=== PATIENT | female | born 1980 | race Caucasian/White ===

== ENCOUNTER 2016-04-27 10:31 | Emergency (ER) | payer OTHER ==
[2016-04-27 11:53] LABS: BASO % 0.4 % (0.0-1.0); EOS # 0.2 K/mm3 (0.0-0.50); EOS % 2.8 % (0.0-3.0); LARGE UNSTAINED CELL # 0.1 K/mm3 (0.0-0.4); LARGE UNSTAINED CELL % 1.5 % (0.0-4.0); LYMPH # 2.2 K/mm3 (1.5-4.5); LYMPH % 35.6 % (24.0-44.0); MEAN CORPUSCULAR HGB CONC 34.3 g/dl (32.0-36.5); MEAN CORPUSCULAR VOLUME 90.5 fl (80.0-96.0); MONO # 0.3 K/mm3 (0.0-0.8); MONO % 5.4 % (0.0-5.0); NEUTROPHILS # 3.3 K/mm3 (1.8-7.7); NEUTROPHILS % 54.3 % (36.0-66.0); PLATELET COUNT, AUTOMATED 258 k/mm3 (150-450); RED CELL DISTRIBUTION WIDTH 12.3 % (11.5-14.5); WHITE BLOOD COUNT 6.2 K/mm3 (4.0-10.0)
[2016-04-27 12:18] LABS: URIC ACID 5.4 MG/DL (2.6-6.0)
[2016-04-27 12:25] LABS: ERYTHROCYTE SEDIMENTATION RATE 17 mm/hr (0-20)
--- NOTE | 2016-04-27 12:26 | REP ---
LEFT WRIST, TWO VIEWS: HISTORY: Pain. There is no acute fracture or dislocation. The joint spaces are normal in appearance. An ossified density is present adjacent to the ulnar styloid process. This may represent an old avulsion fracture fragment or ligamentous or tendon calcification. IMPRESSION: There is no acute fracture or dislocation. Signed by Andrea Pat MD 04/27/2016 12:41 P
--- NOTE | 2016-04-27 13:46 | EDDOCDS ---
Nurse's Notes [facility] Name: Antonette Salcedo Age: 35 yrs Sex: Female : 1980 Arrival Date: 04/27/2016 Time: 10:31 Bed TR8 Private MD: Merrick Driscoll Diagnosis: Pain in left wrist-inflammatory/reactive arthritis Presentation: 04/27 10:38 Presenting complaint: Patient states: left wrist pain today. no injury. Adult Sepsis srm Screening: The patient does not have new or worsening altered mentation. Patient's respiratory rate is less than 22. Systolic blood pressure is greater than 100. Patient has a qSOFA score of 0- Negative Sepsis Screen. Suicide/Homicide risk assessment- the patient denies having any suicidal and/or homicidal ideations and does not present with any other emotional, behavioral or mental health complaints. 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 Transition of care: patient was not received from another setting of care. 10:38 Acuity: HARMONY Level 4 srm 10:38 Method Of Arrival: Walkin/Carried/Asstd srm Triage Assessment: 10:39 General: Appears in no apparent distress, Behavior is appropriate for age, cooperative. srm Pain: Pain currently is 7 out of 10 on a pain scale. HIV screening NA for this visit Offered previously. Musculoskeletal: Circulation, motion, and sensation intact Capillary refill < 3 seconds in left fingers. 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 omeprazole 40 mg oral cpDR 2 times per day 2. Topamax 25 mg Oral cpSP 1 caps 2 times per day 3. MVI 2 tabs daily 4. Calcium Citrate Oral daily 5. Vitamin D 81609 units BID 6. Vitamin D 51889 units weekly - PMHx: Hypercholesterolemia; Hypertension; GERD; headaches; - PSHx: Cholecystectomy; Gastric Bypass(December 17, 2013); - Social history: Smoking status: Patient uses tobacco products, current every day smoker. No barriers to communication noted, The patient speaks fluent Mosotho, Speaks appropriately for age. - : The pt / caregiver states he / she is not on anticoagulants. Home medication list is obtained from the patient. - Exposure Risk Screening:: None identified. Vital Signs: 10:33 BP 165 / 94; Pulse 64; Resp 18; Temp 97.0(O); Pulse Ox 100% on R/A; Weight 113.4 kg ct3 (R); Height 5 ft. 7 in. (170.18 cm) (R); Pain 7/10; 12:35 BP 137 / 95; Pulse 60; Resp 18; Temp 96.9(O); Pulse Ox 97% on R/A; Pain 6/10; jb5 10:33 Body Mass Index 39.16 (113.40 kg, 170.18 cm) ct3 Vitals: 10:33 Log In Time: April 27, 2016 at 10:30. ct3 ED Course: 10:33 Patient visited by Mary Ann Mejia PCA. ct3 10:33 Patient moved to Waiting ct3 10:34 Merrick Driscoll is Private Physician. ct3 10:34 Patient moved to Pre RCE ct3 10:38 Triage Initiated srm 10:43 Patient moved to Triage 1 srm 11:13 Roberto Davies PA-C is PHCP. ar2 11:13 Christen Mejia MD is Attending Physician. ar2 11:13 Patient visited by Roberto Davies PA-C. ar2 11:33 Sed Rate Sent. jf3 11:33 CRP Sent. jf3 11:33 Uric Acid Sent. jf3 11:33 CBC with Diff Sent. jf3 11:34 Patient moved to TR1 jf3 11:38 [facility] Payment Agreement was scanned into [employer] and attached to record. lg 12:31 Patient visited by Nancy Benitez PCA. jb5 12:31 Patient moved to PR1 / 25 jb5 12:35 Patient visited by Nancy Benitez PCA. jb5 12:45 Merrick Driscoll is Referral Physician. ar2 12:57 Patient moved to TR2 jf3 12:58 Wrist (AP\E\Lat) Returned. EDMS 13:07 Patient moved to TR8 jb5 Point of Care Testing: Urine : 11:32 hCG Reading: Negative; Control Reading: Positive; srm Ranges: Order Results: Lab Order: CBC with Diff; SPEC'M 04/27/16 11:33 Test: WHITE BLOOD COUNT; Value: 6.2; Range: 4.0-10.0; Units: K/mm3; Status: F Test: RED BLOOD COUNT; Value: 4.37; Range: 4.00-5.40; Units: M/mm3; Status: F Test: HEMOGLOBIN; Value: 13.5; Range: 12.0-16.0; Units: g/dl; Status: F Test: HEMATOCRIT; Value: 39.5; Range: 36.0-47.0; Units: %; Status: F Test: MEAN CORPUSCULAR VOLUME; Value: 90.5; Range: 80.0-96.0; Units: fl; Status: F Test: MEAN CORPUSCULAR HEMOGLOBIN; Value: 31.0; Range: 27.0-33.0; Units: pg; Status: F Test: MEAN CORPUSCULAR HGB CONC; Value: 34.3; Range: 32.0-36.5; Units: g/dl; Status: F Test: RED CELL DISTRIBUTION WIDTH; Value: 12.3; Range: 11.5-14.5; Units: %; Status: F Test: PLATELET COUNT, AUTOMATED; Value: 258; Range: 150-450; Units: k/mm3; Status: F Test: NEUTROPHILS %; Value: 54.3; Range: 36.0-66.0; Units: %; Status: F Test: LYMPH %; Value: 35.6; Range: 24.0-44.0; Units: %; Status: F Test: MONO %; Value: 5.4; Range: 0.0-5.0; Abnormal: Above high normal; Units: %; Status: F Test: EOS %; Value: 2.8; Range: 0.0-3.0; Units: %; Status: F Test: BASO %; Value: 0.4; Range: 0.0-1.0; Units: %; Status: F Test: LARGE UNSTAINED CELL %; Value: 1.5; Range: 0.0-4.0; Units: %; Status: F Test: NEUTROPHILS #; Value: 3.3; Range: 1.8-7.7; Units: K/mm3; Status: F Test: LYMPH #; Value: 2.2; Range: 1.5-4.5; Units: K/mm3; Status: F Test: MONO #; Value: 0.3; Range: 0.0-0.8; Units: K/mm3; Status: F Test: EOS #; Value: 0.2; Range: 0.0-0.50; Units: K/mm3; Status: F Test: BASO #; Value: 0.0; Range: 0.0-0.2; Units: K/mm3; Status: F Test: LARGE UNSTAINED CELL #; Value: 0.1; Range: 0.0-0.4; Units: K/mm3; Status: F Lab Order: Uric Acid; SPEC'M 04/27/16 11:33 Test: URIC ACID; Value: 5.4; Range: 2.6-6.0; Units: MG/DL; Status: F Lab Order: CRP; SPEC'M 04/27/16 11:33 Test: C REACTIVE PROTEIN QUANTITATIV; Value: < 0.30; Range: 0.00-0.30; Units: MG/DL; Status: F Lab Order: Sed Rate; SPEC'M 04/27/16 11:33 Test: ERYTHROCYTE SEDIMENTATION RATE; Value: 17; Range: 0-20; Units: mm/hr; Status: F Radiology Order: Wrist (AP\E\Lat) Test: Wrist (AP\E\Lat) REASON FOR EXAMINATION: non traumatic pain; LEFT WRIST, TWO VIEWS:; ; HISTORY: Pain.; ; There is no acute fracture or dislocation. The joint spaces are normal in; appearance. An ossified density is present adjacent to the ulnar styloid; process. This may represent an old avulsion fracture fragment or ligamentous or; tendon calcification.; ; IMPRESSION:; ; There is no acute fracture or dislocation.; ; ; Signed by; Andrea Pat MD 04/27/2016 12:41 P; Outcome: 12:46 Discharge ordered by Provider. ar2 13:45 Patient left the ED. dy Signatures: Dispatcher MedHost EDMS Jodi Mcintyre, RN RN Jada Blankenship, Juliano Sahu lg, RN RN dy Baker, Janet, MOTION PICTURE EQUIPMENT SUPERVISOR MOTION PICTURE EQUIPMENT SUPERVISOR jb5 Roberto Davies PA-C PA-C ar2 Mary Ann Mejia, MOTION PICTURE EQUIPMENT SUPERVISOR MOTION PICTURE EQUIPMENT SUPERVISOR ct3 Eron Moise,ASHU [place] jf3 MTDD
--- NOTE | 2016-04-27 13:46 | EDDOCDS ---
Physician Documentation Name: Antonette Salcedo Age: 35 yrs Sex: Female : 1980 Arrival Date: 04/27/2016 Time: 10:31 Bed TR8 Private MD: Merrick Driscoll Disposition: 04/27/16 12:46 Discharged to Home/Self Care. Impression: Pain in left wrist - inflammatory/reactive arthritis. - Condition is Stable. - Discharge Instructions: Arthralgia, Wrist Pain. - Prescriptions for Prednisone 20 mg Oral Tablet - take 2 tablet by ORAL route once daily for 5 days; 10 tablet. - Medication Reconciliation, Local Pharmacy Hours form. - Follow up: Merrick Driscoll; When: 4 - 5 days; Reason: Recheck today's complaints. - Problem is new. - Symptoms are unchanged. - Notes: apply cold compresses. take steriods as directed. Historical: - Allergies: no known allergies; - Home Meds: 1. omeprazole 40 mg oral cpDR 2 times per day 2. Topamax 25 mg Oral cpSP 1 caps 2 times per day 3. MVI 2 tabs daily 4. Calcium Citrate Oral daily 5. Vitamin D 72610 units BID 6. Vitamin D 47880 units weekly - PMHx: Hypercholesterolemia; Hypertension; GERD; headaches; - PSHx: Cholecystectomy; Gastric Bypass(December 17, 2013); - Social history: Smoking status: Patient uses tobacco products, current every day smoker. No barriers to communication noted, The patient speaks fluent [place], Speaks appropriately for age. - : The pt / caregiver states he / she is not on anticoagulants. Home medication list is obtained from the patient. - Exposure Risk Screening:: None identified. 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 7 in. (170.18 cm) (R); Pain 7/10; 12:35 BP 137 / 95; Pulse 60; Resp 18; Temp 96.9(O); Pulse Ox 97% on R/A; Pain 6/10; jb5 10:33 Body Mass Index 39.16 (113.40 kg, 170.18 cm) ct3 MDM: 11:22 UCG by Nursing ordered. ar2 11:24 Wrist (AP\E\Lat) Ordered. EDMS 11:24 CBC with Diff Ordered. EDMS 11:24 Uric Acid Ordered. EDMS 11:24 CRP Ordered. EDMS 11:24 Sed Rate Ordered. EDMS 11:38 Financial registration complete. lg 11:38 [facility] Payment Agreement was scanned into [employer] and attached to record. lg 12:41 CBC with Diff Reviewed. ar2 12:41 Uric Acid Reviewed. ar2 12:41 CRP Reviewed. ar2 12:41 Sed Rate Reviewed. ar2 Point of Care Testing: Urine : 11:32 hCG Reading: Negative; Control Reading: Positive; srm Ranges: Signatures: Dispatcher [employer] Jodi Holt, RN RN Jada Blankenship, Reg Reg lg Juliano Trujillo RN Roberto Queen, ELIOT PAAlin ar2 The chart was reviewed and I authenticate all verbal orders and agree with the evaluation and treatment provided.Attachments: 11:38 [facility] Payment Agreement lg MTDD
--- NOTE | 2016-04-29 14:46 | EDDOCDS ---
Nurse's Notes [facility] Name: Antonette Salcedo Age: 35 yrs Sex: Female : 1980 Arrival Date: 04/27/2016 Time: 10:31 Bed TR8 Private MD: Merrick Driscoll Diagnosis: Pain in left wrist-inflammatory/reactive arthritis Presentation: 04/27 10:38 Presenting complaint: Patient states: left wrist pain today. no injury. Adult Sepsis srm Screening: The patient does not have new or worsening altered mentation. Patient's respiratory rate is less than 22. Systolic blood pressure is greater than 100. Patient has a qSOFA score of 0- Negative Sepsis Screen. Suicide/Homicide risk assessment- the patient denies having any suicidal and/or homicidal ideations and does not present with any other emotional, behavioral or mental health complaints. 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 Transition of care: patient was not received from another setting of care. 10:38 Acuity: HARMONY Level 4 srm 10:38 Method Of Arrival: Walkin/Carried/Asstd srm Triage Assessment: 10:39 General: Appears in no apparent distress, Behavior is appropriate for age, cooperative. srm Pain: Pain currently is 7 out of 10 on a pain scale. HIV screening NA for this visit Offered previously. Musculoskeletal: Circulation, motion, and sensation intact Capillary refill < 3 seconds in left fingers. 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 omeprazole 40 mg oral cpDR 2 times per day 2. Topamax 25 mg Oral cpSP 1 caps 2 times per day 3. MVI 2 tabs daily 4. Calcium Citrate Oral daily 5. Vitamin D 58327 units BID 6. Vitamin D 24840 units weekly - PMHx: Hypercholesterolemia; Hypertension; GERD; headaches; - PSHx: Cholecystectomy; Gastric Bypass(December 17, 2013); - Social history: Smoking status: Patient uses tobacco products, current every day smoker. No barriers to communication noted, The patient speaks fluent Israeli, Speaks appropriately for age. - : The pt / caregiver states he / she is not on anticoagulants. Home medication list is obtained from the patient. - Exposure Risk Screening:: None identified. Vital Signs: 10:33 BP 165 / 94; Pulse 64; Resp 18; Temp 97.0(O); Pulse Ox 100% on R/A; Weight 113.4 kg ct3 (R); Height 5 ft. 7 in. (170.18 cm) (R); Pain 7/10; 12:35 BP 137 / 95; Pulse 60; Resp 18; Temp 96.9(O); Pulse Ox 97% on R/A; Pain 6/10; jb5 10:33 Body Mass Index 39.16 (113.40 kg, 170.18 cm) ct3 Vitals: 10:33 Log In Time: April 27, 2016 at 10:30. ct3 ED Course: 10:33 Patient visited by Mary Ann Mejia PCA. ct3 10:33 Patient moved to Waiting ct3 10:34 Merrick Driscoll is Private Physician. ct3 10:34 Patient moved to Pre RCE ct3 10:38 Triage Initiated srm 10:43 Patient moved to Triage 1 srm 11:13 Roberto Davies PA-C is PHCP. ar2 11:13 Christen Mejia MD is Attending Physician. ar2 11:13 Patient visited by Roberto Davies PA-C. ar2 11:33 Sed Rate Sent. jf3 11:33 CRP Sent. jf3 11:33 Uric Acid Sent. jf3 11:33 CBC with Diff Sent. jf3 11:34 Patient moved to TR1 jf3 11:38 [facility] Payment Agreement was scanned into [employer] and attached to record. lg 12:31 Patient visited by Nancy Benitez PCA. jb5 12:31 Patient moved to PR1 / 25 jb5 12:35 Patient visited by Nancy Benitez PCA. jb5 12:45 Merrick Driscoll is Referral Physician. ar2 12:57 Patient moved to TR2 jf3 12:58 Wrist (AP\E\Lat) Returned. EDMS 13:07 Patient moved to TR8 jb5 14:17 T-Sheet-- Draft Copy was scanned into [employer] and attached to record. gb 14:17 Radiology Report was scanned into [employer] and attached to record. gb Point of Care Testing: Urine : 11:32 hCG Reading: Negative; Control Reading: Positive; srm Ranges: Order Results: Lab Order: CBC with Diff; SPEC'M 04/27/16 11:33 Test: WHITE BLOOD COUNT; Value: 6.2; Range: 4.0-10.0; Units: K/mm3; Status: F Test: RED BLOOD COUNT; Value: 4.37; Range: 4.00-5.40; Units: M/mm3; Status: F Test: HEMOGLOBIN; Value: 13.5; Range: 12.0-16.0; Units: g/dl; Status: F Test: HEMATOCRIT; Value: 39.5; Range: 36.0-47.0; Units: %; Status: F Test: MEAN CORPUSCULAR VOLUME; Value: 90.5; Range: 80.0-96.0; Units: fl; Status: F Test: MEAN CORPUSCULAR HEMOGLOBIN; Value: 31.0; Range: 27.0-33.0; Units: pg; Status: F Test: MEAN CORPUSCULAR HGB CONC; Value: 34.3; Range: 32.0-36.5; Units: g/dl; Status: F Test: RED CELL DISTRIBUTION WIDTH; Value: 12.3; Range: 11.5-14.5; Units: %; Status: F Test: PLATELET COUNT, AUTOMATED; Value: 258; Range: 150-450; Units: k/mm3; Status: F Test: NEUTROPHILS %; Value: 54.3; Range: 36.0-66.0; Units: %; Status: F Test: LYMPH %; Value: 35.6; Range: 24.0-44.0; Units: %; Status: F Test: MONO %; Value: 5.4; Range: 0.0-5.0; Abnormal: Above high normal; Units: %; Status: F Test: EOS %; Value: 2.8; Range: 0.0-3.0; Units: %; Status: F Test: BASO %; Value: 0.4; Range: 0.0-1.0; Units: %; Status: F Test: LARGE UNSTAINED CELL %; Value: 1.5; Range: 0.0-4.0; Units: %; Status: F Test: NEUTROPHILS #; Value: 3.3; Range: 1.8-7.7; Units: K/mm3; Status: F Test: LYMPH #; Value: 2.2; Range: 1.5-4.5; Units: K/mm3; Status: F Test: MONO #; Value: 0.3; Range: 0.0-0.8; Units: K/mm3; Status: F Test: EOS #; Value: 0.2; Range: 0.0-0.50; Units: K/mm3; Status: F Test: BASO #; Value: 0.0; Range: 0.0-0.2; Units: K/mm3; Status: F Test: LARGE UNSTAINED CELL #; Value: 0.1; Range: 0.0-0.4; Units: K/mm3; Status: F Lab Order: Uric Acid; SPEC'M 04/27/16 11:33 Test: URIC ACID; Value: 5.4; Range: 2.6-6.0; Units: MG/DL; Status: F Lab Order: CRP; SPEC'M 04/27/16 11:33 Test: C REACTIVE PROTEIN QUANTITATIV; Value: < 0.30; Range: 0.00-0.30; Units: MG/DL; Status: F Lab Order: Sed Rate; SPEC'M 04/27/16 11:33 Test: ERYTHROCYTE SEDIMENTATION RATE; Value: 17; Range: 0-20; Units: mm/hr; Status: F Radiology Order: Wrist (AP\E\Lat) Test: Wrist (AP\E\Lat) REASON FOR EXAMINATION: non traumatic pain; LEFT WRIST, TWO VIEWS:; ; HISTORY: Pain.; ; There is no acute fracture or dislocation. The joint spaces are normal in; appearance. An ossified density is present adjacent to the ulnar styloid; process. This may represent an old avulsion fracture fragment or ligamentous or; tendon calcification.; ; IMPRESSION:; ; There is no acute fracture or dislocation.; ; ; Signed by; Andrea Pat MD 04/27/2016 12:41 P; Outcome: 12:46 Discharge ordered by Provider. ar2 13:45 Patient left the ED. dy Signatures: Dispatcher MedHost EDMS Jodi Mcintyre, RN [facility] Tatiana Rosa, Reg Reg gb Jada Reyes, Reg Reg lg Juliano Trujillo RN RN dy Baker, Janet, SHANTI ELECTRONIC SCIENCE TEACHER jb5 Roberto Davies PA-C PA-C ar2 Mary Ann Mejia, ELECTRONIC SCIENCE TEACHER ELECTRONIC SCIENCE TEACHER ct3 Eron Moise,RN RN jf3 Chart Complete MTDD
--- NOTE | 2016-04-29 14:46 | EDDOCDS ---
Physician Documentation [facility] Name: Antonette Salcedo Age: 35 yrs Sex: Female : 1980 Arrival Date: 04/27/2016 Time: 10:31 Bed TR8 Private MD: Merrick Driscoll Disposition: 04/27/16 12:46 Discharged to Home/Self Care. Impression: Pain in left wrist - inflammatory/reactive arthritis. - Condition is Stable. - Discharge Instructions: Arthralgia, Wrist Pain. - Prescriptions for Prednisone 20 mg Oral Tablet - take 2 tablet by ORAL route once daily for 5 days; 10 tablet. - Medication Reconciliation, Local Pharmacy Hours form. - Follow up: Merrick Driscoll; When: 4 - 5 days; Reason: Recheck today's complaints. - Problem is new. - Symptoms are unchanged. - Notes: apply cold compresses. take steriods as directed. Historical: - Allergies: no known allergies; - Home Meds: 1. omeprazole 40 mg oral cpDR 2 times per day 2. Topamax 25 mg Oral cpSP 1 caps 2 times per day 3. MVI 2 tabs daily 4. Calcium Citrate Oral daily 5. Vitamin D 47467 units BID 6. Vitamin D 81442 units weekly - PMHx: Hypercholesterolemia; Hypertension; GERD; headaches; - PSHx: Cholecystectomy; Gastric Bypass(December 17, 2013); - Social history: Smoking status: Patient uses tobacco products, current every day smoker. No barriers to communication noted, The patient speaks fluent French, Speaks appropriately for age. - : The pt / caregiver states he / she is not on anticoagulants. Home medication list is obtained from the patient. - Exposure Risk Screening:: None identified. 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 7 in. (170.18 cm) (R); Pain 7/10; 12:35 BP 137 / 95; Pulse 60; Resp 18; Temp 96.9(O); Pulse Ox 97% on R/A; Pain 6/10; jb5 10:33 Body Mass Index 39.16 (113.40 kg, 170.18 cm) ct3 MDM: 11:22 UCG by Nursing ordered. ar2 11:24 Wrist (AP\E\Lat) Ordered. EDMS 11:24 CBC with Diff Ordered. EDMS 11:24 Uric Acid Ordered. EDMS 11:24 CRP Ordered. EDMS 11:24 Sed Rate Ordered. EDMS 11:38 Financial registration complete. lg 11:38 [facility] Payment Agreement was scanned into [employer] and attached to record. lg 12:41 CBC with Diff Reviewed. ar2 12:41 Uric Acid Reviewed. ar2 12:41 CRP Reviewed. ar2 12:41 Sed Rate Reviewed. ar2 14:17 T-Sheet-- Draft Copy was scanned into [employer] and attached to record. gb 14:17 Radiology Report was scanned into [employer] and attached to record. gb Point of Care Testing: Urine : 11:32 hCG Reading: Negative; Control Reading: Positive; srm Ranges: Signatures: Dispatcher [employer] Jodi Holt RN RN srm Tatiana Rosa, Reg Reg gb Jada Reyes, Reg Reg lg Juliano Trujillo RN RN dy Robertshaw, Aaron, PA-Najma PA-Najma ar2 The chart was reviewed and I authenticate all verbal orders and agree with the evaluation and treatment provided.Attachments: 11:38 [facility] Payment Agreement lg 14:17 T-Sheet-- Draft Copy gb Chart Complete MTDD
--- NOTE | 2016-04-29 14:46 | EDDOCDS ---
Physician Documentation [facility] Name: Antonette Salcedo Age: 35 yrs Sex: Female : 1980 Arrival Date: 04/27/2016 Time: 10:31 Bed TR8 Private MD: Merrick Driscoll Disposition: 04/27/16 12:46 Discharged to Home/Self Care. Impression: Pain in left wrist - inflammatory/reactive arthritis. - Condition is Stable. - Discharge Instructions: Arthralgia, Wrist Pain. - Prescriptions for Prednisone 20 mg Oral Tablet - take 2 tablet by ORAL route once daily for 5 days; 10 tablet. - Medication Reconciliation, Local Pharmacy Hours form. - Follow up: Merrick Driscoll; When: 4 - 5 days; Reason: Recheck today's complaints. - Problem is new. - Symptoms are unchanged. - Notes: apply cold compresses. take steriods as directed. Historical: - Allergies: no known allergies; - Home Meds: 1. omeprazole 40 mg oral cpDR 2 times per day 2. Topamax 25 mg Oral cpSP 1 caps 2 times per day 3. MVI 2 tabs daily 4. Calcium Citrate Oral daily 5. Vitamin D 56621 units BID 6. Vitamin D 92915 units weekly - PMHx: Hypercholesterolemia; Hypertension; GERD; headaches; - PSHx: Cholecystectomy; Gastric Bypass(December 17, 2013); - Social history: Smoking status: Patient uses tobacco products, current every day smoker. No barriers to communication noted, The patient speaks fluent Latvian, Speaks appropriately for age. - : The pt / caregiver states he / she is not on anticoagulants. Home medication list is obtained from the patient. - Exposure Risk Screening:: None identified. 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 7 in. (170.18 cm) (R); Pain 7/10; 12:35 BP 137 / 95; Pulse 60; Resp 18; Temp 96.9(O); Pulse Ox 97% on R/A; Pain 6/10; jb5 10:33 Body Mass Index 39.16 (113.40 kg, 170.18 cm) ct3 MDM: 11:22 UCG by Nursing ordered. ar2 11:24 Wrist (AP\E\Lat) Ordered. EDMS 11:24 CBC with Diff Ordered. EDMS 11:24 Uric Acid Ordered. EDMS 11:24 CRP Ordered. EDMS 11:24 Sed Rate Ordered. EDMS 11:38 Financial registration complete. lg 11:38 [facility] [place] Payment Agreement was scanned into [employer] and attached to record. lg 12:41 CBC with Diff Reviewed. ar2 12:41 Uric Acid Reviewed. ar2 12:41 CRP Reviewed. ar2 12:41 Sed Rate Reviewed. ar2 14:17 T-Sheet-- Draft Copy was scanned into [employer] and attached to record. gb 14:17 Radiology Report was scanned into [employer] and attached to record. gb Point of Care Testing: Urine : 11:32 hCG Reading: Negative; Control Reading: Positive; srm Ranges: Signatures: Dispatcher [employer] Jodi Holt RN RN srm Tatiana Rosa, Reg Reg gb Jada Reyes, Reg Reg lg Juliano Trujillo RN RN dy Robertshaw, Aaron, PA-Najma PA-Najma ar2 The chart was reviewed and I authenticate all verbal orders and agree with the evaluation and treatment provided.Attachments: 11:38 [facility] Payment Agreement lg 14:17 T-Sheet-- Draft Copy gb Chart Complete MTDD
== END 2016-04-27 13:45 | disposition home or self-care (01) ==
LOC: M ED 10:31
DX: M25.532 Pain in left wrist (principal); E78.00 Pure hypercholesterolemia, unspecified; I10 Essential (primary) hypertension; K21.9 Gastro-esophageal reflux disease without esophagitis; R51 Headache; F17.210 Nicotine dependence, cigarettes, uncomplicated; Z79.899 Other long term (current) drug therapy; Z98.84 Bariatric surgery status

== ENCOUNTER → 2016-06-07 | Outpatient (CLI) | payer OTHER ==
--- NOTE | 2016-06-08 08:34 | REP ---
MRI CERVICAL SPINE WITHOUT CONTRAST: HISTORY: Neck and shoulder pain. There is no disc bulge or herniation. The spinal canal and the neural foramina are patent. The spinal cord is normal in signal intensity. There is no intradural extramedullary lesion. Normal signal intensity is present in the cervical vertebral bodies. IMPRESSION: There is no disc bulge or herniation. Signed by Andrea Pat MD 06/08/2016 08:40 [facility]
== END ==
LOC: M RAD 17:42
PROVIDERS: ATTEND Pain Medicine Interventional Pain Medicine
DX: M43.12 Spondylolisthesis, cervical region (principal)

== ENCOUNTER 2016-08-05 09:51 | Inpatient (IN) | payer OTHER ==
[~2016-08-05] VITALS: Ht 170.2 cm; Wt 109.7 kg
[2016-08-05] MEDS ORDERED: OMEP20CA3 PO (10:15)
[2016-08-05 11:52] LABS: MEAN CORPUSCULAR HEMOGLOBIN 32.7 pg (27.0-33.0); MEAN CORPUSCULAR HGB CONC 35.5 g/dl (32.0-36.5); MEAN CORPUSCULAR VOLUME 92.2 fl (80.0-96.0); RED CELL DISTRIBUTION WIDTH 13.1 % (11.5-14.5); WHITE BLOOD COUNT 5.8 K/mm3 (4.0-10.0)
[2016-08-05 12:10] LABS: CONTROL LINE HCG INT CTR LINE PRESENT
[2016-08-05 12:12] LABS: METHADONE URINE NEGATIVE (NEGATIVE)
[2016-08-05 12:22] LABS: ALBUMIN 3.4 GM/DL (3.2-5.2); ALBUMIN/GLOBULIN RATIO 1.13 (1.00-1.93); ALKALINE PHOSPHATASE 67 U/L (45-117); ALT/SGPT 18 U/L (12-78); ANION GAP 7 MEQ/L (8-16); AST/SGOT 9 U/L (15-37); BILIRUBIN,DIRECT 0.1 MG/DL (0.0-0.2); BILIRUBIN,TOTAL 0.5 MG/DL (0.2-1.0); BLOOD UREA NITROGEN 8 MG/DL (7-18); CALCIUM LEVEL 8.5 MG/DL (8.5-10.1); CARBON DIOXIDE LEVEL 25 MEQ/L (21-32); CHLORIDE LEVEL 109 MEQ/L (98-107); CREATININE FOR GFR 0.66 MG/DL (0.55-1.02); GLOMERULAR FILTRATION RATE > 60.0 (>60); GLUCOSE, FASTING 92 MG/DL (70-105); SODIUM LEVEL 141 MEQ/L (136-145); TOTAL PROTEIN 6.4 GM/DL (6.4-8.2)
[2016-08-05] MEDS ORDERED: LORazepam 1 MG TAB PO PRN (15:00)
[2016-08-05] MEDS ORDERED: MAALOX 30 ML SUSP *UDC PO PRN (15:00)
[2016-08-05] MEDS ORDERED: MOM 30ML SUSPENSION UDC PO PRN (15:00)
[2016-08-05] MEDS ORDERED: ACETAMINOPHEN TAB 650MG DOSE (2X325MG) PO PRN (15:00)
[2016-08-05] MEDS ORDERED: VITA-122 PO (15:38)
[2016-08-05] MEDS ORDERED: VITA10002 PO (15:38)
[2016-08-05] MEDS ORDERED: VITMTA PO (15:38)
[2016-08-05] MEDS: OMEPRAZOLE 20 MG CAP PO SCH (20:21)
--- NOTE | 2016-08-05 21:59 | HPE ---
DATE OF ADMISSION: 08/05/2016 Please refer to the psychiatric history and evaluation for further details on this admission. This examination and history is intended for medical issues which may need treatment, followup, or consult on this 35-year-old female. ALLERGIES: No known allergies. PRIMARY CARE PROVIDER: Dr. Driscoll SOCIAL HISTORY: She is single. Ethyl alcohol (EtOH) rarely. Smokes one pack of cigarettes per day. Recreational drug use: None. PAST MEDICAL HISTORY: 1. Gastroesophageal reflux disease (GERD). 2. Migraines. PAST SURGICAL HISTORY: 1. Gastric bypass 2013. 2. Cholecystectomy. HOME MEDICATIONS: - omeprazole 20 mg by mouth daily FAMILY HISTORY: Noncontributory. LABORATORY STUDIES: CBC is normal. Sodium 141, potassium 4.0, chloride 109, CO2 25, BUN 8, creatinine 0.66. Toxicology was negative. REVIEW OF SYSTEMS: Ten systems review was done and was unremarkable. The patient has a history of migraines, none currently. GERD, good control with omeprazole, no breakthrough pain. She had no medical complaints. OBJECTIVE: 35-year-old obese female in no acute distress. Height 67 inches, weight 109.7 kg, body mass index (BMI) 37.9. Blood pressure 137/84, pulse 58, respirations 18, temperature 97.0. Patient is alert and oriented times three. Pupils equal and reactive to light. Extraocular movements are intact. Cornea and sclerae clear. Conjunctivae is normal. No facial asymmetry. Pharynx, tongue, gums pink and moist. Tongue is midline. NECK: Supple without lymphadenopathy. No thyromegaly. No goiter. Carotids 2+ without bruit. CHEST: Clear to auscultation without wheeze or retraction. HEART: Regular. ABDOMEN: Benign. Bowel sounds positive. GENITOURINARY/RECTAL: Not done. EXTREMITIES: Show equal strength. Full range of motion. No cyanosis, clubbing, or edema. Peripheral pulses equal and palpable bilaterally. SKIN: Warm and dry. IMPRESSION/PLAN: 1. Psychiatric plan per psychiatry. 2. History of gastroesophageal reflux disease (GERD), stable. Continue omeprazole 20 mg by mouth daily. 3. History of migraines. Continue Maxalt 10 mg as needed for migraine. No acute medical issues. Continued followup with primary care provider on discharge.
[2016-08-06 06:48] VITALS: BP 146/92
[2016-08-06] MEDS: OMEPRAZOLE 20 MG CAP PO SCH ×2 (08:04→20:39)
--- NOTE | 2016-08-06 13:03 | HPEPDOC ---
[facility] History & Physical History and Physical DATE OF ADMISSION: Aug 05, 2016 at 14:49 CHIEF COMPLAINT: "Overwhelming emotions, financial and relationship issues, and I really needed to talk to someone." HISTORY OF THE PRESENT ILLNESS: Patient is a 35-year-old female, who presented to the emergency room for evaluation due to feeling depressed and "frustrated with everything in my life." Patient denies having intent to harm self but notes she had "thought about several ways," listing overdosing, slitting wrists , driving vehicle off road. Patient states approximately 2 weeks ago she began feeling anxiety and depression, notes symptoms worsened after recently discovering that her boyfriend had been cheating on her, patient also endorses financial strain. Patient adds one other motivating factor for presenting in the emergency room is "I wanted to get in to see an outpatient therapist and I didn't want to wait until next year to get in and I knew if I came inpatient than I would have to be scheduled to see someone within a week of discharge." Patient notes she has struggled with depression "off and on for the past few years, usually the symptoms go away but this time they didn't and they just kept getting worse." Patient reports experiencing the following symptoms in the past 2 weeks: Anxiety, decreased appetite, depressed mood, helplessness and hopelessness, reduced impulse control, relationship tension, reduced sleep, suicidal ideation patient states she attempted to commit suicide times one age 17 by cutting wrists. Patient denies history of other self-injurious behavior and denies history of prior hospitalizations. Patient rates current anxiety level is 1/10, depression 1/10, denies suicidal and homicidal ideation, denies audiovisual hallucinations, and denies urge to engage in self-injurious behavior. Patient endorses history of discomfort in social settings, endorses history of panic attacks noting she last experienced severe anxiety a few months ago, denies impulse control problems or compulsive behavior, denies irritability, agitation, unsanctioned violence, and denies having access to weapons in the home. Patient denies symptoms of reexperiencing, avoidance, and hypervigilance, denies mood lability, hypomania or malinda, indicates appetite has been generally stable. Patient states she sleeps approximately 5-8 hours per night, denies latency or nightmare challenges, notes she wakes up during the night. Patient states she feels comfortable on unit, informs film writer "I think I just needed some time to gather my thoughts and get in to see a therapist." PSYCHIATRIC REVIEW OF SYSTEMS: Affective: Depressed Anxiety: Endorses. Trauma: Denies. Psychosis: Denies. Personally: Engageable, pleasant cooperative. PAST PSYCHIATRIC HISTORY: Prior Psychiatric Disorder: Depression, anxiety Outpatient Treatment: August 1999 12/15/2010 outpatient therapy and medication management. Suicidal/Self injurious: Denies SIB, reports suicide attempt age 17 by cutting wrists Psychotropic Medication History: Lexapro, gabapentin, Geodon, trazodone, Celexa ALLERGIES: Please see below. FAMILY PSYCHIATRIC HISTORY: Patient denies SOCIAL HISTORY: Early Relations/development: Patient states she was born and raised in an intact unit in the [facility] by her parents who are still living and together. Sibling order: Not assessed Paternal relationships: Indicates she feels close to parents Education: High school graduate. 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 Also notes smoked marijuana 2-3 weeks ago, prior to that states she last smoked marijuana 10 years ago. She denies history of all other substance use or abuse. PAST MEDICAL/SURGICAL HISTORY: Labs on admission elevated for chloride, low anion gap and AST. GERD, migraines, gastric bypass 2013, cholecystectomy 2013. Patient denies history of seizure or head injury. Patient has mild bruising to left eyelid, notes was self-inflicted when she put her hands to her head in a gesture frustration while arguing with boyfriend. Patient denies having any concerns for her personal safety in the home. UDS negative HCG negative EKG pending VITAL SIGNS: B/P 146/92, P 71, R 18, T 97.8. Elevated, patient placed on vitals 4 times a day MENTAL STATUS EXAMINATION: General appearance: Patient is a 35-year-old female who is pleasant and cooperative, mildly disheveled, dressed in hospital clothing, makes adequate eye contact, ambulates with steady gait, appears stated age Speech: Of normal rate, rhythm, volume, spontaneous, coherent Thought processes: Linear, logical, goal-directed. Thought content: Rational, logical. Abstract reasoning and computation: Intact. Description of associations: Intact. Description of abnormal or psychotic thoughts: Denies suicidal or homicidal ideation, denies auditory or visual hallucinations, does not appear to be responding to internal stimuli, does not endorse bizarre or paranoid ideation, denies preoccupation with violence or obsessions. Judgment: Poor. Insight: Limited. Orientation: A and O 3. Recent and remote memory: Appear intact. Attention span and concentration: Within normal limits. Fund of knowledge: Adequate. Mood: "Much better since being here and being able to think about things." Patient appears depressed and anxious, no mood lability noted Affect: Blunted DIAGNOSES: Major depressive disorder, recurrent, moderate, rule out adjustment disorder ASSESSMENT: Patient appears to be adjusting to unit, is withdrawn to self but is visible on unit, is observed to be walking the hallways and is attending groups. Patient is currently declining psychotropic medications indicating she feels she does not need medication, has taken in the past with good effect reported, indicates she is not interested in taking any medication which may cause weight gain. Medication options were reviewed and patient agrees to consider. Patient denies suicidal and homicidal ideation and verbalizes awareness of how to access supportive services on the unit if needed. Will monitor patient in the inpatient environment, we'll continue to encourage patient to consider taking psychotropic medications in effort to address symptoms of depression, anxiety, and suicidal ideation, and will evaluate patient safety, resolution of suicidal ideation, and discharge readiness. Patient indicates when she is prepared for discharge she would like to return to her mother's home and participate in outpatient psychotherapy. PROBLEM LIST: Suicidal ideation Anxiety Depression Poor impulse control Limited coping skills Relationship strain Financial stress INITIAL TREATMENT PLAN: 1. Patient was admitted on a 9.39 2. Complete history was obtained. 3. With patients permission, family will be contacted and database will be expanded. 4. Patients medication regimen will be reviewed and changed accordingly. 5. Patient will be provided with protected environment. 6. Patient will be treated with individual, group, and milieu therapies. 7. Patient will receive supportive psych-education. 8. Discharge planning will commence immediately. 9. Outpatient follow-up treatment will be strongly recommended. 10. The initial treatment plan will focus initially on: * Depression. * Risk for suicide. ESTIMATED LENGTH OF STAY: 5-7 DAYS. TIME SPENT COUNSELING AND COORDINATING INITIAL CARE: 50 minutes. Medications Scheduled Omeprazole (Omeprazole) 20 Mg Cap 20 MG PO BID (Reported) Allergies Coded Allergies: No Known Allergies (Unverified , 05/24/09) Yoli Oliva Aug 06, 2016 13:02
[2016-08-06 18:00] VITALS: BP 146/71
[2016-08-06] MEDS: traZODone 50 MG TAB PO PRN (22:30)
[2016-08-07 06:33] VITALS: BP 129/72
[2016-08-07] MEDS: OMEPRAZOLE 20 MG CAP PO SCH ×2 (08:15→20:44)
--- NOTE | 2016-08-07 14:25 | IPNPDOC ---
[facility] Progress Note Progress Note DATE OF SERVICE: 08/07/16 HISTORY OF THE PRESENT ILLNESS: Patient is a 35-year-old female who presented to the emergency room for evaluation due to feeling depressed and "frustrated with everything in my life." Patient denies having intent to harm self but notes she had "thought about several ways," listing overdosing, slitting wrists , driving vehicle off road. Patient reports improvement to symptoms of anxiety and depression, denies suicidal and homicidal ideation, denies audiovisual hallucinations, denies urge to engage in self-injurious behavior. Patient has been attending groups, indicates appetite is stable, denies challenges with sleep and utilize trazodone last night with good effect, denies medication side effects. Patient continues to decline psychotropic medication trial, indicates she is considering but expresses concerns related to potential side effects, also states she does not feel she needs medication at this time, wants to participate in psychotherapy once discharged from inpatient treatment. VITALS: See below NEW TEST RESULTS: No new results PAST MEDICAL/SURGICAL HISTORY: Labs on admission elevated for chloride, low anion gap and AST. GERD, migraines, gastric bypass 2013, cholecystectomy 2013. Patient denies history of seizure or head injury. Patient has mild bruising to left eyelid, notes was self-inflicted when she put her hands to her head in a gesture frustration while arguing with boyfriend. Patient denies having any concerns for her personal safety in the home. UDS negative HCG negative EKG pending CURRENT MEDICATIONS: See below MENTAL STATUS EXAMINATION: General appearance: Patient is a 35-year-old female who is pleasant and cooperative, mildly disheveled, dressed in hospital clothing, makes adequate eye contact, ambulates with steady gait, appears stated age Speech: Of normal rate, rhythm, volume, spontaneous, coherent Thought processes: Linear, logical, goal-directed. Thought content: Rational, logical. Abstract reasoning and computation: Intact. Description of associations: Intact. Description of abnormal or psychotic thoughts: Denies suicidal or homicidal ideation, denies auditory or visual hallucinations, does not appear to be responding to internal stimuli, does not endorse bizarre or paranoid ideation, denies preoccupation with violence or obsessions. Judgment: Limited, some improvement noted Insight: Fair, some improvement noted Orientation: A and O 3. Recent and remote memory: Appear intact. Attention span and concentration: Within normal limits. Fund of knowledge: Adequate. Mood: "Better, and had time to think about things, get a perspective." Reports reduced depression and anxiety, no mood lability noted Affect: Blunted, brightens 2, congruent with affect DIAGNOSES: Major depressive disorder, recurrent, moderate, rule out adjustment disorder ASSESSMENT: Patient continues to adjust to unit, is more visible, is engaging selectively, is observed to be walking the hallways and is attending groups. Patient utilize trazodone for sleep last night with good effect reported, continues to decline standing psychotropic medication indicating she feels she does not need medication, expresses concerns about potential side effects, has taken in the past with good effect reported, reiterates she is not interested in taking any medication which may cause weight gain. Medication options were reviewed and patient agrees to consider. Patient denies suicidal and homicidal ideation and verbalizes awareness of how to access supportive services on the unit if needed. Will monitor patient in the inpatient environment, we'll continue to encourage patient to consider taking psychotropic medications in effort to address symptoms of depression, anxiety, and suicidal ideation, and will evaluate patient safety, resolution of suicidal ideation, and discharge readiness. Patient reiterates when she is prepared for discharge she would like to return to her mother's home and participate in outpatient psychotherapy. MANAGEMENT PLAN: Continue trazodone 50 mg po hs PRN insomnia Continue to encourage patient to consider taking psychotropic medication to address symptoms of depression and anxiety Maintain safety precautions Patient to attend groups and participate in unit programming to develop coping strategies Engage patient in discharge planning process and arrange meeting with support system to ensure safe discharge planning when appropriate Patient to follow up with PCM upon discharge TIME SPENT: 35 minutes Vital Signs Vital Signs Date Time Temp Pulse Resp B/P Pulse Ox O2 Delivery O2 Flow Rate FiO2 08/07/16 06:33 97.6 67 16 129/72 08/06/16 06:48 95 Room Air Current Medications Current Medications Acetaminophen (Tylenol Tab) 650 mg Q6HP PRN PO HEADACHE or DISCOMFORT Last administered on 08/05/16t 20:22; Start 08/05/16 at 15:00; Stop 09/04/16 at 14:59 Al Hydrox/Mg Hydrox/Simethicone (Mylanta) 30 ml Q4HP PRN PO HEARTBURN/ INDIGESTION; Start 08/05/16 at 15:00; Stop 09/04/16 at 14:59 Home Med (Med Rec Complete!) ASDIRECTED XX ; Start 08/05/16 at 15:45; Stop at 15:48; Status DC Lorazepam (Ativan) 1 mg BIDP PRN PO ANXIETY/AGITATION; Start 08/05/16 at 15:00 ; Stop 08/12/16 at 14:59 Magnesium Hydroxide (Milk Of Magnesia) 30 ml DAILYPRN PRN PO CONSTIPATION; Start 08/05/16 at 15:00; Stop 09/04/16 at 14:59 Omeprazole (PriLOSEC) 20 mg BID PO Last administered on 08/07/16 08:15; Start 08/05/16 at 21:00; Stop 09/04/16 at 20:59 Trazodone HCl (Desyrel) 50 mg QHSP PRN PO INSOMNIA Last administered on 22:30; Start 08/05/16 at 15:00; Stop 09/04/16 at 14:59 Allergies Coded Allergies: No Known Allergies (Unverified , 05/24/09) Yoli Oliva Aug 07, 2016 14:25
[2016-08-07 18:00] VITALS: BP 122/71
[2016-08-07] MEDS: traZODone 50 MG TAB PO PRN (21:49)
[2016-08-08 06:36] VITALS: BP 124/78
[2016-08-08] MEDS: OMEPRAZOLE 20 MG CAP PO SCH ×2 (08:08→21:02)
--- NOTE | 2016-08-08 15:11 | IPNPDOC ---
[facility] Progress Note Progress Note DATE OF SERVICE: 08/08/16 HISTORY OF THE PRESENT ILLNESS: Patient is a 35-year-old female who presented to the emergency room for evaluation due to feeling depressed and "frustrated with everything in my life." Patient denies having intent to harm self but notes she had "thought about several ways," listing overdosing, slitting wrists , driving vehicle off road. Patient denies symptoms of depression, reports low- grade anxiety only as related to discharge noting, "I really want to get back to work and get back to my life gets started with outpatient treatment." Patient denies suicidal and homicidal ideation, denies audiovisual hallucinations, denies urge to engage in self-injurious behavior. Patient has been attending groups, indicates appetite is stable, denies challenges with sleep and utilized trazodone last night with good effect, denies medication side effects. Patient continues to decline psychotropic medication trial, indicates she we'll consider in the outpatient environment if needed after she has participated in psychotherapy, sites lack of need for medication at this time. Patient is requesting that family be involved in discharge planning, states she feels comfortable with discharge tomorrow with follow-up outpatient treatment. VITALS: See below NEW TEST RESULTS: No new results PAST MEDICAL/SURGICAL HISTORY: Labs on admission elevated for chloride, low anion gap and AST. GERD, migraines, gastric bypass 2013, cholecystectomy 2013. Patient denies history of seizure or head injury. Patient has mild bruising to left eyelid, notes was self-inflicted when she put her hands to her head in a gesture frustration while arguing with boyfriend. Patient denies having any concerns for her personal safety in the home. UDS negative HCG negative EKG pending CURRENT MEDICATIONS: See below MENTAL STATUS EXAMINATION: General appearance: Patient is a 35-year-old female who is pleasant and cooperative, exhibits good personal hygiene, dressed in hospital clothing, makes good eye contact, ambulates with steady gait, appears stated age Speech: Of normal rate, rhythm, volume, spontaneous, coherent Thought processes: Linear, logical, goal-directed. Thought content: Rational, logical. Abstract reasoning and computation: Intact. Description of associations: Intact. Description of abnormal or psychotic thoughts: Denies suicidal or homicidal ideation, denies auditory or visual hallucinations, does not appear to be responding to internal stimuli, does not endorse bizarre or paranoid ideation, denies preoccupation with violence or obsessions. Judgment: Adequate, has improved during treatment Insight: Adequate, has improved during treatment Orientation: A and O 3. Recent and remote memory: Appear intact. Attention span and concentration: Within normal limits. Fund of knowledge: Adequate. Mood: "I feel good, rested, better perspective, ready to get back to life." Reports denies depression, also denies anxiety except as related to desire to discharge, no mood lability noted Affect: Mild constriction, brightens frequently and appropriately, congruent with mood DIAGNOSES: Major depressive disorder, recurrent, moderate, rule out adjustment disorder ASSESSMENT: Patient has adjusted well to unit, has been visible, engages well with peers and staff, and has been participating well in unit programming. Patient utilize trazodone for sleep last night with good effect reported, continues to decline standing psychotropic medication indicating she feels she does not need medication, states she will pursue an outpatient environment if needed after undergoing psychotherapy, reiterates she is not interested in taking any medication which may cause weight gain. Patient denies suicidal and homicidal ideation and verbalizes awareness of how to access supportive services on the unit if needed. Will into need to monitor patient in the inpatient environment and will begin to prepare patient for discharge tomorrow morning. Patient states she feels prepared for discharge tomorrow, plans to return home with mother, and is requesting follow-up outpatient psychotherapy services. MANAGEMENT PLAN: Continue trazodone 50 mg po hs PRN insomnia Maintain safety precautions Patient to attend groups and participate in unit programming to develop coping strategies Engage patient in discharge planning process and arrange meeting with support system to ensure safe discharge planning when appropriate Patient to follow up with PCM upon discharge TIME SPENT: 25 minutes Vital Signs Vital Signs Date Time Temp Pulse Resp B/P (MAP) Pulse Ox O2 Delivery O2 Flow Rate FiO2 08/08/16 06:36 96.3 55 20 124/78 (93) 08/06/16 06:48 95 Room Air Current Medications Current Medications Acetaminophen (Tylenol Tab) 650 mg Q6HP PRN PO HEADACHE or DISCOMFORT Last administered on 08/05/16t 20:22; Start 08/05/16 at 15:00; Stop 09/04/16 at 14:59 Al Hydrox/Mg Hydrox/Simethicone (Mylanta) 30 ml Q4HP PRN PO HEARTBURN/ INDIGESTION; Start 08/05/16 at 15:00; Stop 09/04/16 at 14:59 Home Med (Med Rec Complete!) ASDIRECTED XX ; Start 08/05/16 at 15:45; Stop at 15:48; Status DC Lorazepam (Ativan) 1 mg BIDP PRN PO ANXIETY/AGITATION; Start 08/05/16 at 15:00 ; Stop 08/12/16 at 14:59 Magnesium Hydroxide (Milk Of Magnesia) 30 ml DAILYPRN PRN PO CONSTIPATION; Start 08/05/16 at 15:00; Stop 09/04/16 at 14:59 Omeprazole (PriLOSEC) 20 mg BID PO Last administered on 08/08/16 08:08; Start 08/05/16 at 21:00; Stop 09/04/16 at 20:59 Trazodone HCl (Desyrel) 50 mg QHSP PRN PO INSOMNIA Last administered on 21:49; Start 08/05/16 at 15:00; Stop 09/04/16 at 14:59 Allergies Coded Allergies: No Known Allergies (Unverified , 05/24/09) Yoli Oliva Aug 08, 2016 15:11
[2016-08-08 18:00] VITALS: BP 136/78
[2016-08-09 06:39] VITALS: BP 140/82
[2016-08-09] MEDS: OMEPRAZOLE 20 MG CAP PO SCH (08:21)
--- NOTE | 2016-08-09 08:44 | DS.PDOC ---
[facility] Discharge Summary Discharge Summary DATE OF ADMISSION: Aug 05, 2016 at 14:49 DATE OF DISCHARGE: Aug 09, 2016 HISTORY: Patient is a 35-year-old female, who presented to the emergency room for evaluation due to feeling depressed and "frustrated with everything in my life." Patient denies having intent to harm self but notes she had "thought about several ways," listing overdosing, slitting wrists, driving vehicle off road. Patient states approximately 2 weeks ago she began feeling anxiety and depression, notes symptoms worsened after recently discovering that her boyfriend had been cheating on her, patient also endorses financial strain. Patient adds one other motivating factor for presenting in the emergency room is "I wanted to get in to see an outpatient therapist and I didn't want to wait until next year to get in and I knew if I came inpatient than I would have to be scheduled to see someone within a week of discharge." Patient notes she has struggled with depression "off and on for the past few years, usually the symptoms go away but this time they didn't and they just kept getting worse." Patient reports experiencing the following symptoms in the past 2 weeks: Anxiety , decreased appetite, depressed mood, helplessness and hopelessness, reduced impulse control, relationship tension, reduced sleep, suicidal ideation patient states she attempted to commit suicide times one age 17 by cutting wrists. Patient denies history of other self-injurious behavior and denies history of prior hospitalizations. Patient rates current anxiety level is 1/10, depression 1/10, denies suicidal and homicidal ideation, denies audiovisual hallucinations , and denies urge to engage in self-injurious behavior. Patient endorses history of discomfort in social settings, endorses history of panic attacks noting she last experienced severe anxiety a few months ago, denies impulse control problems or compulsive behavior, denies irritability, agitation, unsanctioned violence, and denies having access to weapons in the home. Patient denies symptoms of reexperiencing, avoidance, and hypervigilance, denies mood lability, hypomania or malinda, indicates appetite has been generally stable. Patient states she sleeps approximately 5-8 hours per night, denies latency or nightmare challenges, notes she wakes up during the night. Patient states she feels comfortable on unit, informs consumer loan underwriter "I think I just needed some time to gather my thoughts and get in to see a therapist." PAST PSYCHIATRIC HISTORY: Prior Psychiatric Disorder: Depression, anxiety Outpatient Treatment: August 1999 12/15/2010 outpatient therapy and medication management. Suicidal/Self injurious: Denies SIB, reports suicide attempt age 17 by cutting wrists Psychotropic Medication History: Lexapro, gabapentin, Geodon, trazodone, Celexa PAST MEDICAL/SURGICAL HISTORY: Labs on admission elevated for chloride, low anion gap and AST. GERD, migraines, gastric bypass 2013, cholecystectomy 2013. Patient denies history of seizure or head injury. Patient has mild bruising to left eyelid, notes was self-inflicted when she put her hands to her head in a gesture frustration while arguing with boyfriend. Patient denies having any concerns for her personal safety in the home. UDS negative HCG negative FAMILY PSYCHIATRIC HISTORY: Patient denies SOCIAL HISTORY: Early Relations/development: Patient states she was born and raised in an intact unit in the [facility] by her parents who are still living and together. Sibling order: Not assessed Paternal relationships: Indicates she feels close to parents Education: High school graduate. 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 Also notes smoked marijuana 2-3 weeks ago, prior to that states she last smoked marijuana 10 years ago. She denies history of all other substance use or abuse. TREATMENT PROGRESS ON UNIT: Patient has adjusted well to unit, has been visible , engages well with peers and staff, and has been participating well in unit programming. Patient utilized trazodone for sleep 2 during stay and denies need for prescription at time of discharge indicating she does not experience sleep difficulties at home. Patient has consistently declined psychotropic medication indicating she does not feel she needs medication, states she will pursue an outpatient environment if needed after undergoing psychotherapy. Patient denies symptoms of depression, reports low-grade anxiety only as related to discharge noting, "I feel ready to get back to work and to get my life back on track and get started in outpatient therapy." Patient denies audiovisual hallucinations and denies urge to engage in self-injurious behavior. Patient denies suicidal and homicidal ideation and is able to verbalize concrete strategies for mitigating symptoms of anxiety, depression, or suicidal ideation should they reemerge. Patient is future oriented and goal-directed, indicates she is sleeping well and denies challenges with energy level concentration and focus, and appetite. Family meeting has been completed and patient is requesting discharge today with plan to return home with mother with whom she resides and to follow-up with outpatient psychotherapy services through [facility]. Patient verbalizes understanding of and agreement with discharge plan. MENTAL STATUS EXAMINATION ON DISCHARGE: General appearance: Patient is a 35-year-old female who is pleasant and cooperative, exhibits good personal hygiene, dressed in hospital clothing, makes good eye contact, ambulates with steady gait, appears stated age Speech: Of normal rate, rhythm, volume, spontaneous, coherent Thought processes: Linear, logical, goal-directed. Thought content: Rational, logical. Abstract reasoning and computation: Intact. Description of associations: Intact. Description of abnormal or psychotic thoughts: Denies suicidal or homicidal ideation, denies auditory or visual hallucinations, does not appear to be responding to internal stimuli, does not endorse bizarre or paranoid ideation, denies preoccupation with violence or obsessions. Judgment: Adequate, has improved during treatment Insight: Adequate, has improved during treatment Orientation: A and O 3. Recent and remote memory: Appear intact. Attention span and concentration: Within normal limits. Fund of knowledge: Adequate. Mood: "I feel good, rested, better perspective, ready to get back to life." Patient denies depression and anxiety except as related to desire to discharge, no mood lability noted Affect: Full range, brightens frequently and appropriately, congruent with mood CONDITION ON DISCHARGE: Stable, no suicidal or homicidal ideation DIAGNOSES ON DISCHARGE: Major depressive disorder, recurrent, moderate, rule out adjustment disorder MEDICATIONS ON DISCHARGE: See below, patient has declined psychotropic medications FOLLOW UP PLAN: Patient to discharge to home today with mother with whom she resides and follow-up for outpatient psychotherapy services through [facility] Patient to follow up with PCM within 5-7 days of discharge DISCHARGE DIAGNOSES: 1. . 2. . REASON FOR ADMISSION: CONSULTANTS INVOLVED: TREATMENT AND PROGRESS ON THE UNIT : . HOSPITAL COURSE: DISCHARGE ASSESSMENT: MENTAL STATUS EXAMINATION ON DISCHARGE: Patient is a -year old female, who is . Speech is . Language skills are . Thought processes including: . Thought content: . Abstract reasoning, and computation: . Description of associations: . Description of abnormal or psychotic thoughts: . Judgment: . Insight: . Orientation to . Recent and remote memory: . Attention span and concentration: . Language: . Fund of knowledge: . Mood: . Affect: . MEDICATIONS ON DISCHARGE: - for . - for . - for . PLAN/FOLLOWUP ARRANGEMENTS: . The amount of time spent in the coordination of care for this patient was approximately minutes. Vital Signs/I&Os Vital Signs Date Time Temp Pulse Resp B/P (MAP) Pulse Ox O2 Delivery O2 Flow Rate FiO2 08/09/16 06:39 97.1 82 16 140/82 (101) 08/08/16 18:00 Room Air 08/06/16 06:48 95 Medications Scheduled Omeprazole (Omeprazole) 20 Mg Cap, 20 MG PO BID, (Reported) Allergies Coded Allergies: No Known Allergies (Unverified , 05/24/09) Yoli Oliva Aug 09, 2016 08:44
== END 2016-08-09 12:10 | disposition home or self-care (01) | DRG 751 ==
LOC: M ED 11:02 → M ED INP 14:49 → M PSY 16:35
PROVIDERS: ADMIT Psychiatry & Neurology Psychiatry; ATTEND Psychiatry & Neurology Psychiatry
DX: F33.1 Major depressive disorder, recurrent, moderate (principal); E66.9 Obesity, unspecified; F17.210 Nicotine dependence, cigarettes, uncomplicated; K21.9 Gastro-esophageal reflux disease without esophagitis; F43.20 Adjustment disorder, unspecified; Z98.84 Bariatric surgery status; Z63.5 Disruption of family by separation and divorce; Z59.9 Problem related to housing and economic circumstances, unspecified; Z79.899 Other long term (current) drug therapy; Z68.37 Body mass index [BMI] 37.0-37.9, adult; Z91.5 Personal history of self-harm

== ENCOUNTER → 2016-09-26 | Outpatient (REF) | payer OTHER ==
[~2016-09-26] MED LIST: OMEP20CA3 PO; VITA-122 PO; VITA10002 PO; VITMTA PO
== END ==
LOC: M SFHCWAGY 11:18
PROVIDERS: ATTEND Nurse Practitioner Women's Health
DX: Z12.4 Encounter for screening for malignant neoplasm of cervix (principal)

== ENCOUNTER → 2016-10-29 | Outpatient (REF) | payer OTHER | LOC: M SFHCWAGY 14:46 | PROVIDERS: ATTEND Nurse Practitioner Women's Health | DX: A54.9 Gonococcal infection, unspecified (principal); Z11.3 Encounter for screening for infections with a predominantly sexual mode of transmission ==

== ENCOUNTER → 2017-04-10 | Outpatient (REF) | payer OTHER | LOC: M LAB REF 09:22 | DX: N39.0 Urinary tract infection, site not specified (principal) | CPT/HCPCS: 81001 ==

== ENCOUNTER → 2017-08-02 | Outpatient (REF) | payer OTHER ==
[2017-08-02 12:42] LABS: BASO % 0.5 % (0.0-1.0); EOS # 0.3 10^3/uL (0.0-0.50); EOS % 3.3 % (0.0-3.0); HEMATOCRIT 40.9 % (36.0-47.0); HEMOGLOBIN 13.9 g/dl (12.0-15.5); IMMATURE GRANULOCYTE % 0.3 % (0-3.0); LYMPH # 2.7 10^3/uL (1.5-4.5); LYMPH % 35.5 % (24.0-44.0); MEAN CORPUSCULAR HEMOGLOBIN 30.5 pg (27.0-33.0); MEAN CORPUSCULAR VOLUME 89.9 fl (80.0-96.0); MONO # 0.7 10^3/uL (0.0-0.8); MONO % 8.8 % (0.0-5.0); NEUTROPHILS # 3.9 10^3/uL (1.8-7.7); NEUTROPHILS % 51.6 % (36.0-66.0); PLATELET COUNT, AUTOMATED 284 10^3/uL (150-450); RED BLOOD COUNT 4.55 10^6/uL (4.00-5.40); RED CELL DISTRIBUTION WIDTH 13.1 % (11.5-14.5); WHITE BLOOD COUNT 7.5 10^3/uL (4.0-10.0)
[2017-08-02 13:05] LABS: ERYTHROCYTE SEDIMENTATION RATE 16 mm/hr (0-20)
[2017-08-02 13:23] LABS: ALBUMIN 3.4 GM/DL (3.2-5.2); ALKALINE PHOSPHATASE 69 U/L (45-117); ALT/SGPT 19 U/L (12-78); ANION GAP 6 MEQ/L (8-16); AST/SGOT 16 U/L (7-37); BILIRUBIN,TOTAL 0.3 MG/DL (0.2-1.0); BLOOD UREA NITROGEN 11 MG/DL (7-18); CALCIUM LEVEL 8.8 MG/DL (8.5-10.1); CARBON DIOXIDE LEVEL 24 MEQ/L (21-32); CHLORIDE LEVEL 110 MEQ/L (98-107); CREATININE FOR GFR 0.61 MG/DL (0.55-1.30); GLOMERULAR FILTRATION RATE > 60.0 (>60); GLUCOSE, FASTING 84 MG/DL (70-100); POTASSIUM SERUM 4.2 MEQ/L (3.5-5.1); RHEUMATOID FACTOR QUANT < 10.0 IU/ML (<15.0); SODIUM LEVEL 140 MEQ/L (136-145); TOTAL PROTEIN 6.8 GM/DL (6.4-8.2)
[2017-08-02 13:26] LABS: TOTAL 25(OH) VITAMIN D 13.4 NG/ML (30.0-100.0)
[2017-08-03 14:09] LABS: ANTINUCLEAR ANTIBODIES DIRECT Negative (Negative)
== END ==
LOC: M LABNEURO 09:19
DX: R51 Headache (principal)

== ENCOUNTER → 2018-03-14 | Outpatient (REF) | payer OTHER ==
[2018-03-14 15:37] LABS: CHLAMYDIA DNA AMPLIFICATION NEGATIVE (NEGATIVE); GC DNA AMPLIFICATION NEGATIVE (NEGATIVE)
== END ==
LOC: M SFHCWAGY 13:04
DX: Z11.3 Encounter for screening for infections with a predominantly sexual mode of transmission (principal)
CPT/HCPCS: 87591

== ENCOUNTER → 2018-03-25 | Outpatient (CLI) | payer OTHER | LOC: M WHC 09:41 | DX: R92.1 Mammographic calcification found on diagnostic imaging of breast (principal); R10.2 Pelvic and perineal pain | CPT/HCPCS: 76830 ==

== ENCOUNTER → 2018-05-12 | Outpatient (CLI) | payer OTHER ==
--- NOTE | 2018-05-12 11:04 | REP ---
Clinical: Right ovarian cyst. Comparison: 03/25/2018 . Technique: Transabdominal pelvic ultrasound followed by transvaginal examination for better evaluation of the endometrium and adnexa with color Doppler evaluation of the ovaries. Findings: Bladder is unremarkable and measures 7.8 x 5.9 x 8.5 cm . Normal anteverted uterus measures 7.6 x 3.3 x 5.0 cm . The endometrial complex is heterogeneous and measures 9.6 mm thickness. 19 mm hypoechoic area within the endocervical canal is identified which may represent hemorrhagic debris (the patient is actively bleeding) versus polyp. Bilateral ovaries are normal in appearance and vascularity without evidence for torsion. Right ovary measures 4.3 x 3.0 x 3.9 cm with 3.5 x 2.6 x 2.8 cm cyst ; R I = 0.47 . Left ovary measures 3.0 x 1.5 x 2.1 cm with 1.8 cm and 1.6 cm paraovarian cysts; R I = 0.51 . No pelvic free fluid. Impression: 1. The patient is currently menstruating and a 19 mm hypoechoic focus within the endocervical canal likely represents hemorrhagic debris and less likely polyp. 2. Right ovarian cyst and left para ovarian cysts without significant change from prior examination. Electronically Signed by Sathish Quesada MD 05/12/2018 10:55 A
== END ==
LOC: M WHC 09:28
PROVIDERS: ATTEND Nurse Practitioner Family
DX: N83.201 Unspecified ovarian cyst, right side (principal)

== ENCOUNTER 2018-05-17 19:02 | Emergency (ER) | payer OTHER ==
[~2018-05-17] VITALS: Ht 170.2 cm; Wt 122.7 kg
[2018-05-17 19:02] VITALS: BP 155/72
[2018-05-17] MEDS ORDERED: BUPR1TAB53 (19:24)
[2018-05-17] MEDS ORDERED: GABA-1171 (19:24)
[2018-05-17] MEDS ORDERED: ACET500T15 PO (19:24)
[2018-05-17] MEDS ORDERED: PRAM0.5T7 (19:24)
[2018-05-17] MEDS ORDERED: VENL150C43 (19:24)
[2018-05-17] MEDS ORDERED: PRED20TA PO (20:16)
== END 2018-05-17 20:33 | disposition home or self-care (01) ==
LOC: M ED 19:02
DX: M65.88 Other synovitis and tenosynovitis, other site (principal); K21.9 Gastro-esophageal reflux disease without esophagitis; F33.9 Major depressive disorder, recurrent, unspecified; F41.9 Anxiety disorder, unspecified; Z98.84 Bariatric surgery status; Z79.899 Other long term (current) drug therapy; F17.210 Nicotine dependence, cigarettes, uncomplicated

== ENCOUNTER → 2018-05-27 | Outpatient (REF) | payer OTHER ==
[~2018-05-27] MED LIST changes: +ACET500T15 PO; +BUPR1TAB53; +GABA-1171; +PRAM0.5T7; +PRED20TA PO; +VENL150C43
[2018-05-29 18:42] LABS: HPV HYBRID CAPTURE II Positive (Negative)
== END ==
LOC: M SFHCWAGY 11:36
PROVIDERS: ATTEND Nurse Practitioner Family
DX: Z12.4 Encounter for screening for malignant neoplasm of cervix (principal)

== ENCOUNTER → 2018-06-24 | Outpatient (REF) | payer OTHER | LOC: M LAB REF 19:19 | PROVIDERS: ATTEND Obstetrics & Gynecology | DX: N93.9 Abnormal uterine and vaginal bleeding, unspecified (principal); N85.00 Endometrial hyperplasia, unspecified ==

== ENCOUNTER 2019-03-03 18:26 | Emergency (ER) | payer OTHER ==
[~2019-03-03] VITALS: Ht 170.2 cm; Wt 127.3 kg
[~2019-03-03 18:26] MED LIST changes: +CYAN100049 PO; -OMEP20CA3 PO; +OMEP20CA4 PO; -VITA10002 PO
[2019-03-03 21:03] VITALS: BP 149/84
== END 2019-03-03 21:07 | disposition home or self-care (01) ==
LOC: M ED 18:26
DX: M96.89 Other intraoperative and postprocedural complications and disorders of the musculoskeletal system (principal); E78.5 Hyperlipidemia, unspecified; F41.9 Anxiety disorder, unspecified; G43.909 Migraine, unspecified, not intractable, without status migrainosus; K21.9 Gastro-esophageal reflux disease without esophagitis; Z98.84 Bariatric surgery status; Z79.899 Other long term (current) drug therapy; Z88.8 Allergy status to other drugs, medicaments and biological substances

== ENCOUNTER → 2019-03-31 | Outpatient (REF) | payer OTHER ==
[~2019-03-31] MED LIST changes: +OMEP-172 PO; -OMEP20CA4 PO
== END ==
LOC: M SFHCPLAZ 17:56
PROVIDERS: ATTEND Obstetrics & Gynecology
DX: Z01.419 Encounter for gynecological examination (general) (routine) without abnormal findings (principal); N85.02 Endometrial intraepithelial neoplasia [EIN]

== ENCOUNTER → 2019-05-15 | Outpatient (CLI) | payer OTHER ==
[~2019-05-15] MED LIST changes: -OMEP-172 PO; +OMEP1CAP73 PO
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
== END ==
LOC: M PAIN 13:15
PROVIDERS: ATTEND Family Medicine
DX: M50.00 Cervical disc disorder with myelopathy, unspecified cervical region (principal); Z86.59 Personal history of other mental and behavioral disorders; J45.909 Unspecified asthma, uncomplicated; K21.9 Gastro-esophageal reflux disease without esophagitis; Z98.84 Bariatric surgery status; F17.210 Nicotine dependence, cigarettes, uncomplicated; Z91.09 Other allergy status, other than to drugs and biological substances; E66.01 Morbid (severe) obesity due to excess calories; Z68.42 Body mass index [BMI] 45.0-49.9, adult; Z79.899 Other long term (current) drug therapy

== ENCOUNTER 2019-08-08 18:41 | Emergency (ER) | payer OTHER ==
[~2019-08-08] VITALS: Ht 170.2 cm; Wt 132.9 kg
[~2019-08-08 18:41] MED LIST changes: -GABA-1171; +GABA-1171 PO
[2019-08-08 19:00] VITALS: BP 157/89
[2019-08-08] MEDS ORDERED: CYCL-707 PO (19:12)
== END 2019-08-08 19:33 | disposition home or self-care (01) ==
LOC: M ED 18:41
DX: M54.12 Radiculopathy, cervical region (principal); F17.200 Nicotine dependence, unspecified, uncomplicated; Z98.84 Bariatric surgery status; Z88.6 Allergy status to analgesic agent

== ENCOUNTER → 2019-08-21 | Outpatient (CLI) | payer OTHER ==
[~2019-08-21] MED LIST changes: +BACL10TA2 PO; +CVS1CHW8 PO; +CYCL-707 PO; +GABA600T4 PO; +VITA1CAP25 PO
== END ==
LOC: M LABSMTC 10:00
PROVIDERS: ATTEND Anesthesiology
DX: Z01.818 Encounter for other preprocedural examination (principal); Z11.59 Encounter for screening for other viral diseases

== ENCOUNTER 2019-08-24 09:45 | Day surgery (SDC) | payer OTHER ==
[~2019-08-24] VITALS: Ht 170.2 cm; Wt 132.4 kg
[~2019-08-24 09:45] MED LIST changes: +LR 1,000 ML IV ONE
[2019-08-24] MEDS ORDERED: BUPIVACAINE HCL 0.25% 30ML VIAL As Ordered ONE (11:48)
[2019-08-24] MEDS ORDERED: fentaNYL 100 MCG/2 ML INJECTION (J3010) As Ordered ONE (12:56)
[2019-08-24] MEDS ORDERED: dexameTHASONE 4 MG/ML 1ML VIAL (J1100 PER 1MG) As Ordered ONE (12:56)
[2019-08-24] MEDS ORDERED: propofoL 200 MG/20 ML VIAL As Ordered ONE (12:56)
[2019-08-24] MEDS ORDERED: LIDOCAINE 2% 100MG/5ML SDV (FOR ANES.) As Ordered ONE (12:56)
[2019-08-24] MEDS ORDERED: ONDANSETRON 4MG/2ML VIAL As Ordered ONE (12:56)
[2019-08-24] MEDS ORDERED: METOCLOPRAMIDE INJ 10MG/2ML VIAL (J2765 PER 1) As Ordered ONE (12:56)
[2019-08-24] MEDS ORDERED: MIDAZOLAM INJ 2MG/2ML VIAL (J2250 PER 1MG) As Ordered ONE (12:56)
[2019-08-24] MEDS ORDERED: oxyCODONE 5MG TAB As Ordered ONE (13:51)
[2019-08-24] MEDS: oxyCODONE 5MG TAB PO PRN ×2 (13:57→14:27)
[2019-08-24] MEDS ORDERED: ONDANSETRON 4MG/2ML VIAL IV PRN (14:00)
[2019-08-24] MEDS ORDERED: LR 1,000 ML IV SCH (14:00)
[2019-08-24] MEDS ORDERED: fentaNYL 100 MCG/2 ML INJECTION (J3010) IV PRN (14:00)
[2019-08-24] MEDS ORDERED: oxyCODONE 5MG TAB PO PRN (14:00)
--- NOTE | 2019-08-24 14:21 | RO ---
DATE OF PROCEDURE: 08/24/2019 PREOPERATIVE DIAGNOSIS: Right carpal and cubital tunnel syndrome. POSTOPERATIVE DIAGNOSIS: Right carpal and cubital tunnel syndrome. PROCEDURE: Right endoscopic carpal tunnel release and open cubital tunnel release. SURGEON: Dr. Zion Garcia ENTERTAINMENT LAWYER: None. ANESTHESIA: General. INDICATIONS: 38-year-old female who failed nonoperative mode of treatment. We discussed the risks and benefits of surgical release, including infection, damage to surrounding structures, incomplete relief, and patient wishes to proceed. TOURNIQUET TIME: 23 minutes. ESTIMATED BLOOD LOSS: Minimal. COMPLICATIONS: None. PREOPERATIVE ANTIBIOTICS: None. OPERATIVE DESCRIPTION: The patient was brought back to the OR in the supine position. She underwent general anesthesia at which point the right arm was prepped and draped in the usual fashion. We then confirmed site and surgery. Elevated the tourniquet up to 250 mmHg. Gave 30 mL of local 0.25% Marcaine plain overlying the wrist and elbow. We then made a transverse incision overlying the palmaris longus and retracted it radially and encountered the antebrachial fascia. Sharply incised this. Elevated with the two prong skin hook. Then inserted the dilator and the synovial stripper and the camera. Once the median nerve was visualized and out of view we dissected from distal to proximal and adequately released the transverse carpal ligament. We irrigated the wound thoroughly and closed with #3-0 Vicryl, #3-0 Prolene, Mastisol, Steri, gauze and Tegaderm. We then turned our attention to the elbow and made a longitudinal incision between the medial epicondyle and olecranon. Carefully dissected through subcutaneous tissues, careful to monitor for the medial and antebrachial cutaneous nerve. We then identified the ulnar nerve at the proximal extent of the excision anterior to the medial triceps and released it off the intermuscular septum and distally through Hughes ligament. Superficial and deep fascia at flexor carpi ulnaris (FCU). At which point, we did a thorough ulnar neurolysis and transposed the ulnar nerve anteriorly over the medial epicondyle, closed Hughes ligament posteriorly with #3-0 Prolene. Range the elbow to be sure of no subluxation. At which point, we irrigated the wound thoroughly and closed with #3-0 Vicryl, #3-0 Monocryl, Mastisol, Steri, and gauze. Placed a Kerlix and Lewis bandage over top. The tourniquet was let down. The patient was awakened and taken to the post anesthesia care unit (PACU) in stable condition. Postop Plan: The patient will have pain control and range of motion. We will see her in 2 weeks for repeat clinical check at that time.
[2019-08-24 15:35] VITALS: BP 150/90
== END 2019-08-24 16:30 | disposition home or self-care (01) ==
LOC: M SDC 09:45
PROVIDERS: ATTEND Orthopaedic Surgery Hand Surgery
DX: G56.01 Carpal tunnel syndrome, right upper limb (principal); G56.21 Lesion of ulnar nerve, right upper limb; K21.9 Gastro-esophageal reflux disease without esophagitis; G43.909 Migraine, unspecified, not intractable, without status migrainosus; J45.909 Unspecified asthma, uncomplicated; F17.218 Nicotine dependence, cigarettes, with other nicotine-induced disorders; F41.9 Anxiety disorder, unspecified; F32.9 Major depressive disorder, single episode, unspecified; Z79.899 Other long term (current) drug therapy; Z88.8 Allergy status to other drugs, medicaments and biological substances
CPT/HCPCS: 29848; 64718; 81025; J1100; J2250; J2405; J2765; J3010

== ENCOUNTER → 2019-09-11 | Outpatient (CLI) | payer OTHER ==
[~2019-09-11] MED LIST changes: -LR 1,000 ML IV ONE
== END ==
LOC: M LABSMTC 10:22
PROVIDERS: ATTEND Anesthesiology
DX: Z03.818 Encounter for observation for suspected exposure to other biological agents ruled out (principal)
CPT/HCPCS: C9803; U0003

== ENCOUNTER → 2019-10-01 | Outpatient (CLI) | payer OTHER ==
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
== END ==
LOC: M PAIN 10:45
PROVIDERS: ATTEND Family Medicine
DX: M50.00 Cervical disc disorder with myelopathy, unspecified cervical region (principal)

== ENCOUNTER → 2019-10-12 | Outpatient (REF) | payer OTHER | LOC: M SFHCWAGY 17:55 | PROVIDERS: ATTEND Obstetrics & Gynecology | DX: Z12.4 Encounter for screening for malignant neoplasm of cervix (principal); Z01.419 Encounter for gynecological examination (general) (routine) without abnormal findings ==

== ENCOUNTER → 2019-10-22 | Outpatient (CLI) | payer OTHER ==
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
== END ==
LOC: M PAIN 09:15
PROVIDERS: ATTEND Family Medicine
DX: M50.00 Cervical disc disorder with myelopathy, unspecified cervical region (principal)

== ENCOUNTER 2019-12-21 20:11 | Emergency (ER) | payer OTHER ==
[~2019-12-21] VITALS: Ht 170.2 cm; Wt 133.4 kg
[2019-12-21] MEDS ORDERED: SERT-138 (20:23)
[2019-12-21] MEDS ORDERED: NS 1,000 ML IV ONE (21:00)
[2019-12-21 21:24] LABS: BASO % 0.5 % (0.0-1.0); EOS # 0.2 10^3/uL (0.0-0.5); EOS % 2.7 % (0.0-3.0); HEMATOCRIT 37.9 % (36.0-47.0); HEMOGLOBIN 12.6 g/dl (12.0-15.5); LYMPH # 2.8 10^3/uL (1.5-5.0); MEAN CORPUSCULAR HEMOGLOBIN 30.4 pg (27.0-33.0); MEAN CORPUSCULAR HGB CONC 33.2 g/dl (32.0-36.5); MEAN CORPUSCULAR VOLUME 91.3 fl (80.0-96.0); MONO # 0.6 10^3/uL (0.0-0.8); MONO % 8.3 % (0.0-5.0); NEUTROPHILS % 52.2 % (36.0-66.0); PLATELET COUNT, AUTOMATED 351 10^3/uL (150-450); RED BLOOD COUNT 4.15 10^6/uL (4.00-5.40); WHITE BLOOD COUNT 7.7 10^3/uL (4.0-10.0)
[2019-12-21 21:51] LABS: ALBUMIN 3.3 GM/DL (3.2-5.2); ALT/SGPT 21 U/L (12-78); BILIRUBIN,DIRECT < 0.1 MG/DL (0.0-0.2); BILIRUBIN,TOTAL 0.2 MG/DL (0.2-1.0); BLOOD UREA NITROGEN 14 MG/DL (7-18); CALCIUM LEVEL 8.9 MG/DL (8.5-10.1); CARBON DIOXIDE LEVEL 25 MEQ/L (21-32); CHLORIDE LEVEL 109 MEQ/L (98-107); CK-MB VALUE MASS < 1.0 NG/ML (<3.6); CPK CREATINE PHOSPHOKINASE 52 U/L (26-192); GLOMERULAR FILTRATION RATE > 60.0 (>58); GLUCOSE, FASTING 94 MG/DL (70-100); LIPASE 151 U/L (73-393); MB/CK RELATIVE INDEX 1.92 (< OR =4); POTASSIUM SERUM 4.3 MEQ/L (3.5-5.1); SODIUM LEVEL 138 MEQ/L (136-145); TOTAL PROTEIN 6.5 GM/DL (6.4-8.2); TROPONIN I < 0.02 NG/ML (< 0.10)
[2019-12-21 23:49] VITALS: O2SAT 100
[2019-12-22 00:14] VITALS: BP 156/86
== END 2019-12-22 00:18 | disposition home or self-care (01) ==
LOC: M ED 20:11
DX: R53.1 Weakness (principal); F31.9 Bipolar disorder, unspecified; K21.9 Gastro-esophageal reflux disease without esophagitis; Z98.84 Bariatric surgery status; Z79.899 Other long term (current) drug therapy; Z88.8 Allergy status to other drugs, medicaments and biological substances

== ENCOUNTER → 2019-12-29 | Outpatient (CLI) | payer OTHER ==
[~2019-12-29] MED LIST changes: +SERT-138
== END ==
LOC: M PAIN 10:23
PROVIDERS: ATTEND Family Medicine
DX: M47.813 Spondylosis without myelopathy or radiculopathy, cervicothoracic region (principal)

== ENCOUNTER → 2020-01-06 | Outpatient (CLI) | payer OTHER | LOC: M LABSMTC 09:33 | PROVIDERS: ATTEND Anesthesiology | DX: Z20.828 Contact with and (suspected) exposure to other viral communicable diseases (principal) | CPT/HCPCS: C9803; U0003 ==

== ENCOUNTER → 2020-01-08 | Outpatient (CLI) | payer OTHER | LOC: M PAIN 09:28 | PROVIDERS: ATTEND Anesthesiology | DX: M47.812 Spondylosis without myelopathy or radiculopathy, cervical region (principal) ==

== ENCOUNTER → 2020-01-11 | Outpatient (CLI) | payer OTHER ==
[~2020-01-11] MED LIST changes: +BUPIVACAINE HCL 0.25% 30ML VIAL As Ordered ONE; +ISOVUE-M 300 61% 15ML VIAL As Ordered ONE; +LIDOCAINE 1% SDV 30ML VIAL As Ordered ONE; +MIDAZOLAM INJ 2MG/2ML VIAL (J2250 PER 1MG) As Ordered ONE; +TRIAMCINOLONE ACETONIDE SUSP 40 MG/ML VIAL (J3301) As Ordered ONE; +fentaNYL 100 MCG/2 ML INJECTION (J3010) As Ordered ONE
--- NOTE | 2020-01-20 07:58 | REP ---
CERVICAL SPINE LIMITED STUDY: SINGLE VIEW HISTORY: Right cervical facet block for pain. FLUROSCOPY TIME: 9 seconds reported. FINDINGS: A single [id number] fluoroscopically obtained spot radiograph of the cervical spine documents needle positions and contrast injections associated with injection procedure. MTDD
== END ==
LOC: M PAIN 08:55
PROVIDERS: ATTEND Anesthesiology
DX: M47.812 Spondylosis without myelopathy or radiculopathy, cervical region (principal)
CPT/HCPCS: 77003; J2250; J3010; J3301; Q9967

== ENCOUNTER → 2020-01-25 | Outpatient (CLI) | payer OTHER ==
[~2020-01-25] MED LIST changes: -BUPIVACAINE HCL 0.25% 30ML VIAL As Ordered ONE; -ISOVUE-M 300 61% 15ML VIAL As Ordered ONE; -LIDOCAINE 1% SDV 30ML VIAL As Ordered ONE; -MIDAZOLAM INJ 2MG/2ML VIAL (J2250 PER 1MG) As Ordered ONE; -TRIAMCINOLONE ACETONIDE SUSP 40 MG/ML VIAL (J3301) As Ordered ONE; -fentaNYL 100 MCG/2 ML INJECTION (J3010) As Ordered ONE
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
== END ==
LOC: M PAIN 09:15
PROVIDERS: ATTEND Family Medicine
DX: M47.812 Spondylosis without myelopathy or radiculopathy, cervical region (principal); F32.9 Major depressive disorder, single episode, unspecified; F41.9 Anxiety disorder, unspecified; J45.909 Unspecified asthma, uncomplicated; E66.01 Morbid (severe) obesity due to excess calories; K21.9 Gastro-esophageal reflux disease without esophagitis; F17.210 Nicotine dependence, cigarettes, uncomplicated; L68.0 Hirsutism; Z98.84 Bariatric surgery status; Z79.899 Other long term (current) drug therapy; Z91.048 Other nonmedicinal substance allergy status; Z68.42 Body mass index [BMI] 45.0-49.9, adult

== ENCOUNTER → 2020-02-22 | Outpatient (CLI) | payer OTHER ==
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
== END ==
LOC: M PAIN 09:30
PROVIDERS: ATTEND Family Medicine
DX: M50.00 Cervical disc disorder with myelopathy, unspecified cervical region (principal); F32.9 Major depressive disorder, single episode, unspecified; F41.9 Anxiety disorder, unspecified; E66.01 Morbid (severe) obesity due to excess calories; K21.9 Gastro-esophageal reflux disease without esophagitis; F17.210 Nicotine dependence, cigarettes, uncomplicated; L68.0 Hirsutism; G44.209 Tension-type headache, unspecified, not intractable; Z79.899 Other long term (current) drug therapy; Z91.048 Other nonmedicinal substance allergy status; J30.81 Allergic rhinitis due to animal (cat) (dog) hair and dander; Z68.42 Body mass index [BMI] 45.0-49.9, adult

== ENCOUNTER → 2020-02-24 | Outpatient (REF) | payer OTHER | LOC: M SFHCWAGY 13:09 | PROVIDERS: ATTEND Obstetrics & Gynecology | DX: Z11.3 Encounter for screening for infections with a predominantly sexual mode of transmission (principal) ==

== ENCOUNTER → 2020-05-05 | Outpatient (CLI) | payer OTHER ==
--- NOTE | 2020-05-07 00:02 | ECWPNPC ---
PATIENT NAME: MORRIS LEWIS : 1980 GENDER: FEMALE VISIT DATE: 05/05/2020 DISCHARGE DATE: 05/05/20 1125 VISIT LOCKED DATE TIME: PHYSICIAN: JOS VALLADARES RESOURCE: JOS VALLADARES REASON FOR APPOINTMENT 1. NECK PAIN HISTORY OF PRESENT ILLNESS GENERAL: 39-YEAR-OLD FEMALE IN FOR CHRONIC PAIN FOLLOW-UP. SHE RATES HER PAIN CURRENTLY AT A 4 OUT OF 10 AND DESCRIBES IT THROBBING. PATIENT ADMITS THAT SHE FEELS THE BACLOFEN IS NOT EFFECTIVE IT ONCE WAS. FALL RISK SCREENING: SCREENING :NO FALLS REPORTED IN THE LAST YEAR PAIN SCREENING: PATIENT HAS A COMPLAINT OF ACUTE OR CHRONIC PAIN :YES LOCATION OF PAIN:LEFT SHOULDER, RIGHT SHOULDER INTENSITY OF PAIN (SCALE OF 1 TO 10):4 WHAT DOES YOUR PAIN FEEL LIKE:THROBBING DURATION:CONTINOUS, CONSTANT PAIN IS INCREASED BY:ACTIVITIES SHOVELING, WORKING PAIN IS DECREASED BY: REPORTS THAT NOTHING HAS BEEN HELPING HER. USES HEATING PAD FOR MINIMAL RELIEF. NURSING NOTE: -. PAIN CENTER INTAKE QUESTIONS: DO YOU HAVE A HISTORY OF MRSA? :NO DO YOU TAKE A BLOOD THINNERS? :NO DO YOU HAVE ANY BLEEDING DISORDERS? :NO ANY NEW NUMBNESS OR WEAKNESS IN YOUR LEGS OR ARMS? :NO ANY PACEMAKER,DEFIBRILLATOR, OR DORSAL COLUMN STIMULATOR? :NO DO YOU HAVE ANY RASHES OR OPEN SORES? :NO ARE YOU ALLERGIC TO IV DYE? :NO ARE YOU DIABETIC? :NO ANY NEW PROBLEMS WITH YOUR MEDICATIONS? :NO HAVE YOU RECEIVED A VACCINE IN THE PAST 30 DAYS? :NO DO YOU PLAN TO RECEIVE A VACCINE IN THE NEXT 21 DAYS? :NO DO YOU NEED ANY PRESCRIPTION? :YES BACLOFEN DO YOU TAKE ANY IMMUNOSUPPRESSIVE MEDICATIONS? :NO IS THERE A CHANCE YOU COULD BE ? :NO ARE YOU BREAST FEEDING? :NO CURRENT MEDICATIONS TAKING MULTIVITAMINS TABLET CHEWABLE 2 TABLETS ORALLY ONCE A DAY, NOTES: NONE RECENTLY TAKING VITAMIN B-12 500 MCG TABLET 1 TABLET ORALLY ONCE A DAY, NOTES: NONE RECENTLY TAKING CALCIUM CITRATE + D3 250-200 MG-UNIT TABLET 2 TABLETS ORALLY ONCE A DAY, NOTES: NONE RECENTLY TAKING OMEPRAZOLE 20 MG CAPSULE DELAYED RELEASE 1 CAPSULE ORALLY TWICE DAILY, NOTES: NONE RECENTLY TAKING TRAZODONE HCL 50 MG TABLET 1 TABLET AT BEDTIME NEEDED ORALLY ONCE A DAY, NOTES: NONE RECENTLY TAKING GABAPENTIN 400 MG CAPSULE 1 CAPSULE ORALLY TID, NOTES: 6/1/20 0730 TAKING ATORVASTATIN CALCIUM 10 MG TABLET 1 TABLET ORALLY ONCE A DAY, NOTES: NONE RECENTLY TAKING ACETAMINOPHEN 500 MG CAPSULE 2 CAPSULES NEEDED ORALLY 3 TIMES A DAY NEEDED, NOTES: 09/14/19729 TAKING BACLOFEN 20 MG TABLET 1 TABLET WITH FOOD OR MILK ORALLY AT NIGHT TAKING TOPAMAX 50 MG TABLET 1 TABLET ORALLY BID TAKING MIRENA (52 MG) 20 MCG/24HR INTRAUTERINE DEVICE DIRECTED INTRAUTERINE , NOTES: DR CARRASCO 2018 TAKING SERTRALINE HCL 100 MG TABLET 1.5 TABLET ORALLY ONCE A DAY NOT-TAKING VITAMIN D (ERGOCALCIFEROL) 52481 UNIT CAPSULE 1 CAPSULE ORALLY ONCE A WK., NOTES: NONE RECENTLY NOT-TAKING TINIDAZOLE 500 MG TABLET 4 TABLETS WITH FOOD ORALLY ONCE A DAY NOT-TAKING METRONIDAZOLE 500 MG TABLET 1 TABLET ORALLY TWICE A DAY NOT-TAKING EFFEXOR XR 150 MG CAPSULE EXTENDED RELEASE 24 HOUR ORALLY NOT-TAKING WELLBUTRIN SR 150 MG TABLET EXTENDED RELEASE 12 HOUR 1-2 TABS NEEDED ORALLY ONCE A DAY NOT-TAKING METRONIDAZOLE 500 MG TABLET 4 TABLET ORALLY ONCE A DAY, NOTES: DX: TRICHOMONAS. 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 HX OVARIAN CYSTS PROBABLE PCOS/NEVER TESTED FOR IT HIRSUTISM TOBACCO ABUSE, WILLING TO QUIT ALLERGIES BANDAID ADHESIVE: RASH - ALLERGY ANIMALS: CONGESTION, EYE IRRITATION - ALLERGY SURGICAL HISTORY ALL TEETH PULLED 01/2009 GASTRIC BYPASS 12/17/13 CHOLECYSTECTOMY 03/26/14 COLPOSCOPY TEENS CARPAL TUNNEL RELEASE- LEFT 01/2019 CARPAL TUNNEL RELEASE AND ULNAR NERVE RELEASE - RIGHT 08/2019 CERVICAL EPIDURAL 09/14/2019 SOCIAL HISTORY GENERAL: TOBACCO USE ARE YOU A:CURRENT SMOKER ARE YOU INTERESTED IN QUITTING?NOT READY TO QUIT COUNSELED THE PATIENT ON SMOKING EFFECTS, EDUCATION [id number]/21/2021 HOW MANY CIGARETTES A DAY DO YOU SMOKE?11-20 HOW SOON AFTER YOU WAKE UP DO YOU SMOKE YOUR FIRST CIGARETTE?WITHIN 5 MIN HOW OFTEN DO YOU SMOKE CIGARETTES?EVERY DAY PATIENT COUNSELED ON THE DANGERS OF TOBACCO USE AND URGED TO QUIT:05/05/2020 SMOKING CESSATION INFORMATION GIVEN10/22/2019 LATEX QUESTIONNAIRE LATEX ALLERGY : HAVE YOU EVER DEVELOPED ANY TYPE OF REACTION AFTER HANDLING LATEX PRODUCTS SUCH RUBBER GLOVES, CONDOMS, DIAPHRAGMS, BALLOONS, SOCKS, OR UNDERWEAR?NO LATEX ALLERGY : HAVE YOU EVER DEVELOPED ANY TYPE OF REACTION DURING OR AFTER DENTAL APPOINTMENT, VAGINAL/RECTAL EXAMINATION, SURGICAL PROCEDURE, OR ANY OTHER EXPOSURE?NO LATEX RISK : HAVE YOU EVER HAD ANY DIFFICULTY BREATHING OR HIVES AFTER EATING OR HANDLING ANY FRUITS, OR VEGETABLES; SUCH KIWI, BANANAS, STONE FRUITS, OR CHESTNUTSNO LATEX RISK : DO YOU HAVE A PREVIOUS PERSONAL HISTORY OF MORE THAN NINE SURGERIES, SPINA BIFIDA, OR REPEATED CATHERIZATIONS? NO LATEX RISK : ARE YOU FREQUENTLY EXPOSED TO LATEX PRODUCTS IN YOUR OCCUPATION?NO DATE ASKED : 05/05/2020 ALCOHOL USE: NO. ALCOHOL SCREENING DID YOU HAVE A DRINK CONTAINING ALCOHOL IN THE PAST YEAR?NO POINTS0 INTERPRETATIONNEGATIVE RECREATIONAL DRUG USE DRUG USE?NO CAFFEINE CAFFEINE USE?YES HOW OFTEN AND HOW MUCH? 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 DIET: REGULAR - BARIATRIC. EXERCISE: NO REGULAR EXERCISE. REVIEW OF SYSTEMS CONSTITUTIONAL: ANY RECENT FEVER NO . CHILLS NO . WEIGHT CHANGE OF UNKNOWN REASONS NO . GASTROENTEROLOGY: NEW UNEXPLAINABLE CHANGES IN BOWEL CONTROL NO . CONSTIPATION NO . GENITOURINARY: ANY NEW CHANGE IN BLADDER CONTROL? NO . NEUROLOGY: NEW ONSET DIZZINESS OR NEUROLOGICAL CHANGES NOT MENTIONED NO . NEW NUMBNESS OR PAIN PATTERNS NOT MENTIONED AND PERTINENT TO TODAY'S VISIT NO . CARDIOLOGY: NEW CHEST PRESSURE NO . NEW CHEST PAIN NO . RESPIRATORY: UNEXPLAINABLE COUGH NO . NEW SHORTNESS OF BREATH NO . VITAL SIGNS WT 289.9 LBS, HT 67 IN, BMI 45.40 INDEX, BP 131/63 MM HG, HR 80 /MIN, RR 18 /MIN, TEMP 97.1 F, OXYGEN SAT % 96, SAFE IN ENV? (Y/N) YES, REVIEWED BY: [facility]. JONY WAKEFIELD. EXAMINATION GENERAL EXAMINATION: GENERALNO ACUTE DISTRESS, WELL NOURISHED AND HYDRATED. PSYCHAPPROPRIATE MOOD AND AFFECT . LUNGS:CLEAR TO AUSCULTATION BILATERALLY, NO WHEEZES, RHONCHI, RALES. HEART:NO MURMURS, REGULAR RATE AND RHYTHM. ASSESSMENTS SPONDYLOSIS OF CERVICAL REGION WITHOUT MYELOPATHY OR RADICULOPATHY - M47.812 (PRIMARY), RISK: (NULL) TREATMENT SPONDYLOSIS OF CERVICAL REGION WITHOUT MYELOPATHY OR RADICULOPATHY STOP BACLOFEN TABLET, 20 MG, 1 TABLET WITH FOOD OR MILK, ORALLY, AT NIGHT START TIZANIDINE HCL TABLET, 4 MG, 1 TABLET NEEDED, ORALLY, THREE TIMES A DAY, 30 DAY(S), 90 TABLET(S), REFILLS 1 NOTES: 39-YEAR-OLD FEMALE IN FOR CHRONIC PAIN FOLLOW-UP. GIVEN PRESENTING SYMPTOMS RECOMMEND STOPPING BACLOFEN AND STARTING TIZANIDINE 4 MG 3 TIMES A DAY WITH FOLLOW-UP IN 2 MONTHS. PATIENT HAS EXPRESSED UNDERSTANDING OF AND WAS IN AGREEMENT WITH TREATMENT PLAN. GIVEN TIME TO ASK QUESTIONS AND EXPRESS CONCERNS. PATIENT GIVEN EDUCATIONAL MATERIALS ON NEW MEDICATION, TIZANIDINE. Zachariah BORGES RN. PROCEDURE CODES FA211 ESTABILISHED PATIENT [facility] CHARGE DISPOSITION & COMMUNICATION FOLLOW UP 2 MONTHS (REASON: NECK PAIN) ELECTRONICALLY SIGNED BY ZAID HANNON ON 05/06/2020 AT 09:33 AM EST DISCLAIMER : THIS IS A VISIT SUMMARY EXTRACTED FROM THE [employer] CHART. IT IS NOT A COPY OF THE [employer] PROGRESS NOTE. KEVEN
== END ==
LOC: M PAIN 10:45
PROVIDERS: ATTEND Family Medicine
DX: M47.812 Spondylosis without myelopathy or radiculopathy, cervical region (principal); F32.9 Major depressive disorder, single episode, unspecified; F41.9 Anxiety disorder, unspecified; J45.909 Unspecified asthma, uncomplicated; E66.01 Morbid (severe) obesity due to excess calories; K21.9 Gastro-esophageal reflux disease without esophagitis; Z98.84 Bariatric surgery status; L68.0 Hirsutism; F17.210 Nicotine dependence, cigarettes, uncomplicated; Z91.048 Other nonmedicinal substance allergy status; Z68.42 Body mass index [BMI] 45.0-49.9, adult; Z79.899 Other long term (current) drug therapy

== ENCOUNTER → 2020-05-14 | Outpatient (CLI) | payer SELFPAY | LOC: M LABSMTC 11:39 | PROVIDERS: ATTEND Pediatrics | DX: Z20.822 Contact with and (suspected) exposure to COVID-19 (principal) ==

== ENCOUNTER → 2020-05-20 | Outpatient (CLI) | payer OTHER ==
--- NOTE | 2020-05-21 02:32 | REP ---
INDICATION: LEFT WRIST PAIN COMPARISON: 04/27/2016 TECHNIQUE: AP, lateral, bilateral oblique views . FINDINGS: The carpal bones, surrounding osseous structures, soft tissues, and joint spaces are relatively normal and stable. There is no evidence for acute fracture or dislocation. No subcutaneous emphysema or radiodense foreign body. No significant degenerative changes are appreciated. Chronic corticated bony density adjacent to the ulnar styloid again noted and may represent old fracture. IMPRESSION: Relatively normal examination as above. No acute fracture or dislocation. <Electronically signed by Sathish Quesada > 05/21/20 022
== END ==
LOC: M RAD 10:12
PROVIDERS: ATTEND Physician Assistant Medical
DX: M25.532 Pain in left wrist (principal)

== ENCOUNTER → 2020-07-04 | Outpatient (CLI) | payer OTHER ==
--- NOTE | 2020-07-06 07:47 | ECWPNPC ---
PATIENT NAME: MORRIS LEWIS : 1980 GENDER: FEMALE VISIT DATE: 07/04/2020 DISCHARGE DATE: 07/04/20 1119 VISIT LOCKED DATE TIME: PHYSICIAN: JOS VALLADARES RESOURCE: JOS VALLADARES REASON FOR APPOINTMENT 1. NECK PAIN HISTORY OF PRESENT ILLNESS GENERAL: - 39-YEAR-OLD FEMALE IN FOR CHRONIC PAIN FOLLOW-UP. SHE RATES HER PAIN CURRENTLY AT A 4 OUT OF 10 AND DESCRIBES IT ACHING, CONTINUOUS, THROBBING, AND SHOOTING. PATIENT ADMITS THAT HER PCP HAS TAKEN HER OFF THE GABAPENTIN THEY FEEL IT WAS RESPONSIBLE FOR HER FEELING LIKE SHE WAS GOING TO PASS OUT. FALL RISK SCREENING: SCREENING : NO FALLS REPORTED IN THE LAST YEAR. PAIN SCREENING: PATIENT HAS A COMPLAINT OF ACUTE OR CHRONIC PAIN :YES LOCATION OF PAIN:NECK, BOTH SHOULDERS, UPPER BACK INTENSITY OF PAIN (SCALE OF 1 TO 10):4 WHAT DOES YOUR PAIN FEEL LIKE:ACHING, CONTINOUS, THROBBING, SHOOTING DURATION:CONTINOUS, CONSTANT, AWAKENS FROM SLEEP PAIN IS INCREASED BY:ACTIVITIES, PROLONGED STANDING PAIN IS DECREASED BY:OTHERS NOTHING HELPS THE PAIN. GABAPENTIN HAS HELPED IN THE PAST. NURSING NOTE: -. PAIN CENTER INTAKE QUESTIONS: DO YOU HAVE A HISTORY OF MRSA? :NO DO YOU TAKE A BLOOD THINNERS? :NO DO YOU HAVE ANY BLEEDING DISORDERS? :NO ANY NEW NUMBNESS OR WEAKNESS IN YOUR LEGS OR ARMS? :NO ANY PACEMAKER,DEFIBRILLATOR, OR DORSAL COLUMN STIMULATOR? :NO DO YOU HAVE ANY RASHES OR OPEN SORES? :NO ARE YOU ALLERGIC TO IV DYE? :NO ARE YOU DIABETIC? :NO ANY NEW PROBLEMS WITH YOUR MEDICATIONS? :NO HAVE YOU RECEIVED A VACCINE IN THE PAST 30 DAYS? :NO DO YOU PLAN TO RECEIVE A VACCINE IN THE NEXT 21 DAYS? :NO DO YOU NEED ANY PRESCRIPTION? :NO DO YOU TAKE ANY IMMUNOSUPPRESSIVE MEDICATIONS? :NO DO YOU HAVE ANY KIDNEY OR LIVER DISEASE? :NO IS THERE A CHANCE YOU COULD BE ? :NO ARE YOU BREAST FEEDING? :NO CURRENT MEDICATIONS TAKING MULTIVITAMINS TABLET CHEWABLE 2 TABLETS ORALLY ONCE A DAY, NOTES: NONE RECENTLY TAKING VITAMIN B-12 500 MCG TABLET 1 TABLET ORALLY ONCE A DAY, NOTES: NONE RECENTLY TAKING CALCIUM CITRATE + D3 250-200 MG-UNIT TABLET 2 TABLETS ORALLY ONCE A DAY, NOTES: NONE RECENTLY TAKING OMEPRAZOLE 20 MG CAPSULE DELAYED RELEASE 1 CAPSULE ORALLY TWICE DAILY, NOTES: NONE RECENTLY TAKING TRAZODONE HCL 50 MG TABLET 1 TABLET AT BEDTIME NEEDED ORALLY ONCE A DAY, NOTES: NONE RECENTLY TAKING ATORVASTATIN CALCIUM 10 MG TABLET 1 TABLET ORALLY ONCE A DAY, NOTES: NONE RECENTLY TAKING ACETAMINOPHEN 500 MG CAPSULE 2 CAPSULES NEEDED ORALLY 3 TIMES A DAY NEEDED, NOTES: 09/14/19 0730 TAKING TOPAMAX 50 MG TABLET 1 TABLET ORALLY BID TAKING MIRENA (52 MG) 20 MCG/24HR INTRAUTERINE DEVICE DIRECTED INTRAUTERINE , NOTES: DR CARRASCO 2018 TAKING SERTRALINE HCL 100 MG TABLET 1.5 TABLET ORALLY ONCE A DAY TAKING TIZANIDINE HCL 4 MG TABLET 1 TABLET NEEDED ORALLY THREE TIMES A DAY NOT-TAKING GABAPENTIN 400 MG CAPSULE 1 CAPSULE ORALLY TID, NOTES: LAST DOSE 06/29/2020 UNKNOWN VITAMIN D (ERGOCALCIFEROL) 22702 UNIT CAPSULE 1 CAPSULE ORALLY ONCE A WK., NOTES: NONE RECENTLY UNKNOWN TINIDAZOLE 500 MG TABLET 4 TABLETS WITH FOOD ORALLY ONCE A DAY UNKNOWN METRONIDAZOLE 500 MG TABLET 1 TABLET ORALLY TWICE A DAY UNKNOWN EFFEXOR XR 150 MG CAPSULE EXTENDED RELEASE 24 HOUR ORALLY UNKNOWN WELLBUTRIN SR 150 MG TABLET EXTENDED RELEASE 12 HOUR 1-2 TABS NEEDED ORALLY ONCE A DAY UNKNOWN METRONIDAZOLE 500 MG TABLET 4 TABLET ORALLY ONCE A DAY, NOTES: DX: TRICHOMONAS. SINGLE DOSE THERAPY UNKNOWN METROGEL-VAGINAL 0.75 % GEL 1 APPLICATORFUL AT BEDTIME VAGINAL ONCE A DAY, NOTES: STOPPED PER PT UNKNOWN CEFTRIAXONE SODIUM 250 MG SOLUTION RECONSTITUTED 1 INJECTION INJECTION ONCE UNKNOWN ZITHROMAX 250 MG TABLET 4 TABLETS ORALLY, TO BE GIVEN IN OFFICE PER CDC GUIDELINES ONCE A DAY UNKNOWN VITAMIN D3 5000 UNIT CAPSULE 3CAPSULES ORALLY ONCE A DAY UNKNOWN PROVERA 10 MG TABLET 1 TABLET WITH FOOD ORALLY ONCE A DAY START 04/04 MEDICATION LIST REVIEWED AND RECONCILED WITH THE PATIENT PAST MEDICAL HISTORY ENDOMETRIAL HYPERPLASIA- WITHOUT ATYPIA DEPRESSION/ANXIETY ASTHMA OBESITY, MORBID ESOPHAGEAL REFLUX TENSION HEADACHE INCARCERATION 2009, [id number] (DRUG-RELATED) S/P GASTRIC BYPASS (HIGHEST 382), HAS LOST 112! HX OVARIAN CYSTS PROBABLE PCOS/NEVER TESTED FOR IT HIRSUTISM TOBACCO ABUSE, WILLING TO QUIT ALLERGIES BANDAID ADHESIVE: RASH - ALLERGY ANIMALS: CONGESTION, EYE IRRITATION - ALLERGY SOCIAL HISTORY GENERAL: TOBACCO USE ARE YOU A:CURRENT SMOKER HOW OFTEN DO YOU SMOKE CIGARETTES?EVERY DAY HOW SOON AFTER YOU WAKE UP DO YOU SMOKE YOUR FIRST CIGARETTE?WITHIN 5 MIN HOW MANY CIGARETTES A DAY DO YOU SMOKE?11-20 ARE YOU INTERESTED IN QUITTING?NOT READY TO QUIT PATIENT COUNSELED ON THE DANGERS OF TOBACCO USE AND URGED TO QUIT:05/05/2020 COUNSELED THE PATIENT ON SMOKING EFFECTS, EDUCATION [id number]/21/2021 SMOKING CESSATION INFORMATION GIVEN10/22/2019 LATEX QUESTIONNAIRE LATEX ALLERGY : HAVE YOU EVER DEVELOPED ANY TYPE OF REACTION AFTER HANDLING LATEX PRODUCTS SUCH RUBBER GLOVES, CONDOMS, DIAPHRAGMS, BALLOONS, SOCKS, OR UNDERWEAR?NO LATEX ALLERGY : HAVE YOU EVER DEVELOPED ANY TYPE OF REACTION DURING OR AFTER DENTAL APPOINTMENT, VAGINAL/RECTAL EXAMINATION, SURGICAL PROCEDURE, OR ANY OTHER EXPOSURE?NO LATEX RISK : HAVE YOU EVER HAD ANY DIFFICULTY BREATHING OR HIVES AFTER EATING OR HANDLING ANY FRUITS, OR VEGETABLES; SUCH KIWI, BANANAS, STONE FRUITS, OR CHESTNUTSNO LATEX RISK : DO YOU HAVE A PREVIOUS PERSONAL HISTORY OF MORE THAN NINE SURGERIES, SPINA BIFIDA, OR REPEATED CATHERIZATIONS? NO LATEX RISK : ARE YOU FREQUENTLY EXPOSED TO LATEX PRODUCTS IN YOUR OCCUPATION?NO DATE ASKED : 07/04/2020 ALCOHOL USE: NO. ALCOHOL SCREENING DID YOU HAVE A DRINK CONTAINING ALCOHOL IN THE PAST YEAR?NO POINTS0 INTERPRETATIONNEGATIVE RECREATIONAL DRUG USE DRUG USE?NO CAFFEINE CAFFEINE USE?YES HOW OFTEN AND HOW MUCH? 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 DIET: REGULAR - BARIATRIC. EXERCISE: NO REGULAR EXERCISE. REVIEW OF SYSTEMS CONSTITUTIONAL: ANY RECENT FEVER NO . CHILLS NO . WEIGHT CHANGE OF UNKNOWN REASONS NO . GASTROENTEROLOGY: NEW UNEXPLAINABLE CHANGES IN BOWEL CONTROL NO . CONSTIPATION NO . GENITOURINARY: ANY NEW CHANGE IN BLADDER CONTROL? NO . NEUROLOGY: NEW ONSET DIZZINESS OR NEUROLOGICAL CHANGES NOT MENTIONED NO . NEW NUMBNESS OR PAIN PATTERNS NOT MENTIONED AND PERTINENT TO TODAY'S VISIT NO . CARDIOLOGY: NEW CHEST PRESSURE NO . PATIENT DENIES NO . RESPIRATORY: UNEXPLAINABLE COUGH NO . NEW SHORTNESS OF BREATH NO . VITAL SIGNS WT 287.6 LBS, HT 67 IN, BMI 45.04 INDEX, BP 143/79 MM HG, HR 73 /MIN, RR 18 /MIN, TEMP 97.9 F, OXYGEN SAT % 97%, SAFE IN ENV? (Y/N) YES, REVIEWED BY: FERCHO PELAYO MA. EXAMINATION GENERAL EXAMINATION: GENERALNO ACUTE DISTRESS, WELL NOURISHED AND HYDRATED. PSYCHAPPROPRIATE MOOD AND AFFECT . LUNGS:CLEAR TO AUSCULTATION BILATERALLY, NO WHEEZES, RHONCHI, RALES. HEART:NO MURMURS, REGULAR RATE AND RHYTHM. ASSESSMENTS SPONDYLOSIS OF CERVICAL REGION WITHOUT MYELOPATHY OR RADICULOPATHY - M47.812 (PRIMARY) TREATMENT SPONDYLOSIS OF CERVICAL REGION WITHOUT MYELOPATHY OR RADICULOPATHY START LYRICA CAPSULE, 75 MG, 1 CAPSULE, ORALLY, TWICE DAILY, 30 DAYS, 60 NOTES: 39-YEAR-OLD FEMALE IN FOR CHRONIC PAIN FOLLOW-UP. GIVEN PRESENTING SYMPTOMS RECOMMEND STARTING LYRICA 75 MG TWICE A DAY WITH FOLLOW-UP IN 2 MONTHS. PATIENT HAS EXPRESSED UNDERSTANDING OF AND WAS IN AGREEMENT WITH TREATMENT PLAN. GIVEN TIME TO ASK QUESTIONS AND EXPRESS CONCERNS. PROCEDURE CODES FA211 ESTABILISHED PATIENT [facility] CHARGE DISPOSITION & COMMUNICATION FOLLOW UP 2 MONTHS (REASON: MED CHANGE ) ELECTRONICALLY SIGNED BY ZAID HANNON ON 07/05/2020 AT 08:50 AM EDT DISCLAIMER : THIS IS A VISIT SUMMARY EXTRACTED FROM THE [employer] CHART. IT IS NOT A COPY OF THE [employer] PROGRESS NOTE. KEVEN
== END ==
LOC: M PAIN 10:30
PROVIDERS: ATTEND Family Medicine
DX: M47.812 Spondylosis without myelopathy or radiculopathy, cervical region (principal); F32.9 Major depressive disorder, single episode, unspecified; F41.9 Anxiety disorder, unspecified; J45.909 Unspecified asthma, uncomplicated; E66.01 Morbid (severe) obesity due to excess calories; K21.9 Gastro-esophageal reflux disease without esophagitis; Z98.84 Bariatric surgery status; F17.210 Nicotine dependence, cigarettes, uncomplicated; L68.0 Hirsutism; Z68.42 Body mass index [BMI] 45.0-49.9, adult; Z79.899 Other long term (current) drug therapy; Z91.048 Other nonmedicinal substance allergy status

== ENCOUNTER 2020-07-27 20:53 | Emergency (ER) | payer OTHER ==
[~2020-07-27] VITALS: Ht 170.2 cm; Wt 129.6 kg
[~2020-07-27 20:53] MED LIST changes: -SERT-138; +SERT-138 PO
[2020-07-27] MEDS ORDERED: LORA-674 PO (21:02)
[2020-07-27] MEDS ORDERED: TIZA4CAP6 PO (21:02)
[2020-07-27] MEDS ORDERED: LYRI75CA PO (21:02)
[2020-07-27] MEDS ORDERED: TRAZ-252 PO (21:02)
[2020-07-27] MEDS ORDERED: LIDOCAINE VISCOUS 2% SOLN 15ML UDC PO ONE (22:30)
[2020-07-27 23:17] LABS: BASO # 0.1 10^3/uL (0.0-0.2); BASO % 0.5 % (0.0-1.0); EOS # 0.3 10^3/uL (0.0-0.5); HEMATOCRIT 40.1 % (36.0-47.0); HEMOGLOBIN 13.1 g/dl (12.0-15.5); LYMPH # 2.7 10^3/uL (1.5-5.0); LYMPH % 27.4 % (24.0-44.0); MEAN CORPUSCULAR HEMOGLOBIN 30.5 pg (27.0-33.0); MEAN CORPUSCULAR HGB CONC 32.7 g/dl (32.0-36.5); MEAN CORPUSCULAR VOLUME 93.3 fl (80.0-96.0); MONO # 0.7 10^3/uL (0.0-0.8); MONO % 7.6 % (2.0-8.0); NEUTROPHILS % 61.2 % (36.0-66.0); PLATELET COUNT, AUTOMATED 328 10^3/uL (150-450); WHITE BLOOD COUNT 9.7 10^3/uL (4.0-10.0)
[2020-07-27 23:42] LABS: MONO SCRN NEGATIVE (NEGATIVE)
[2020-07-27] MEDS ORDERED: dexameTHASONE 20MG/5ML VIAL (J1100 PER 1MG) IM ONE (23:55)
[2020-07-27] MEDS ORDERED: PRED20TA PO (23:58)
[2020-07-27] MEDS ORDERED: CHLO0.5L PO (23:58)
[2020-07-28] MEDS ORDERED: BENZONATATE 100 MG CAP PO ONE
--- NOTE | 2020-07-28 00:11 | REPVR ---
PROCEDURE INFORMATION: Exam: XR Chest Exam date and time: 07/27/2020 11:47 PM Age: 39 years old Clinical indication: Other: Cough TECHNIQUE: Imaging protocol: XR of the chest. Views: 2 views. COMPARISON: CR Chest, 2 view PA, Lat 05/10/2015 8:43 PM FINDINGS: Lungs: No interval infiltrates. Pleural spaces: Unremarkable. No pleural effusion. No pneumothorax. Heart/Mediastinum: The heart and mediastinum are unchanged. Bones/joints: Unremarkable. Soft tissues: There are moderately generous overlying soft tissues. IMPRESSION: Negative chest without change from 05/10/2015. Electronically signed by: Jacob Dodge On 07/28/2020 00:11:49 AM
[2020-07-28 00:52] VITALS: BP 148/82
== END 2020-07-28 00:55 | disposition home or self-care (01) ==
LOC: M ED 20:53
DX: J20.9 Acute bronchitis, unspecified (principal); B34.9 Viral infection, unspecified; F31.9 Bipolar disorder, unspecified; K21.9 Gastro-esophageal reflux disease without esophagitis; Z98.84 Bariatric surgery status; Z88.8 Allergy status to other drugs, medicaments and biological substances; Z79.899 Other long term (current) drug therapy
CPT/HCPCS: 71046; 84702; 85025; 86308; 87880; 96372; 99284; J1100

== ENCOUNTER → 2020-09-08 | Outpatient (CLI) | payer OTHER ==
[~2020-09-08] MED LIST changes: +CHLO0.5L PO; +LORA-674 PO; +LYRI75CA PO; +TIZA4CAP6 PO; +TRAZ-252 PO
--- NOTE | 2020-09-10 07:19 | ECWPNPC ---
PATIENT NAME: MORRIS LEWIS : 1980 GENDER: FEMALE VISIT DATE: 09/08/2020 DISCHARGE DATE: 09/08/20915 VISIT LOCKED DATE TIME: PHYSICIAN: JOS VALLADARES RESOURCE: JOS VALLADARES REASON FOR APPOINTMENT 1. NECK PAIN HISTORY OF PRESENT ILLNESS DEPRESSION SCREENING: PHQ-2 (2015 EDITION) LITTLE INTEREST OR PLEASURE IN DOING THINGS?NOT AT ALL FEELING DOWN, DEPRESSED, OR HOPELESS?NOT AT ALL TOTAL SCORE0 GENERAL: HPI 39-YEAR-OLD FEMALE IN FOR CHRONIC PAIN FOLLOW-UP. SHE RATES HER PAIN CURRENTLY AT A 3 OUT OF 10 AND DESCRIBES IT SORE. AT LAST CLINIC VISIT PATIENT WAS STARTED ON LYRICA AND SHE ADMITS TODAY THAT THIS WAS BENEFICIAL. . -. FALL RISK SCREENING: SCREENING : NO FALLS REPORTED IN THE LAST YEAR. PAIN SCREENING: PATIENT HAS A COMPLAINT OF ACUTE OR CHRONIC PAIN :YES LOCATION OF PAIN:NECK INTENSITY OF PAIN (SCALE OF 1 TO 10):3 WHAT DOES YOUR PAIN FEEL LIKE:SORE DURATION:CONTINOUS, CONSTANT, ALL DAY PAIN IS INCREASED BY:ACTIVITIES PAIN IS DECREASED BY:USE OF PAIN MEDICATIONS SLEEPING NURSING NOTE: -. PAIN CENTER INTAKE QUESTIONS: DO YOU HAVE A HISTORY OF MRSA? :NO DO YOU TAKE A BLOOD THINNERS? :NO DO YOU HAVE ANY BLEEDING DISORDERS? :NO ANY NEW NUMBNESS OR WEAKNESS IN YOUR LEGS OR ARMS? :NO ANY PACEMAKER,DEFIBRILLATOR, OR DORSAL COLUMN STIMULATOR? :NO DO YOU HAVE ANY RASHES OR OPEN SORES? :NO ARE YOU ALLERGIC TO IV DYE? :NO ARE YOU DIABETIC? :NO ANY NEW PROBLEMS WITH YOUR MEDICATIONS? :NO HAVE YOU RECEIVED A VACCINE IN THE PAST 30 DAYS? :NO DO YOU PLAN TO RECEIVE A VACCINE IN THE NEXT 21 DAYS? :NO DO YOU NEED ANY PRESCRIPTION? :NO NOT SURE DO YOU TAKE ANY IMMUNOSUPPRESSIVE MEDICATIONS? :NO DO YOU HAVE ANY KIDNEY OR LIVER DISEASE? :NO IS THERE A CHANCE YOU COULD BE ? :NO ARE YOU BREAST FEEDING? :NO CURRENT MEDICATIONS TAKING MULTIVITAMINS TABLET CHEWABLE 2 TABLETS ORALLY ONCE A DAY TAKING VITAMIN B-12 500 MCG TABLET 1 TABLET ORALLY ONCE A DAY TAKING CALCIUM CITRATE + D3 250-200 MG-UNIT TABLET 2 TABLETS ORALLY ONCE A DAY TAKING OMEPRAZOLE 20 MG CAPSULE DELAYED RELEASE 1 CAPSULE ORALLY TWICE DAILY TAKING TRAZODONE HCL 50 MG TABLET 1 TABLET AT BEDTIME NEEDED ORALLY ONCE A DAY TAKING ATORVASTATIN CALCIUM 10 MG TABLET 1 TABLET ORALLY ONCE A DAY TAKING ACETAMINOPHEN 500 MG CAPSULE 2 CAPSULES NEEDED ORALLY 3 TIMES A DAY NEEDED TAKING TOPAMAX 100 MG TABLET 1 TABLET ORALLY BID TAKING MIRENA (52 MG) 20 MCG/24HR INTRAUTERINE DEVICE DIRECTED INTRAUTERINE , NOTES: DR CARRASCO 2018 TAKING SERTRALINE HCL 100 MG TABLET 2 TABLET 100MG ONCE A DAY TAKING TIZANIDINE HCL 4 MG TABLET 1 TABLET NEEDED ORALLY THREE TIMES A DAY TAKING LYRICA 75 MG CAPSULE 1 CAPSULE ORALLY TWICE DAILY NOT-TAKING GABAPENTIN 400 MG CAPSULE 1 CAPSULE ORALLY TID, NOTES: LAST DOSE 06/29/2020 NOT-TAKING VITAMIN D (ERGOCALCIFEROL) 51121 UNIT CAPSULE 1 CAPSULE ORALLY ONCE A WK., NOTES: NONE RECENTLY NOT-TAKING TINIDAZOLE 500 MG TABLET 4 TABLETS WITH FOOD ORALLY ONCE A DAY NOT-TAKING METRONIDAZOLE 500 MG TABLET 1 TABLET ORALLY TWICE A DAY NOT-TAKING EFFEXOR XR 150 MG CAPSULE EXTENDED RELEASE 24 HOUR ORALLY NOT-TAKING WELLBUTRIN SR 150 MG TABLET EXTENDED RELEASE 12 HOUR 1-2 TABS NEEDED ORALLY ONCE A DAY NOT-TAKING METRONIDAZOLE 500 MG TABLET 4 TABLET ORALLY ONCE A DAY, NOTES: DX: TRICHOMONAS. SINGLE DOSE THERAPY NOT-TAKING METROGEL-VAGINAL 0.75 % GEL 1 APPLICATORFUL AT BEDTIME VAGINAL ONCE A DAY, NOTES: STOPPED PER PT NOT-TAKING CEFTRIAXONE SODIUM 250 MG SOLUTION RECONSTITUTED 1 INJECTION INJECTION ONCE NOT-TAKING ZITHROMAX 250 MG TABLET 4 TABLETS ORALLY, TO BE GIVEN IN OFFICE PER CDC GUIDELINES ONCE A DAY NOT-TAKING VITAMIN D3 5000 UNIT CAPSULE 3CAPSULES ORALLY ONCE A DAY NOT-TAKING PROVERA 10 MG TABLET 1 TABLET WITH FOOD ORALLY ONCE A DAY START 04/04 MEDICATION LIST REVIEWED AND RECONCILED WITH THE PATIENT PAST MEDICAL HISTORY ENDOMETRIAL HYPERPLASIA- WITHOUT ATYPIA DEPRESSION/ANXIETY ASTHMA OBESITY, MORBID ESOPHAGEAL REFLUX TENSION HEADACHE INCARCERATION 2009, [id number] (DRUG-RELATED) S/P GASTRIC BYPASS (HIGHEST 382), HAS LOST 112! HX OVARIAN CYSTS PROBABLE PCOS/NEVER TESTED FOR IT HIRSUTISM TOBACCO ABUSE, WILLING TO QUIT ALLERGIES BANDAID ADHESIVE: RASH - ALLERGY ANIMALS: CONGESTION, EYE IRRITATION - ALLERGY SURGICAL HISTORY ALL TEETH PULLED 01/2009 GASTRIC BYPASS 12/17/13 CHOLECYSTECTOMY 03/26/14 COLPOSCOPY TEENS CARPAL TUNNEL RELEASE- LEFT 01/2019 CARPAL TUNNEL RELEASE AND ULNAR NERVE RELEASE - RIGHT 08/2019 CERVICAL EPIDURAL 09/14/2019 SOCIAL HISTORY GENERAL: TOBACCO USE ARE YOU A:CURRENT SMOKER ARE YOU INTERESTED IN QUITTING?NOT READY TO QUIT COUNSELED THE PATIENT ON SMOKING EFFECTS, EDUCATION [id number]/27/2021 HOW MANY CIGARETTES A DAY DO YOU SMOKE?11-20 HOW SOON AFTER YOU WAKE UP DO YOU SMOKE YOUR FIRST CIGARETTE?WITHIN 5 MIN HOW OFTEN DO YOU SMOKE CIGARETTES?EVERY DAY PATIENT COUNSELED ON THE DANGERS OF TOBACCO USE AND URGED TO QUIT:09/08/2020 SMOKING CESSATION INFORMATION GIVEN10/22/2019 LATEX QUESTIONNAIRE LATEX ALLERGY : HAVE YOU EVER DEVELOPED ANY TYPE OF REACTION AFTER HANDLING LATEX PRODUCTS SUCH RUBBER GLOVES, CONDOMS, DIAPHRAGMS, BALLOONS, SOCKS, OR UNDERWEAR?NO LATEX ALLERGY : HAVE YOU EVER DEVELOPED ANY TYPE OF REACTION DURING OR AFTER DENTAL APPOINTMENT, VAGINAL/RECTAL EXAMINATION, SURGICAL PROCEDURE, OR ANY OTHER EXPOSURE?NO LATEX RISK : HAVE YOU EVER HAD ANY DIFFICULTY BREATHING OR HIVES AFTER EATING OR HANDLING ANY FRUITS, OR VEGETABLES; SUCH KIWI, BANANAS, STONE FRUITS, OR CHESTNUTSNO LATEX RISK : DO YOU HAVE A PREVIOUS PERSONAL HISTORY OF MORE THAN NINE SURGERIES, SPINA BIFIDA, OR REPEATED CATHERIZATIONS? NO LATEX RISK : ARE YOU FREQUENTLY EXPOSED TO LATEX PRODUCTS IN YOUR OCCUPATION?NO DATE ASKED : 09/08/2020 ALCOHOL USE: NO. ALCOHOL SCREENING DID YOU HAVE A DRINK CONTAINING ALCOHOL IN THE PAST YEAR?NO POINTS0 INTERPRETATIONNEGATIVE RECREATIONAL DRUG USE DRUG USE?NO CAFFEINE CAFFEINE USE?YES HOW OFTEN AND HOW MUCH? 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 DIET: REGULAR - BARIATRIC. EXERCISE: NO REGULAR EXERCISE. HOSPITALIZATION/MAJOR DIAGNOSTIC PROCEDURE GALLBLADDER 03/2014 GASTRIC BYPASS 12/2013 IMHU 07/2016 KIDNEY STONE 07/2020 REVIEW OF SYSTEMS CONSTITUTIONAL: ANY RECENT FEVER NO . CHILLS NO . WEIGHT CHANGE OF UNKNOWN REASONS NO . GASTROENTEROLOGY: NEW UNEXPLAINABLE CHANGES IN BOWEL CONTROL NO . CONSTIPATION NO . GENITOURINARY: ANY NEW CHANGE IN BLADDER CONTROL? NO . NEUROLOGY: NEW ONSET DIZZINESS OR NEUROLOGICAL CHANGES NOT MENTIONED NO . NEW NUMBNESS OR PAIN PATTERNS NOT MENTIONED AND PERTINENT TO TODAY'S VISIT NO . CARDIOLOGY: NEW CHEST PRESSURE NO . PATIENT DENIES NO . RESPIRATORY: UNEXPLAINABLE COUGH NO . NEW SHORTNESS OF BREATH NO . VITAL SIGNS WT 287.0 LBS, HT 67 IN, BMI 44.95 INDEX, BP 139/87 MM HG, HR 68 /MIN, RR 18 /MIN, TEMP 96.8 F, OXYGEN SAT % 99%, SAFE IN ENV? (Y/N) YES, NA INITIALS AW 0857T.KALEIGH MOSHER. EXAMINATION GENERAL EXAMINATION: GENERALNO ACUTE DISTRESS, WELL NOURISHED AND HYDRATED. PSYCHAPPROPRIATE MOOD AND AFFECT . LUNGS:CLEAR TO AUSCULTATION BILATERALLY, NO WHEEZES, RHONCHI, RALES. HEART:NO MURMURS, REGULAR RATE AND RHYTHM. ASSESSMENTS CERVICAL DISC DISORDER WITH MYELOPATHY, UNSPECIFIED CERVICAL REGION - M50.00 (PRIMARY), RISK: (NULL) TREATMENT CERVICAL DISC DISORDER WITH MYELOPATHY, UNSPECIFIED CERVICAL REGION CONTINUE LYRICA CAPSULE, 75 MG, 1 CAPSULE, ORALLY, TWICE DAILY, 30 DAYS, 60, REFILLS 2 NOTES: 39-YEAR-OLD FEMALE IN FOR CHRONIC PAIN FOLLOW-UP GIVEN PRESENTING SYMPTOMS RECOMMENDED CONTINUATION OF CURRENT MEDICATION REGIMEN WITH FOLLOW-UP IN 3 MONTHS. PATIENT HAS EXPRESSED UNDERSTANDING OF AND WAS IN AGREEMENT WITH TREATMENT PLAN. GIVEN TIME TO ASK QUESTIONS AND EXPRESS CONCERNS. , ISTOP REGISTRY REVIEWED AND DEMONSTRATES COMPLLIANCE. (REF # [id number] ) BRINGS IN MEDICATIONS WHICH IS APPROPRIATE FOR WHAT WAS DISPENSED. PROCEDURE CODES FA211 ESTABILISHED PATIENT [facility] CHARGE DISPOSITION & COMMUNICATION FOLLOW UP 3 MONTHS (REASON: NECK PAIN ) ELECTRONICALLY SIGNED BY ZAID HANNON ON 09/09/2020 AT 08:22 AM EDT DISCLAIMER : THIS IS A VISIT SUMMARY EXTRACTED FROM THE IfOnly CHART. IT IS NOT A COPY OF THE IfOnly PROGRESS NOTE. KEVEN
== END ==
LOC: M PAIN 09:00
PROVIDERS: ATTEND Family Medicine
DX: M50.00 Cervical disc disorder with myelopathy, unspecified cervical region (principal); N85.01 Benign endometrial hyperplasia; F32.9 Major depressive disorder, single episode, unspecified; F41.9 Anxiety disorder, unspecified; J45.909 Unspecified asthma, uncomplicated; E66.01 Morbid (severe) obesity due to excess calories; K21.9 Gastro-esophageal reflux disease without esophagitis; G44.209 Tension-type headache, unspecified, not intractable; Z98.84 Bariatric surgery status; L68.0 Hirsutism; F17.210 Nicotine dependence, cigarettes, uncomplicated; Z68.41 Body mass index [BMI] 40.0-44.9, adult; Z79.899 Other long term (current) drug therapy; Z91.048 Other nonmedicinal substance allergy status

== ENCOUNTER → 2020-10-28 | Outpatient (REF) | payer OTHER | LOC: M SFHCWAGY 18:01 | PROVIDERS: ATTEND Obstetrics & Gynecology | DX: Z12.4 Encounter for screening for malignant neoplasm of cervix (principal) ==

== ENCOUNTER → 2020-11-07 | Outpatient (REF) | payer OTHER ==
[2020-11-07 19:00] LABS: APPEARANCE, URINE HAZY (CLEAR); BACTERIA, URINE AUTO NEGATIVE (NEGATIVE); BILIRUBIN, URINE AUTO NEGATIVE (NEGATIVE); BLOOD, URINE BLOOD NEGATIVE (NEGATIVE); COLOR, URINE YELLOW (YELLOW); GLUCOSE, URINE (UA) AUTO NEGATIVE (NEGATIVE); KETONE, URINE AUTO NEGATIVE (NEGATIVE); LEUKOCYTE ESTERASE, URINE AUTO TRACE (NEGATIVE); MUCUS, URINE SMALL (NEGATIVE); NITRITE, URINE AUTO NEGATIVE (NEGATIVE); PROTEIN, URINE AUTO NEGATIVE (NEGATIVE); RBC, URINE AUTO 1 /HPF (0-3); SPECIFIC GRAVITY URINE AUTO 1.025 (1.002-1.035); SQUAMOUS EPITHELIAL CELL UR AU 3 /HPF (0-6); WBC, URINE AUTO 3 /HPF (0-3)
== END ==
LOC: M SFHCWAGY 16:40
PROVIDERS: ATTEND Obstetrics & Gynecology
DX: M54.5 Low back pain (principal); R87.810 Cervical high risk human papillomavirus (HPV) DNA test positive

== ENCOUNTER 2020-11-25 11:51 | Emergency (ER) | payer OTHER ==
[~2020-11-25] VITALS: Ht 170.2 cm; Wt 134.8 kg
[2020-11-25] MEDS ORDERED: ACET-861 PO (14:31)
[2020-11-25] MEDS ORDERED: ATOR1TAB21 PO (14:31)
[2020-11-25] MEDS ORDERED: TOPI100T9 PO (14:31)
[2020-11-25] MEDS ORDERED: TAMS1CAP17 PO (14:31)
[2020-11-25] MEDS ORDERED: MEDR4PAK PO (16:11)
[2020-11-25 16:53] VITALS: BP 153/72
== END 2020-11-25 16:53 | disposition home or self-care (01) ==
LOC: M ED 11:51
DX: M51.9 Unspecified thoracic, thoracolumbar and lumbosacral intervertebral disc disorder (principal); N20.1 Calculus of ureter; E78.00 Pure hypercholesterolemia, unspecified; F33.9 Major depressive disorder, recurrent, unspecified; F41.9 Anxiety disorder, unspecified; G43.909 Migraine, unspecified, not intractable, without status migrainosus; K21.9 Gastro-esophageal reflux disease without esophagitis; Z98.84 Bariatric surgery status; Z79.899 Other long term (current) drug therapy; Z88.8 Allergy status to other drugs, medicaments and biological substances; F17.210 Nicotine dependence, cigarettes, uncomplicated

== ENCOUNTER → 2020-12-29 | Outpatient (CLI) | payer OTHER ==
[~2020-12-29] MED LIST changes: +ACET-861 PO; +ATOR1TAB21 PO; +MEDR4PAK PO; +TAMS1CAP17 PO; +TOPI100T9 PO
== END ==
LOC: M PAIN 10:45
PROVIDERS: ATTEND Anesthesiology
DX: M54.2 Cervicalgia (principal); M79.18 Myalgia, other site; F32.9 Major depressive disorder, single episode, unspecified; F41.9 Anxiety disorder, unspecified; J45.909 Unspecified asthma, uncomplicated; E66.01 Morbid (severe) obesity due to excess calories; K21.9 Gastro-esophageal reflux disease without esophagitis; F17.210 Nicotine dependence, cigarettes, uncomplicated; L68.0 Hirsutism; G44.209 Tension-type headache, unspecified, not intractable; Z79.899 Other long term (current) drug therapy; Z91.048 Other nonmedicinal substance allergy status; Z68.42 Body mass index [BMI] 45.0-49.9, adult

== ENCOUNTER → 2021-02-09 | Outpatient (CLI) | payer OTHER | LOC: M LABSMTC 11:14 | PROVIDERS: ATTEND Anesthesiology | DX: Z01.812 Encounter for preprocedural laboratory examination (principal); Z20.822 Contact with and (suspected) exposure to COVID-19 ==

== ENCOUNTER 2021-02-17 13:00 | Emergency (ER) | payer OTHER ==
[~2021-02-17] VITALS: Ht 170.2 cm; Wt 138.6 kg
[2021-02-17] MEDS ORDERED: LIDOCAINE 5% (LIDODERM) PATCH TD ONE (13:45)
[2021-02-17] MEDS ORDERED: KETOROLAC 60MG 2ML VIAL IM ONE (13:45)
[2021-02-17] MEDS ORDERED: ONDANSETRON 4 MG ORAL DISINTEGRATING TAB PO ONE (13:45)
--- NOTE | 2021-02-17 14:14 | REP ---
INDICATION: R low back pain, known stone, worse with ROM. COMPARISON: CT 02/26/2014 TECHNIQUE: Noncontrast images of the through the abdomen and pelvis with coronal and sagittal reconstructions FINDINGS: CT abdomen: The lung bases are clear. Heart is not enlarged. There is no pericardial thickening or effusion. Liver is the mildly enlarged up to 19 cm in the midclavicular line of the right lobe. However there is no fatty infiltration, hepatic mass or biliary dilatation. There clips in the gallbladder fossa from interval cholecystectomy. Common duct and pancreatic head region show no calcification or dilatation of the duct pancreas is unremarkable. Adrenal glands are normal. Spleen is not enlarged. Been a gastric bypass, appearance unchanged. Right kidney is somewhat atrophic it has a hydronephrosis and extrarenal pelvis. There is a 5 mm stone in the proximal ureter seen on image 93 axial and 59 coronal. Remainder of the right ureter without dilatation or stone. The left kidney shows compensatory hypertrophy. There is 1 nonobstructing stone in the cortex of that kidney in the upper pole. It has some mild hydronephrosis and extrarenal pelvis. The ureter shows no dilatation or stone. Small bowel loops and colon were grossly unremarkable. There are no inflammatory changes about the cecum. Appendix is normal. No ventral hernia. Lung window review of all CT slices shows no perforation or free air. No ascites. The bone windows show degenerative disc changes and lower midthoracic region as well as L5-S1 without compression deformity. Appears to be some spondylolysis at L5 without spondylolisthesis. CT pelvis: Sacrum, pelvis and hips show minimal degenerative changes at the acetabular roof without fracture or focal lesion. Bladder without any abnormal distension. I see no stone, wall thickening or mass. There is no dilated distal ureter or ureteral stone evident. Uterus anteverted and it has an IUD in place. No ventral or inguinal hernia nor pathologic sized inguinal adenopathy. Small bowel loops in the pelvis were unremarkable distal left colon sigmoid and rectum intact. IMPRESSION: 1. Mild to moderate hydronephrosis on the right with a 5 mm stone in the proximal ureter and no renal calculi on the right side. The right kidney is smaller than the left as on study from 7 years ago. 2. Mild hydronephrosis on the left with compensatory hypertrophy. 3. IUD in place in the central body and fundus of the uterus. No other significant finding. <Electronically signed by Rigo Zee > 02/17/21 [id number]
[2021-02-17 14:17] LABS: BASO % 0.4 % (0.0-1.0); EOS # 0.2 10^3/uL (0.0-0.5); EOS % 3.2 % (0.0-3.0); HEMATOCRIT 41.1 % (36.0-47.0); HEMOGLOBIN 13.8 g/dl (12.0-15.5); LYMPH # 2.4 10^3/uL (1.5-5.0); LYMPH % 32.4 % (24.0-44.0); MEAN CORPUSCULAR HEMOGLOBIN 30.5 pg (27.0-33.0); MEAN CORPUSCULAR HGB CONC 33.6 g/dl (32.0-36.5); MEAN CORPUSCULAR VOLUME 90.9 fl (80.0-96.0); MONO # 0.5 10^3/uL (0.0-0.8); MONO % 7.1 % (2.0-8.0); NEUTROPHILS # 4.1 10^3/uL (1.5-8.5); NEUTROPHILS % 56.6 % (36.0-66.0); PLATELET COUNT, AUTOMATED 365 10^3/uL (150-450); RED BLOOD COUNT 4.52 10^6/uL (4.00-5.40); WHITE BLOOD COUNT 7.3 10^3/uL (4.0-10.0)
[2021-02-17 14:43] LABS: ALBUMIN 3.4 GM/DL (3.2-5.2); ALT/SGPT 22 U/L (12-78); BILIRUBIN,DIRECT < 0.1 MG/DL (0.0-0.2); BILIRUBIN,TOTAL 0.2 MG/DL (0.2-1.0); LIPASE 180 U/L (73-393)
[2021-02-17] MEDS ORDERED: HYDR-3713 PO (15:29)
[2021-02-17] MEDS ORDERED: ASPE4PAD TOP (15:29)
[2021-02-17] MEDS ORDERED: FLOM0.4C39 PO (15:29)
[2021-02-17 15:58] VITALS: BP 144/90
[2021-02-17] MEDS ORDERED: **NOTE PATIENT COMMENT** MISC XX SCH (21:00)
== END 2021-02-17 15:58 | disposition home or self-care (01) ==
LOC: M ED 13:00
DX: N20.1 Calculus of ureter (principal); J45.909 Unspecified asthma, uncomplicated; K21.9 Gastro-esophageal reflux disease without esophagitis; Z79.899 Other long term (current) drug therapy; Z97.5 Presence of (intrauterine) contraceptive device; Z88.8 Allergy status to other drugs, medicaments and biological substances; F17.210 Nicotine dependence, cigarettes, uncomplicated
CPT/HCPCS: 36415; 74176; 80047; 80076; 81001; 83690; 85025; 96372; 99284; J1885

== ENCOUNTER → 2021-02-20 | Outpatient (CLI) | payer OTHER ==
[~2021-02-20] MED LIST changes: +ASPE4PAD TOP; +FLOM0.4C39 PO; +HYDR-3713 PO
--- NOTE | 2021-02-21 09:11 | REP ---
INDICATION: RT URETERAL STONE. COMPARISON: 02/17/2021 TECHNIQUE: Noncontrast scanning through the abdomen and pelvis with coronal and sagittal reconstructions. FINDINGS: CT abdomen: Lung bases without significant abnormality. Heart is not enlarged. Mild hepatomegaly unchanged. Liver, spleen and pancreas unremarkable. Gallbladder is surgically absent. Patient is undergone prior gas trick bypass. Adrenal glands are normal. There is moderate hydronephrosis on the right side unchanged. 5 mm stone is seen in the proximal ureter below the UPJ but unchanged since 02/17/2021. Remainder of the right ureter distal to the stone is unremarkable. Stranding in the Susan nephric fat noted. Left kidney has a tiny cortical stone 1-2 mm. There is some parapelvic cysts, mild hydronephrosis and extrarenal pelvis. No ureteral dilatation or stone on the left side. Bowel loops unremarkable. Bones show no interval change. There is no free air. No ascites. CT pelvis: Bones are unchanged. The ureters in the pelvis show no dilatation or stone. Uterus anteverted not enlarged and shows an IUD centrally within it. Bladder only partially filled. No wall thickening, stone or mass. No pelvic ascites or lymphadenopathy no ventral or inguinal hernia nor pathologic sized inguinal adenopathy. Small bowel loops in the pelvis were unremarkable appendix is seen and normal. IMPRESSION: 1. 5 mm stone in the proximal RIGHT ureter just below the UPJ and unchanged in position from the CT 3 days ago. Moderate hydronephrosis in that right kidney also unchanged. Some perinephric stranding stable. 2. Nonobstructing 1-2 mm stone in the cortex of the left kidney with some peripelvic cysts mild hydronephrosis and extrarenal pelvis but no hydroureter or ureteral stone. 3. No other significant or acute finding. Stable exam. <Electronically signed by Rigo Zee > 02/21/21 0578
== END ==
LOC: M RAD 18:00
PROVIDERS: ATTEND Urology
DX: N20.1 Calculus of ureter (principal)

== ENCOUNTER → 2021-02-28 | Outpatient (CLI) | payer OTHER ==
--- NOTE | 2021-02-28 11:41 | REP ---
INDICATION: LOW BACK PAIN COMPARISON: None. TECHNIQUE: AP, lateral, coned-down views of the lumbar spine. FINDINGS: Coned-down view suggests grade 1 spondylolysis at L5 with approximately 4.5 mm of anterolisthesis as well as L5-S1 endplate sclerosis and disc space narrowing. Remainder of the examination appears normal. IMPRESSION: Findings suggest bilateral L5 spondylolysis and chronic grade 1 spondylolisthesis. <Electronically signed by Sathish Quesada > 02/28/21 1314
== END ==
LOC: M SOG 11:25
PROVIDERS: ATTEND Orthopaedic Surgery
DX: M54.50 Low back pain, unspecified (principal); M43.17 Spondylolisthesis, lumbosacral region; M51.37 Other intervertebral disc degeneration, lumbosacral region

== ENCOUNTER 2021-03-04 11:28 | Emergency (ER) | payer OTHER ==
[~2021-03-04] VITALS: Ht 170.2 cm; Wt 141.1 kg
--- OUTSIDE RECORDS SUMMARY | 2021-03-04 11:37 | CCD ---
Author Author [facility] Organization [facility] Address Unknown Phone Unavailable Care Team Providers Care Lock Assembler Name Role Phone Dylan Day Unavailable PROBLEMS ALLERGIES ENCOUNTERS from 1980 to 2021-02-14 IMMUNIZATIONS SOCIAL HISTORY REASON FOR REFERRAL No Information VITAL SIGNS MEDICATIONS PROCEDURES No Information RESULTS No Results REASON FOR VISIT MEDICAL (GENERAL) HISTORY Goals Section Health Concerns MEDICAL EQUIPMENT No Information MENTAL STATUS FUNCTIONAL STATUS ASSESSMENTS No Information PLAN OF TREATMENT Insurance Providers
--- OUTSIDE RECORDS SUMMARY | 2021-03-04 11:37 | CCD ---
Author Author [facility] Organization [facility] Address Unknown Phone Unavailable Care Team Providers Care Concrete Analyst Name Role Phone Dylan Day Unavailable PROBLEMS Type Condition ICD9-CM Code TYP83-HI Code Onset Dates Condition S tatus W/U Status Risk SNOMED Code Notes Problem Irregular menstrual cycle N92.6 Active confirmed 68600942 Problem Absence of teeth K00.0 Active confirmed 234 957521 Problem Other general counseling and advice for contrace ptive management Z30.09 Active confirmed 708089373 Problem Dysmenorrhea N94.6 Active confirmed 3035975 00 Problem Tobacco use disorder F17.200 Active confirmed 506398908 Problem PCOS (polycystic ovarian syndrome) E28.2 Activ e confirmed 83375896 Problem Metrorrhagia N92.1 Active confirmed 6704950 3 Problem Papanicolaou smear of cervix with positive high risk human papilloma virus (HPV) test R87.810 Active confirmed 773984139 Problem Hydronephrosis N13.30 Active confirmed 92096 006 Problem Cervical high risk HPV (human papillomavirus) test positiv e R87.810 Active confirmed 404118989 Problem Gastric bypass status for obesity Z98.84 Active confirmed 653012220 Problem PCB (post coital bleeding) N93.0 Active confirmed 60636345 Problem 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 Active confirmed 817127613 Problem Cervical disc disorder with myelopathy, unspecif 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 Active confirmed 59557195 Problem Spondylosis of cervical 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.812 Active confirmed 183841433 ALLERGIES Allergen (clinical drug ingredient) Drug/Non Drug Allergy do cumented on EMR Reaction Allergy Type Onset Date Status Bandaid adhesive Rash Non Drug Allergy Ac tive animals congestion, eye irritation Non Drug Allergy Active ENCOUNTERS from 1980 to 2021-01-02 Encounter Location Date Provider Diagnosis [facility] [address] Floor [phone] [place] [address] Dec, Dylan Day Neck pain M54.2 ; My algia M79.10 and Myofascial pain syndrome M79.18 IMMUNIZATIONS Vaccine Route Administration Date Status Rocephin 1gm Ceftriaxone IM Intramuscular September 27, 2016 Admini stered Influenza 6mo & up Fluzone Unknown May 18, 2015 Refus ed SOCIAL HISTORY Tobacco Use: Social History Observation Description Date Details (start date - stop date) Current Smoker Sex Assigned At : Social History Observation Description Sex Assigned At Unknown Education: Question Answer Notes Level of Education: High School Language: Question Answer Notes Languages spoken: Citizen Of [place] Jewish: Question Answer Notes Jewish 33 None Alcohol Screening: Question Answer Notes Did you have a drink containing alcohol in the past year? No Points 0 Interpretation Negative Tobacco Use: Question Answer Notes Are you a: current smoker Smoking Cessation Information Given 10/22/2019 Patient counseled on the dangers of tobacco use and urged to quit: 09/08/2020 How many cigarettes a day do you smoke? 11-20 Are you interested in quitting? Not ready to quit Counseled the patient on smoking effects, education provided 09/08/2020 REASON FOR REFERRAL No Information VITAL SIGNS Weight 300.0 lbs Dec, Weight-kg 136.08 kg Dec, Height 67 in Dec, BMI 46.98 kg/m2 Dec, Heart Rate 70 /min Dec, Respiratory Rate 18 /min Dec, Temperature 98.0 degrees Fahrenheit Dec, Oximetry 98% Dec, Blood pressure systolic 159 mm Hg Dec, Blood pressure diastolic 86 mm Hg Dec, MEDICATIONS Medication SIG (Take, Route, Frequency, Duration) Notes Start Da te End Date Status Vitamin B-12 500 MCG 1 tablet Orally Once a day Active MetroGel-Vaginal 0.75 % 1 applicatorful at bedtime V aginal Once a day for 5 day(s) stopped per pt 18 May, 2018 Not-Taking tiZANidine HCl 4 MG 1 tablet as needed Orally Three times a day for 30 days Active Mirena (52 MG) 20 MCG/24HR as directed Intrauterine Dr Tracey 2018 Active Provera 10 MG 1 tablet with food Orally Once a day start 04/04 for 5 day(s) Mar, Not-Taking Vitamin D (Ergocalciferol) 12634 UNIT 1 capsule Orally once a wk . none recently Not-Taking Gabapentin 400 MG 1 capsule Orally TID Last dose 06/29/2020 Not-Taking metroNIDAZOLE 500 MG 1 tablet Orally Twice a day for 10 day(s) Oct, Not-Taking Sertraline HCl 100 MG 2 tablet 100mg Once a day Active Topamax 100 MG 1 tablet Orally BID A ctive traZODone HCl 50 MG 1 tablet at bedtime as needed Orally Once a day Active Wellbutrin SR 150 MG 1-2 tabs as needed Orally Once a day Not-Taking Tinidazole 500 MG 4 tablets with food Orally Once a day for 1 da ys Feb, Not-Taking Omeprazole 20 MG 1 capsule Orally twice daily Active Atorvastatin Calcium 10 MG 1 tablet Orally Once a day for 30 day(s) Active Multivitamins 2 tablets Orally once a day Active Zithromax 250 MG 4 tablets Orally, to be give n in office per cdc guidelines Once a day for 1 dose(s) Sep, Not-Taking Calcium Citrate + D3 250-200 MG-UNIT 2 tablets Orally once a day Active Lyrica 75 MG 1 capsule Orally twice daily for 30 days 16 S , 2020 Active cefTRIAXone Sodium 250 MG 1 injection Injection once for 1 dose( s) Sep, Not-Taking metroNIDAZOLE 500 MG 4 tablet Orally Once a day for 1 day Dx : trichomonas. Single dose therapy Mar, Not-Taking Acetaminophen 500 MG 2 capsules as needed Orally 3 times a day as nee ded Active Effexor XR 150 MG Orally Not-Reyes ing Vitamin D3 5000 UNIT 3capsules Orally Once a day Not-Taking PROCEDURES No Information RESULTS No Results REASON FOR VISIT Neck pain MEDICAL (GENERAL) HISTORY Type Description Date Medical History endometrial hyperplasia- without atypia Medical History depression/anxiety Medical History asthma Medical History obesity, morbid Medical History Esophageal reflux Medical History tension headache Medical History incarceration 2009, [phone] (drug-rela nigel) Medical History s/p gastric bypass (highest 382), has lo st 112! Medical History hx ovarian cysts Medical History probable PCOS/never tested for it Medical History hirsutism Medical History tobacco abuse, willing to quit Surgical History all teeth pulled 01/2009 Surgical History gastric bypass 12/17/13 Surgical History cholecystectomy 03/26/14 Surgical History colposcopy teens Surgical History carpal tunnel release- left 01/2019 Surgical History Carpal Tunnel Release and ulnar nerve re lease - right 08/2019 Surgical History cervical epidural 09/14/2019 Hospitalization History gallbladder 03/2014 Hospitalization History gastric bypass 12/2013 Hospitalization History IMHU 07/2016 Hospitalization History kidney stone 07/2020 Goals Section No Information Health Concerns No Information MEDICAL EQUIPMENT No Information MENTAL STATUS No Information FUNCTIONAL STATUS No Information ASSESSMENTS Encounter Date Diagnosis Assessment Notes Treatment Notes Treatm ent Clinical Notes Dec, Neck pain (ICD-10 - M54.2) Dec, Myalgia (ICD-10 - M79.10) After discussing with Dr. Day and the patient, the plan of care will be to request authorization for Trigger point injections Right neck, right shoulder, right thoracic. The goal will be to decrease her pain and increase her functionality. We will continue her tizanidine and Lyrica. ISTOP referenced. May consider a cervical MRI in the future should the patient's symptoms persist. Discussed with the patient that her blood pressure was elevated at today's visit, she felt this was related to her pain and being stressed today. She plans to discuss with her PCP on Saturday and understood the importance of seeking care prior to her appointment should she develop and s/s of hypertensive emergency.The patient verbalized understanding and was a agreeable to the plan of care. Connie Olmedo LUMBER SCALER-C Dec, Myofascial pain syndrome (ICD-10 - M79.18) Dec, Other 12/29/2020 1300- TRIGGER POINT INJECTION PROCEDURE INFORMATION PRINTED AND GIVEN TO PATIENT. PATIENT VERBLAIZES UNDERSTANDING OF PRE PROCEDURE INFORMATION REVIEWED. Joi AL RN PLAN OF TREATMENT Medication Medication Name Sig Start Date Stop Date tiZANidine HCl 4 MG 1 tablet as needed Orally Three times a day for 30 days Lyrica 75 MG 1 capsule Orally twice daily for 30 days Dec, Treatment Notes Assessment Notes Clinical Notes Myalgia After discussing with Dr. Issac souza and the patient, the plan of care will be to request authorization for Trigger point injections Right neck, right shoulder, right thoracic. The goal will be to decrease her pain and increase her functionality. We will continue her tizanidine and Lyrica. ISTOP referenced. May consider a cervical MRI in the future should the patient's symptoms persist. Discussed with the patient that her blood pressure was elevated at today's visit, she felt this was related to her pain and being stressed today. She plans to discuss with her PCP on Saturday and understood the importance of seeking care prior to her appointment should she develop and s/s of hypertensive emergency.The patient verbalized understanding and was a agreeable to the plan of care.Connie Olmedo LUMBER SCALER-C Future Test Test Name Order Date Medication: Pain Oxycodone HCL Tab 5mg Orally 20201216 0 Medication: Pain Valium Tab 5mg Orally (Diazepam) 2020 929 Next Appt Details Requesting auth for Trigger point inject ions Right neck, right shoulder, right thoracic Reason:Requesting auth for Trigger point injections Right neck, right shoulder, right thoracic Follow Up:Requesting auth for Trigger point injections Right neck, right shoulder, right thoracicRequesting auth for Trigger point injections Right neck, right shoulder, right thoracic Insurance Providers Payer Name Payer Address Payer Phone Insured Name Patient Relati onship to Insured Coverage Start Date Coverage End Date FORMERLY [facility] [employer] [address] [facility] [phone] MORRIS LEWIS self
--- OUTSIDE RECORDS SUMMARY | 2021-03-04 11:37 | CCD ---
Author Author [facility] Organization [facility] ems Address Unknown Phone Unavailable Care Team Providers Care Magazine Feeder Name Role Phone Libby Garsia Unavailable PROBLEMS Type Condition ICD9-CM Code [id number] Code Onset Dates Condition S tatus W/U Status Risk SNOMED Code Notes Problem Calculus of kidney N20.0 Active confirmed 9 8941949 Problem Kidney stone N20.0 Active confirmed 1512272 7 Problem Other general counseling and advice for contrace ptive management Z30.09 Active confirmed 728506173 Problem Calculus, kidney N20.0 Active confirmed 955 33755 Problem Absence of teeth K00.0 Active confirmed 234 200731 Problem Gastric bypass status for obesity Z98.84 Active confirmed 175419821 Problem Irregular menstrual cycle N92.6 Active confirmed 15165000 Problem Dysmenorrhea N94.6 Active confirmed 5265258 00 Problem Tobacco use disorder F17.200 Active confirmed 294187809 Problem PCB (post coital bleeding) N93.0 Active confirmed 65261177 Problem Metrorrhagia N92.1 Active confirmed 1968391 3 Problem Cervical high risk HPV (human papillomavirus) test positiv e R87.810 Active confirmed 654233721 Problem PCOS (polycystic ovarian syndrome) E28.2 Activ e confirmed 55263106 Problem Other chronic pain G89.29 Active confirmed 8 0770123 Problem Hydronephrosis N13.30 Active confirmed 53325 006 Problem 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 Active confirmed 825527442 Problem Cervical disc disorder with myelopathy, unspecif 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 Active confirmed 45247213 Problem Spondylosis of cervical 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.812 Active confirmed 377764218 Problem Papanicolaou smear of cervix with positive high risk human papilloma virus (HPV) test R87.810 Active confirmed 989455793 ALLERGIES Allergen (clinical drug ingredient) Drug/Non Drug Allergy do cumented on EMR Reaction Allergy Type Onset Date Status Adhesive Rash Drug Allergy Active animals congestion, eye irritation Non Drug Allergy Active ENCOUNTERS from 1979 to 2021-02-28 Encounter Location Date Provider Diagnosis [facility] [address] [phone] [place] [address] Feb, Libby Ady IMMUNIZATIONS Vaccine Route Administration Date Status Influenza 6mo & up Fluzone Unknown May 18, 2015 Refus ed SOCIAL HISTORY Tobacco Use: Social History Observation Description Date Details (start date - stop date) Current Smoker Sex Assigned At : Social History Observation Description Sex Assigned At Unknown Education: Question Answer Notes Level of Education: High School Language: Question Answer Notes Languages spoken: Arabic Spiritism: Question Answer Notes Spiritism 33 None Alcohol Screening: Question Answer Notes [...] REASON FOR REFERRAL No Information VITAL SIGNS No information MEDICATIONS Medication SIG (Take, Route, Frequency, Duration) Notes Start Da te End Date Status metroNIDAZOLE 500 MG 4 tablet Orally Once a day for 1 day Dx : trichomonas. Single dose therapy Mar, Not-Taking Percocet 5-325 MG 1 tablet as needed Orally every 6 hrs, MDD 4 Feb, Active Zithromax 250 MG 4 tablets Orally, to be give n in office per cdc guidelines Once a day for 1 dose(s) Sep, Not-Taking Calcium Citrate + D3 250-200 MG-UNIT 2 tablets Orally once a day Active Effexor XR 150 MG Orally Not-Reyes ing MetroGel-Vaginal 0.75 % 1 applicatorful at bedtime V aginal Once a day for 5 day(s) stopped per pt 18 May, 2018 Not-Taking Wellbutrin SR 150 MG 1-2 tabs as needed Orally Once a day Not-Taking cefTRIAXone Sodium 250 MG 1 injection Injection once for 1 dose( s) Sep, Not-Taking metroNIDAZOLE 500 MG 1 tablet Orally Twice a day for 10 day(s) Oct, Not-Taking Vitamin D3 5000 UNIT 3capsules Orally Once a day Not-Taking Provera 10 MG 1 tablet with food Orally Once a day start 04/04 for 5 day(s) Mar, Not-Taking Acetaminophen 500 MG 2 capsules as needed Orally 3 times a day as nee ded Active tiZANidine HCl 4 MG 1 tablet as needed Orally Three times a day for 30 days Active Vitamin D (Ergocalciferol) 15518 UNIT 1 capsule Orally once a wk . none recently Not-Taking traZODone HCl 50 MG 1 tablet at bedtime as needed Orally Once a day Active Flomax 0.4 MG 1 capsule Orally Once a day for 30 day(s) Feb, Active Tinidazole 500 MG 4 tablets with food Orally Once a day for 1 da ys Feb, Not-Taking Gabapentin 400 MG 1 capsule Orally TID Last dose 06/29/2020 Not-Taking Atorvastatin Calcium 10 MG 1 tablet Orally Once a day for 30 day(s) Active Lyrica 75 MG 1 capsule Orally twice daily for 30 days 16 S , 2020 Active Omeprazole 20 MG 1 capsule Orally twice daily Active Topamax 100 MG 1 tablet Orally BID A ctive Sertraline HCl 100 MG 2 tablet 100mg Once a day Active Mirena (52 MG) 20 MCG/24HR as directed Intrauterine Dr Tracey 2018 Active Multivitamins 2 tablets Orally once a day Active Vitamin B-12 500 MCG 1 tablet Orally Once a day Active PROCEDURES No Information RESULTS No Results REASON FOR VISIT pain MEDICAL (GENERAL) HISTORY Type Description Date Medical History endometrial hyperplasia- without atypia Medical History depression/anxiety Medical History asthma Medical History obesity, morbid Medical History Esophageal reflux Medical History tension headache Medical History incarceration 2009, 9621-4932 (drug-rela nigel) Medical History s/p gastric bypass (highest 382), has lo st [address]! Medical History hx ovarian cysts Medical History probable PCOS/never tested for it Medical History hirsutism Medical History tobacco abuse, willing to quit Medical History Nephrolithiasis -CT's Novemb er 2021 show 5 mm stone in the right ureter and 1 to 2 mm stone in the left kidney Surgical History all teeth pulled 01/2009 Surgical [...] Notes Treatment Notes Treatm ent Clinical Notes Feb, Other Patient was pre scribed a controlled substance during this office visit. The [facility] HAND TOOL FILER database was referenced by either myself or one of my designees and no concerning prescriptions of controlled substances were noted. Reference #:[id number] PLAN OF TREATMENT Next Appt Details Provider Name:Dylanavinash Day, 2021-03-14 11:20:00 AM, [address] [place] [address], , [place], [address], Provider Name:Dylan Day, 2021-03-23 02:45:00 PM, [address] [place] [address], , [place], [address], Insurance Providers Payer Name Payer Address Payer Phone Insured Name Patient Relati onship to Insured Coverage Start Date Coverage End Date [facility] COMMUN[facility] PLAN [facility] [address] [facility] [address] MORIRS LEWIS self
--- OUTSIDE RECORDS SUMMARY | 2021-03-04 11:37 | CCD | Continuity of Care Document ---
Author Author Antonette LUCIO DO Organization Unknown Address [address] [place] [address], [facility] [place] [address] Phone [phone] Care Team Providers Care Service Desk Team Lead Name Role Phone Jessica Dipika OSEGUERA AUTM [phone] AUTM Unavailable Brandin Mota PA-C AUTM [phone] Merrick Driscoll M.D. AUTM [phone] AUTM Unavailable Problems Description No Information Available Social History Type Date Description Comments Sex Unknown ETOH Use Rarely Recreational Drug Use Denies Drug Use Tobacco Use Start: Unknown Smokes 1 Pack A Day Smoking Status Reviewed: 02/28/21 Smokes 1 Pack A Day Exercise Type/Frequency Occasional Mild Exercise Allergies and adverse reactions Description No Known Drug Allergies Medications Active Medications SIG Qnty Indications Ordering Provide r Date Trazodone HCL 100mg Tablets every at bedtime Unknown Omeprazole 20mg Capsules DR 1 by mouth every day Unknown Mirena (52 MG) 20mcg/24HR IUD Unknown Oxycodone-Acetaminophen 5-325mg Tablets Libby Garsia, N.P. Tizanidine HCL 4mg Tablets Take One Tablet By Mouth Three Times A Day as Needed Unknown Atorvastatin Calcium 20mg Tablets Take One Tablet By Mouth Every Day Unknown Pregabalin 75mg Capsules Dylan Aranda MD Sertraline HCL 100mg Tablets Take Two Tablets By Mouth Once Daily Unknown 00/0 Immunizations Description No Information Available Vital Signs Date Vital Result Comment 02/28/2021 10:54am Body Temperature 97.1 F 08/18/2018 9:56am BP Systolic 132 mmHg BP Diastolic 80 mmHg Height 67 inches 5'7" Weight 289.00 lb BMI (Body Mass Index) 45.3 kg/m2 [place] Body Weight 135 lb Weight 131.090 kg BSA (Body Surface Area) 2.36 m2 Results Description No Information Available Procedures Description No Information Available Medical Devices Description No Information Available Encounters Description No Information Available Assessments Description No Information Available Plan of Treatment No Information Available Functional Status Description No Information Available Mental Status Description No Information Available Referrals Description No Information Available
--- OUTSIDE RECORDS SUMMARY | 2021-03-04 11:37 | CCD ---
Author Author [facility] Organization [facility] Address Unknown Phone Unavailable Care Team Providers Care Mixing Plant Dumper Name Role Phone Dylan Day Unavailable PROBLEMS ALLERGIES ENCOUNTERS from 1979 to 2021-02-24 IMMUNIZATIONS SOCIAL HISTORY REASON FOR REFERRAL No Information VITAL SIGNS MEDICATIONS PROCEDURES No Information RESULTS No Results REASON FOR VISIT MEDICAL (GENERAL) HISTORY Goals Section Health Concerns MEDICAL EQUIPMENT No Information MENTAL STATUS FUNCTIONAL STATUS ASSESSMENTS No Information PLAN OF TREATMENT Insurance Providers
--- OUTSIDE RECORDS SUMMARY | 2021-03-04 11:37 | CCD | Continuity of Care Document ---
Author Author Antonette LUCIO DO Organization Unknown Address [address] [place] [address], [facility] [place] [address] Phone [phone] Care Team Providers Care Retail And Restaurant Associate Name Role Phone Jessica Dipika OSEGUERA AUTM [phone] AUTM Unavailable Brandin Mota PA-C AUTM [phone] Merrick Driscoll M.D. AUTM [phone] AUTM Unavailable Problems Description No Information Available [...] lb BMI (Body Mass Index) 45.3 kg/m2 [place] Body Weight 135 lb Weight 131.090 kg BSA (Body Surface Area) 2.36 m2 Results Description No Information Available Procedures Date Code Description Status 02/28/2021 89691 Office/Outpatient New Low MDM 30 -44 Minutes Completed Medical Devices Description No Information Available Encounters Type Date Location Provider Dx Diagnosis Office Visit 02/28/2021 11:00a [facility] Estefany Lucio DO M51.16 Intervertebral disc disorders w radiculo christian, lumbar region Assessments Date Code Description Provider 02/28/2021 M51.16 Intervertebral disc disorders with radiculopathy, lumbar region [place] Lucio DO Plan of Treatment 02/28/2021 - [place] Lucio DO* M51.16 Intervertebral disc disorders with radiculopathy, lumbar region* New Xrays:* MRI Lumbar Spine W/O Contrast, Ordered: 02/28/21 * Comments:* Follow-up to review MRI lumbar spineOff work note given Functional Status Description No Information Available Mental Status Description No Information Available Referrals Description No Information Available
--- OUTSIDE RECORDS SUMMARY | 2021-03-04 11:38 | CCD ---
Author Author Lisa Antonette Fabiola Organization Unknown Address [address] [address] Phone Care Team Providers Care Interior Designer Name Role Phone Fabiola Gonzalez PCP Allergies, Adverse Reactions, Alerts Concept Allergy Name Reaction Severity Onset Date Status Documentation Date Phone Number Npid Taxonomy Code Taxonomy Desc Author Last Name Author Fi rst Name Concept Type 068207 sertraline Nausea 11/07/2016 Active 11/07/2016 [id number] Psychiatric/Mental Health Prateek King RXNORM Problem List Concept Problem Description Status Start Date Created Date Resolv ed Date Snomed Code F33.1 Major Depressive Disorder, Recurrent episode, Moderate Active 05/13/2019 05/13/2019 F17.200 Tobacco Use Disorder, Moderate Active 1 Medications No Data in Section Social History Social History Element Description Concept Effective Date Smoking Status Unknown if ever smoked [id number] Immunizations No Data in Section Vital Signs No Data in Section Procedures Date Concept Id Description Targeted Site Concept Targeted Site Concept Type 12/27/2020 87187 Extended Individual Psychotherapy - 45 min CPT Patient has no history of implantable de vices Encounters Encounter Start Date End Date Encounter Type Description Diagnosis Di agnosis Desc Location Author First Name Author Last Name Npid Taxonomy Cod e Taxonomy Desc Phone Number Location Addr1 Location Addr2 Location [facility] Location Sta te Location Zip [id number] 12/27/2020 12/27/2020 83508 Extended Individual Psych otherapy - 45 min F33.1 Major depressive disorder, recurrent, moderate Communi ty Clinic [facility] Meenastaci Hicks [id number] Protein Chemist [id number] [address] [phone] Plan of Treatment No Data in Section Lab Results No Data in Section Instructions No Data in Section Insurance Providers Insurance Id Policy Effective Date Policy Thru Date Kandace Tamez ame [id number] 2019 [id number]
--- OUTSIDE RECORDS SUMMARY | 2021-03-04 11:38 | CCD ---
Author Author [facility] Organization [facility] Address Unknown Phone Unavailable Care Team Providers Care Slot Shift Supervisor Name Role Phone Dennis Mckenzie Unavailable PROBLEMS Type Condition ICD9-CM Code [id number] Code Onset Dates Condition S tatus W/U Status Risk SNOMED Code Notes Problem Irregular menstrual cycle N92.6 Active confirmed 31877445 Problem Absence of teeth K00.0 Active confirmed 234 608615 Problem Other general counseling and advice for contrace ptive management Z30.09 Active confirmed 288223819 Problem Dysmenorrhea N94.6 Active confirmed 2119394 00 Problem Tobacco use disorder F17.200 Active confirmed 995536167 Problem PCOS (polycystic ovarian syndrome) E28.2 Activ e confirmed 26291208 Problem Metrorrhagia N92.1 Active confirmed 4589461 3 Problem Papanicolaou smear of cervix with positive high risk human papilloma virus (HPV) test R87.810 Active confirmed 797695630 Problem Hydronephrosis N13.30 Active confirmed 24827 006 Problem Cervical high risk HPV (human papillomavirus) test positiv e R87.810 Active confirmed 255240923 Problem Gastric bypass status for obesity Z98.84 Active confirmed 932541892 Problem PCB (post coital bleeding) N93.0 Active confirmed 62810043 Problem 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 Active confirmed 407632002 Problem Cervical disc disorder with myelopathy, unspecif 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 Active confirmed 93061113 Problem Spondylosis of cervical 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.812 Active confirmed 391230256 ALLERGIES Allergen (clinical drug ingredient) Drug/Non Drug Allergy do cumented on EMR Reaction Allergy Type Onset Date Status Bandaid adhesive Rash Non Drug Allergy Ac tive animals congestion, eye irritation Non Drug Allergy Active ENCOUNTERS from 1979 to 2020-12-09 Encounter Location Date Provider Diagnosis [facility] [address] [phone] [place] [address] Nov, Dennis Mckenzie IMMUNIZATIONS Vaccine Route Administration Date Status Rocephin [...] School Language: Question Answer Notes Languages spoken: Japanese Anglican: Question Answer Notes Anglican 33 None Alcohol Screening: Question Answer Notes [...] Start Da te End Date Status Vitamin D (Ergocalciferol) 47247 UNIT 1 capsule Orally once a wk . none recently Not-Taking Wellbutrin SR 150 MG 1-2 tabs as needed Orally Once a day Not-Taking Calcium Citrate + D3 250-200 MG-UNIT 2 tablets Orally once a day Active Acetaminophen 500 MG 2 capsules as needed Orally 3 times a day as nee ded Active Tinidazole 500 MG 4 tablets with food Orally Once a day for 1 da ys Feb, Not-Taking Multivitamins 2 tablets Orally once a day Active Omeprazole 20 MG 1 capsule Orally twice daily Active Sertraline HCl 100 MG 2 tablet 100mg Once a day Active traZODone HCl 50 MG 1 tablet at bedtime as needed Orally Once a day Active Mirena (52 MG) 20 MCG/24HR as directed Intrauterine Dr Tracey 2018 Active MetroGel-Vaginal 0.75 % 1 applicatorful at bedtime V aginal Once a day for 5 day(s) stopped per pt May, Not-Taking metroNIDAZOLE 500 MG 4 tablet Orally Once a day for 1 day Dx : trichomonas. Single dose therapy Mar, Not-Taking Vitamin D3 5000 UNIT 3capsules Orally Once a day Not-Taking tiZANidine HCl 4 MG 1 tablet as needed Orally Three times a day for 90 days Active cefTRIAXone Sodium 250 MG 1 injection Injection once for 1 dose( s) Sep, Not-Taking Gabapentin 400 MG 1 capsule Orally TID Last dose 06/29/2020 Not-Taking Atorvastatin Calcium 10 MG 1 tablet Orally Once a day for 30 day(s) Active Zithromax 250 MG 4 tablets Orally, to be give n in office per cdc guidelines Once a day for 1 dose(s) Sep, Not-Taking Vitamin B-12 500 MCG 1 tablet Orally Once a day Active metroNIDAZOLE 500 MG 1 tablet Orally Twice a day for 10 day(s) Oct, Not-Taking Effexor XR 150 MG Orally Not-Reyes ing Topamax 100 MG 1 tablet Orally BID A ctive Lyrica 75 MG 1 capsule Orally twice daily for 30 days 22 M , 2020 Active Provera 10 MG 1 tablet with food Orally Once a day start 04/04 for 5 day(s) Mar, Not-Taking PROCEDURES No Information RESULTS No Results REASON FOR VISIT er MEDICAL (GENERAL) HISTORY Type Description Date Medical History endometrial hyperplasia- without atypia Medical History depression/anxiety Medical History asthma Medical History obesity, morbid Medical History Esophageal reflux Medical History tension headache Medical History incarceration 2009, 0091-8581 (drug-rela nigel) Medical History s/p gastric bypass [...] No Information FUNCTIONAL STATUS No Information ASSESSMENTS No Information PLAN OF TREATMENT Next Appt Details Provider Name:Dylan Day, 2020-12-29 10:45:00 AM, [address], , [place], [address], Insurance Providers Payer Name Payer Address Payer Phone Insured Name Patient Relati onship to Insured Coverage Start Date Coverage End Date [facility] COMMUN[facility] PLAN [facility] [address] [facility] [phone] MORRIS LEWIS self
--- OUTSIDE RECORDS SUMMARY | 2021-03-04 11:38 | CCD ---
Author Author Antonette Jimenez Organization Unknown Address [address] [place] [address] Phone Care Team Providers Care Wood Coater Name Role Phone Tony Lisa PCP Allergies, Adverse Reactions, Alerts Concept Allergy Name Reaction Severity Onset Date Status Documentation Date Phone Number Npid Taxonomy Code Taxonomy Desc Author Last Name Author Fi rst Name Concept Type 388775 sertraline Nausea 11/07/2016 Active 11/07/2016 [id number] Psychiatric/Mental Health Prateek King RXNORM Problem List Concept Problem Description Status Start Date Created Date Resolv ed Date Snomed Code F33.1 Major Depressive Disorder, Recurrent episode, Moderate Active 05/13/2019 05/13/2019 F17.200 Tobacco Use Disorder, Moderate Active Medications Rx Norm Medication Route Route Concept Start Date Stop Date Dosage Jeff quency Duration Formula Strength Dosage Form Dosage Form Code Dosage Description Medication Id Account Npid Author First Name Author Last Name Taxonomy Code Taxonomy Desc Phone Number [phone] trazodone by mouth [id number] 08/15/2020 12/25/2020 at bedtime 30 50 mg tablet [id number] [id number] Lisa Tony [id number] P sychiatric/Mental Health [id number] sertraline by mouth [id number] 10/26/2020 12/25/2020 once a day 30 100 mg tablet 72689 [id number] Lisa Batista [id number] P sychiatric/Mental Health [id number] Social History Social History Element Description Concept Effective Date Smoking Status Unknown if ever smoked [id number] 69896666 Immunizations No Data in Section Vital Signs Encounter Date Height Ins Weight Lbs Bmi Bp Systolic Bp Diastoli c Oxygen Saturation Respiration Rate Pulse Rate Body Temp Head Circumference Heigh t Lying 12/15/2020 0.00 295.00 0.00 0 0 0.00 0 0 0.00 0.0 0. 00 Procedures Date Concept Id Description Targeted Site Concept Targeted Site Concept Type 12/14/2020 17259-41 [facility] Telemed E/M Lvl 3--Est pt CPT 12/14/2020 83991-43 Telemed A/O 30" CPT Patient has no history of implantable de vices Encounters Encounter Start Date End Date Encounter Type Description Diagnosis Di agnosis Desc Location Author First Name Author Last Name Npid Taxonomy Cod e Taxonomy Desc Phone Number Location Addr1 Location Addr2 Location [facility] Location Sta te Location Zip [id number] 12/14/2020 12/14/2020 18778-22 [facility] Telemed E/M Lvl 3--Est p t F33.1 Major depressive disorder, recurrent, moderate [facility] [id number] Psychiatric/Mental Health [phone] [address] [address] Plan of Treatment No Data in Section Lab Results No Data in Section Instructions No Data in Section Functional Cognitive Status No Data in Section Insurance Providers Insurance Id Policy Effective Date Policy Thru Date Portr N ruby [id number] 2019 [id number]
--- OUTSIDE RECORDS SUMMARY | 2021-03-04 11:39 | CCD ---
Author Author [facility] Organization [facility] Address Unknown Phone Unavailable Care Team Providers Care Floatman Name Role Phone Maring, Chinedu PA Unavailable Unavailable Maring, Chinedu PA Unavailable Unavailable Maring, Chinedu PA Unavailable Unavailable Maring, Chinedu PA Unavailable Unavailable Maring, Chinedu PA Unavailable Unavailable Maring, Chinedu PA Unavailable Unavailable Maring, Chinedu PA Unavailable Unavailable Maring, Chinedu PA Unavailable Unavailable Maring, Chinedu PA Unavailable Unavailable Maring, Chinedu PA Unavailable Unavailable Maring, Chinedu PA Unavailable Unavailable Maring, Chinedu PA Unavailable Unavailable Maring, Chinedu PA Unavailable Unavailable Maring, Chinedu PA Unavailable Unavailable Maring, Chinedu PA Unavailable Unavailable Maring, Chinedu PA Unavailable Unavailable Feola, T Arelis PA Unavailable Unavailable Feola, T Arelis PA Unavailable Unavailable Feola, T Arelis PA Unavailable Unavailable Feola, T Arelis PA Unavailable Unavailable Feola, T Arelis PA Unavailable Unavailable Feola, T Arelis PA Unavailable Unavailable Feola, T Arelis PA Unavailable Unavailable Feola, T Arelis PA Unavailable Unavailable Feola, T Arelis PA Unavailable Unavailable Feola, T Arelis PA Unavailable Unavailable Feola, T Arelis PA Unavailable Unavailable Feola, T Arelis PA Unavailable Unavailable Feola, T Arelis PA Unavailable Unavailable Feola, T Arelis PA Unavailable Unavailable Feola, T Arelis PA Unavailable Unavailable Feola, T Arelis PA Unavailable Unavailable Feola, T Arelis PA Unavailable Unavailable Feola, T Arelis PA Unavailable Unavailable Feola, T Arelis PA Unavailable Unavailable Feola, T Arelis PA Unavailable Unavailable Feola, T Arelis PA Unavailable Unavailable Feola, T Arelis PA Unavailable Unavailable Feola, T Arelis PA Unavailable Unavailable Feola, T Arelis PA Unavailable Unavailable Feola, T Arelis PA Unavailable Unavailable Feola, T Arelis PA Unavailable Unavailable Feola, T Arelis PA Unavailable Unavailable Feola, T Arelis PA Unavailable Unavailable Feola, T Arelis PA Unavailable Unavailable Feola, T Arelis PA Unavailable Unavailable Feola, T Arelis PA Unavailable Unavailable Feola, T Arelis PA Unavailable Unavailable Feola, T Arelis PA Unavailable Unavailable Feola, T Arelis PA Unavailable Unavailable Feola, T Arelis PA Unavailable Unavailable Feola, T Arelis PA Unavailable Unavailable Feola, T Arelis PA Unavailable Unavailable Feola, T Arelis PA Unavailable Unavailable Feola, T Arelis PA Unavailable Unavailable Feola, T Arelis PA Unavailable Unavailable Feola, T Arelis PA Unavailable Unavailable RAQUEL MONTE MD Unavailable Unavailable RAQUEL MONTE MD Unavailable Unavailable RAQUEL MONTE MD Unavailable Unavailable RAQUEL MONTE MD Unavailable Unavailable RAQUEL MONTE MD Unavailable Unavailable RAQUEL MONTE MD Unavailable Unavailable RAQUEL MONTE MD Unavailable Unavailable RAQUEL MONTE MD Unavailable Unavailable RAQUEL MONTE MD Unavailable Unavailable RAQUEL MONTE MD Unavailable Unavailable RAQUEL MONTE MD Unavailable Unavailable RAQUEL MONTE MD Unavailable Unavailable RAQUEL MONTE MD Unavailable Unavailable RAQUEL MONTE MD Unavailable Unavailable RAQUEL MONTE MD Unavailable Unavailable RAQUEL MONTE MD Unavailable Unavailable RAQUEL MONTE MD Unavailable Unavailable RAQUEL MONTE MD Unavailable Unavailable RAQUEL MONTE MD Unavailable Unavailable RAQUEL MONTE MD Unavailable Unavailable RAQUEL MONTE MD Unavailable Unavailable RAQUEL MONTE MD Unavailable Unavailable RAQUEL MONTE MD Unavailable Unavailable RAQUEL MONTE MD Unavailable Unavailable RAQUEL MONTE MD Unavailable Unavailable RAQUEL MONTE MD Unavailable Unavailable RAQUEL MONTE MD Unavailable Unavailable RAQUEL MONTE MD Unavailable Unavailable RAQUEL MONTE MD Unavailable Unavailable RAQUEL MONTE MD Unavailable Unavailable RAQUEL MONTE MD Unavailable Unavailable RAQUEL MONTE MD Unavailable Unavailable RAQUEL MONTE MD Unavailable Unavailable RAQUEL MONTE MD Unavailable Unavailable MONTERAQUEL SANCHEZ MD Unavailable Unavailable MONTERAQUEL SANCHEZ MD Unavailable Unavailable MONTERAQUEL SANCHEZ MD Unavailable Unavailable MONTERAQUEL SANCHEZ MD Unavailable Unavailable MONTERAQUEL SANCHEZ MD Unavailable Unavailable MONTERAQUEL SANCHEZ MD Unavailable Unavailable MONTERAQUEL SANCHEZ MD Unavailable Unavailable MONTERAQUEL SANCHEZ MD Unavailable Unavailable MONTERAQUEL SANCHEZ MD Unavailable Unavailable MONTERAQUEL SANCHEZ MD Unavailable Unavailable MONTERAQUEL SANCHEZ MD Unavailable Unavailable MONTERAQUEL SANCHEZ MD Unavailable Unavailable MONTERAQUEL SANCHEZ MD Unavailable Unavailable MONTERAQUEL SANCHEZ MD Unavailable Unavailable MONTERAQUEL SANCHEZ MD Unavailable Unavailable MONTERAQUEL SANCHEZ MD Unavailable Unavailable MONTERAQUEL SANCHEZ MD Unavailable Unavailable MONTERAQUEL SANCHEZ MD Unavailable Unavailable RAQUEL MONTE MD Unavailable Unavailable RAQUEL MONTE MD Unavailable Unavailable RAQUEL MONTE MD Unavailable Unavailable RAQUEL MONTE MD Unavailable Unavailable RAQUEL MONTE MD Unavailable Unavailable RAQUEL MONTE MD Unavailable Unavailable RAQUEL MONTE MD Unavailable Unavailable RAQUEL MONTE MD Unavailable Unavailable RAQUEL MONTE MD Unavailable Unavailable RAQUEL MONTE MD Unavailable Unavailable RAQUEL MONTE MD Unavailable Unavailable RAQUEL MONTE MD Unavailable Unavailable RAQUEL MONTE MD Unavailable Unavailable RAQUEL MONTE MD Unavailable Unavailable RAQUEL MONTE MD Unavailable Unavailable RAQUEL MONTE MD Unavailable Unavailable RAQUEL MONTE MD Unavailable Unavailable RAQUEL MONTE MD Unavailable Unavailable RAQUEL MONTE MD Unavailable Unavailable MAXIMINO BRENNER MD Unavailable Unavailable MAXIMINO BRENNER MD Unavailable Unavailable MAXIMINO BRENNER MD Unavailable Unavailable TURRIN, JC Unavailable Unavailable TURRIN, JC Unavailable Unavailable TURRIN, JC Unavailable Unavailable TURRIN, JC Unavailable Unavailable Trickey, J Mayra PA Unavailable Unavailable Trickey, J Mayra PA Unavailable Unavailable Trickey, J Mayra PA Unavailable Unavailable Trickey, J Mayra PA Unavailable Unavailable Trickey, J Mayra PA Unavailable Unavailable Trickey, J Mayra PA Unavailable Unavailable Trickey, J Mayra PA Unavailable Unavailable Trickey, J Mayra PA Unavailable Unavailable Trickey, J Mayra PA Unavailable Unavailable Trickey, J Mayra PA Unavailable Unavailable Trickey, J Mayra PA Unavailable Unavailable Trickey, J Mayra PA Unavailable Unavailable Trickey, J Mayra PA Unavailable Unavailable Trickey, J Mayra PA Unavailable Unavailable Trickey, J Mayra PA Unavailable Unavailable Trickey, J Mayra PA Unavailable Unavailable Trickey, J Mayra PA Unavailable Unavailable Trickey, J Mayra PA Unavailable Unavailable Trickey, J Mayra PA Unavailable Unavailable Trickey, J Mayra PA Unavailable Unavailable Trickey, J Mayra PA Unavailable Unavailable Trickey, J Mayra PA Unavailable Unavailable Trickey, J Mayra PA Unavailable Unavailable Trickey, J Mayra PA Unavailable Unavailable Trickey, J Mayra PA Unavailable Unavailable Trickey, J Mayra PA Unavailable Unavailable Trickey, J Mayra PA Unavailable Unavailable Trickey, J Marya PA Unavailable Unavailable Trickey, J Mayra PA Unavailable Unavailable Trickey, J Mayra PA Unavailable Unavailable Trickey, J Mayra PA Unavailable Unavailable Trickey, J Mayra PA Unavailable Unavailable Trickey, J Mayra PA Unavailable Unavailable Trickey, J Mayra PA Unavailable Unavailable Trickey, J Mayra PA Unavailable Unavailable Trickey, J Mayra PA Unavailable Unavailable Trickey, J Mayra PA Unavailable Unavailable Trickey, J Mayra PA Unavailable Unavailable Trickey, J Mayra PA Unavailable Unavailable Trickey, J Mayra PA Unavailable Unavailable Trickey, J Mayra PA Unavailable Unavailable Trickey, J Mayra PA Unavailable Unavailable Trickey, J Mayra PA Unavailable Unavailable Trickey, J Mayra PA Unavailable Unavailable Trickey, J Mayra PA Unavailable Unavailable Trickey, J Mayra PA Unavailable Unavailable Trickey, J Mayra PA Unavailable Unavailable Trickey, J Mayra PA Unavailable Unavailable Trickey, J Mayra PA Unavailable Unavailable Swatsworth, A Miguelangel PA Unavailable Unavailable Swatsworth, A Miguelangel PA Unavailable Unavailable Swatsworth, A Miguelangel PA Unavailable Unavailable Swatsworth, A Miguelangel PA Unavailable Unavailable Swatsworth, A Miguelangel PA Unavailable Unavailable Swatsworth, A Miguelangel PA Unavailable Unavailable Swatsworth, A Miguelangel PA Unavailable Unavailable Swatsworth, A Miguelangel PA Unavailable Unavailable Swatsworth, A Miguelangel PA Unavailable Unavailable Swatsworth, A Miguelangel PA Unavailable Unavailable Swatsworth, A Miguelangel PA Unavailable Unavailable Swatsworth, A Miguelangel PA Unavailable Unavailable Swatsworth, A Miguelangel PA Unavailable Unavailable Swatsworth, A Miguelangel PA Unavailable Unavailable Swatsworth, A Miguelangel PA Unavailable Unavailable BRITTANY LISA TEACHER SPECIALIST Unavailable Unavailable MACQUEEN LISA TEACHER SPECIALIST Unavailable Unavailable BRITTANY LISA TEACHER SPECIALIST Unavailable Unavailable BRITTANY LISA TEACHER SPECIALIST Unavailable Unavailable MACQUESHRUTI LISA TEACHER SPECIALIST Unavailable Unavailable MACQUEEN, LISA TEACHER SPECIALIST Unavailable Unavailable MACQUEEN, LISA TEACHER SPECIALIST Unavailable Unavailable MACQUEEN, LISA TEACHER SPECIALIST Unavailable Unavailable MACQUEEN, LISA TEACHER SPECIALIST Unavailable Unavailable MACQUEEN, LISA TEACHER SPECIALIST Unavailable Unavailable OBEN, T WERNER MD Unavailable Unavailable OBEN, T WERNER MD Unavailable Unavailable OBEN, T WERNER MD Unavailable Unavailable OBEN, T WERNER MD Unavailable Unavailable OBEN, T WERNER MD Unavailable Unavailable OBEN, T WERNER MD Unavailable Unavailable OBEN, T WERNER MD Unavailable Unavailable OBEN, T WERNER MD Unavailable Unavailable OBEN, T WERNER MD Unavailable Unavailable OBEN, T WERNER MD Unavailable Unavailable OBEN, T WERNER MD Unavailable Unavailable OBEN, T WERNER MD Unavailable Unavailable OBEN, T WERNER MD Unavailable Unavailable OBEN, T WERNER MD Unavailable Unavailable OBEN, T WERNER MD Unavailable Unavailable OBEN, T WERNER MD Unavailable Unavailable OBEN, T WERNER MD Unavailable Unavailable OBEN, T WERNER MD Unavailable Unavailable OBEN, T WERNER MD Unavailable Unavailable OBEN, T WERNER MD Unavailable Unavailable OBEN, T WERNER MD Unavailable Unavailable OBEN, T WERNER MD Unavailable Unavailable OBEN, T WERNER MD Unavailable Unavailable OBEN, T WERNER MD Unavailable Unavailable OBEN, T WERNER MD Unavailable Unavailable OBEN, T WERNER MD Unavailable Unavailable OBEN, T WERNER MD Unavailable Unavailable OBEN, T WERNER MD Unavailable Unavailable OBEN, T WERNER MD Unavailable Unavailable OBEN, T WERNER MD Unavailable Unavailable OBEN, T WERNER MD Unavailable Unavailable OBEN, T WERNER MD Unavailable Unavailable OBEN, T WERNER MD Unavailable Unavailable OBEN, T WERNER MD Unavailable Unavailable OBEN, T WERNER MD Unavailable Unavailable OBEN, T WERNER MD Unavailable Unavailable OBEN, T WERNER MD Unavailable Unavailable OBEN, T WERNER MD Unavailable Unavailable OBEN, T WERNER MD Unavailable Unavailable OBEN, T WERNER MD Unavailable Unavailable OBEN, T WERNER MD Unavailable Unavailable OBEN, T WERNER MD Unavailable Unavailable OBEN, T WERNER MD Unavailable Unavailable OBEN, T WERNER MD Unavailable Unavailable OBEN, T WERNER MD Unavailable Unavailable OBEN, T WERNER MD Unavailable Unavailable OBEN, T WERNER MD Unavailable Unavailable OBEN, T WERNER MD Unavailable Unavailable OBEN, T WERNER MD Unavailable Unavailable OBEN, T WERNER MD Unavailable Unavailable OBEN, T WERNER MD Unavailable Unavailable OBEN, T WERNER MD Unavailable Unavailable OBRicky BAHENA MD Unavailable Unavailable OBRicky BAHENA MD Unavailable Unavailable Ricky GORDILLO MD Unavailable Unavailable OBRicky BAHENA MD Unavailable Unavailable OBRicky BAHENA MD Unavailable Unavailable OBRicky BAHENA MD Unavailable Unavailable ANTECOL, Chelo ALANIZ MD Unavailable Unavailable ANTECOL, Chelo ALANIZ MD Unavailable Unavailable ANTECOL, Chelo ALANIZ MD Unavailable Unavailable ANTECOL, Chelo ALANIZ MD Unavailable Unavailable ANTECOL, Chelo ALANIZ MD Unavailable Unavailable ANTECOL, Chelo ALANIZ MD Unavailable Unavailable ANTECOL, Chelo ALANIZ MD Unavailable Unavailable ANTECOL, Chelo ALANIZ MD Unavailable Unavailable ANTECOL, Chelo ALANIZ MD Unavailable Unavailable ANTECOL, Chelo ALANIZ MD Unavailable Unavailable ANTECOL, Chelo ALANIZ MD Unavailable Unavailable ANTECOL, Chelo ALANIZ MD Unavailable Unavailable ANTECOL, Chelo ALANIZ MD Unavailable Unavailable ANTECOL, Chelo ALANIZ MD Unavailable Unavailable ANTECOL, Chelo ALANIZ MD Unavailable Unavailable ANTECOL, Chelo ALANIZ MD Unavailable Unavailable ANTECOL, Chelo ALANIZ MD Unavailable Unavailable ANTECOL, Chelo ALANIZ MD Unavailable Unavailable ANTECOL, Chelo ALANIZ MD Unavailable Unavailable ANTECOL, Chelo ALANIZ MD Unavailable Unavailable ANTECOL, Chelo ALANIZ MD Unavailable Unavailable ANTECOL, Chelo ALANIZ MD Unavailable Unavailable ANTECOL, Chelo ALANIZ MD Unavailable Unavailable ANTECOL, Chelo ALANIZ MD Unavailable Unavailable ANTECOL, Chelo ALANIZ MD Unavailable Unavailable ANTECOL, Chelo ALANIZ MD Unavailable Unavailable ANTECOL, Chelo ALANIZ MD Unavailable Unavailable ANTECOL, Chelo ALANIZ MD Unavailable Unavailable ANTECOL, Chelo ALANIZ MD Unavailable Unavailable ANTECOL, Chelo ALANIZ MD Unavailable Unavailable ANTECOL, Chelo ALANIZ MD Unavailable Unavailable ANTECOL, Chelo ALANIZ MD Unavailable Unavailable ANTECOL, Chelo ALANIZ MD Unavailable Unavailable ANTECOL, Chelo ALANIZ MD Unavailable Unavailable ANTECOL, Chelo ALANIZ MD Unavailable Unavailable ANTECOL, Chelo ALANIZ MD Unavailable Unavailable ANTECOL, Chelo ALANIZ MD Unavailable Unavailable ANTECOL, Chelo ALANIZ MD Unavailable Unavailable ANTECOL, Chelo ALANIZ MD Unavailable Unavailable ANTECOL, Chelo ALANIZ MD Unavailable Unavailable ANTECOL, Chelo ALANIZ MD Unavailable Unavailable ANTECOL, Chelo ALANIZ MD Unavailable Unavailable ANTECOL, Chelo ALANIZ MD Unavailable Unavailable ANTECOL, Chelo ALANIZ MD Unavailable Unavailable ANTECOL, Chelo ALANIZ MD Unavailable Unavailable ANTECOL, Chelo ALANIZ MD Unavailable Unavailable ANTECOL, Chelo ALANIZ MD Unavailable Unavailable ANTECOL, Chelo ALANIZ MD Unavailable Unavailable ANTECOL, Chelo ALANIZ MD Unavailable Unavailable ANTECOL, Chelo ALANIZ MD Unavailable Unavailable ANTECOL, Chelo ALANIZ MD Unavailable Unavailable ANTECOL, Chelo ALANIZ MD Unavailable Unavailable ANTECOL, Chelo ALANIZ MD Unavailable Unavailable ANTECOL, Chelo ALANIZ MD Unavailable Unavailable Goutremout, Fabiola Unavailable RACHEL, L MISSY MD Unavailable Unavailable RACHEL, L MISSY MD Unavailable Unavailable RACHEL, L MISSY MD Unavailable Unavailable RACHEL, L MISSY MD Unavailable Unavailable RACHEL, L MISSY MD Unavailable Unavailable RACHEL, L MISSY MD Unavailable Unavailable RACHEL, L MISSY MD Unavailable Unavailable RACHEL, L MISSY MD Unavailable Unavailable RACHEL, L MISSY MD Unavailable Unavailable RACHEL, L MISSY MD Unavailable Unavailable RACHEL, L MISSY MD Unavailable Unavailable RACHEL, L MISSY MD Unavailable Unavailable RACHEL, L MISSY MD Unavailable Unavailable RACHEL, L MISSY MD Unavailable Unavailable RACHEL, L MISSY MD Unavailable Unavailable RACHEL, L MISSY MD Unavailable Unavailable RACHEL, L MISSY MD Unavailable Unavailable RACHEL, L MISSY MD Unavailable Unavailable RACHEL, L MISSY MD Unavailable Unavailable RACHEL, L MISSY MD Unavailable Unavailable Re-disclosure Warning The records that you are about to access may contain information from federally-assisted alcohol or drug abuse programs. If such information is present, then the following federally mandated warning applies: This information has been disclosed to you from records protected by federal confidentiality rules (42 CFR part 2). The federal rules prohibit you from making any further disclosure of this information unless further disclosure is expressly permitted by the written consent of the person to whom it pertains or as otherwise permitted by 42 CFR part 2. A general authorization for the release of medical or other information is NOT sufficient for this purpose. The Federal rules restrict any use of the information to criminally investigate or prosecute any alcohol or drug abuse patient.The records that you are about to access may contain highly sensitive health information, the redisclosure of which is protected by Article 27-F of the [facility] Public Health law. If you continue you may have access to information: Regarding HIV / AIDS; Provided by facilities licensed or operated by the [facility] Office of Mental Health; or Provided by the [facility] Office for People With Developmental Disabilities. If such information is present, then the following [facility] mandated warning applies: This information has been disclosed to you from confidential records which are protected by state law. State law prohibits you from making any further disclosure of this information without the specific written consent of the person to whom it pertains, or as otherwise permitted by law. Any unauthorized further disclosure in violation of state law may result in a fine or prison sentence or both. A general authorization for the release of medical or other information is NOT sufficient authorization for further disc losure. Allergies and Adverse Reactions Type Description Substance Reaction Status Data Source(s ) Propensity to adverse reactions to substance sertraline Sertraline 25 MG Oral Tablet Nausea Active [facility] ([facility]) No Known Drug Allergies No Known Drug Allergies [facility] Family History Family Member Name Family Member Gender Family Member Status Date o f Status Description Data Source(s) Unknown Unknown Problem [facility] ([facility]) Unknown Unknown Problem [facility] ([facility]) Encounters Encounter Providers Location Date Indications Data Source(s ) Outpatient Attender: MAXIMINO Thomson/Torres/Navneet/ Lisa 02/28/2021 10:00:00 AM EST [facility] ([facility]) [place] [address] [address] 02/23/2021 12:00:00 AM EST eCW1 ([facility]) Unknown [address] [address] 02/23/2021 12:00:00 AM EST eCW1 ([facility]) Outpatient Attender: Chinedu PLATT 02/23/20 11:14:01 AM EST - 02/22/2021 11:54:26 AM EST [facility] ([facility] ) Unknown [address] [place] [address] 02/13/2021 12:00:00 AM EDT eCW1 ([facility]) Outpatient [address] [address] 02/07/2021 12:00:00 AM EDT eCW1 ([facility]) Outpatient [address] [address] 12/29/2020 12:00:00 AM EDT eCW1 ([facility]) Extended Individual Psychotherapy - 45 min Attender: Melissa Gonzalez [facility] 12/27/2020 11:00:00 AM EDT - 12/27/2020 11:00:00 AM EDT [facility] ([facility]) Attender: Fabiola Gonzalez 12/27/2020 12:00:0 0 AM EDT [facility] ([facility]) Attender: LISA SOTO NP 12/15/2020 12:00:00 AM EDT [facility] ([facility]) Outpatient Attender: LISA OSTO NP [facility] 12/14/2020 09:30:00 AM EDT - 12/14/2020 09:30:00 AM EDT [facility] ([facility]) Unknown [address] [facility], [facility] [address] 12/09/2020 12:00:00 AM EDT eCW1 ([facility]) Emergency Attender: Miguelangel Perez PAConsultant: RAQUEL CHO MD 12/03/2020 06:51:00 AM EDT - 12/03/2020 08:13:00 AM EDT [facility] Patient discharged. Extended Individual Psychotherapy - 45 min Attender: Melissa Gonzalez [facility] [place] 12/01/2020 09:00:00 AM EDT - 12/01/2020 09:00:00 AM EDT [facility] ([facility]) Attender: Fabiolarhonda Gonzalez 12/01/2020 12:00:0 0 AM EDT [facility] ([facility]) Emergency Attender: MISSY RAMOS MDConsultant: RAQUEL Law MD 11/22/2020 07:30:00 PM EDT - 11/23/2020 12:22:00 AM EDT [facility] Patient discharged. ( PROC) enter Procedure [address] [place] [address] 11/07/2020 12:00:00 AM EDT eCW1 ([facility]) Unknown [address] [facility], [facility] [address] 11/03/2020 12:00:00 AM EDT eCW1 ([facility]) Outpatient [address] [facility] [address] 10/28/2020 12:00:00 AM EDT eCW1 ([facility]) Unknown [address] [facility] [address] 10/28/2020 12:00:00 AM EDT eCW1 ([facility]) Extended Individual Psychotherapy - 45 min Attender: Melissa ca Meenakatadina [facility] 10/13/2020 09:00:00 AM EDT - 10/13/2020 09:00:00 AM EDT [facility] ([facility]) Attender: Fabiola Gonzalez 10/13/2020 12:00:0 0 AM EDT [facility] ([facility]) Outpatient [address] [facility] [address] 09/08/2020 12:00:00 AM EDT eCW1 ([facility]) Outpatient Attender: WERNER GORDILLO MDConsultant: RAQUEL MONTE MD 09/06/2020 08:35:00 AM EDT - 09/06/2020 08:35:00 AM EDT [facility] Extended Individual [facility]otherapy - 45 min [facility] 08/25/2020 09:00:00 AM EDT - 08/25/2020 09:00:00 AM EDT [facility] ([facility]) Attender: Fabiola Gonzalez 08/25/2020 12:00:0 0 AM EDT [facility] ([facility]) Unknown [address] [facility] [address] 08/15/2020 12:00:00 AM EDT eCW1 ([facility]) Emergency Attender: JC ALEJANDREConsultant: RAQUEL Law MD 08/01/2020 08:20:00 PM EDT - 08/02/2020 12:42:00 AM EDT [facility] Patient discharged. Unknown [address] [facility] [place] [address] 08/01/2020 12:00:00 AM EDT eCW1 ([facility]) Extended Individual Psychotherapy - 45 min Attender: Melissa Gonzalez [facility] 07/29/2020 09:00:00 AM EDT - 07/29/2020 09:00:00 AM EDT [facility] ([facility]) Attender: Fabiola Lisa 07/29/2020 12:00:0 0 AM EDT [facility] ([facility]) Outpatient Attender: LISA SOTO NP [facility] ani 07/27/2020 09:00:00 AM EDT - 07/27/2020 09:00:00 AM EDT [facility] ([facility]) Attender: LISA SOTO NP 07/27/2020 12:00:00 AM EDT [facility] ([facility]) Outpatient Attender: Arelis PLATT 021 08:02:18 AM EDT - 07/25/2020 08:46:36 AM EDT [facility] ([facility] ) Extended Individual Psychotherapy - 45 min Attender: Melissa Gonzalez [facility] 07/07/2020 09:30:00 AM EDT - 07/07/2020 09:30:00 AM EDT [facility] ([facility]) Attender: Fabiolarhonda Gonzalez 07/07/2020 12:00:0 0 AM EDT [facility] ([facility]) Outpatient [address] [facility] [place] [address] 07/04/2020 12:00:00 AM EDT eCW1 ([facility]) Outpatient Attender: RAQUEL MONTE MD Family Practice 06/29/2020 0 7:20:00 AM EDT [facility] ([facility]) Outpatient Attender: RAQUEL MONTE MDConsultant: RAQUEL Law MD 06/29/2020 07:16:00 AM EDT - 06/29/2020 07:16:00 AM EDT [facility] [id number]"Psychotherapy Attender: Fabiolarhonda Gonzalez [facility] 06/08/2020 09:00:00 AM EST - 06/08/2020 09:00:00 AM EST [facility] ([facility]) Attender: Fabiolarhonda Gonzalez 06/08/2020 12:00:0 0 AM EST [facility] ([facility]) Outpatient Attender: LISA SOTO NP [facility]lon [facility] 05/26/2020 03:30:00 AM EST - 05/26/2020 03:30:00 AM EST [facility] ([facility]) Attender: LISA SOTO NP 05/26/2020 12:00:00 AM EST [facility] ([facility]) Extended Individual Psychotherapy - 45 min Attender: Melissa Gonzalez [facility] [facility] 09:00:00 AM EST - 05/20/2020 09:00:00 AM EST [facility] ([facility]) Attender: Fabiola Gonzalez 05/20/2020 12:00:0 0 AM EST [facility] ([facility]) Outpatient Attender: Mayra PLATT [facility] 05/12/2020 09:30:00 AM EST [facility] ([facility] jose ) Extended Individual Psychotherapy - 45 min Attender: Melissa Gonzalez [facility] 05/06/2020 09:00:00 AM EST - 05/06/2020 09:00:00 AM EST [facility] ([facility]) Attender: Fabiola Gonzalez 05/06/2020 12:00:0 0 AM EST [facility] ([facility]) Outpatient Attender: LISA SOTO NP [facility] 05/05/2020 12:30:00 PM EST - 05/05/2020 12:30:00 PM EST [facility] ([facility]) Outpatient [facility] [address] 05/05/2020 12:00:00 AM EST eCW1 ([facility]) Attender: LISA SOTO NP 05/05/2020 12:00:00 AM EST [facility] ([facility]) Extended Individual Psychotherapy - 45 min [facility] 04/20/2020 09:30:00 AM EST - 04/20/2020 09:30:00 AM EST [facility] ([facility]) Attender: Fabiola Gonzalez 04/20/2020 12:00:0 0 AM EST [facility] ([facility]) Extended Individual Psychotherapy - 45 min [facility]30/[facility] 09:15:00 AM EST - 03/30/2020 09:15:00 AM EST [facility] ([facility]) Attender: Fabiola Gonzalez 03/30/2020 12:00:0 0 AM EST [facility] ([facility]) Extended Individual Psychotherapy - 45 min [facility] 02/25/2020 09:45:00 AM EST - 02/25/2020 09:45:00 AM EST [facility] ([facility]) Attender: Fabiola Gonzalez 02/25/2020 12:00:0 0 AM EST [facility] ([facility]) Outpatient [address] [facility] [address] 02/24/2020 12:00:00 AM EST eCW1 ([facility]) Outpatient [address] [facility] [address] 02/22/2020 12:00:00 AM EST eCW1 ([facility]) Extended Individual Psychotherapy - 45 min [facility] 02/10/2020 09:00:00 AM EDT - 02/10/2020 09:00:00 AM EDT [facility] ([facility]) Attender: Fabiola Gonzalez 02/10/2020 12:00:0 0 AM EDT [facility] ([facility]) Outpatient Attender: Mayra PLATT Main office - [facility] 02/01/2020 11:30:00 AM EDT [facility] ([facility]ose ) Extended Individual Psychotherapy - 45 min [facility]: [facility] 01/27/2020 09:15:00 AM EDT - 01/27/2020 09:15:00 AM EDT [facility] ([facility]) Attender: Fabiola Gonzalez 01/27/2020 12:00:0 0 AM EDT [facility] ([facility]) Outpatient [address] [facility] [address] 01/25/2020 12:00:00 AM EDT eCW1 ([facility]) Outpatient Attender: CORBIN VARGAS MD Main Office 01/14/2020 10:45:00 AM EDT [facility] ([facility]) Functional Status Medications Medication Brand Name Start Date Product Form Dose Route Admi nistrative Instructions Pharmacy Instructions Status Indications Reaction Description Data Source(s) 5-325 mg 02/24/2021 12:00:00 AM EST tablet 28 TAKE ONE TABLET BY MOUTH EVERY 6 HOURS NEEDED MAXIMUM DAILY DOSE = 4 TABLETS TAKE ONE TABLET BY MOUTH EVERY 6 HOURS NEEDED MAXIMUM DAILY DOSE = 4 TABLETS SOLD: 02/24/2021 [facility] Acetaminophen 325 MG / Oxycodone Hydroch loride 5 MG Oral Tablet [Percocet] Percocet 5-325 MG Percocet 5-325 MG 02/23/2021 12:00:00 AM EST 1 .0 {tablet_as_needed} active Percocet 5-32 5 MG eCW1 ([facility]) Tamsulosin hydrochloride 0.4 MG Oral Capsule [Flomax] Flomax 0.4 MG Flomax 0.4 MG 02/23/2021 12:00:00 AM EST 1.0 {capsule} active Flomax 0.4 MG eCW1 ([facility]) Acetaminophen 325 MG / Oxycodone Hydroch loride 5 MG Oral Tablet [Percocet] Percocet 5-325 MG Percocet 5-325 MG 02/23/2021 12:00:00 AM EST 1 .0 {tablet_as_needed} active eCW1 ([facility]) Tamsulosin hydrochloride 0.4 MG Oral Capsule [Flomax] Flomax 0.4 MG Flomax 0.4 MG 02/23/2021 12:00:00 AM EST 1.0 {capsule} active eCW1 ([facility]) 0.4 mg 02/17/2021 12:00:00 AM EDT capsule 30 TAKE ONE CAPSULE BY MOUTH EVERY DAY TAKE ONE CAPSULE BY MOUTH EVERY DAY SOLD: 02/17/2021 [facility] Acetaminophen 325 MG / Hydrocodone Bitartrate 5 MG Ora l Tablet 5-325 mg HYDROCODONE/ACETAMINOPHEN 02/17/2021 12:00:00 AM EDT tablet 12 TAKE 1 TABLET BY MOUTH EVERY 6 HOURS NEEDED FOR PAIN MAXIMUM DAILY DOSE = 4 TABLETS TAKE 1 TABLET BY MOUTH EVERY 6 HOURS NEEDED FOR PAIN MAXIMUM DAILY DOSE = 4 TABLETS SOLD: 02/17/2021 [facility] atorvastatin 20 MG Oral Tablet ATORVASTATIN CALCIUM 02/01/2021 1 2:00:00 AM EDT tablet 90 TAKE ONE TABLET BY MOUTH EVERY D AY TAKE ONE TABLET BY MOUTH EVERY DAY SOLD: 02/09/2021 [facility] 75 mg 01/09/2021 12:00:00 AM EDT capsule 60 TAKE ONE CAPSULE BY MOUTH TWICE A DAY MAXIMUM DAILY DOSE = 2 CAPSULES TAKE ONE CAPSULE BY MOUTH TWICE A DAY MAXIMUM DAILY DOSE = 2 CAPSULES SOLD: 01/11/2021 [facility] pregabalin 75 MG Oral Capsule [Lyrica] Lyrica 75 MG Lyrica 7 5 MG 12/29/2020 12:00:00 AM EDT 1.0 {capsule} active L yrica 75 MG eCW1 ([facility]) pregabalin 75 MG Oral Capsule [Lyrica] Lyrica 75 MG Lyrica 7 5 MG 12/29/2020 12:00:00 AM EDT 1.0 {capsule} active L yrica 75 MG eCW1 ([facility]) pregabalin 75 MG Oral Capsule [Lyrica] Lyrica 75 MG Lyrica 7 5 MG 12/29/2020 12:00:00 AM EDT 1.0 {capsule} active eCW1 ([facility]) pregabalin 75 MG Oral Capsule [Lyrica] Lyrica 75 MG Lyrica 7 5 MG 12/29/2020 12:00:00 AM EDT 1.0 {capsule} active eCW1 ([facility]) pregabalin 75 MG Oral Capsule [Lyrica] Lyrica 75 MG Lyrica 7 5 MG 12/29/2020 12:00:00 AM EDT 1.0 {capsule} active L yrica 75 MG eCW1 ([facility]) 4 mg 11/25/2020 12:00:00 AM EDT tablets,dose pack 21 FOLLOW DIRECTIONS INSIDE OF PACK FOLLOW DIRECTIONS INSIDE OF PACK SOLD: 11/25/2020 [facility] 0.4 mg 11/24/2020 12:00:00 AM EDT capsule 30 TAKE ONE CAPSULE BY MOUTH EVERY DAY TAKE ONE CAPSULE BY MOUTH EVERY DAY SOLD: 11/24/2020 [facility] tizanidine 4 MG Oral Tablet TIZANIDINE HCL 11/04/2020 12:00:00 AM EDT tablet 90 TAKE ONE TABLET BY MOUTH THREE TIMES A DAY NEEDED T THELMA ONE TABLET BY MOUTH THREE TIMES A DAY NEEDED SOLD: 01/11/2021 [facility] tizanidine 4 MG Oral Tablet TIZANIDINE HCL 11/04/2020 12:00:00 AM EDT tablet 90 TAKE ONE TABLET BY MOUTH THREE TIMES A DAY NEEDED T THELMA ONE TABLET BY MOUTH THREE TIMES A DAY NEEDED SOLD: 12/10/2020 [facility] tizanidine 4 MG Oral Tablet TIZANIDINE HCL 11/04/2020 12:00:00 AM EDT tablet 90 TAKE ONE TABLET BY MOUTH THREE TIMES A DAY NEEDED T THELMA ONE TABLET BY MOUTH THREE TIMES A DAY NEEDED SOLD: 02/09/2021 [facility] tizanidine 4 MG Oral Tablet TIZANIDINE HCL 11/04/2020 12:00:00 AM EDT tablet 90 TAKE ONE TABLET BY MOUTH THREE TIMES A DAY NEEDED T THELMA ONE TABLET BY MOUTH THREE TIMES A DAY NEEDED SOLD: 11/10/2020 [facility] 50 mg 10/27/2020 12:00:00 AM EDT tablet 30 TAKE ONE TABLET BY MOUTH DAILY AT BEDTIME TAKE ONE TABLET BY MOUTH DAILY AT BEDTIME SOLD: 10/29/2020 [facility] 50 mg 10/27/2020 12:00:00 AM EDT tablet 30 TAKE ONE TABLET BY MOUTH DAILY AT BEDTIME TAKE ONE TABLET BY MOUTH DAILY AT BEDTIME SOLD: 12/04/2020 [facility] Sertraline 100 MG Oral Tablet sertraline 10/26/2020 12:00:00 AM EDT 100 mg by mouth completed <td ID="Medica tionRxNorm_2">482820</td><td ID="MedicationMedication_2">sertraline</td><td ID="MedicationRoute_2">by mouth</td><td ID="MedicationRouteConcept_2">I33509</td><td ID="MedicationStartDate_2">10/26/2020</td><td ID="MedicationStopDate_2">12/25/2020</td><td ID="MedicationDosageFrequency_2">once a day</td><td ID="MedicationDuration_2">30</td><td ID="MedicationFormulaStrength_2">100 mg</td><td ID="MedicationDosageForm_2">tablet</td><td ID="MedicationDosageFormCode_2"></td><td ID="MedicationDosageDescription_2"></td><td ID="MedicationMedicationId_2">[id number]</td><td ID="MedicationAccount_2">[id number]</td><td ID="MedicationNpid_2">[id number]</td><td ID="MedicationAuthorFirstName_2">Lisa</td><td ID="MedicationAuthorLastName_2">MacQueen</td><td ID="MedicationTaxonomyCode_2">[id number]</td><td ID="MedicationTaxonomyDesc_2">Psychiatric/Mental Health</td><td ID="MedicationPhoneNumber_2">[phone]</td> [facility] ([facility]) 75 mg 09/14/2020 12:00:00 AM EDT capsule 60 TAKE ONE CAPSULE BY MOUTH TWO TIMES A DAY MAXIMUM DAILY DOSE = 2 CAPS TAKE ONE CAPSULE BY MOUTH TWO TIMES A DAY MAXIMUM DAILY DOSE = 2 CAPS SOLD: 10/29/2020 [facility] 75 mg 09/14/2020 12:00:00 AM EDT capsule 60 TAKE ONE CAPSULE BY MOUTH TWO TIMES A DAY MAXIMUM DAILY DOSE = 2 CAPS TAKE ONE CAPSULE BY MOUTH TWO TIMES A DAY MAXIMUM DAILY DOSE = 2 CAPS SOLD: 09/18/2020 [facility] 75 mg 09/14/2020 12:00:00 AM EDT capsule 60 TAKE ONE CAPSULE BY MOUTH TWO TIMES A DAY MAXIMUM DAILY DOSE = 2 CAPS TAKE ONE CAPSULE BY MOUTH TWO TIMES A DAY MAXIMUM DAILY DOSE = 2 CAPS SOLD: 12/12/2020 [facility] 75 mg 08/16/2020 12:00:00 AM EDT capsule 60 TAKE ONE CAPSULE BY MOUTH TWICE A DAY MAXIMUM DAILY DOSE = 2 CAPSULES TAKE ONE CAPSULE BY MOUTH TWICE A DAY MAXIMUM DAILY DOSE = 2 CAPSULES SOLD: 08/17/2020 [facility] Trazodone Hydrochloride 50 MG Oral Tablet trazodone 2020 12:00:00 AM EDT 50 mg by mouth completed <td ID="Medic ationRxNorm_1">[id number]</td><td ID="MedicationMedication_1">trazodone</td><td ID="MedicationRoute_1">by mouth</td><td ID="MedicationRouteConcept_1">[id number]</td><td ID="MedicationStartDate_1">08/15/2020</td><td ID="MedicationStopDate_1">12/25/2020</td><td ID="MedicationDosageFrequency_1">at bedtime</td><td ID="MedicationDuration_1">30</td><td ID="MedicationFormulaStrength_1">50 mg</td><td ID="MedicationDosageForm_1">tablet</td><td ID="MedicationDosageFormCode_1"></td><td ID="MedicationDosageDescription_1"></td><td ID="MedicationMedicationId_1">[id number]</td><td ID="MedicationAccount_1">[id number]</td><td ID="MedicationNpid_1">[id number]</td><td ID="MedicationAuthorFirstName_1">Lisa</td><td ID="MedicationAuthorLastName_1">MacQueen</td><td ID="MedicationTaxonomyCode_1">[id number]</td><td ID="MedicationTaxonomyDesc_1">Psychiatric/Mental Health</td><td ID="MedicationPhoneNumber_1">[phone]</td> [facility] ([facility]) tizanidine 4 MG Oral Tablet TIZANIDINE HCL 08/02/2020 12:00:00 AM EDT tablet 90 TAKE ONE TABLET BY MOUTH THREE TIMES A DAY NEEDED T THELMA ONE TABLET BY MOUTH THREE TIMES A DAY NEEDED SOLD: 09/18/2020 [facility] 300 mg 08/02/2020 12:00:00 AM EDT capsule 14 TAKE ONE CAPSULE BY MOUTH TWICE A DAY FOR 7 DAYS TAKE ONE CAPSULE BY MOUTH TWICE A DAY FOR 7 DAYS SOLD: 08/02/2020 [facility] tizanidine 4 MG Oral Tablet TIZANIDINE HCL 08/02/2020 12:00:00 AM EDT tablet 90 TAKE ONE TABLET BY MOUTH THREE TIMES A DAY NEEDED T THELMA ONE TABLET BY MOUTH THREE TIMES A DAY NEEDED SOLD: 08/11/2020 [facility] Acetaminophen 325 MG / Hydrocodone Bitartrate 5 MG Ora l Tablet 5-325 mg HYDROCODONE/ACETAMINOPHEN 08/02/2020 12:00:00 AM EDT tablet 16 TAKE 1 TABLET BY MOUTH 4 TIMES A DAY NEEDED FOR PAIN MAX DAILY DOSE = 4 TABLETS TAKE 1 TABLET BY MOUTH 4 TIMES A DAY NEEDED FOR PAIN MAX DAILY DOSE = 4 TABLETS SOLD: 08/02/2020 [facility] 4 mg 08/02/2020 12:00:00 AM EDT tablet 16 TAKE ONE TABLET BY MOUTH FOUR TIMES A DAY NEEDED TAKE ONE TABLET BY MOUTH FOUR TIMES A DAY NEEDED SO LD: 08/02/2020 [facility] 0.4 mg 08/02/2020 12:00:00 AM EDT capsule 7 TAKE ONE CAPSULE BY MOUTH EVERY DAY TAKE ONE CAPSULE BY MOUTH EVERY DAY SOLD: 08/02/2020 [facility] 100 mg 08/01/2020 12:00:00 AM EDT tablet 60 TAKE TWO TABLETS BY MOUTH ONCE DAILY TAKE TWO TABLETS BY MOUTH ONCE DAILY SOLD: 09/18/2020 [facility] 100 mg 08/01/2020 12:00:00 AM EDT tablet 60 TAKE TWO TABLETS BY MOUTH ONCE DAILY TAKE TWO TABLETS BY MOUTH ONCE DAILY SOLD: 10/29/2020 [facility] 100 mg 08/01/2020 12:00:00 AM EDT tablet 60 TAKE TWO TABLETS BY MOUTH ONCE DAILY TAKE TWO TABLETS BY MOUTH ONCE DAILY SOLD: 08/02/2020 [facility] 20 mg 07/28/2020 12:00:00 AM EDT tablet 10 TAKE ONE TABLET BY MOUTH TWICE A DAY FOR 5 DAYS TAKE ONE TABLET BY MOUTH TWICE A DAY FOR 5 DAYS SOLD: 2020 [facility] 10 mg 07/25/2020 12:00:00 AM EDT tablet 30 TAKE ONE TABLET BY MOUTH EVERY DAY TAKE ONE TABLET BY MOUTH EVERY DAY SOLD: 07/25/2020 [facility] 90 mcg/actuation 07/25/2020 12:00:00 AM EDT HFA aerosol inha ler 8 INHALE 1-2 PUFFS BY MOUTH EVERY 4 HOURS NEEDED FOR WHEEZING INHALE 1-2 PUFFS BY MOUTH EVERY 4 HOURS NEEDED FOR WHEEZING SOLD: 07/25/2020 [facility] 75 mg 07/05/2020 12:00:00 AM EDT capsule 60 TAKE ONE CAPSULE BY MOUTH TWICE A DAY MAXIMUM DAILY DOSE = 2 CAPSULES TAKE ONE CAPSULE BY MOUTH TWICE A DAY MAXIMUM DAILY DOSE = 2 CAPSULES SOLD: 07/05/2020 [facility] pregabalin 75 MG Oral Capsule [Lyrica] Lyrica 75 MG Lyrica 7 5 MG 07/04/2020 12:00:00 AM EDT 1.0 {capsule} active L yrica 75 MG eCW1 ([facility]) pregabalin 75 MG Oral Capsule [Lyrica] Lyrica 75 MG Lyrica 7 5 MG 07/04/2020 12:00:00 AM EDT 1.0 {capsule} active L yrica 75 MG eCW1 ([facility]) pregabalin 75 MG Oral Capsule [Lyrica] Lyrica 75 MG Lyrica 7 5 MG 07/04/2020 12:00:00 AM EDT 1.0 {capsule} active eCW1 ([facility]) pregabalin 75 MG Oral Capsule [Lyrica] Lyrica 75 MG Lyrica 7 5 MG 07/04/2020 12:00:00 AM EDT 1.0 {capsule} active L yrica 75 MG eCW1 ([facility]) pregabalin 75 MG Oral Capsule [Lyrica] Lyrica 75 MG Lyrica 7 5 MG 07/04/2020 12:00:00 AM EDT 1.0 {capsule} active L yrica 75 MG eCW1 ([facility]) pregabalin 75 MG Oral Capsule [Lyrica] Lyrica 75 MG Lyrica 7 5 MG 07/04/2020 12:00:00 AM EDT 1.0 {capsule} active L yrica 75 MG eCW1 ([facility]) pregabalin 75 MG Oral Capsule [Lyrica] Lyrica 75 MG Lyrica 7 5 MG 07/04/2020 12:00:00 AM EDT 1.0 {capsule} active L yrica 75 MG eCW1 ([facility]) pregabalin 75 MG Oral Capsule [Lyrica] Lyrica 75 MG Lyrica 7 5 MG 07/04/2020 12:00:00 AM EDT 1.0 {capsule} active L yrica 75 MG eCW1 ([facility]) pregabalin 75 MG Oral Capsule [Lyrica] Lyrica 75 MG Lyrica 7 5 MG 07/04/2020 12:00:00 AM EDT 1.0 {capsule} active L yrica 75 MG eCW1 ([facility]) atorvastatin 20 MG Oral Tablet ATORVASTATIN CALCIUM 06/30/2020 1 2:00:00 AM EDT tablet 30 TAKE ONE TABLET BY MOUTH EVERY D AY TAKE ONE TABLET BY MOUTH EVERY DAY SOLD: 07/04/2020 [facility] atorvastatin 20 MG Oral Tablet ATORVASTATIN CALCIUM 06/30/2020 1 2:00:00 AM EDT tablet 30 TAKE ONE TABLET BY MOUTH EVERY D AY TAKE ONE TABLET BY MOUTH EVERY DAY SOLD: 10/29/2020 [facility] atorvastatin 20 MG Oral Tablet ATORVASTATIN CALCIUM 06/30/2020 1 2:00:00 AM EDT tablet 30 TAKE ONE TABLET BY MOUTH EVERY D AY TAKE ONE TABLET BY MOUTH EVERY DAY SOLD: 08/02/2020 [facility] atorvastatin 20 MG Oral Tablet ATORVASTATIN CALCIUM 06/30/2020 1 2:00:00 AM EDT tablet 30 TAKE ONE TABLET BY MOUTH EVERY D AY TAKE ONE TABLET BY MOUTH EVERY DAY SOLD: 12/04/2020 [facility] atorvastatin 20 MG Oral Tablet ATORVASTATIN CALCIUM 06/30/2020 1 2:00:00 AM EDT tablet 30 TAKE ONE TABLET BY MOUTH EVERY D AY TAKE ONE TABLET BY MOUTH EVERY DAY SOLD: 01/04/2021 [facility] atorvastatin 20 MG Oral Tablet ATORVASTATIN CALCIUM 06/30/2020 1 2:00:00 AM EDT tablet 30 TAKE ONE TABLET BY MOUTH EVERY D AY TAKE ONE TABLET BY MOUTH EVERY DAY SOLD: 09/18/2020 [facility] 400 mg 05/17/2020 12:00:00 AM EST capsule 90 TAKE 1 CAPSULE BY MOUTH THREE TIMES A DAY MAXIMUM DAILY DOSE = 3 TAKE 1 CAPSULE BY MOUTH THREE TIMES A DA Y MAXIMUM DAILY DOSE = 3 SOLD: 05/23/2020 [facility] 100 mg 05/13/2020 12:00:00 AM EST tablet 60 TAKE ONE TABLET BY MOUTH TWICE A DAY TAKE ONE TABLET BY MOUTH TWICE A DAY SOLD: 05/23/2020 [facility] 100 mg 05/13/2020 12:00:00 AM EST tablet 60 TAKE ONE TABLET BY MOUTH TWICE A DAY TAKE ONE TABLET BY MOUTH TWICE A DAY SOLD: 08/02/2020 [facility] 100 mg 05/13/2020 12:00:00 AM EST tablet 60 TAKE ONE TABLET BY MOUTH TWICE A DAY TAKE ONE TABLET BY MOUTH TWICE A DAY SOLD: 07/04/2020 [facility] Xray Left Wrist 05/12/2020 12:00:00 AM EST ac tive [facility] ([facility] ) topiramate 100 MG Oral Tablet [Topamax] Topamax 05/12/2020 12:00:0 0 AM EST ORAL active [facility] ([facility]) 50 mg 05/06/2020 12:00:00 AM EST tablet 30 TAKE ONE TABLET BY MOUTH AT BEDTIME TAKE ONE TABLET BY MOUTH AT BEDTIME SOLD: 06/05/2020 [facility] 100 mg 05/06/2020 12:00:00 AM EST tablet 60 TAKE TWO TABLETS BY MOUTH ONCE A DAY TAKE TWO TABLETS BY MOUTH ONCE A DAY SOLD: 05/07/2020 [facility] 50 mg 05/06/2020 12:00:00 AM EST tablet 30 TAKE ONE TABLET BY MOUTH AT BEDTIME TAKE ONE TABLET BY MOUTH AT BEDTIME SOLD: 07/04/2020 [facility] 100 mg 05/06/2020 12:00:00 AM EST tablet 60 TAKE TWO TABLETS BY MOUTH ONCE A DAY TAKE TWO TABLETS BY MOUTH ONCE A DAY SOLD: 07/04/2020 [facility] 100 mg 05/06/2020 12:00:00 AM EST tablet 60 TAKE TWO TABLETS BY MOUTH ONCE A DAY TAKE TWO TABLETS BY MOUTH ONCE A DAY SOLD: 06/05/2020 [facility] tizanidine 4 MG Oral Tablet TIZANIDINE HCL 05/06/2020 12:00:00 AM EST tablet 90 TAKE ONE TABLET BY MOUTH THREE TIMES A DAY TAKE ONE TA BLET BY MOUTH THREE TIMES A DAY SOLD: 05/07/2020 [facility] tizanidine 4 MG Oral Tablet TIZANIDINE HCL 05/06/2020 12:00:00 AM EST tablet 90 TAKE ONE TABLET BY MOUTH THREE TIMES A DAY TAKE ONE TA BLET BY MOUTH THREE TIMES A DAY SOLD: 06/05/2020 [facility] 50 mg 05/06/2020 12:00:00 AM EST tablet 30 TAKE ONE TABLET BY MOUTH AT BEDTIME TAKE ONE TABLET BY MOUTH AT BEDTIME SOLD: 05/07/2020 [facility] tizanidine 4 MG Oral Tablet Tizanidine HCl 4 MG Tizanidine H Cl 4 MG 05/05/2020 12:00:00 AM EST 1.0 {tablet_as_needed} active Tizanidine HCl [address] [facility] ([facility]) tizanidine 4 MG Oral Tablet tiZANidine HCl 4 MG tiZANidine H Cl 4 MG 05/05/2020 12:00:00 AM EST 1.0 {tablet_as_needed} active tiZANidine HCl 4 MG eCW1 ([facility]) tizanidine 4 MG Oral Tablet Tizanidine HCl 4 MG Tizanidine H Cl 4 MG 05/05/2020 12:00:00 AM EST 1.0 {tablet_as_needed} active eCW1 ([facility]) tizanidine 4 MG Oral Tablet Tizanidine HCl 4 MG Tizanidine H Cl 4 MG 05/05/2020 12:00:00 AM EST 1.0 {tablet_as_needed} active Tizanidine HCl 4 MG W1 ([facility]) tizanidine 4 MG Oral Tablet tiZANidine HCl 4 MG tiZANidine H Cl 4 MG 05/05/2020 12:00:00 AM EST 1.0 {tablet_as_needed} active tiZANidine HCl 4 MG W1 ([facility]) tizanidine 4 MG Oral Tablet Tizanidine HCl 4 MG Tizanidine H Cl 4 MG 05/05/2020 12:00:00 AM EST 1.0 {tablet_as_needed} active Tizanidine HCl 4 MG [facility] ([facility]) tizanidine 4 MG Oral Tablet Tizanidine HCl 4 MG Tizanidine H Cl 4 MG 05/05/2020 12:00:00 AM EST 1.0 {tablet_as_needed} active Tizanidine HCl 4 MG eCW1 ([facility]) 500 mg 02/25/2020 12:00:00 AM EST tablet 4 TAKE FOUR TABLETS BY MOUTH EVERY DAY WITH FOOD TAKE FOUR TABLETS BY MOUTH EVERY DAY WITH FOOD SOLD: 02/29/2020 [facility] Tinidazole 500 MG Oral Tablet Tinidazole 500 MG 02/24/2020 12:00:00 AM EST 4.0 {tablets_with_food} active Tinidazole 500 MG eCW1 ([facility]) Tinidazole 500 MG Oral Tablet Tinidazole 500 MG 02/24/2020 12:00:00 AM EST 4.0 {tablets_with_food} suspended e CW1 ([facility]) Tinidazole 500 MG Oral Tablet Tinidazole 500 MG 02/24/2020 12:00:00 AM EST 4.0 {tablets_with_food} active Tinidazole 500 MG eCW1 ([facility]) Tinidazole 500 MG Oral Tablet Tinidazole 500 MG 02/24/2020 12:00:00 AM EST 4.0 {tablets_with_food} suspended Tinidazol e 500 MG eCW1 ([facility]) Tinidazole 500 MG Oral Tablet Tinidazole 500 MG 02/24/2020 12:00:00 AM EST 4.0 {tablets_with_food} suspended e CW1 ([facility]) Tinidazole 500 MG Oral Tablet Tinidazole 500 MG 02/24/2020 12:00:00 AM EST 4.0 {tablets_with_food} suspended e CW1 ([facility]) Tinidazole 500 MG Oral Tablet Tinidazole 500 MG 02/24/2020 12:00:00 AM EST 4.0 {tablets_with_food} suspended Tinidazol e 500 MG eCW1 ([facility]) Tinidazole 500 MG Oral Tablet Tinidazole 500 MG 02/24/2020 12:00:00 AM EST 4.0 {tablets_with_food} active Tinidazole 500 MG eCW1 ([facility]) Tinidazole 500 MG Oral Tablet Tinidazole 500 MG 02/24/2020 12:00:00 AM EST 4.0 {tablets_with_food} suspended Tinidazol e 500 MG eCW1 ([facility]) Tinidazole 500 MG Oral Tablet Tinidazole 500 MG 02/24/2020 12:00:00 AM EST 4.0 {tablets_with_food} suspended Tinidazol e 500 MG eCW1 ([facility]) Tinidazole 500 MG Oral Tablet Tinidazole 500 MG 02/24/2020 12:00:00 AM EST 4.0 {tablets_with_food} suspended Tinidazol e 500 MG eCW1 ([facility]) Tinidazole 500 MG Oral Tablet Tinidazole 500 MG 02/24/2020 12:00:00 AM EST 4.0 {tablets_with_food} suspended Tinidazol e 500 MG eCW1 ([facility]) Tinidazole 500 MG Oral Tablet Tinidazole 500 MG 02/24/2020 12:00:00 AM EST 4.0 {tablets_with_food} active Tinidazole 500 MG eCW1 ([facility]) Tinidazole 500 MG Oral Tablet Tinidazole 500 MG 02/24/2020 12:00:00 AM EST 4.0 {tablets_with_food} suspended Tinidazol e 500 MG eCW1 ([facility]) Tinidazole 500 MG Oral Tablet Tinidazole 500 MG 02/24/2020 12:00:00 AM EST 4.0 {tablets_with_food} suspended Tinidazol e 500 MG eCW1 ([facility]) Tinidazole 500 MG Oral Tablet Tinidazole 500 MG 02/24/2020 12:00:00 AM EST 4.0 {tablets_with_food} suspended Tinidazol e 500 MG eCW1 ([facility]) 50 mg 02/02/2020 12:00:00 AM EDT tablet 60 TAKE 1 TABLET BY MOUTH AT BEDTIME FOR 7 DAYS THEN TAKE 1 TABLET BY MOUTH TWICE A DAY TAKE 1 TABLET BY MOUTH AT BEDTIME FOR 7 DAYS THEN TAKE 1 TABLET BY MOUTH TWICE A DAY SOLD: 02/03/2020 [facility] 400 mg 02/02/2020 12:00:00 AM EDT capsule 90 TAKE ONE CAPSULE BY MOUTH THREE TIMES A DAY MAXIMUM DAILY DOSE = 3 TAKE ONE CAPSULE BY MOUTH THREE TIMES A DAY MAXIMUM DAILY DOSE = 3 SOLD: 04/20/2020 [facility] 400 mg 02/02/2020 12:00:00 AM EDT capsule 90 TAKE ONE CAPSULE BY MOUTH THREE TIMES A DAY MAXIMUM DAILY DOSE = 3 TAKE ONE CAPSULE BY MOUTH THREE TIMES A DAY MAXIMUM DAILY DOSE = 3 SOLD: 03/16/2020 [facility] 50 mg 02/02/2020 12:00:00 AM EDT tablet 60 TAKE 1 TABLET BY MOUTH AT BEDTIME FOR 7 DAYS THEN TAKE 1 TABLET BY MOUTH TWICE A DAY TAKE 1 TABLET BY MOUTH AT BEDTIME FOR 7 DAYS THEN TAKE 1 TABLET BY MOUTH TWICE A DAY SOLD: 04/20/2020 [facility] 400 mg 02/02/2020 12:00:00 AM EDT capsule 90 TAKE ONE CAPSULE BY MOUTH THREE TIMES A DAY MAXIMUM DAILY DOSE = 3 TAKE ONE CAPSULE BY MOUTH THREE TIMES A DAY MAXIMUM DAILY DOSE = 3 SOLD: 02/03/2020 [facility] 50 mg 02/02/2020 12:00:00 AM EDT tablet 60 TAKE 1 TABLET BY MOUTH AT BEDTIME FOR 7 DAYS THEN TAKE 1 TABLET BY MOUTH TWICE A DAY TAKE 1 TABLET BY MOUTH AT BEDTIME FOR 7 DAYS THEN TAKE 1 TABLET BY MOUTH TWICE A DAY SOLD: 03/16/2020 [facility] topiramate 50 MG Oral Tablet [Topamax] Topamax 02/01/2020 12:00:00 AM EDT ORAL completed [facility] ([facility]) gabapentin 400 MG Oral Capsule Gabapentin 02/01/2020 12:00:00 AM EDT ORAL active [facility] ([facility]) 20 mg 01/25/2020 12:00:00 AM EDT tablet 30 TAKE 1 TABLET BY MOUTH AT NIGHT WITH FOOD OR MILK TAKE 1 TABLET BY MOUTH AT NIGHT WITH FOOD OR MILK SOLD : 01/31/2020 [facility] atorvastatin 20 MG Oral Tablet Atorvastatin Calcium 01/13/2020 1 2:00:00 AM EDT ORAL active [facility] ( [facility]) Ergocalciferol 39688 UNT Oral Capsule Vitamin D (Ergocalcife rol) 01/13/2020 12:00:00 AM EDT ORAL active M EDENT ([facility]) Multi Vitamin 01/13/2020 12:00:00 AM EDT acti ve [facility] ([facility]) gabapentin 600 MG Oral Tablet Gabapentin 01/13/2020 12:00:00 AM EDT ORAL active [facility] ([facility]) Omeprazole 20 MG Delayed Release Oral Capsule Omeprazole 01/13/2020 12:00:00 AM EDT ORAL active [facility] ([facility]) Calcium Citrate + 01/13/2020 12:00:00 AM EDT ORAL active [facility] ([facility]) Vitamin B Complex 01/13/2020 12:00:00 AM EDT ORAL active [facility] ([facility]) Sertraline 100 MG Oral Tablet Sertraline HCL 01/13/2020 12:00:00 AM E DT ORAL active [facility] ([facility]) Baclofen 10 MG Oral Tablet Baclofen 01/13/2020 12:00:00 AM EDT ORAL active [facility] ([facility]) Trazodone Hydrochloride 50 MG Oral Tablet Trazodone HCL 01/13/2020 12:00:00 AM EDT ORAL active [facility] ([facility]) 100 mg 12/28/2019 12:00:00 AM EDT tablet 45 TAKE ONE AND ONE-HALF TABLETS BY MOUTH EVERY DAY TAKE ONE AND ONE-HALF TABLETS BY MOUTH EVERY DAY SOLD: 01/31/2020 [facility] 100 mg 12/28/2019 12:00:00 AM EDT tablet 45 TAKE ONE AND ONE-HALF TABLETS BY MOUTH EVERY DAY TAKE ONE AND ONE-HALF TABLETS BY MOUTH EVERY DAY SOLD: 02/29/2020 [facility] 50 mg 12/25/2019 12:00:00 AM EDT tablet 30 TAKE ONE TABLET BY MOUTH AT BEDTIME NEEDED TAKE ONE TABLET BY MOUTH AT BEDTIME NEEDED SOLD: [facility] 21 mg/24 hr 12/25/2019 12:00:00 AM EDT patch 24 hour 28 APPLY 1 PATCH TO THE SKIN EVERY 24 HOURS APPLY 1 PATCH TO THE SKIN EVERY 24 HOURS SOLD: 01/31/2020 [facility] 50 mg 12/25/2019 12:00:00 AM EDT tablet 30 TAKE ONE TABLET BY MOUTH AT BEDTIME NEEDED TAKE ONE TABLET BY MOUTH AT BEDTIME NEEDED SOLD: [facility] Trazodone Hydrochloride 50 MG Oral Tablet trazodone 2019 12:00:00 AM EDT 50 mg by mouth completed <td ID="Medic ationRxNorm_8">840187</td><td ID="MedicationMedication_8">trazodone</td><td ID="MedicationRoute_8">by mouth</td><td ID="MedicationRouteConcept_8">F18248</td><td ID="MedicationStartDate_8">12/24/2019</td><td ID="MedicationStopDate_8">03/23/2020</td><td ID="MedicationDosageFrequency_8">at bedtime</td><td ID="MedicationDuration_8">30</td><td ID="MedicationFormulaStrength_8">50 mg</td><td ID="MedicationDosageForm_8">tablet</td><td ID="MedicationDosageFormCode_8"></td><td ID="MedicationDosageDescription_8">as needed</td><td ID="MedicationMedicationId_8">[id number]</td><td ID="MedicationAccount_8">[id number]</td><td ID="MedicationNpid_8">[id number]</td><td ID="MedicationAuthorFirstName_8">Lisa</td><td ID="MedicationAuthorLastName_8">MacQueen</td><td ID="MedicationTaxonomyCode_8">[id number]</td><td ID="MedicationTaxonomyDesc_8">Psychiatric/Mental Health</td><td ID="MedicationPhoneNumber_8">[phone]</td> [facility] Sertraline 100 MG Oral Tablet sertraline 12/24/2019 12:00:00 AM EDT 100 mg by mouth completed <td ID="Medica tionRxNorm_7">973427</td><td ID="MedicationMedication_7">sertraline</td><td ID="MedicationRoute_7">by mouth</td><td ID="MedicationRouteConcept_7">T18035</td><td ID="MedicationStartDate_7">12/24/2019</td><td ID="MedicationStopDate_7">03/23/2020</td><td ID="MedicationDosageFrequency_7">once a day</td><td ID="MedicationDuration_7">30</td><td ID="MedicationFormulaStrength_7">100 mg</td><td ID="MedicationDosageForm_7">tablet</td><td ID="MedicationDosageFormCode_7"></td><td ID="MedicationDosageDescription_7"></td><td ID="MedicationMedicationId_7">[id number]</td><td ID="MedicationAccount_7">[id number]</td><td ID="MedicationNpid_7">[id number]</td><td ID="MedicationAuthorFirstName_7">Lisa</td><td ID="MedicationAuthorLastName_7">MacCatrachitoen</td><td ID="MedicationTaxonomyCode_7">[id number]</td><td ID="MedicationTaxonomyDesc_7">Psychiatric/Mental Health</td><td ID="MedicationPhoneNumber_7">[phone]</td> [facility] ([facility]) Sertraline 100 MG Oral Tablet sertraline 12/24/2019 12:00:00 AM EDT 100 mg by mouth completed <td ID="Medica tionRxNorm_5">117366</td><td ID="MedicationMedication_5">sertraline</td><td ID="MedicationRoute_5">by mouth</td><td ID="MedicationRouteConcept_5">B05373</td><td ID="MedicationStartDate_5">12/24/2019</td><td ID="MedicationStopDate_5">03/23/2020</td><td ID="MedicationDosageFrequency_5">once a day</td><td ID="MedicationDuration_5">30</td><td ID="MedicationFormulaStrength_5">100 mg</td><td ID="MedicationDosageForm_5">tablet</td><td ID="MedicationDosageFormCode_5"></td><td ID="MedicationDosageDescription_5"></td><td ID="MedicationMedicationId_5">[id number]</td><td ID="MedicationAccount_5">[id number]</td><td ID="MedicationNpid_5">[id number]</td><td ID="MedicationAuthorFirstName_5">Lisa</td><td ID="MedicationAuthorLastName_5">MacQueen</td><td ID="MedicationTaxonomyCode_5">[id number]</td><td ID="MedicationTaxonomyDesc_5">Psychiatric/Mental Health</td><td ID="MedicationPhoneNumber_5">[phone]</td> [facility] ([facility]) Nicotine 2 MG Chewing Gum nicotine (polacrilex) 12/24/2019 12:00:00 AM EDT 2 mg completed <td ID="Me dicationRxNorm_5">379720</td><td ID="MedicationMedication_5">nicotine (polacrilex)</td><td ID="MedicationRoute_5">in mouth</td><td ID="MedicationRouteConcept_5"></td><td ID="MedicationStartDate_5">12/24/2019</td><td ID="MedicationStopDate_5">02/22/2020</td><td ID="MedicationDosageFrequency_5">every four hours</td><td ID="MedicationDuration_5">30</td><td ID="MedicationFormulaStrength_5">2 mg</td><td ID="MedicationDosageForm_5">gum</td><td ID="MedicationDosageFormCode_5"></td><td ID="MedicationDosageDescription_5">as needed</td><td ID="MedicationMedicationId_5">[id number]</td><td ID="MedicationAccount_5">[id number]</td><td ID="MedicationNpid_5">[id number]</td><td ID="MedicationAuthorFirstName_5">Lisa</td><td ID="MedicationAuthorLastName_5">MacQueen</td><td ID="MedicationTaxonomyCode_5">[id number]</td><td ID="MedicationTaxonomyDesc_5">Psychiatric/Mental Health</td><td ID="MedicationPhoneNumber_5">[phone]</td> [facility] ([facility]) 24 HR Nicotine 0.875 MG/HR Transdermal Patch nicotine 12/24/2019 12:00:00 AM EDT 21 mg/24 completed <td I D="MedicationRxNorm_6">533111</td><td ID="MedicationMedication_6">nicotine</td><td ID="MedicationRoute_6">to skin</td><td ID="MedicationRouteConcept_6"></td><td ID="MedicationStartDate_6">12/24/2019</td><td ID="MedicationStopDate_6">02/22/2020</td><td ID="MedicationDosageFrequency_6">every 24 hours</td><td ID="MedicationDuration_6">30</td><td ID="MedicationFormulaStrength_6">21 mg/24 hr</td><td ID="MedicationDosageForm_6">patch 24 hour</td><td ID="MedicationDosageFormCode_6"></td><td ID="MedicationDosageDescription_6"></td><td ID="MedicationMedicationId_6">[id number]</td><td ID="MedicationAccount_6">[id number]</td><td ID="MedicationNpid_6">[id number]</td><td ID="MedicationAuthorFirstName_6">Lisa</td><td ID="MedicationAuthorLastName_6">MacQueen</td><td ID="MedicationTaxonomyCode_6">[id number]</td><td ID="MedicationTaxonomyDesc_6"> Psychiatric/Mental Health</td><td ID="MedicationPhoneNumber_6">[phone]</td> [facility] ([facility]) 2 mg 12/24/2019 12:00:00 AM EDT gum 180 CHEW 1 PIECE OF GUM IN MOUTH EVERY 4 HOURS NEEDED CHEW 1 PIECE OF GUM IN MOUTH EVERY 4 HOURS NEEDED S OLD: 02/03/2020 [facility] Sertraline 100 MG Oral Tablet sertraline 12/24/2019 12:00:00 AM EDT 100 mg by mouth completed <td ID="Medica tionRxNorm_1">159166</td><td ID="MedicationMedication_1">sertraline</td><td ID="MedicationRoute_1">by mouth</td><td ID="MedicationRouteConcept_1">J76875</td><td ID="MedicationStartDate_1">12/24/2019</td><td ID="MedicationStopDate_1">03/23/2020</td><td ID="MedicationDosageFrequency_1">once a day</td><td ID="MedicationDuration_1">30</td><td ID="MedicationFormulaStrength_1">100 mg</td><td ID="MedicationDosageForm_1">tablet</td><td ID="MedicationDosageFormCode_1"></td><td ID="MedicationDosageDescription_1"></td><td ID="MedicationMedicationId_1">[id number]</td><td ID="MedicationAccount_1">[id number]</td><td ID="MedicationNpid_1">[id number]</td><td ID="MedicationAuthorFirstName_1">Lisa</td><td ID="MedicationAuthorLastName_1">MacQueen</td><td ID="MedicationTaxonomyCode_1">[id number]</td><td ID="MedicationTaxonomyDesc_1">Psychiatric/Mental Health</td><td ID="MedicationPhoneNumber_1">[phone]</td> [facility] ([facility]) 24 HR Nicotine 0.875 MG/HR Transdermal Patch nicotine 12/24/2019 12:00:00 AM EDT 21 mg/24 completed <td I D="MedicationRxNorm_2">701646</td><td ID="MedicationMedication_2">nicotine</td><td ID="MedicationRoute_2">to skin</td><td ID="MedicationRouteConcept_2"></td><td ID="MedicationStartDate_2">12/24/2019</td><td ID="MedicationStopDate_2">02/22/2020</td><td ID="MedicationDosageFrequency_2">every 24 hours</td><td ID="MedicationDuration_2">30</td><td ID="MedicationFormulaStrength_2">21 mg/24 hr</td><td ID="MedicationDosageForm_2">patch 24 hour</td><td ID="MedicationDosageFormCode_2"></td><td ID="MedicationDosageDescription_2"></td><td ID="MedicationMedicationId_2">16515</td><td ID="MedicationAccount_2">[id number]</td><td ID="MedicationNpid_2">[id number]</td><td ID="MedicationAuthorFirstName_2">Lisa</td><td ID="MedicationAuthorLastName_2">MacQueen</td><td ID="MedicationTaxonomyCode_2">[id number]</td><td ID="MedicationTaxonomyDesc_2"> Psychiatric/Mental Health</td><td ID="MedicationPhoneNumber_2">[phone]</td> [facility] ([facility]) Trazodone Hydrochloride 50 MG Oral Tablet trazodone 2019 12:00:00 AM EDT 50 mg by mouth completed <td ID="Medic ationRxNorm_6">312456</td><td ID="MedicationMedication_6">trazodone</td><td ID="MedicationRoute_6">by mouth</td><td ID="MedicationRouteConcept_6">B56567</td><td ID="MedicationStartDate_6">12/24/2019</td><td ID="MedicationStopDate_6">03/23/2020</td><td ID="MedicationDosageFrequency_6">at bedtime</td><td ID="MedicationDuration_6">30</td><td ID="MedicationFormulaStrength_6">50 mg</td><td ID="MedicationDosageForm_6">tablet</td><td ID="MedicationDosageFormCode_6"></td><td ID="MedicationDosageDescription_6">as needed</td><td ID="MedicationMedicationId_6">[id number]</td><td ID="MedicationAccount_6">[id number]</td><td ID="MedicationNpid_6">[id number]</td><td ID="MedicationAuthorFirstName_6">Lisa</td><td ID="MedicationAuthorLastName_6">MacQueen</td><td ID="MedicationTaxonomyCode_6">[id number]</td><td ID="MedicationTaxonomyDesc_6">Psychiatric/Mental Health</td><td ID="MedicationPhoneNumber_6">[phone]</td> [facility] ([facility]) Sertraline 100 MG Oral Tablet sertraline 12/24/2019 12:00:00 AM EDT 100 mg by mouth completed <td ID="Medica tionRxNorm_3">113721</td><td ID="MedicationMedication_3">sertraline</td><td ID="MedicationRoute_3">by mouth</td><td ID="MedicationRouteConcept_3">T65600</td><td ID="MedicationStartDate_3">12/24/2019</td><td ID="MedicationStopDate_3">03/23/2020</td><td ID="MedicationDosageFrequency_3">once a day</td><td ID="MedicationDuration_3">30</td><td ID="MedicationFormulaStrength_3">100 mg</td><td ID="MedicationDosageForm_3">tablet</td><td ID="MedicationDosageFormCode_3"></td><td ID="MedicationDosageDescription_3"></td><td ID="MedicationMedicationId_3">32210</td><td ID="MedicationAccount_3">[id number]</td><td ID="MedicationNpid_3">[id number]</td><td ID="MedicationAuthorFirstName_3">Lisa</td><td ID="MedicationAuthorLastName_3">MacQueen</td><td ID="MedicationTaxonomyCode_3">[id number]</td><td ID="MedicationTaxonomyDesc_3">Psychiatric/Mental Health</td><td ID="MedicationPhoneNumber_3">[phone]</td> [facility] ([facility]) Trazodone Hydrochloride 50 MG Oral Tablet trazodone 2019 12:00:00 AM EDT 50 mg by mouth completed <td ID="Medic ationRxNorm_2">200634</td><td ID="MedicationMedication_2">trazodone</td><td ID="MedicationRoute_2">by mouth</td><td ID="MedicationRouteConcept_2">L72555</td><td ID="MedicationStartDate_2">12/24/2019</td><td ID="MedicationStopDate_2">03/23/2020</td><td ID="MedicationDosageFrequency_2">at bedtime</td><td ID="MedicationDuration_2">30</td><td ID="MedicationFormulaStrength_2">50 mg</td><td ID="MedicationDosageForm_2">tablet</td><td ID="MedicationDosageFormCode_2"></td><td ID="MedicationDosageDescription_2">as needed</td><td ID="MedicationMedicationId_2">57538</td><td ID="MedicationAccount_2">[id number]</td><td ID="MedicationNpid_2">[id number]</td><td ID="MedicationAuthorFirstName_2">Lisa</td><td ID="MedicationAuthorLastName_2">MacQueen</td><td ID="MedicationTaxonomyCode_2">[id number]</td><td ID="MedicationTaxonomyDesc_2">Psychiatric/Mental Health</td><td ID="MedicationPhoneNumber_2">[phone]</td> [facility] ([facility]) Nicotine 2 MG Chewing Gum nicotine (polacrilex) 12/24/2019 12:00:00 AM EDT 2 mg completed <td ID="Me dicationRxNorm_1">995768</td><td ID="MedicationMedication_1">nicotine (polacrilex)</td><td ID="MedicationRoute_1">in mouth</td><td ID="MedicationRouteConcept_1"></td><td ID="MedicationStartDate_1">12/24/2019</td><td ID="MedicationStopDate_1">02/22/2020</td><td ID="MedicationDosageFrequency_1">every four hours</td><td ID="MedicationDuration_1">30</td><td ID="MedicationFormulaStrength_1">2 mg</td><td ID="MedicationDosageForm_1">gum</td><td ID="MedicationDosageFormCode_1"></td><td ID="MedicationDosageDescription_1">as needed</td><td ID="MedicationMedicationId_1">74482</td><td ID="MedicationAccount_1">[id number]</td><td ID="MedicationNpid_1">[id number]</td><td ID="MedicationAuthorFirstName_1">Lisa</td><td ID="MedicationAuthorLastName_1">MacQueen</td><td ID="MedicationTaxonomyCode_1">[id number]</td><td ID="MedicationTaxonomyDesc_1">Psychiatric/Mental Health</td><td ID="MedicationPhoneNumber_1">[phone]</td> [facility] ([facility]) Trazodone Hydrochloride 50 MG Oral Tablet trazodone 2019 12:00:00 AM EDT 50 mg by mouth completed <td ID="Medic ationRxNorm_4">520763</td><td ID="MedicationMedication_4">trazodone</td><td ID="MedicationRoute_4">by mouth</td><td ID="MedicationRouteConcept_4">H54564</td><td ID="MedicationStartDate_4">12/24/2019</td><td ID="MedicationStopDate_4">03/23/2020</td><td ID="MedicationDosageFrequency_4">at bedtime</td><td ID="MedicationDuration_4">30</td><td ID="MedicationFormulaStrength_4">50 mg</td><td ID="MedicationDosageForm_4">tablet</td><td ID="MedicationDosageFormCode_4"></td><td ID="MedicationDosageDescription_4">as needed</td><td ID="MedicationMedicationId_4">58422</td><td ID="MedicationAccount_4">[id number]</td><td ID="MedicationNpid_4">[id number]</td><td ID="MedicationAuthorFirstName_4">Lisa</td><td ID="MedicationAuthorLastName_4">MacQueen</td><td ID="MedicationTaxonomyCode_4">[id number]</td><td ID="MedicationTaxonomyDesc_4">Psychiatric/Mental Health</td><td ID="MedicationPhoneNumber_4">[phone]</td> [facility] ([facility]) 24 HR Nicotine 0.875 MG/HR Transdermal Patch nicotine 12/24/2019 12:00:00 AM EDT 21 mg/24 completed <td I D="MedicationRxNorm_4">917105</td><td ID="MedicationMedication_4">nicotine</td><td ID="MedicationRoute_4">to skin</td><td ID="MedicationRouteConcept_4"></td><td ID="MedicationStartDate_4">12/24/2019</td><td ID="MedicationStopDate_4">02/22/2020</td><td ID="MedicationDosageFrequency_4">every 24 hours</td><td ID="MedicationDuration_4">30</td><td ID="MedicationFormulaStrength_4">21 mg/24 hr</td><td ID="MedicationDosageForm_4">patch 24 hour</td><td ID="MedicationDosageFormCode_4"></td><td ID="MedicationDosageDescription_4"></td><td ID="MedicationMedicationId_4">[id number]</td><td ID="MedicationAccount_4">[id number]</td><td ID="MedicationNpid_4">[id number]</td><td ID="MedicationAuthorFirstName_4">Lisa</td><td ID="MedicationAuthorLastName_4">MacQueen</td><td ID="MedicationTaxonomyCode_4">[id number]</td><td ID="MedicationTaxonomyDesc_4"> Psychiatric/Mental Health</td><td ID="MedicationPhoneNumber_4">[phone]</td> [facility] ([facility]) Nicotine 2 MG Chewing Gum nicotine (polacrilex) 12/24/2019 12:00:00 AM EDT 2 mg completed <td ID="Me dicationRxNorm_3">593558</td><td ID="MedicationMedication_3">nicotine (polacrilex)</td><td ID="MedicationRoute_3">in mouth</td><td ID="MedicationRouteConcept_3"></td><td ID="MedicationStartDate_3">12/24/2019</td><td ID="MedicationStopDate_3">02/22/2020</td><td ID="MedicationDosageFrequency_3">every four hours</td><td ID="MedicationDuration_3">30</td><td ID="MedicationFormulaStrength_3">2 mg</td><td ID="MedicationDosageForm_3">gum</td><td ID="MedicationDosageFormCode_3"></td><td ID="MedicationDosageDescription_3">as needed</td><td ID="MedicationMedicationId_3">16577</td><td ID="MedicationAccount_3">[id number]</td><td ID="MedicationNpid_3">[id number]</td><td ID="MedicationAuthorFirstName_3">Lisa</td><td ID="MedicationAuthorLastName_3">MacQueen</td><td ID="MedicationTaxonomyCode_3">[id number]</td><td ID="MedicationTaxonomyDesc_3">Psychiatric/Mental Health</td><td ID="MedicationPhoneNumber_3">[phone]</td> [facility] ([facility]) 600 mg 2019 12:00:00 AM EDT tablet 60 TAKE ONE TABLET BY MOUTH TWICE A DAY MAXIMUM DAILY DOSE = 2 TABLETS TAKE ONE TABLET BY MOUTH TWICE A DAY MAX IMUM DAILY DOSE = 2 TABLETS SOLD: 01/31/2020 [facility] 1,250 mcg (50,000 unit) 12/14/2019 12:00:00 AM EDT capsule 4 TAKE ONE CAPSULE BY MOUTH ONCE A WEEK TAKE ONE CAPSULE BY MOUTH ONCE A WEEK SOLD: 01/31/2020 [facility] Insurance Providers Payer name Policy type / Coverage type Policy ID Covered alliance party ID Covered alliance party's relationship to ray Policy Ray Plan Information [facility] [id number] SP [id number] [facility] PLAN [facility] [id number] SP [id number] [employer] [id number] Self [id number] [facility] Commercial [employer] Co. [id number] Self [id number] [facility] Commercial Insurance Co. [id number] Self [id number] SELF PAY ONLY Community Plan - [facility] Commercial [id number] Self [id number] [facility] Communty Plan Medicaid [id number] Self [id number] [facility] Health Maintenance Organization (HMO) [id number] Self [id number] [facility] Health Maintenance Organization (HMO) [id number] Self [id number] [facility] Health Maintenance Organization (HMO) [id number] Self [id number] [facility] Health Maintenance Organization (HMO) [id number] Self [id number] [facility] Health Maintenance Organization (O) [id number] Self [id number] [facility] [id number] ANS-Medicaid [id number] ANSI-Medicaid [id number] [facility] Communty Plan Medicaid [id number] Self [id number] AMERIC[employer]ICE [employer] XIX PHY -O [id number] 18 [id number] [facility] Communty Plan Medicaid [id number] Self [id number] [facility] COMMUNITY PLAN XIX [id number] 18 [id number] EMPIRE BLUE CROSS BLUE SHIELD -O/P [id number] 18 [id number] [facility] EMPIRE PLAN [id number] 18 [id number] [facility] COMMUNITY PLAN [id number] 18 [id number] [facility] COMMUNITY PLAN MCDHMO [id number] SP [id number] [facility] Plan Health Maintenance Organization (HMO) [id number] Self [id number] [facility] Health Maintenance Organization (HMO) 1 [id number] Self [id number] [facility] [id number] 18 [id number] [facility] Health Maintenance Organization (HMO) [id number] Self [id number] [facility] Health Maintenance Organization (O) [id number] Self [id number] [facility] Community Plan Medicaid [id number] Self [id number] [facility] AMERICHOICE XIX O [id number] 18 [id number] [facility] O [id number] S [id number] [facility] COMMUNITY PLAN MCDO [id number] SP [id number] BLUE CROSS [place] PLAN [id number] SP [id number] [facility] [id number] 18 [id number] [facility] [id number] 18 [id number] [facility]/P [id number] 18 [id number] [facility] [id number] SP [id number] SELF PAY UNAVAILABLE SP UNAVAILA BLE [facility] COMMUNITY PLAN MCDHMO [id number] SP [id number] [facility] COMMUNITY PLAN XIX [id number] 18 [id number] [facility] AMERICHOICE XIX -HMO [id number] 18 [id number] [facility] COMMUNTY PLAN [id number] 18 [id number] [facility]) O [id number] S [id number] Problems, Conditions, and Diagnoses Code Display Name Description Problem Type Effective Dates Data Source(s) Y9[address] or not applicable Unspecified place or not applicable Diagnosis 12/03/2020 06:51:00 AM EDT [facility] [id number] Exposure to other specified factors, ini tial encounter Exposure to other specified factors, initial encounter Diagnosis 12/03/2020 06:51:00 AM EDT [facility] N67482 Nicotine dependence, cigarettes, uncompl icated Nicotine dependence, cigarettes, uncomplicated Diagnosis 12/03/2020 06:51:00 AM EDT [facility] [id number] Radial collateral ligament sprain of rig ht elbow, initial encounter Radial collateral ligament sprain of right elbow, initial encounter Diagnosis 12/03/2020 06:51:00 AM EDT [facility] K38102 Pain in right elbow Pain in right elbow Diagnosis 0 12/03/2020 06:51:00 AM EDT [facility] Z6842 Body mass index [BMI] 45.0-49.9, adult B roberta mass index [BMI] 45.0-49.9, adult Diagnosis 11/22/2020 07:30:00 PM EDT [facility] N132 Hydronephrosis with renal and ureteral c alculous obstruction Hydronephrosis with renal and ureteral calculous obstruction Diagnosis 021 07:30:00 PM EDT [facility] E6601 Morbid (severe) obesity due to excess ca lories Morbid (severe) obesity due to excess calories Diagnosis 11/22/2020 07:30:00 PM EDT [facility] M546 Pain in thoracic spine Pain in thoracic spine Diagnosi s 11/22/2020 07:30:00 PM EDT [facility] G8929 Other chronic pain Other chronic pain Diagnosis 01/2021 07:30:00 PM EDT [facility] M5441 Lumbago with sciatica, right side Lumbago with s ciatica, right side Diagnosis 11/22/2020 07:30:00 PM EDT [facility] [id number] Strain of muscle, fascia and tendon of l ower back, initial encounter Strain of muscle, fascia and tendon of lower back, initial encounter Diagnosis 11/22/2020 07:30:00 PM EDT [facility] M542 Cervicalgia Cervicalgia Diagnosis 11/22/2020 07:30:00 PM EDT [facility] Z9884 Bariatric surgery status Bariatric surgery status Diag nosis 08/01/2020 08:20:00 PM EDT [facility] Z6841 Body mass index [BMI]40.0-44.9, adult Alexi dy mass index [BMI]40.0-44.9, adult Diagnosis 08/01/2020 08:20:00 PM EDT [facility] E669 Obesity, unspecified Obesity, unspecified Diagnosis 08/01/2020 08:20:00 PM EDT [facility] K219 Gastro-esophageal reflux disease without esophagitis Gastro-esophageal reflux disease without esophagitis Diagnosis 08/01/2020 08:20:00 PM ED T [facility] N3000 Acute cystitis without hematuria Acute cystitis without hematuria Diagnosis 08/01/2020 08:20:00 PM EDT [facility] [id number] Right lower quadrant pain Right lower quadrant pain Di agnosis 08/01/2020 08:20:00 PM EDT [facility] [id number] Patient's noncompliance with other medic al treatment and regimen Patient's noncompliance with other medical treatment and regimen Diagnosis 06/29/2020 07:16:00 AM EDT [facility] E559 Vitamin D deficiency, unspecified Vitamin D defi ciency, unspecified Diagnosis 06/29/2020 07:16:00 AM EDT [facility] E785 Hyperlipidemia, unspecified Hyperlipidemia, unspecifie d Diagnosis 06/29/2020 07:16:00 AM EDT [facility] N20.0 Kidney stone Calculus, kidney Problem 02/28/2021 12:00: 00 AM EST [email or web address] ([facility]) G89.29 [id number] Other chronic pain Problem 02/07/2021 12:00: 00 AM EDT [email or web address] ([facility]) N20.0 Kidney stone Kidney stone Problem 01/18/2021 12:00:00 A M EDT eCW1 ([facility]) N20.0 Calculus of kidney Calculus of kidney Problem 12:00:00 AM EDT eCW1 ([facility]) F17.200 Nicotine dependence, unspecified, uncomp licated Tobacco Use Disorder, Moderate Condition 12/27/2020 12:00:00 AM EDT [facility] ([facility]) F33.1 Major depressive disorder, recurrent, mo derate Major Depressive Disorder, Recurrent episode, Moderate Condition 12/27/2020 12:00:00 AM EDT [facility] ([facility]) R87.810 [id number] Cervical high risk HPV (human pa pillomavirus) test positive Problem 11/07/2020 12:00:00 AM EDT eCW1 ([facility]) F41.9 Anxiety disorder, unspecified Unspecified Anxiety Diso rder Condition 05/05/2020 12:00:00 AM EST [facility] ([facility]) F17.200 Nicotine dependence, unspecified, uncomp licated Tobacco Use Disorder, Moderate Condition 04/20/2020 12:00:00 AM EST [facility] ([facility]) R87.810 [id number] Papanicolaou smear o f cervix with positive high risk human papilloma virus (HPV) test Problem 02/24/2020 12:00:00 AM EST eCW1 ( [facility]) M47.812 Cervical spondylosis without myelopathy Spondylosis of cervical region without myelopathy or radiculopathy Problem 01/25/2020 12:00:00 AM E DT eCW1 ([facility]) [id number] Counseling about tobacco use Counseling about tobacco use Problem 01/14/2020 12:00:00 AM EDT [facility] ([facility]) [id number] Tobacco user Tobacco user Problem 01/14/2020 12:00:00 A M EDT [facility] ([facility]) [id number] Prediabetes Prediabetes Problem 01/14/2020 12:00:00 AM EDT [facility] ([facility]) [id number] Mixed hyperlipidemia Mixed hyperlipidemia Problem 01/14/2020 12:00:00 AM EDT [facility] ([facility]) [id number] Dietary management surveillance Dietary manageme nt surveillance Problem 01/14/2020 12:00:00 AM EDT [facility] ([facility]) 306154916 Morbid obesity Morbid obesity Problem 01/14/2020 12:00: 00 AM EDT [facility] ([facility]) [id number] Heart murmur Heart murmur Problem 01/14/2020 12:00:00 A M EDT [facility] ([facility]) Surgeries/Procedures Procedure Description Date Indications Data Source(s) OFFICE OUTPATIENT NEW 30 MINUTES 02/28/2021 12:00:00 A M SIMON HAMILTON ([facility], ) Extended Individual Psychotherapy - 45 min 12/27/2020 12:00:00 AM EDT - 12/27/2020 12:00:00 AM EDT [facility] ([facility]) Extended Individual Psychotherapy - 45 min 12:00:00 AM EDT [facility] ([facility]) [facility] Telemed E/M Lvl 3--Est pt 12/15/2020 12:00:00 AM EDT - 12/15/2020 12:00:00 AM EDT [facility] ([facility]) Telemed A/O 30" 12/14/2020 12:00:00 AM EDT [facility] ([facility]) [facility] Telemed E/M Lvl 3--Est pt 12/14/2020 12:00:00 AM E DT [facility] ([facility]) Extended Individual Psychotherapy - 45 min 12/01/2020 12:00:00 AM EDT - 12/01/2020 12:00:00 AM EDT [facility] ([facility]) Extended Individual Psychotherapy - 45 min 12:00:00 AM EDT [facility] ([facility]) Extended Individual Psychotherapy - 45 min 10/13/2020 12:00:00 AM EDT - 10/13/2020 12:00:00 AM EDT [facility] ([facility]) Extended Individual Psychotherapy - 45 min 12:00:00 AM EDT [facility] ([facility]) Extended Individual Psychotherapy - 45 min 08/25/2020 12:00:00 AM EDT - 08/25/2020 12:00:00 AM EDT [facility] ([facility]) Extended Individual Psychotherapy - 45 min 12:00:00 AM EDT [facility] ([facility]) Extended Individual Psychotherapy - 45 min 07/29/2020 12:00:00 AM EDT - 07/29/2020 12:00:00 AM EDT [facility] ([facility]) Extended Individual Psychotherapy - 45 min 12:00:00 AM EDT [facility] ([facility]) [facility] Telemed E/M Lvl 3--Est pt 07/27/2020 12:00:00 AM EDT - 07/27/2020 12:00:00 AM EDT [facility] ([facility]) [facility] Telemed E/M Lvl 3--Est pt 07/27/2020 12:00:00 AM E DT [facility] ([facility]) Extended Individual Psychotherapy - 45 min 07/07/2020 12:00:00 AM EDT - 07/07/2020 12:00:00 AM EDT [facility] ([facility]) Extended Individual Psychotherapy - 45 min 12:00:00 AM EDT [facility] ([facility]) [id number]"Psychotherapy 12:00:00 AM EST - 06/08/2020 12:00:00 AM EST [facility] ([facility]) [id number]"Psychotherapy 06/08/2020 12:00:00 AM EST [facility] ([facility]) [facility] Telemed E/M Lvl 3--Est pt 05/26/2020 12:00:00 AM EST - 05/26/2020 12:00:00 AM EST [facility] ([facility]) [facility] Telemed E/M Lvl 3--Est pt 05/26/2020 12:00:[address] [facility] ([facility]) Extended Individual Psychotherapy - 45 min 05/20/2020 12:00:00 AM EST - 05/20/2020 12:00:00 AM EST [facility] ([facility]) Extended Individual Psychotherapy - 45 min 12:00:00 AM EST [facility] ([facility]) Extended Individual Psychotherapy - 45 min 05/06/2020 12:00:00 AM EST - 05/06/2020 12:00:00 AM EST [facility] ([facility]) Extended Individual Psychotherapy - 45 min 12:00:00 AM EST [facility] ([facility]) [facility] Telemed E/M Lvl 3--Est pt 05/05/2020 12:00:00 AM EST - 05/05/2020 12:00:00 AM EST [facility] ([facility]) [facility] Telemed E/M Lvl 3--Est pt 05/05/2020 12:00:[address] [facility] ([facility]) Extended Individual Psychotherapy - 45 min 04/20/2020 12:00:00 AM EST - 04/20/2020 12:00:00 AM EST [facility] ([facility]) Extended Individual Psychotherapy - 45 min 12:00:00 AM EST [facility] ([facility]) Extended Individual Psychotherapy - 45 min 03/30/2020 12:00:00 AM EST - 03/30/2020 12:00:00 AM EST [facility] ([facility]) Extended Individual Psychotherapy - 45 min 0 12:00:00 AM EST [facility] ([facility]) Extended Individual Psychotherapy - 45 min 02/25/2020 12:00:00 AM EST - 02/25/2020 12:00:00 AM EST [facility] ([facility]) Extended Individual Psychotherapy - 45 min 0 12:00:00 AM EST [facility] ([facility]) ECHO TTHRC R-T 2D W/WOM-MODE COMPL SPEC&COLR DOP 02/22 12:00:00 AM EST [facility] ([facility]) Extended Individual Psychotherapy - 45 min 02/10/2020 12:00:00 AM EDT - 02/10/2020 12:00:00 AM EDT [facility] ([facility]) Extended Individual Psychotherapy - 45 min 0 12:00:00 AM EDT [facility] ([facility]) Extended Individual Psychotherapy - 45 min 01/27/2020 12:00:00 AM EDT - 01/27/2020 12:00:00 AM EDT [facility] ([facility]) Extended Individual Psychotherapy - 45 min 0 12:00:00 AM EDT [facility] ([facility]) ECG ROUTINE ECG W/LEAST 12 LDS W/I&R 01/14/2020 12:00: 00 AM EDT [facility] ([facility]) Results ID Date Data Source [id number] 02/09/2021 11:00:00 AM EDT [facility] Name Value Range Interpretation Code Description Data Jerica rce(s) Supporting Document(s) SARS-CoV-2 (COVID-19) RNA [Presence] in Respiratory specimen by ANJELICA with probe detection Not Detected [facility] This lab was ordered by [facility] and reported by [employer] ID Date Data Source [id number] 01/03/2021 04:00:00 PM EDT [facility] Name Value Range Interpretation Code Description Data Jerica rce(s) Supporting Document(s) SARS-CoV-2 RNA Resp Ql ANJELICA+probe NOT DETECTED [facility] This lab was ordered by EARLENE ngo and reported by EARLENE Uribe. ID Date Data Source [id number] 12/03/2020 06:51:00 AM EDT [facility] 1 OrderSheet [facility] Emergency Department [address] [place] [address] Phone #: ext- [phone] 12/03/2020 06:49 Patient: MORRIS LEWIS Sex: F : 1980 Age: 39yWEIGHT:131.5 kg (S) HEIGHT:67 inches (S) BMI:45.4ALLERGIES: AnimalsCHIEF COMPLAINT: pain, pain, Rt, elbows, in:DIAGNOSIS: Sprain of jointLAB ORDERSOrder Description Priority Entered Acknowledged InitialedDIAGNOSTIC STUDY ORDERSOrder Description Priority Entered Acknowledged InitialedElbow Complete STAT 07:14 12/03/2020 07:14 Right Miguelangel Marin RN(Oxygen?(No)) PA; Reason for Study: PainMEDICATION/IV/DRIP/FLUID ORDERSOrder Description Priority Entered Acknowledged InitialedToradol IM 60 mg 07:14 12/03/2020 08:00 Miguelangel Marin RN PA;predniSONE PO 60 07:14 12/03/2020 08:00 mg Miguelangel Marin RN PA;Tylenol PO 1000 07:14 12/03/2020 08:00 mg Miguelangel Marin RN PA;GENERAL ORDERSOrder Description Priority Entered Acknowledged InitialedAce Wrap 08:01 12/03/2020 08:02 Miguelangel Marin RN PA;[Electronically signed by Mayra Marin RN (08:13 12/03/2020)][Electronically signed by Miguelangel Perez (19:29 12/04/2020)][Electronically locked by Mayra Marin RN (08:13 12/03/2020)] Name Value Range Interpretation Code Description Data Jerica rce(s) Supporting Document(s) ID Date Data Source [id number] 12/03/2020 06:51:00 AM EDT [facility] 1 Medication Reconciliation Report [facility] Emergency Department [address] [place] [address] Phone #: ext- [phone] 12/03/2020 06:49 Patient: MORRIS LEWIS Sex: F : 1980 Age: 39yWeight: 131.5 kgHeight/Length: 67 in.BMI: 45.4ALLERGIES: AnimalsThe patient's Home Medications are listed below:CONTINUE TAKING THE FOLLOWING MEDICATIONS: Atorvastatin Calcium Oral Lyrica Oral (75 mg), 2x a day tiZANidine HCl Oral Topamax Oral traZODone HCl Oral Zoloft OralThe source(s) of the original Home Medication information:Not obtained.The following Medications were given to the patient in the Emergency Department:Toradol [IM] IM 60 mg, administered: 07:35 12/03/2020rednisone [PO] PO 60 mg, administered: 07:35 12/03/2020Tylenol [PO] PO 1000 mg, administered: 07:35 12/03/2020The following Medications were prescribed to the patient:None. Name Value Range Interpretation Code Description Data Jerica rce(s) Supporting Document(s) ID Date Data Source [id number] 12/03/2020 06:51:00 AM EDT [facility] 1 Medication Administration Record [facility] Emergency Department [address] [place] [address] Phone #: ext- [phone] 12/03/2020 06:49 Patient: [id number] Sex: F : 1980 Age: 39yWeight: 131.5 kgHeight/Length: 67 inBMI: 45.4ALLERGIES: Animals Date/Time Medication Administered Medication OrderedGiven TORADOL [IM] (KETOROLAC Toradol IM 60 mg07:35 12/03/2020 TROMETHAMINE)Mayra Marin RN Dose: 60 mg IMGiven PREDNISONE [PO] predniSONE PO 60 mg07:35 12/03/2020 Dose: 60 mg Mayra Miramontes RNGiven TYLENOL [PO] (APAP) Tylenol PO 1000 mg07:35 12/03/2020 Dose: 1000 mg Mayra Miramontes RN Name Value Range Interpretation Code Description Data Jerica rce(s) Supporting Document(s) ID Date Data Source [id number] 12/03/2020 06:51:00 AM EDT [facility] 1 General Instructions [facility] Emergency Department [address] [place] [address] Phone #: ext- [phone] 12/03/2020 06:49 Patient: MORRIS LEWIS Sex: F : 1980 Age: 39ySprain of the radial collateral ligament of the right elbow.INSTRUCTIONSWear elastic wrap (Js wrap) as directed for two weeks until better.Warnings: Further evaluation is necessary. It is very important to follow up with a healthcare provider.GENERAL WARNINGS: Return or contact your physician immediately if your condition worsens orchanges unexpectedly, if not improving as expected, or if other problems arise. Specifically return if painworsens.Your Current Medications: Your current home medications have been reviewed.CONTINUE TAKING THE FOLLOWING MEDICATIONS:Atorvastatin Calcium Oral.Lyrica Oral : Capsule 75 mg, 2x a day.tiZANidine HCl Oral.Topamax Oral.traZODone HCl Oral.Zoloft Oral.Follow-up:Follow up with your doctor Saturday if not better. Call for an appointment. Reason for referral: evaluationand treatment. Summary of care provided to patient.Understanding of the discharge instructions verbalized by patient. ADDITIONAL INFORMATIONElbow Sprain 2 General Instructions [facility] Emergency Department [address] [place] [address] Phone #: ext- [phone] 12/03/2020 06:49 Patient: MORRIS LEWIS Sex: F : 1980 Age: 39yA sprain is a tearing of the ligaments that hold a joint together. This may take up to 6 weeks to fullyheal, depending on how severe it is. Moderate to severe sprains are treated with a sling or splint.Minor sprains can be treated without any special support.Home careThe following guidelines will help you care for your injury at home: Keep your arm elevated to reduce pain and swelling. When sitting or lying down keep your arm above the level of your heart. You can do this by placing your arm on a pillow that rests on your chest or on a pillow at your side. This is most important during the first 2 days (48 hours) after injury. Put an ice pack on the injured area. Do this for 20 minutes every 1 to 2 hours the first day. You can make an ice pack by wrapping a plastic bag of ice cubes in a thin towel. As the ice melts, be careful that the splint doesn't get wet. Continue using the ice pack 3 to 4 times a day for the next 2 days. Then use the ice pack as needed to ease pain and swelling. If you were given a plaster or fiberglass splint, leave it on as advised, or until you see your healthcare provider. Keep it dry at all times. Bathe with your splint out of the water. Protect it with a large plastic bag, rubber- banded, or taped at the top end. If a fiberglass splint gets wet, you can dry it with a global creative chairman. Once the splint is removed, move your elbow through its full range of motion several times a day. This will prevent stiffness. If you were given a sling only, start gradual arcly-aa-[id number] exercises after the first few days, unless told otherwise. This will prevent stiffness in the elbow. Stop wearing the sling once the pain is better. You may use acetaminophen or ibuprofen to control pain, unless another pain medicine was prescribed. If you have chronic liver or kidney disease, talk with your healthcare provider before using these medicines. Also talk with your provider if you've had a stomach ulcer or 3 General Instructions [facility] Emergency Department [address] [place] [address] Phone #: ext- [phone] 12/03/2020 06:49 Patient: [id number] Sex: F : 1980 Age: 39y digestive bleeding.Follow-up careFollow up with your doctor as directed.Any X-rays you had today don't show any broken bones, breaks, or fractures. Sometimes fracturesdon't show up on the first X-ray. Bruises and sprains can sometimes hurt as much as a fracture.These injuries can take time to heal completely. If your symptoms don't improve or they get worse,talk with your healthcare provider. You may need a repeat X-ray or other tests.When to seek medical adviceCall your healthcare provider right away if any of these occur: The plaster splint becomes wet or soft The fiberglass splint remains wet for more than 24 hours Bad odor from the splint or wound fluid stains the splint Splint cracks Tightness or pain in the elbow gets worse Fingers become swollen, cold, blue, numb, or tingly You are less able to move the elbow, hand or fingers Area around splint becomes red, swollen, or irritated Fever of 100.4F (38C) or higher, as directed by your healthcare provider Satish [phone] [employer]. [address] [place] [address], [place] [address]. All rights reserved. This information is not intended as asubstitute for professional medical care. Always follow your healthcare professional's instructions.JS WrapMinor muscle or joint injuries are often treated with an elastic bandage. The bandage providessupport and compression to the injured area. An elastic bandage is a stretchy, rolled bandage. Elasticbandages range in width from 2 to 6 inches. They can be used for a variety of injuries. The bandagesare often called JS bandages, after the most common brand name.If used correctly, elastic bandages help control swelling and ease pain. An elastic bandage is also agood reminder not to overuse the injured area. However, elastic bandages do not provide a lot ofsupport and will not prevent reinjury. 4 [facility]ructions [facility] [address] [place] [address] Phone #: ext- [phone] 12/03/2020 06:49 Patient: MORRIS LEWIS Sex: F : 1980 Age: 39yHome care To apply an elastic bandage: Check the skin before wrapping the injury. It should be clean, dry, and free of drainage. Start wrapping below the injury and work your way toward the body. For an ankle sprain, start wrapping around the foot and work up toward the calf. This will help control swelling. Overlap the edges of the bandage so it stays snuggly in place. Wrap the bandage firmly, but not too tightly. A tight bandage can increase swelling on either end of the bandage. Make sure the bandage is wrinkle free. Leave fingers and toes exposed. Secure ends of the bandage (even self-sticking ones) with clips or tape. Check often to be sure there is good circulation, especially in the fingers and toes. Loosen the bandage if there is local swelling, numbness, tingling, discomfort, coldness, or discoloration (skin pale or bluish in color). Rewrap the bandage as needed during the day. Reroll the bandage as you unwind it.Continue using the elastic bandage until the pain and swelling are gone or as your healthcareprovider advises.If you have been told to ice the area, the ice can be secured in place with the elastic bandage. Wrapthe ice pack with a thin towel to protect the skin. Don't put ice or an ice pack directly on the skin. Icethe area for no more than 20 minutes at a time. 5 General Instructions [facility] Emergency Department [address] [place] [address] Phone #: ext- [phone] 12/03/2020 06:49 Patient: MORRIS LEWIS Sex: F : 1980 Age: 39yFollow-up careFollow up with your healthcare provider, or as advised.When to seek medical adviceCall your healthcare provider for any of the following: Pain and swelling that doesn't get better or gets worse Trouble moving injured area Skin discoloration, numbness, or tingling that doesn't go away after bandage is removed [phone] [employer]. [address] [place] [address], [place] [address]. All rights reserved. This information is not intended as asubstitute for professional medical care. Always follow your healthcare professional's instructions. You have been given the following additional information: Sprain, Elbow JS Wrap(Electronically signed by GIULIA Katz 12/04/2020 19:29) Name Value Range Interpretation Code Description Data Jerica rce(s) Supporting Document(s) ID Date Data Source [id number] 12/03/2020 06:51:00 AM EDT [facility] 1 Clinical Report - Nurses [facility] Emergency Department [address] [place] [address] Phone #: ext- [phone] 12/03/2020 06:49 Patient: MORRIS LEWIS Sex: F : 1980 Age: 39yTRIAGEArrived by private vehicle. Historian: patient.Triage time: 06:53 12/03/2020. Acuity: LEVEL 4.Chief Complaint: RIGHT UPPER EXTREMITY PAIN.No injury occurred. 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 --06:55 12/03/20 Vaishali Walls R.N.06:59 12/03/20. BP: 150/100. MAP: 116. HR: 76. RR: 16. O2 saturation: 97%. Temp: 98.5 F. Pain levelnow: 10. --07:00 12/03/20 Vaishali Walls R.N.Weight: 131.5 kg stated. Height/Length: 67 inches Per Patient. BMI: 45.4. --06:53 12/03/20 Vaishali Roe R.N.MedicationsAtorvastatin Calcium Oral. Lyrica Oral (Capsule 75 mg), 2x a day. tiZANidine HCl Oral. Topamax Oral. traZODone HCl Oral. Zoloft Ora l. --06:55 12/03/20 Vaishali Walls R.N.AllergiesAnimals. --06:55 12/03/20 Vaishali Walls R.N.PROBLEMS:Obesity: Active.Gastroesophageal Reflux Disease: Active.Anxiety Reaction: Active.Depression: Active. --06:57 12/03/20 Vaishali Walls R.N.Renal Colic.Ureterolithiasis.Sciatica.UTI - Urinary Tract Infection.Depression.Intervertebral Disc Disease.Hypercholesterolemia. 2 Clinical Report - Nurses [facility] Emergency Department [address] [place] [address] Phone #: ext- [phone] 12/03/2020 06:49 Patient: MORRIS LEWIS Sex: F : 1980 Age: 39y Obesity. --06:57 12/03/20 Vaishali Walls R.N. ADDITIONAL SURGERIES: [facility]jah atric Surgery. Cholecystectomy. Left carpal tunnel repair. Right ulnar release and carpal tunnel repair. --06:57 12/03/20 Vaishali Walls R.N. History PAST MEDICAL HX: Last normal menstrual period unknown. Uses an intrauterine device. SOCIAL HX: Heavy tobacco smoker- 1 pack per day (pt counseled smoking is bad for her health). Alcohol use. (rare). No drug use. She was offered HIV testing but declined and hepatitis C testing but declined. She has not traveled outside the [place] Infectious disease exposure: No infectious disease exposure. The patient was not exposed to C-diff, MRSA, VRE or CRE. (Did NOT have Covid vaccinations). SELF HARM ASSESSMENT: Self harm assessment was performed. The patient answered "no" to the question(s) "Do you have thoughts of harming or killing yourself?& quot; and "Have you recently had thoughts about harming or killing others?". ABUSE ASSESSMENT: No report of abuse. FALL RISK ASSESSMENT: Fall risk assessment completed. Risk factors identified include severe pain. --06:59 12/03/20 Vaishali Walls R.N.PHYSICAL ASSESSMENTAmbulatory to room.GENERAL / NEURO / PSYCH: Oriented X 4. Alert.EXTREMITIES: Neuro-vascular status intact to the extremity. No upper extremity edema.SKIN: Skin intact. Skin is warm and dry. --07:01 12/03/20 Vaishali Walls R.N.NURSING PROGRESS NOTESPatient gowned. Reassurance given. Call light placed in reach. Bed placed in lowest position. Brakesof bed on. --07:01 12/03/20 Vaishali Walls R.N. 07:35 12/03/2020 Toradol (Ketorolac Tromethamine) IM 60 mg given. Given in the left gluteus radha. Allergies verified and confirmed 5 rights. Information reviewed with patient including reason for taking this medication. Verbalizes understanding. --08:00 12/03/20 Mayra Marin RN 07:35 12/03/2020 Prednisone PO 60 mg given. Allergies verified and confirmed 5 rights. Information reviewed with patient including reason for taking this medication. Verbalizes understanding. --08:00 12/03/20 Mayra Marin RN 07:35 12/03/2020 Tylenol (APAP) PO 1000 mg given. Allergies verified and confirmed 5 rights. Information 3 Clinical Report - Nurses [facility] Department [address] [place] [address] Phone #: ext- [phone] 12/03/2020 06:49 Patient: MORRIS LEWIS Sex: F : 1980 Age: 39y reviewed with patient including reason for taking this medication. Verbalizes understanding. --08:00 12/03/20 Mayra Marin RN ( 4" js applied to R elbow). --08:10 12/03/20 Mayra Marin, ASHU.DISPOSITION / DISCHARGE Departure time: 08:11 12/03/2020. --08:11 12/03/20 Mayra Marin RN Condition at departure: improved. No learning barriers present. Discharge instructions provided and reviewed with the patient. Reviewed referral to a primary care physician. Patient verbalized understanding. Written instructions provided in Albanian. The patient was discharged by the physician business banking sales assistant. She was discharged home and unaccompanied at time of discharge. She left ambulatory and via private vehicle. Patient driving. --08:12 12/03/20 Mayra Marin RN 08:11 12/03/20. BP: 150/89. MAP: 109. HR: 70. RR: 16. O2 saturation: 98%. Temp: deferred. Pain level now: 07/23. --08:12 12/03/20 Mayra Marin RN.Locked/Released at 12/03/2020 08:13 by Mayra Marin RN Name Value Range Interpretation Code Description Data Jerica rce(s) Supporting Document(s) ID Date Data Source [id number] 12/03/2020 06:51:00 AM EDT [facility] 1 Clinical Report - Physicians/Mid Levels [facility] Emergency Department [address] [place] [address] Phone #: ext- [phone] 12/03/2020 06:49 Patient: MORRIS LEWIS Sex: F : 1980 Age: 39y Time Seen: 07:05 12/03/2020. Arrived- By private vehicle. Historian- patient.HISTORY OF PRESENT ILLNESS Chief Complaint: UPPER EXTREMITY PAIN and ; PAIN IN THE RIGHT ELBOW. This started last night and is still present. It was abrupt in onset and has been constant. Severity is described as being moderate in degree. The quality is noted to be sharp, aching and "pain". No radiation. Symptoms located in the area of the right elbow. No chest pain, difficulty breathing, swelling, sensory loss or motor loss. No repetitive hand use at work. She has not had redness. Patient denies an injury. Similar symptoms previously. None. Recent medical care: The patient was seen recently at this facility in the emergency department.REVIEW OF SYSTEMSUses an intrauterine device. No fever, chills, eye discomfort, headache or depression. No sore throat,cough, skin rash, enlarged lymph nodes or neck pain. No abdominal pain, nausea, vomiting, diarrhea orblack stools. No difficulty with urination, urinary frequency, hematuria, vaginal discharge or irregularperiods. No bloody stools.SOCIAL HISTORYHeavy tobacco smoker (cigarette)- 1 pack per day. No alcohol use or drug use.PHYSICAL EXAMVital Signs: 12/03/2020 06:59 BP: 150/100. MAP: 116. HR: 76. RR: 16. O2 saturation: 97%. Temp: 98.5F. Pain level now: 10/22. Have been reviewed as abnormal. Hypertensive. Oxygen saturation normal.Appearance: Alert. Oriented X3. No acute distress.Eyes: Pupils equal, round and reactive to light. Eyes normal inspection.ENT: Ears normal. Nose normal. Pharynx normal.Neck: Normal inspection.CVS: Normal heart rate and rhythm.Respiratory: No respiratory distress.Abdomen: Nontender.Back: Normal inspection.Skin: Skin intact. Skin warm and dry. Normal skin color. Normal skin turgor.Extremities: No signs of infection present in the upper extremities. No upper extremity pulse deficitpr esent. Upper extremity capillary refill not prolonged. No upper extremity edema. Right elbow:moderate tenderness located in the area of the olecranon and medial epicondyle. Limited ROM secondaryto pain. Neurovascular intact distally. No joint effusion. Extremities otherwise negative.Neuro: Oriented X 3. 2 Clinical Report - Physicians/[facility] Emergency Department [address] [place] [address] Phone #: ext- [phone] 12/03/2020 06:49 Patient: MORRIS LEWIS Sex: F : 1980 Age: 39yLABS, X-RAYS, AND EKGRt Elbow X-ray: No fracture. Normal alignment. No bony lesion. Soft tissues normal. Views: AP,lateral and oblique. T he X-rays were interpreted by the radiologist and contemporaneously by me.Interpretation time: 07:59 12/03/2020.PROGRESS AND PROCEDURESCourse of Care: 08:00 Dec 03 2020. Evaluation after observation. (Discussed risks benefits options andpt is agreeable with dx and tx plan.). Patient counseled in person regarding the patient's stable condition, test results, diagnosis and need for follow-up. Patient agrees with plan of care. 08:Dec 03 2020. Disposition: Discharged home in good and improved condition (08:Dec 03 2020).CLINICAL IMPRESSION Sprain of the radial collateral ligament of the right elbow .INSTRUCTIONS Wear elastic wrap (Js wrap) as directed for two weeks until better. Warnings: Further evaluation is necessary. It is very important to follow up with a healthcare provider. GENERAL WARNINGS: Return or contact your physician immediately if your condition worsens or changes unexpectedly, if not improving as expected, or if other problems arise. Specifically return if pain worsens. Your Current Medications: Your current home medications have been reviewed. CONTINUE TAKING THE FOLLOWING MEDICATIONS: Atorvastatin Calcium Oral. Lyrica Oral : Capsule 75 mg, 2x a day. tiZANidine HCl Oral. Topamax Oral. traZODone HCl Oral. Zoloft Oral. Follow-up: Follow up with your doctor Saturday if not better. Call for an appointment. Reason for referral: evaluation and treatment. Summary of care provided to patient. Understanding of the discharge instructions verbalized by patient. 3 [facility] Emergency Department [address] [place] [address] Phone #: ext- [phone] 12/03/2020 06:49 Patient: MORRIS LEWIS Sex: F : 1980 Age: 39y(Electronically signed by GIULIA Katz 12/04/2020 19:29) Name Value Range Interpretation Code Description Data Jerica rce(s) Supporting Document(s) ID Date Data Source [id number] 12/03/2020 10:46:00 AM EDT [address] [address] PHONE: [phone] FAX: [phone] Name .................. : DEBBIE CACERES Acct Number.................. : [id number] ROOM. ................. : [address] Number ................... : [id number] Stay type ............. : E/R Discharge Date......... ... : 12/03/20 Admit Date ......... : 12/03/20 Admit Phys .................... : [place] Date of ....... : 1980 Family Phys ................... : [employer] Phone .................. : [phone] Age ................................ : 39 Film# .................. .:[id number] Sex ................................. : F Unsigned transcriptions are preliminary reports and do not represent a medical or legal document [place] [id number] COMPLETE:12/03/20 07:14 [id number] Reason(s): Pain RADIOGRAPHS OF THE RIGHT ELBOW 4 VIEWS INDICATION: Pain COMPARISON: None. FINDINGS: No acute fracture or dislocation. No focal bone lesion. Joint spaces are well-preserved. No joint effusion. IMPRESSION: Negative study. Electronically Reviewed and Signed By Richard Topete MD , 12/03/20 10:46, JWS Transcribe Initials: DZ , Transcribe Date: 12/03/20 10:31, Dictation Date: Copy for: JERONIMO FAUSTIN via fax Copy for: EMERGENCY DEPT via modem Copy for: 710 MED REC DISCHARGED Page 1 of 1 Name Value Range Interpretation Code Description Data Jerica rce(s) Supporting Document(s) ID Date Data Source [id number] 11/23/2020 08:52:00 [place] [address] PHONE: [phone] FAX: [phone] Name .................. : DEBBIE CACERES Acct Number.................. : [id number] [place] Number ................... : [id number] Stay type ............. : E/R Discharge Date......... ... : Admit Date ......... : 11/22/20 Admit Phys .................... : [place] Date of ....... : 1980 Family Phys ................... : [employer] Phone .................. : [phone] Age ................................ : 39 Film# .................. .:[id number] Sex ................................. : F Unsigned transcriptions are preliminary reports and do not represent a medical or legal document CT LUMBAR SP W/O CONT [id number] COMPLETE:11/22/20 21:11 [id number] Reason(s): R leg tin gling/numbness CT LUMBAR SPINE WITHOUT IV CONTRAST INDICATION: Right leg tingling and numbness COMPARISON: None. Correlation with CT abdomen 08/01/2020 CONTRAST: None PROCEDURE: The patient is scanned axially from T12 to the sacrum. Multiplanar reconstructions are performed. One or more of the following dose reduction techniques were utilized in effectively lowering the radiation dose for this examination: Automated Exposure Control, Adjustment of the mA and/or kV according to patient size, or Iterative reconstruction. FINDINGS: From T11-12 to L4-5 disc space height is within normal limits with no indication of canal stenosis or foraminal narrowing. Limited CT ability to assess canal. No gross indication of disc herniation. At L4-5 there is degenerative facet change with prominent ligamentum flava. Likely mild disc bulge and overall mild canal stenosis. No definite foraminal narrowing. At L5-S1 there is mild to moderate disc space collapse. Bilateral pars interarticularis defects. No l isthesis. Minimal disc bulge. No significant canal stenosis. Mild bilateral foraminal narrowing. SI joints are intact. No fracture. 6 mm calculus in the proximal right ureter slightly more distal than prior noted stone location. Mild right hydronephrosis. Appearance of left renal hilum is most likely multiple parapelvic cysts. Page 1 of 2 [facility] [address] [place] [address] PHONE: [phone] FAX: [phone] Name .................. : DEBBIE CACERES Acct Number.................. : [id number] ROOM. ................. : VT-26 MR Number ................... : [id number] Stay type ............. : E/R Discharge Date......... ... : Admit Date ......... : 08/10/21 Admit Phys .................... : [place]ONE[place] Date of ....... : 1980 Family Phys ................... : [employer] Phone .................. : [phone] Age ................................ : 39 Film# .................. .:[id number] Sex ................................. : F Unsigned transcriptions are preliminary reports and do not represent a medical or legal document CT LUMBAR SP W/O CONT [id number] COMPLETE:11/22/20 21:11 [id number] Reason(s): R leg tingling/numbness IUD. Cholecystectomy. IMPRESSION: Degenerative changes at L4-5 with likely mild canal stenosis. L5-S1 bilateral pars interarticularis defects without listhesis. Mild foraminal narrowing.. Limited ability on CT to assess spinal canal contents. No confirmed focal disc herniation. Mild right hydronephrosis secondary to 6 mm proximal right ureteral calculus. Electronically Reviewed and Signed By Ravi San MD , 11/23/20 08:52, SCB Transcribe Initials: SOLIS , Transcribe Date: 11/22/20 22:48, Dictation Date: Copy for: CINDY Plata via fax Copy for: EMERGENCY DEPT via modem Copy for: 710 MED REC DISCHARGED Page 2 of 2 Name Value Range Interpretation Code Description Data Jerica rce(s) Supporting Document(s) ID Date Data Source [id number] 11/23/2020 08:52:00 AM EDT [facility] [address] [place] [address] PHONE: [phone] FAX: [phone] Name .................. : DEBBIE CACERES Acct Number.................. : [id number] ROOM. ................. : VT-26 MR Number ................... : [id number] Stay type ............. : E/R Discharge Date......... ... : Admit Date ......... : 11/22/20 Admit Phys .................... : [place] Date of ....... : 1980 Family Phys ................... : [employer] Phone .................. : [phone] Age ................................ : 39 Film# .................. .:[id number] Sex ................................. : F Unsigned transcriptions are preliminary reports and do not represent a medical or legal document CT HEAD W/O CONTRAST [id number] COMPLETE:11/22/20 21:05 [id number] Reason(s): Hx chronic neck pain, tingling to RUE/RLE CT BRAIN WITHOUT IV CONTRAST INDICATION: Chronic neck pain, tingling right upper and right lower extremity COMPARISON: 06/14/2017 CONTRAST: None One or more of the following dose reduction techniques were utilized in effectively lowering the radiation dose for this examination: Automated Exposure Control, Adjustment of the mA and/or kV according to patient size, or Iterative Reconstruction. FINDINGS: Ventricles and sulci are normal in appearance. Stone white differentiation is intact. No extra-axial collection or intracranial hemorrhage. No indication of acute or pr ior ischemic CVA. No mass or mass effect. Calvarium and skull base are within normal limits. To the extent included sinuses are clear. IMPRESSION: Negative study. Electronically Reviewed and Signed By Ravi San MD , 11/23/20 08:52, SCB Transcribe Initials: SOLIS , Transcribe Date: 11/22/20 22:46, Dictation Date: Copy for: CINDY Plata via fax Copy for: EMERGENCY DEPT via modem Page 1 of 2 [facility] [address] [place] [address] PHONE: [phone] FAX: [phone] Name .................. : DEBBIE CACERES Acct Number.................. : [id number] ROOM. ................. : VT-26 MR Number ................... : [id number] Stay type ............. : E/R Discharge Date......... ... : Admit Date ......... : 11/22/20 Admit Phys .................... : [place] Date of ....... : 1980 Family Phys ................... : [employer] Phone .................. : [phone] Age ................................ : 39 Film# .................. .:[id number] Sex ................................. : F Unsigned transcriptions are preliminary reports and do not represent a medical or legal document CT HEAD W/O CONTRAST [id number] COMPLETE:11/22/20 21:05 [id number] Reason(s): Hx chronic neck pain, tingling to RUE/RLE Copy for: 710 MED REC DISCHARGED Page 2 of 2 Name Value Range Interpretation Code Description Data Jerica rce(s) Supporting Document(s) ID Date Data Source [id number] 11/23/2020 08:52:00 AM EDT [facility] [address] [place] [address] [place] [address] PHONE: [phone] FAX: [phone] Name .................. : DEBBIE CACERES Acct Number.................. : [id number] ROOM. ................. : [address] Number ................... : [id number] Stay type ............. : E/R Discharge Date......... ... : Admit Date ......... : 11/22/20 Admit Phys .................... : [place] Date of ....... : 1980 Family Phys ................... : [employer] Phone .................. : [phone] Age ................................ : 39 Film# .................. .:[id number] Sex ................................. : F Unsigned transcriptions are preliminary reports and do not represent a medical or legal document CT CERV SPINE W/O VERNON [id number] COMPLETE:11/22/20 21:05 [id number] Reason(s): hx of chronic neck pain, radicular symptoms to R side, RUE, RLE. CT CERVICAL SPINE WITHOUT IV CONTRAST INDICATION: A history of chronic neck pain, radicular symptoms to right side, right upper extremity right lower extremity COMPARISON: None CONTRAST: None PROCEDURE: The patient is scanned axially from C1 to the upper thoracic spine. Multiplanar reconstructions are performed. One or more of the following dose reduction techniques were utilized in effectively lowering the radiation dose for this examination: Automated Exposure Control, Adjustment of the mA and/or kV according to patient size, or Iterative reconstruction. FINDINGS: Dens is intact. C1-C2 relationship is maintained. Normal vertebral body alignment and disc space height. Limited delineation of spinal canal contents. This exam will not be reliable for confirming or excluding the presence of disc herniation. No foraminal narrowing or significant bony canal stenosis is noted. Small sclerotic focus in C1 vertebral body on the left most likely benign bone island. IMPRESSION: No significant cervical spine skeletal abnormality. This exam is very limited in delineation of spinal canal contents and will not be reliable for assessment of disc herniations. If clinically appropriate consider MRI. Electronically Reviewed and Signed By Ravi San MD , 11/23/20 08:52, SHARATH Transcribe Initials: SOLIS , Transcribe Date: 11/22/20 22:43, Dictation Date: Page 1 of 2 [place] [address] PHONE: [phone] FAX: [phone] Name .................. : DEBBIE CACERES Acct Number.................. : [id number] ROOM. ................. : VT-26 MR Number ................... : [id number] Stay type ............. : E/R Discharge Date......... ... : Admit Date ......... : 11/22/20 Adm it Phys .................... : [place]ONEYNORM Date of ....... : 1980 Family Phys ................... : [employer] Phone .................. : [phone] Age ................................ : 39 Film# .................. .:[id number] Sex ................................. : F Unsigned transcriptions are preliminary reports and do not represent a medical or legal document CT CERV SPINE W/O VERNON [id number] COMPLETE:11/22/20 21:05 [id number] Reason(s): hx of chronic neck pain, radicular symptoms to R side, RUE, RLE. Copy for: CINDY Plata via fax Copy for: EMERGENCY DEPT via [facility] Copy for: 710 MED REC DISCHARGED Page 2 of 2 Name Value Range Interpretation Code Description Data Jerica rce(s) Supporting Document(s) ID Date Data Source [id number] 11/22/2020 07:30:00 PM EDT [facility] 1 OrderSheet [facility] Emergency Department [address] [place] [address] Phone #: ext- [phone] 11/22/2020 19:15 Patient: MORRIS LEWIS Sex: F : 1980 Age: 39yWEIGHT:131.5 kg HEIGHT:67 inches BMI:45.4ALLERGIES: AnimalsDIAGNOSIS: Strain of neck muscle, Sciatica, Renal colic, Renal colic, BackacheLAB ORDERSOrder Description Priority Entered Acknowledged InitialedCBC w Diff STAT 22:15 11/22/2020 22:30 Renny Taylor; KatelynCMP STAT 22:15 11/22/2020 22:30 Renny Taylor; KatelynUrinalysis (Clean STAT 22:15 11/22/2020 22:30 Claudia,Catch) Renny PLATT; KatelynLactic Acid STAT 22:19 11/22/2020 23:06 Renny Taylor; KatelynDIAGNOSTIC STUDY ORDERSOrder Description Priority Entered Acknowledged InitialedCT Spine Cervical STAT 21:05 11/22/2020 Ack'd: 21:05 21:30 Claudia,W/O Cont Renny PLATT; Josephine Taylor(Oxygen?(No)) Reason for Study: hx of chronic neck pain, radicular symptoms to R side, RUE, RLE..CT Head W/O Cont STAT 21:05 11/22/2020 Ack'd: 21:05 21:30 Claudia,(Oxygen?(No)) Renny PLATT; Josephine Taylor Reason for Study: Hx chronic neck pain, tingling to RUE/RLECT LUMBAR SP STAT 21:11 11/22/2020 Ack'd: 21:12 21:30 Claudia,W/O CONT Renny PLATT; Josephine Taylor(Oxygen?(No))(IV?(No)) Reason for Study: R leg tingling/numbnessMEDICATION/IV/DRIP/FLUID ORDERSOrder Description Priority Entered Acknowledged InitialedToradol IM 60 mg 21:05 11/22/2020 Ack'd: 21:05 21:09 Claudia,(NOW x1) Renny PLATT; Josephine Taylor IV : Bolus 1000 22:15 11/22/2020 Ack'd: 22:16 22:31 Claudia,mL, then 75 mL/hr Renny PLATT; Josephine Taylor 2 OrderSheet [facility] Emergency Department [address] [place] [address] Phone #: ext- [phone] 11/22/2020 19:15 Patient: MORRIS LEWIS Sex: F : 1980 Age: 39y(NOW x1)Flomax PO 0.4 mg 22:15 11/22/2020 Ack'd: 22:16 22:31 Claudia,(NOW x1, Do not Renny PLATT; Josephine Taylor or miquel)GENERAL ORDERSOrder Description Priority Entered Acknowledged Initialed[Electronically signed by Renny Nichole (22:26 11/22/2020)][Electronically signed by Josephine Taylor (00:22 11/23/2020)][Electronically signed by Missy Ramos MD (04:02 11/23/2020)][Electronically locked by Josephine Taylor (00:22 11/23/2020)] Name Value Range Interpretation Code Description Data Jerica rce(s) Supporting Document(s) ID Date Data Source [id number] 11/22/2020 07:30:00 PM EDT [facility] 1 Medication Reconciliation Report [facility] Emergency Department [address] [place] [address] Phone #: ext- [phone] 11/22/2020 19:15 Patient: MORRIS LEWIS Sex: F : 1980 Age: 39yWeight: 131.5 kgHeight/Length: 67 in.BMI: 45.4ALLERGIES: AnimalsThe patient's Home Medications are listed below:CONTINUE TAKING THE FOLLOWING MEDICATIONS: Atorvastatin Calcium Oral Lyrica Oral (75 mg), 2x a day tiZANidine HCl Oral Topamax Oral traZODone HCl Oral Zoloft OralThe source(s) of the original Home Medication information:patientThe following Medications were given to the patient in the Emergency Department:Toradol [IM] IM 60 mg, administered: 21:11/22/2020NS [IV] IV Fluids bolus 1000 mL over 40 minute(s), administered: :11/22/2020Flomax [PO] PO 0.4 mg, administered: :11/22/2020NS [IV] IV Fluids bolus 0, then 75 mL/hr, administered: 23:11 11/22/2020The following Medications were prescribed to the patient:None. Name Value Range Interpretation Code Description Data Jerica rce(s) Supporting Document(s) ID Date Data Source [id number] 11/22/2020 07:30:00 PM EDT [facility] 1 Medication Administration Record [facility] Emergency Department [address] [place] [address] Phone #: ext- [phone] 11/22/2020 19:15 Patient: MORRIS LEWIS Sex: F : 1980 Age: 39yWeight: 131.5 kgHeight/Length: 67 inBMI: 45.4ALLERGIES: Animals Date/Time Medication Administered Medication OrderedGiven TORADOL [IM] (KETOROLAC Toradol IM 60 mg (NOW x1)21:11/22/2020 TROMETHAMINE)Josephine Taylor, Dose: 60 mg IMStart NS [IV] NS IV : Bolus 1000 mL, then 7522:31 11/22/2020 Dose: IV Fluids mL/hr (NOW x1)Josephine Taylor, Bolus: 1000 mL over 40 minute(s)---- Dispensed: 1000 mL bagStop Site: #1 left AC23:10 1BJosephine corona,Start NS [IV] NS IV : Bolus 1000 mL, then 7523:11 11/22/2020 Dose: IV Fluids mL/hr (NOW x1)Josephine Taylor, Rate: 75 mL/hr---- Dispensed: 1000 mL bagStop Site: #1 left AC00:21 11/23/2020Josephine corona,Given FLOMAX [PO] (TAMSULOSIN HCL) Flomax PO 0.4 mg (NOW x1, Do22:31 11/22/2020 Dose: 0.4 mg PO not crush or chew)Josephine Tyalor, Name Value Range Interpretation Code Description Data Jerica rce(s) Supporting Document(s) ID Date Data Source [id number] 11/22/2020 07:30:00 PM EDT [facility] 1 General Instructions [facility] Emergency Department [address] [place] [address] Phone #: ext- [phone] 11/22/2020 19:15 Patient: MORRIS LEWIS Sex: F : 1980 Age: 39yRight renal colic in the right ureter with a single calculus.Acute cervical strain.Acute right sided sciatica with low back pain. ADDITIONAL INFORMATIONNeck Sprain or StrainA sudden force that causes turning or bending of the neck can cause sprain or strain. An examplewould be the force from a car accident. This can stretch or tear muscles called a strain. It can alsostretch or tear ligaments called a sprain. Either of these can cause neck pain. Sometimes neck painoccurs after a simple awkward movement. In either case, muscle spasm is commonly present andcontributes to the pain.Unless you had a forceful physical injury (for example, a car accident or fall), X-rays are often notordered for the initial evaluation of neck pain. If pain continues and does not respond to medicaltreatment, X-rays and other tests may be done l ater.Home care You may feel more soreness and spasm the first few days after the injury. Rest until symptoms start to improve. When lying down, use a comfortable pillow or a rolled towel that supports the head and keeps the spine in a neutral position. The position of the head should not be tilted forward or backward. Apply an ice pack over the injured area for 15 to 20 minutes every 3 to 6 hours. Do this for the first 24 to 48 hours. You can make an ice pack by filling a plastic bag that seals at the top with ice cubes and then wrapping it with a thin towel. After 48 hours, apply heat (warm shower or warm bath) for 15 to 20 minutes several times a day, or alternate ice and heat. You may use thks-doi-kyoesnf pain medicine to control pain, unless another pain medicine was prescribed. If you have chronic liver or kidney disease or ever had a stomach ulcer or gastrointestinal bleeding, talk with your healthcare provider before using these medicines. If a soft cervical collar was prescribed, only ear it for periods of increased pain. It should not be worn for more than 3 hours a day, or for longer than 1 to 2 weeks. 2 General Instructions [facility] Emergency Department [address] [place] [address] Phone #: ext- [phone] 11/22/2020 19:15 Patient: MORRIS LEWIS Sex: F : 1980 Age: 39yFollow-up careFollow up with your healthcare provider, or as directed. Physical therapy may be needed.Sometimes fractures don't show up on the first X-ray. Bruises and sprains can sometimes hurt asmuch as a fracture. These injuries can take time to heal completely. If your symptoms don't improveor they get worse, talk with your healthcare provider. You may need a repeat X-ray or other tests. IfX-rays were taken, you will be told of any new findings that may affect your care.Call [id number] [phone] if you have: Neck swelling, difficulty or painful swallowing Trouble breathing Chest painWhen to seek medical adviceCall your healthcare provider right away if any of these occur: Pain becomes worse or spreads into your arms or legs Weakness or numbness in one or both arms or legs [phone] [employer]. [address] [place] [address]. All rights reserved. This information is not intended as asubstitute for professional medical care. Always follow your healthcare professional's instructions.Sciatica 3 General Instructions [facility] Emergency Department [address] [place] [address] Phone #: ext- [phone] 11/22/2020 19:15 Patient: MORRIS LEWIS Sex: F : 1980 Age: 39ySciatica is a condition that causes pain in the lower back that spreads down into the buttock, hip, andleg. Sometimes the leg pain can happen without any back pain. Sciatica happens when a spinalnerve is irritated or has pressure put on it as it comes out of the spinal canal in the lower back. Thismost often happens when a bulge or rupture of a nearby spinal disk presses on the nerve. Sciaticacan also be caused by a narrowing of the spinal canal (spinal stenosis) or spasm of the muscle in thebuttocks that the sciatic nerve passes through (piriformis muscle). Sciatica may also be called lumbarradiculopathy.Sciatica may start after a sudden twisting or bending force, such as in a car accident. Or it canhappen after a simple awkward movement. In either case, muscle spasm often also happens. Musclespasm makes the pain worse.A healthcare provider makes a diagnosis of sciatica from your symptoms and a physical exam.Unless you had an injury from a car accident or fall, you usually won't have X-rays taken at this time.This is because the nerves and disks in your back can't be seen on an X-ray. If the provider seessigns of a compressed nerve, you will need to schedule an MRI scan. Nerve conductions studies andelectromyography are nerve tests that can also help find the cause of nerve pain. Signs of acompressed nerve include loss of strength in a leg.Most sciatica gets better with medicine, exercise, and physical therapy. If your symptoms continueafter medical treatment, you may need surgery or injections to your lower back, depending on howsevere your symptoms are.Home careFollow these tips when caring for yourself at home: 4 General Instructions [facility] Emergency Department [address] [place] [address] Phone #: ext- [phone] 11/22/2020 19:15 [id number] Sex: F : 1980 Age: 39y As soon as possible, start sitting up or walking. This will help you prevent problems that come from staying in bed for long periods. When in bed, try to find a position that is comfortable. A firm mattress is best. Try lying flat on your back with pillows under your knees. You can also try lying on your side with your knees bent up toward your chest and a pillow between your knees. Don't sit for long periods. This puts more stress on your lower back than standing or walking. Use heat from a hot shower, hot bath, or heating pad to help ease pain. Massage can also help. You can also try using an ice pack. You can make your own ice pack by putting ice cubes in a plastic bag. Wrap the bag in a thin towel. Try both heat and cold to see which works best. Use the method that feels best for 20 minutes several times a day. You may use acetaminophen or ibuprofen to ease pain, unless another pain medicine was prescribed. Note: If you have chronic liver or kidney disease, talk with your healthcare provider before taking these medicines. Also talk with your provider if you've had a stomach ulcer or gastrointestinal bleeding. Use safe lifting methods. Don't lift anything heavier than 15 pounds until all of the pain is gone.Follow-up careFollow up with your healthcare provider, or as advised. You may need physical therapy or more tests.If X-rays were taken, a radiologist will look at them. You will be told of any new findings that mayaffect your care.When to seek medical adviceCall your healthcare provider right away if any of these occur: Pain gets worse even after taking prescribed medicine Weakness or numbness in 1 or both legs or hips Numbness in your groin or genital area You can't control your bowel or bladder Fever (100.4 F or 38 C) Redness or swelling over your back or spine [id number] [employer]. [address] [place] [address]. All rights reserved. This information is not intended as asubstitute for professional medical care. Always follow your healthcare professional's instructions. 5 General Instructions [facility] Emergency Department [address] [place] [address] Phone #: ext- [phone] 11/22/2020 19:15 Patient: MORRIS LEWIS Sex: F : 1980 Age: 39yKidney Stone with PainThe sharp cramping pain on either side of your lower back and nausea/vomiting that you have arebecause of a small stone that has formed in the kidney. It is now passing down a narrow tube (ureter)on its way to your bladder. Once the stone reaches your bladder, the pain will often stop. But it maycome back as the stone continues to pass out of the bladder and through the urethra. The stone maypass in your urine stream in one piece. The size may be 1/16 inch to 1/4 inch (1 mm to 6 mm). Or, thestone may break up into talisha fragments that you may not even notice.Once you have had a kidney stone, you are at risk of getting another one in the future. There are 4types of kidney stones. Eighty percent are calcium stones--mostly calcium oxalate but also somewith calcium phosphate. The other 3 types include uric acid stones, struvite stones (from a precedinginfection), and rarely, cystine stones.Most stones will pass on their own, but may take from a few hours to a few days. Sometimes thestone is too large to pass by itself. In that case, the healthcare provider will need to use other ways toremove the stone. These techniques include: Lithotripsy. This uses ultrasound waves to break up the stone. Ureteroscopy. This pushes a basket-like instrument through the urethra and bladder and into the ureter to pull out the stone. 6 General Instructions [facility] Emergency Department [address] [place] [address] Phone #: ext- [phone] 11/22/2020 19:15 Patient: MORRIS LEWIS Sex: F : 1980 Age: 39y Various types of direct surgery through the [facility] following are general care guidelines: Drink plenty of fluids. This means at least 12, 8- ounce glasses of fluid--mostly water--a day. Each time you urinate, do so in a jar. Pour the urine from the jar through the strainer and into the toilet. Continue doing this until 24 hours after your pain stops. By then, if there was a kidney stone, it should pass from your bladder. Some stones dissolve into sand-like particles and pass right through the strainer. In that case, you won't ever see a stone. Save any stone that you find in the strainer and bring it to your healthcare provider to look at. It may be possible to stop certain types of stones from forming. For this reason, it is important to know what kind of stone you have. Try to stay as active as possible. This will help the stone pass. Don't stay in bed unless your pain keeps you from getting up. You may notice a red, pink, or brown color to your urine. This is normal while passing a kidney stone. If you develop pain, you may take ibuprofen or naproxen for pain, unless another medicine was prescribed. If you have chronic liver or kidney disease, talk with your healthcare provider before taking these medicines. Also talk with your provider if you've had a stomach ulcer or GI bleeding.Preventing stonesEach year for the next 5 to 7 years, you are at risk that a new stone will form. Your risk is a 50%chance over this time period. The risk is higher if you have a family history of kidney stones or havecertain chronic illnesses like hypertension, obesity, or diabetes. But you can make changes to yourlifestyle and diet that can lower your risk for another stone.Most kidney stones are made of calcium. The following is advice for preventing another calciumstone. If you don't know the type of stone you have, follow this advice until the cause of your stone isfound.Things that help: The most important thing you can do is to drink plenty of fluids each day. See home care above. Eat foods that contain phytates. These include wheat, rice, rye, barley, and beans. Phytates are substances that may lower your risk for any type of stone to form. Eat more fruits and vegetables. Choose those that are high in potassium. 7 General Instructions [facility] Emergency Department [address] [place] [address] Phone #: ext- [phone] 11/22/2020 19:15 Patient: MORRIS LEWIS Sex: F : 1980 Age: 39y Eat foods high in natural citrate like fruit and low-sugar fruit juices. Having too little calcium in your diet can put you at risk for calcium kidney stones. Eat a normal amount of calcium in your diet and talk with your [facility] provider if you are taking calcium supplements. Cutting back on your calcium intake may raise your risk. New research shows that eating calcium- rich and oxalate-rich foods together lowers your risk for stones by binding the minerals in the stomach and intestines before they can reach the kidneys. Limit salt intake to 2 grams (1 teaspoon) per day. Use limited amounts when cooking, and don't add salt at the table. Processed and canned foods are usually high in salt. Spinach, rhubarb, peanuts, cashews, almonds, grapefruit, and grapefruit juice are all high oxalate foods. You should limit how much of these you eat. Or eat them with calcium-rich foods. These include dairy products, dark leafy greens, soy products, and calcium-enriched foods. Reducing the amount of animal meat and high protein foods in your diet may lower your risk for uric acid stones. Avoid excess sugar (sucrose) and fructose (sweetener in many soft drinks) in your diet. If you take vitamin C as a supplement, don't take more than 1,000 mg a day. A dietitian or your healthcare provider can give you information about changes in your diet that will help prevent more kidney stones from forming.Follow-up careFollow up with your healthcare provider, or as advised, if the pain lasts more than 48 hours. Talk withyour provider about urine and blood tests to find out the cause of your stone. If you had an X-ray, CTscan, or other diagnostic test, you will be told of any new findings that may affect your care.Call [phone] if you have any of these: Weakness, dizziness, or faintingWhen to seek medical adviceCall your healthcare provider right away if any of these occur: Pain that is not controlled by the medicine given Repeated vomiting or unable to keep down fluids Fever of 100.4F (38C) or higher, or as directed by your healthcare provider 8 General Instructions [facility] Emergency Department [address] [place] [address] Phone #: ext- [phone] 11/22/2020 19:15 Patient: MORRIS LEWIS Sex: F : 1980 Age: 39y Passage of solid red or brown urine (can't see through it) or urine with lots of blood clots Foul-smelling or cloudy urine Unable to pass urine for 8 hours and increasing bladder pressure [employer]. [address] [place] [address]. All rights reserved. This information is not intended as asubstitute for professional medical care. Always follow your healthcare professional's instructions. You have been given the following additional information: Neck Sprain or Strain Sciatica Kidney Stone w/ Colic(Electronically signed by GIULIA Buenrostro 11/22/2020 22:26) Renal colic in the right ureter with calculus. Chronic nontraumatic thoracic and lumbar back pain.INSTRUCTIONSNo strenuous activity. Do not work for three days.(Take all medications as previously instructed. return if worse or any problems including numbness to thesaddle area, or bowel or urinary incontinence). Warnings: Further evaluation is necessary. GENERAL WARNINGS: Return or contact your physician immediately if your condition worsens or changes unexpectedly, if not improving as expected, or if other problems arise. Your Current Medications: Your current home medications have been reviewed. CONTINUE TAKING THE FOLLOWING MEDICATIONS: Atorvastatin Calcium Oral. Lyrica Oral : Capsule 75 mg, 2x a day. tiZANidine HCl Oral. Topamax Oral. 9 General Instructions [facility] Emergency Department [address] [place] [address] Phone #: ext- [phone] 11/22/2020 19:15 Patient: MORRIS LEWIS Sex: F : 1980 Age: 39ytraZODone HCl Oral.Zoloft Oral.Follow- up:Follow up with your doctor tomorrow. Call for an appointment. Reason for referral: evaluation. Summary ofcare provided to patient via paper.Understanding of the discharge instructions verbalized by patient. ADDITIONAL INFORMATIONKidney Stone with PainThe sharp cramping pain on either side of your lower back and nausea/vomiting that you have arebecause of a small stone that has formed in the kidney. It is now passing down a narrow tube (ureter)on its way to your bladder. Once the stone reaches your bladder, the pain will often stop. But it maycome back as the stone continues to pass out of the bladder and through the urethra. The stone maypass in your urine stream in one piece. The size may be 1/16 inch to 1/4 inch (1 mm to 6 mm). Or, thestone may break up into talisha fragments that you may not even notice.Once you have had a kidney stone, you are at risk of getting another one in the future. There are 4types of kidney stones. Eighty percent are calcium stones--mostly calcium oxalate but also some 10 General Instructions [facility] Emergency Department [address] [place] [address] Phone #: ext- [phone] 11/22/2020 19:15 Patient: MORRIS LEWIS Sex: F : 1980 Age: 39ywith calcium phosphate. The other 3 types include uric acid stones, struvite stones (from a precedinginfection), and rarely, cystine stones.Most stones will pass on their own, but may take from a few hours to a few days. Sometimes thestone is too large to pass by itself. In that case, the healthcare provider will need to use other ways toremove the stone. These techniques include: Lithotripsy. This uses ultrasound waves to break up the stone. Ureteroscopy. This pushes a basket-like instrument through the urethra and bladder and into the ureter to pull out the stone. Various types of direct surgery through the skinHome careThe following are general care guidelines: Drink plenty of fluids. This means at least 12, 8- ounce glasses of fluid--mostly water--a day. Each time you urinate, do so in a jar. Pour the urine from the jar through the strainer and into the toilet. Continue doing this until 24 hours after your pain stops. By then, if there was a kidney stone, it should pass from your bladder. Some stones dissolve into sand-like particles and pass right through the strainer. In that case, you won't ever see a stone. Save any stone that you find in the strainer and bring it to your healthcare provider to look at. It may be possible to stop certain types of stones from forming. For this reason, it is important to know what kind of stone you have. Try to stay as active as possible. This will help the stone pass. Don't stay in bed unless your pain keeps you from getting up. You may notice a red, pink, or brown color to your urine. This is normal while passing a kidney stone. If you develop pain, you may take ibuprofen or naproxen for pain, unless another medicine was prescribed. If you have chronic liver or kidney disease, talk with your healthcare provider before taking these medicines. Also talk with your provider if you've had a stomach ulcer or GI bleeding.Preventing stonesEach year for the next 5 to 7 years, you are at risk that a new stone will form. Your risk is a 50%chance over this time period. The risk is higher if you have a family history of kidney stones or havecertain chronic illnesses like hypertension, obesity, or diabetes. But you can make changes to yourlifestyle and diet that can lower your risk for another stone.Most kidney stones are made of calcium. The following is advice for preventing another calcium 11 General Instructions [facility] Emergency Department [address] [place] [address] Phone #: ext- [phone] 11/22/2020 19:15 Patient: MORRIS LEWIS Sex: F : 1980 Age: 39ystone. If you don't know the type of stone you have, follow this advice until the cause of your stone isfound.Things that help: The most important thing you can do is to drink plenty of fluids each day. See home care above. Eat foods that contain phytates. These include wheat, rice, rye, barley, and beans. Phytates are substances that may lower your risk for any type of stone to form. Eat more fruits and vegetables. Choose those that are high in potassium. Eat foods high in natural citrate like fruit and low-sugar fruit juices. Having too little calcium in your diet can put you at risk for calcium kidney stones. Eat a normal amount of calcium in your diet and talk with your healthcare provider if you are taking calcium supplements. Cutting back on your calcium intake may raise your risk. New research shows that eating calcium-rich and oxalate-rich foods together lowers your risk for stones by binding the minerals in the stomach and intestines before they can reach the kidneys. Limit salt intake to 2 grams (1 teaspoon) per day. Use limited amounts when cooking, and don't add salt at the table. Processed and canned foods are usually high in salt. Spinach, rhubarb, peanuts, cashews, almonds, grapefruit, and grapefruit juice are all high oxalate foods. You should limit how much of these you eat. Or eat them with calcium-rich foods. These include dairy products, dark leafy greens, soy products, and calcium-enriched foods. Reducing the amount of animal meat and high protein foods in your diet may lower your risk for uric acid stones. Avoid excess sugar (sucrose) and fructose (sweetener in many soft drinks) in your diet. If you take vitamin C as a supplement, don't take more than 1,000 mg a day. A dietitian or your healthcare provider can give you information about changes in your diet that will help prevent more kidney stones from forming.Follow-up careFollow up with your healthcare provider, or as advised, if the pain lasts more than 48 hours. Talk withyour provider about urine and blood tests to find out the cause of your stone. If you had an X-ray, CTscan, or other diagnostic test, you will be told of any new findings that may affect your care.Call 911 12 General Instructions [facility] Emergency Department [address] [place] [address] Phone #: ext- [phone] 11/22/2020 19:15 Patient: MORRIS LEWIS Sex: F : 1980 Age: 39yCall 911 if you have any of these: Weakness, dizziness, or faintingWhen to seek medical adviceCall your healthcare provider right away if any of these occur: Pain that is not controlled by the medic ine given Repeated vomiting or unable to keep down fluids Fever of 100.4F (38C) or higher, or as directed by your healthcare provider Passage of solid red or brown urine (can't see through it) or urine with lots of blood clots Foul-smelling or cloudy urine Unable to pass urine for 8 hours and increasing bladder pressure [id number] [employer] [address] [place] [address]. All rights reserved. This information is not intended as asubstitute for professional medical care. Always follow your healthcare professional's instructions.Back Pain (Acute or Chronic) 13 General Instructions [facility] Department [address] [place] [address] Phone #: ext- [phone] 11/22/2020 19:15 Patient: MORRIS LEWIS Sex: F : 1980 Age: 39yBack pain is one of the most common problems. The good news is that most people feel better in 1 to2 weeks, and most of the rest in 1 to 2 months. Most people can remain active.People who have pain describe it differently--not everyone is the same. The pain can be sharp, stabbing, shooting, aching, cramping or burning. Movement, standing, bending, lifting, sitting, or walking may worsen pain. It can be limited to one spot or area, or it can be more generalized. It can spread upwards, to the front, or go down your arms or legs (sciatica). It can cause muscle spasm.Most of the time, mechanical problems with the muscles or spine cause the pain. Mechanicalproblems are usually caused by an injury to the muscles or ligaments. Illness can cause back pain,but it's usually not caused by a serious illness. Mechanical problems include: 14 General Instructions [facility] Emergency Department [address] [place] [address] Phone #: ext- [phone] 11/22/2020 19:15 Patient: MORRIS LEWIS Sex: F : 1980 Age: 39y Physical activity such as sports, exercise, work, or normal activity Overexertion, lifting, pushing, pulling incorrectly or too aggressively Sudden twisting, bending, or stretching from an accident, or accidental movement Poor posture Stretching or moving wrong, without noticing pain at the time Poor coordination, lack of regular exercise (check with your doctor about this) Spinal disc disease or arthritis StressPain can also be related to , or illness like appendicitis, bladder or kidney infecti ons, pelvicinfections, and many other things.Acute back pain usually gets better in 1 to 2 weeks. Back pain related to disk disease, arthritis in thespinal joints, or narrowing of the spinal canal (spinal stenosis) can become chronic and last formonths or years.Unless you had a physical injury such as a car accident or fall, X-rays are usually not needed for thefirst assessment of back pain. If pain continues and does not respond to medical treatment, you mayneed X-rays and other tests.Home careTry this home care advice: When in bed, try to find a position of comfort. A firm mattress is best. Try lying flat on your back with pillows under your knees. You can also try lying on your side with your knees bent up toward your chest and a pillow between your knees. At first, don't try to stretch out the sore spots. If there is a strain, it's not like the good soreness you get after exercising without an injury. In this case, stretching may make it worse. Don't sit for long periods, as in a long car ride or during other travel. This puts more stress on the lower back than standing or walking. During the first 24 to 72 hours after an acute injury or flare up of chronic back pain, apply an ice pack to the painful area for 20 minutes and then remove it for 20 minutes. Do this over a period of 60 to 90 minutes or several times a day. This will reduce swelling and pain. Wrap the ice pack in a thin towel or plastic to protect your skin. You can start with ice, then switch to heat. Heat (hot shower, hot bath, or heating pad) reduces pain and works well for muscle spasms. Heat can be applied to the painful area for 20 15 General Instructions [facility] Department [address] [place] [address] Phone #: ext- [phone] 11/22/2020 19:15 Patient: MORRIS LEWIS Sex: F : 1980 Age: 39y minutes then remove it for 20 minutes. Do this over a period of 60 to 90 minutes or several times a day. Don't sleep on a heating pad. It can lead to skin frank or tissue damage. You can alternate ice and heat therapy. Talk with your doctor about the best treatment for your back pain. Therapeutic massage can help relax the back muscles without stretching them. Be aware of safe lifting methods and don't lift anything without stretching first.MedicinesTalk to your doctor before using medicine, especially if you have other medical problems or are takingother medicines. You may use [id number] medicine as directed on the bottle to control pain, unless another pain medicine was prescribed. If you have chronic conditions like diabetes, liver or kidney disease, stomach ulcers, or gastrointestinal ble eding, or are taking blood thinners, talk to your doctor before taking any medicine. Be careful if you are given a prescription medicines, narcotics, or medicine for muscle spasms. They can cause drowsiness, affect your coordination, reflexes, and judgement. Don't drive or operate heavy machinery.Follow-up careFollow up with your healthcare provider, or as advised.If X-rays were taken, you will be told of any new findings that may affect your careCall 911Call 911 if any of the following occur: Trouble breathing Confusion Very drowsy or trouble awakening Fainting or loss of consciousness Rapid or very slow heart rate Loss of bowel or bladder controlWhen to seek medical advice 16 General Instructions [facility] Department [address] [place] [address] Phone #: ext- [phone] 11/22/2020 19:15 Patient: MORRIS LEWIS Sex: F : 1980 Age: 39yCall your healthcare provider right away if any of these occur: Pain becomes worse or spreads to your legs Weakness or numbness in one or both legs Numbness in the groin or genital area 1999- 2019 [employer]. [address] [place] [address]. All rights reserved. This information is not intended as asubstitute for professional medical care. Always follow your healthcare professional's instructions. You have been given the following additional information: Kidney Stone w/ Colic Back Pain (Acute or Chronic) No strenuous activity. Do not work for three days.(Electronically signed by Missy Ramos MD 11/23/2020 04:02) Name Value Range Interpretation Code Description Data Jerica rce(s) Supporting Document(s) ID Date Data Source [id number] 11/22/2020 07:30:00 PM EDT [facility] 1 Clinical Report - Nurses [facility] Emergency Department [address] [place] [address] Phone #: ext- [phone] 11/22/2020 19:15 Patient: MORRIS LEWIS Sex: F : 1980 Age: 39yTRIAGEArrived by private vehicle. Historian: patient. ( pt reports right sided pain from neck to feet. pt reports hxof bulging discs. pt reports intermittent numbness since saturday from waist down to right leg. pt reports shehasn't lifted or moved different that she knows of).Triage time: 19:37 11/22/2020. Acuity: LEVEL 3.Chief Complaint: (neck pain to feet on right side).The patient has had neck pain. --19:43 11/22/20 Melva Purcell R.N.19:37 11/22/20. BP: 163/93. HR: 76. RR: 19. O2 saturation: 96%. Temp: 98.3 F. Pain level now 6/10.--19:43 11/22/20 Melva Purcell R.N.Weight: 131.5 kg. Height/Length: 67 inches. BMI: 45.4. --19:36 11/22/20 Melva Purcell R.N.MedicationsAtorvastatin Calcium Oral. Lyrica Oral (Capsule 75 mg), 2x a day. tiZANidine HCl Oral. Topamax Oral. traZODone HCl Oral. Zoloft Oral. --19:39 11/22/20 Melva Purcell R.N.AllergiesAnimals. --19:39 11/22/20 Melva Purcell R.N.Medication/allergy information source: the patient. --19:43 11/22/20 Melva Purcell R.N.HistoryPAST MEDICAL HX: Immunizations: up-to-date. No menstrual periods Last normal menstrual period-IUD.SOCIAL HX: Smoker- current status unknown. No alcohol use or drug use. She was offered HIV testingbut declined and hepatitis C testing but declined. She has not traveled outside the [place]Infectious disease exposure: No infectious disease exposure.SELF HARM ASSESSMENT: Self harm assessment was performed. The patient answered "no" to thequestion(s) "Have you recently felt down, depressed, or hopeless?", "Do you have thoughts of harming orkilling yourself?", "Do you have a plan for harming or killing yourself?", "Have you recently had thoughtsabout harming or killing others?", "Do you have any dangerous items in your possession?", "Have younoticed less interest or pleasure in doing things?", "Are you here because you tried to hurt yourself?" and 2 Clinical Report - Nurses [facility] Emergency Department [address] [place] [address] Phone #: ext- [phone] 11/22/2020 19:15 Patient: MORRIS LEWIS Sex: F : 1980 Age: 39y "Have you ever tried to hurt yourself before today?". ABUSE ASSESSMENT: Abuse assessment. No suspicion of abuse. No report of abuse. NUTRITIONAL RISK ASSESSMENT: The nutritional risk assessment revealed no deficiencies. FUNCTIONAL ASSESSMENT: Functional assessment: no impairments noted. LEARNING NEEDS ASSESSMENT: The learning needs assessment revealed no barriers. FALL RISK ASSESSMENT: Fall risk assessment completed per protocol. SKIN INTEGRITY ASSESSMENT: Skin integrity risk assessment completed. No skin integrity risk identified. --19:43 11/22/20 Melva Purcell R.N.PHYSICAL ASSESSMENTAmbulatory to room.GENERAL / NEURO / PSYCH: Alert. Oriented X 4. Appears in no acute distress.HEENT: Pupils equal, round and reactive to light. Head non- tender.RESPIRATORY: Respirations not labored. Chest nontender. Breath sounds within normal limits.CVS: Normal heart rate and rhythm. Pulses within normal limits. Capillary refill less than 2 seconds.GI / : Abdomen soft and nontender.EXTREMITIES: Extremities exhibit normal ROM. Neuro-vascular status intact to the extremity.SKIN: Skin intact. Skin is warm and dry. --21:11/22/20 Josephine Taylor.NURSING PROGRESS NOTESPatient gowned. Reassurance given. Two patient identifiers checked. Call light placed in reach. Siderails up x 2. Bed placed in lowest position. Brakes of bed on. --21:11/22/20 Josephine Taylor 21:11/22/2020 Toradol (Ketorolac Tromethamine) IM 60 mg given. Given in the left deltoid. Allergies verified and confirmed 5 rights. Information reviewed with patient including reason for taking this medication, signs of allergic reaction and precautions. Verbalizes understanding. --:11/22/20 Josephine Taylor 22:30 11/22/2020 Site #1 started via IV in the left antecubital space with an 20g angiocath, with aseptic technique and good blood return; one attempt. Blood drawn: rainbow set. Saline lock flushed with saline. --:11/22/20 Josephine Taylor 22:31 11/22/2020 Started bag #1 1000 mL IV Fluids NS; bolus of 1000 mL over 40 minute(s) via site #1 via IV pump. Allergies verified and confirmed 5 rights. IV patency established. IV site checked: no pain, redness, or swelling. IV flushed thoroughly pre- and post-medication administration. Information reviewed with patient including reason for taking this medication, signs of allergic reaction and precautions. Verbalizes understanding. --:11/22/20 Josephine Taylor 3 Clinical Report - Nurses [facility] Emergency Department [address] [place] [address] Phone #: ext- [phone] 11/22/2020 19:15 Patient: MORRIS LEWIS Sex: F : 1980 Age: 39y 22:31 11/22/2020 Flomax (Tamsulosin HCl) PO 0.4 mg given. Allergies verified and confirmed 5 rights. Information reviewed with patient including reason for taking this medication, signs of allergic reaction and precautions. Verbalizes understanding. --22:31 11/22/20 Josephine Taylor 23:11/22/2020 IV Fluids NS via IV site #1 Discontinued: bag #1 infused. Total amount infused: 1000 mL. IV patency established. IV site checked: no pain, redness, or swelling. IV flushed thoroughly. --23:11/22/20 Josephine Taylor 23:11 11/22/2020 Started bag #2 1000 mL IV Fluids NS; at 75 mL/hr via site #1 via IV pump. Allergies verified and confirmed 5 rights. IV patency established. IV site checked: no pain, redness, or swelling. IV flushed thoroughly pre- and post-medication administration. Information reviewed with patient including reason for taking this medication, signs of allergic reaction and precautions. Verbalizes understanding. --23:11/22/20 Josephine Taylor Reassurance given. Rounding: Pain: assessed pain level. Position: states comfortable. Personal care / toileting: denies toileting needs. Proximity of possessions / care items: call light within easy reach. Plug ins: assured IV pump plugged in; checked status of equipment in use; located all cords, tubes, and lines to prevent fall hazard. --23:18 11/22/20 Josephine Taylor.DISPOSITION / DISCHARGE 00:11/23/2020 Site #1 removed upon discharge. Catheter intact. Bandaid applied. --00:11/23/20 Josephine Taylor 00:11/23/2020 IV Fluids NS via IV site #1 Discontinued: STOPPED. Total amount infused: 150 mL. IV patency established. IV site checked: no pain, redness, or swelling. IV flushed thoroughly. --00:11/23/20 Josephine Taylor Departure time: 00:22 11/23/2020. Condition at departure: stable. No learning barriers present. Discharge instructions provided and reviewed with the patient. Reviewed warnings. Reviewed medication(s). Reviewed referrals. Patient verbalized understanding. Written instructions provided in Albanian. The patient was discharged by the physician. She was discharged home and unaccompanied at time of discharge. She left ambulatory and via private vehicle. Patient driving. --00:11/23/20 Josephine Taylor 00:11/23/20. BP: 138/82. HR: 86. RR: 16. O2 saturation: 98%. Temp: 98.1 F. Pain level now 06/22. - -00:11/23/20 Josephine Taylor.Locked/Released at 11/23/2020 00:22 by Josephine Taylor 4 Clinical Report - Nurses [facility] Emergency Department [address] [place] [address] Phone #: [phone] zet- [phone] 11/22/2020 19:15 Patient: MORRIS LEWIS Sex: F : 1980 Age: 39y Name Value Range Interpretation Code Description Data Jerica rce(s) Supporting Document(s) ID Date Data Source [id number] 11/22/2020 07:30:00 PM EDT [facility] 1 Clinical Report - Physicians/Mid Levels [facility] Emergency Department [address] [place] [address] Phone #: ext- [phone] 11/22/2020 19:15 Patient: MORRIS LEWIS Sex: F : 1980 Age: 39y Time Seen: 20:58 11/22/2020. Arrived- By private vehicle. Historian- patient.HISTORY OF PRESENT ILLNESS Chief Complaint: Chronic posterior neck pain. Onset- several days ago; Pt states she has chronic posterior neck pain with known hx of DDD. Pain has been worsening over past several days and she has developed tingling to RUE to fingers and pain radiating into R leg. Sees pain mgmt at [facility] and takes lyrica and tinazidine, but no effect over past several days. no headache, dizziness, or fever. no bowel/bladder symptoms or saddle anesthesia. No NV. It is described as being moderate in degree. It is described as being in the area of the mid lumbar spine, lower lumbar spine, right mid lumbar spine, right lower lumbar spine and right gluteus. It is described as radiating to the right arm, elbow, forearm and hand and right hip and thigh. The quality is noted to be aching. No bladder dysfunction, bowel dysfunction, sensory loss or motor loss. Patient denies an injury. No injury to the head or other injury. Similar symptoms previously. Patient has had similar symptoms several times. Recent medical care: Not recently seen/assessed.REVIEW OF SYSTEMSUses an intrauterine device. No fever, chills, eye irritation, difficulty with urination or urinary frequency.No vaginal discharge, skin rash, headache, depression or sore throat. No cough, difficulty breathing,chest pain, abdominal pain or nausea. No vomiting, diarrhea, black stools or bloody stools.PAST HISTORYSee nurses notes. The patient has had prior back pain. Has had intervertebral disc disease. Problems: Dizziness [Active]. Depression [Active]. Abdominal Pain [Active]. Anxiety Reaction [Active]. Gastroesophageal Reflux Disease [Active]. Renal Colic [Active]. Syncope [Active]. Ovarian Cyst [Active]. Muscle Spasm [Active]. Obesity [Active]. Hypercholesterolemia. Obesity. Sinusitis. 2 Clinical Report - Physicians/[facility] Emergency Department [address] [place] [address] Phone #: ext- [phone] 11/22/2020 19:15 [id number] Sex: F : 1980 Age: 39y Depression. Ureterolithiasis. UTI - Urinary Tract Infection. Additional Surgeries: Bariatric Surgery. Cholecystectomy. Previous Abdominal Surgery. Medications: Atorvastatin Calcium Oral. Lyrica Oral (Capsule 75 mg), 2x a day. tiZANidine HCl Oral. Topamax Oral. traZODone HCl Oral. Zoloft Oral. Allergies: Animals.SOCIAL HISTORYSmoker - current status unknown. No alcohol use or drug use. No recent travel.ADDITIONAL NOTESThe nursing notes have been reviewed with agreement regarding the chief complaint, HPI, ROS, PMH andpatient medications and allergies.PHYSICAL EXAMVital Signs: 11/22/2020 19:37 BP: 163/93. MAP: 116. HR: 76. RR: 19. O2 saturation: 96%. Temp: 98.3 F.Have been reviewed as abnormal and appear to be correct. Hypertensive. Mean arterial pressure- normal. Heart rate normal. Respiratory rate normal. Temperature normal. Oxygen saturation normal.Appearance: Alert. Patient in mild distress. Distress appears due to pain.HEENT: Normal external inspection.Eyes: Pupils equal, round and reactive to light.ENT: Ears normal. Pharynx normal.Neck: Normal inspection. Painless ROM. Moderate vertebral tenderness of the mid and lower cervicalspine. No palpable step-off.CVS: Heart sounds normal. Pulses normal.Respiratory: No respiratory distress. Painless inspiration. Breath sounds normal.Abdomen: No visible injury. Soft and nontender. Bowel sounds normal. No organomegaly. No mass.Femoral pulses equal. Moderately obese.Back: Normal inspection. Moderate soft tissue tenderness in the right mid and lower and mid and lowercentral lumbar area.Skin: Skin warm and dry. Normal skin color. No rash. Normal skin turgor.Extremities: Extremities exhibit normal ROM. Extremities nontender. 3 Clinical Report - Physicians/[facility] Emergency Department [address] [place] [address] Phone #: ext- [phone] 11/22/2020 19:15 Patient: MORRIS LEWIS [facility]#: [id number] Sex: F : 1980 Age: 39y Neuro: Oriented X 3. Mood/affect normal. No motor deficit. No sensory deficit. Reflexes normal. Performed at 21:15 11/22/2020. NIH Stroke Scale: score 0. Level of Consciousness: alert (0). LOC Questions: both (0). LOC Commands: both (0). Best gaze: normal (0). Visual field loss: none (0). Facial palsy: normal (0). Motor arm: no drift right arm (0) and no drift left arm (0). Motor leg: no drift right leg (0) and no drift left leg (0). Limb ataxia: none (0). Sensory loss: none (0). Aphasia: none (0). Dysarthria: normal (0). Extinction and inattention: none (0).LABS, X-RAYS, AND EKGCT C-Spine: No acute findings. (No significant abnormality). The study was independently viewed byme and interpreted by the radiologist and contemporaneously by me. Interpretation time: 22:.CT L-Spine: Note- Degenerative changes L4-5 with mild canal stenosis. L5-S1 bilateral pars interarticularisdefects without listhesis. Mild foraminal narrowing. limited ability on CT to assess spinal canal contents. Noconfirmed focal disc herniation. Mild right hydonephrosis secondary to R proximal ureteral calculus. Thestudy was independently viewed by me and interpreted by the radiologist and contemporaneously by me.Interpretation time: 22:07 11/22/2020.Note - Tests: (CT head- negative study).PROGRESS AND PROCEDURESCourse of Care: 21:15 Nov [address] head, C spine and LS spine results. 22:17 Nov 22 2020. Pt with no acute findings on head and C spine CT, CT of LS spine shows DDD and 6 mm R proximal ureteral stone, pt feels improved after toradol, have now ordered labs, IV fluids and flomax for pt. Awaiting those results. 22:20 Nov 22 2020. Case discussed and ED care transferred. Assumed care. Brief hx: Posterior neck pain with REU numbnes, tingling lower back pain, R lower back pain radiating into R thigh, R 6mm urete ral stone. . Pending items: lab (Dr Ramos).CLINICAL IMPRESSION Right renal colic in the right ureter with a single calculus. Acute cervical strain. Acute right sided sciatica with low back pain.(Electronically signed by GIULIA Buenrostro 11/22/2020 22:26) Disposition decision: 00:15 11/23/2020. 4 Clinical Report - Physicians/Mid Levels [facility] Emergency Department [address] [place] [address] Phone #: [phone] pku- [phone] 11/22/2020 19:15 Patient: MORRIS LEWIS Sex: F : 1980 Age: 39yLABS, X-RAYS, AND EKGLaboratory Tests:Lactic Acid: (LUIS CARLOS: 11/22/2020 22:21) ( MsgRcvd 11/22/2020 22:40) Final results Test Result Flag Units (Reference) LACTIC ACID 1.1 MMOL/L (0.2 - 2.2)CBC w Diff: (LUIS CARLOS: 11/22/2020 22:21) ( MsgRcvd 11/22/2020 22:40) Final results Test Result Flag Units (Reference) CBC W/AUTOMATED DIFF COMPLETE BLOOD COUNT WBC 8.0 10/uL (4.2 - 11.0) RBC 4.09 L 10/uL (4.20 - 5.40) HEMOGLOBIN 12.6 g/dL (12.0 - 16.0) HEMATOCRIT 37.8 % (37.0 - 47.0) MCV 92.4 fL (81.0 - 101) MCH 30.8 pg (27.0 - 34.0) MCHC 33.3 g/dL (31.0 - 36.0) RDW 12.8 % (11.5 - 14.5) PLATELETS 312 10/uL (150 - 450) MPV 10.8 H fL (7.4 - 10.4) NEUT 58.1 % (37.0 - 80.0) LYMPH 29.8 % (25.0 - 40.0) MONO 7.6 % (3.0 - 8.0) EOS 3.9 % (0.0 - 7.0) BASO 0.5 % (0.0 - 2.5) %IG 0.1 H % (0.0 - 0.0) %NRBC 0.0 % (0.0 - 0.0) #NEUT 4.66 10/uL (2.00 - 6.90) #LYMPH 2.39 10/uL (0.60 - 3.40) #MONO 0.61 10/uL (0.00 - 0.90) #EOS 0.31 10/uL (0.00 - 0.70) #BASO 0.04 10/uL (0.00 - 0.20) #IG 0.01 10/uL (0.00 - 0.10) #NRBC 0.00 10/uL (0.00 - 0.00) MANUAL DIFF NOT INDICATED RBC MORPH NOT INDICATEDCMP: (LUIS CARLOS: 11/22/2020 22:21) ( MsgRcvd 11/22/2020 22:56) Final results Test Result Flag Units (Reference) COMPREHENSIVE METABOLIC PANEL COMPREHENSIVE METABOLIC PANEL SODIUM 138 mEq/L (134 - 153) POTASSIUM 4.5 mEq/L (3.6 - 5.0) CHLORIDE 105 mEq/L (98 - 107) CO2 25 MEQ/L (22 - 30) GLUCOSE 94 MG/DL (70 - 99) BUN 10 MG/DL (7 - 21) CREATININE 0.7 MG/DL (0.7 - 1.5) BUN/CREAT 14 (8 - 27) TOTAL PROTEIN 6.1 L G/DL (6.3 - 8.2) ALBUMIN 3.8 L G/DL (3.9 - 5.0) GLOBULIN 2.3 L GM/DL (2.4 - 3.2) A/G RATIO 1.7 (0.8 - 2.0) CALCIUM 9.3 MG/DL (8.4 - 10.2) TOTAL BILI <0.7 MG/DL (0.2 - 1.3) ALKALINE PHOS 73 U/L (38 - 126) 5 Clinical Report - Physicians/Mid Levels [facility] Emergency Department [address] [place] [address] Phone #: [phone]- [phone] 11/22/2020 19:15 Patient: MORRIS LEWIS Sex: F : 1980 Age: 39y SGOT/AST 19 U/L (5 - 40) SGPT/ALT 16 U/L (7 - 56) ANION GAP 8.0 mmol/L (8.0 - 16.0) AGE 39 yrs NON- AA GFR >60 mL/min AFR AMER GFR >60 mL/min Male GFR Interprentation 20-49 yrs >60 mL/min Awuxru40-13 yrs >56 mL/min Normal 60-69 yrs >49 mL/min Normal 70-79yrs>42 mL/min Normal 80 and above >35 mL/min Normal Female GFRInterpretation 20-39 yrs >60 mL/min Normal 40-49 yrs >58 mL/minNormal 50-59 yrs >51 mL/min Normal 60-69 yrs >45 mL/min Xxmvme11-43 yrs >39 mL/min Normal 80 and above >32 mL/min NormalUrinalysis: (LUIS CARLOS: 11/22/2020 22:21) ( MsgRcvd 11/22/2020 22:51) Final results Test Result Flag Units (Reference) URINALYSIS URINALYSIS SOURCE R COLOR yellow (NORMAL: Yello CLARITY turbid (NORMAL: Clear SPEC GRAVITY 1.015 (1.001 - 1.030 pH 6 (5 - 9) GLUCOSE NORM (NORMAL: Negat BILIRUBIN NEG (NORMAL: Negat KETONE NEG (NORMAL: Negat PROTEIN NEG (NORMAL: Negat NITRITE NEG (NORMAL: Negat BLOOD NEG (NORMAL: Negat LEUK EST 25 (NORMAL: Negat UROBILINOGEN NOR (less than 1.0 MICROSCOPIC See Below WBC 5 - 7 A (NORMAL: NONE RBC 1 - 3 (NORMAL: NONE EPITHELIAL MANY A (NORMAL: NONE BACTERIA 1+ SMALL (NORMAL: NONE MUCOUS Trace (NORMAL: NONECT LUMBAR SP W/O CONT: (LUIS CARLOS: 11/22/2020 21:11) ( MsgRcvd 11/22/2020 22:50) In Progress Test Result Flag Units (Reference) CT LUMBAR SP W/O CONT [facility] [address] [place] [address] PHONE: [phone] FAX: [phone] -- Name .................. : DEBBIE MORRIS Acct Number.................. : [id number] ROOM. ................. : VT-26 MR Number ................... : [id number] Stay [facility] ............. : E/R Discharge Date......... ... : Admit Date ......... : 11/22/20 Admit Phys .................... : COONEYNORM Date of ....... : 1980 Family Phys ................... : MONTE HARD Phone .................. : [phone] Age ................................ : 39 Film# .................. .:[id number] Sex ................................. : F -- Unsigned transcriptions are preliminary reports and do not represent a medical or legal document CT LUMBAR SP W/O CONT [id number] COMPLETE:11/22/20 21:11 [id number] Reason(s): R leg tingling/numbness -- -- 6 Clinical Report - Physicians/Mid Levels [facility] Emergency Department [address] [place] [address] Phone #: ext- [phone] 11/22/2020 19:15 Patient: MORRIS LEWIS Sex: F : 1980 Age: 39y----CT LUMBAR SPINE WITHOUT IV CONTRAST--INDICATION: Right leg tingling and numbnessCOMPARISON: None. Correlation with CT abdomen 08/01/2020-- CONTRAST: None--PROCEDURE: The patient is scanned axially from T12 to the sacrum. Multiplanarreconstructions are performed.--One or more of the following dose reduction techniques were utilized in effectively lowering theradiation dose for this examination: Automated Exposure Control, Adjustment of the mA and/orkV according to patient size, or Iterative reconstruction.---- FINDINGS:--From T11-12 to L4-5 disc space height is within normal limits with no indication of canalstenosis or foraminal narrowing. Limited CT ability to assess canal. No gross indication of disc-- herniation.--At L4-5 there is degenerative facet change with prominent ligamentum flava. Likely mild discbulge and overall mild canal stenosis. No definite foraminal narrowing.--At L5-S1 there is mild to moderate disc space collapse. Bilateral pars interarticularis defects.No listhesis. Minimal disc bulge. No significant canal stenosis. Mild bilateral foraminal-- narrowing.--SI joints are intact. No fracture.--6 mm calculus in the proximal right ureter slightly more distal than prior noted stone location.Mild right hydronephrosis. Appearance of left renal hilum is most likely multiple parapelvic-- cysts.---- [address] [place] [id number]: [phone] FAX: [phone]--Name .................. : DEBBIE CACERES Acct Number.................. : [id number]. ................. : VT-26 MR Number ................... : [id number] type ............. : E/R Discharge Date......... ... :Admit Date ......... : 11/22/20 Admit Phys .................... : COONEYNORMDate of ....... : 1980 Family Phys ................... : MONTE HARDPhone .................. : [phone] Age ................................ : 39Film# .................. .:[id number] Sex ................................. : F--Unsigned transcriptions are preliminary reports and do not represent a medical or legal document CT LUMBAR SP W/O CONT [id number] COMPLETE:11/22/20 21:11 [id number] Reason(s): R leg tingling/numbness--------IUD. Cholecystectomy.--IMPRESSION: Degenerative changes at L4-5 with likely mild canal stenosis. 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 Mild foraminal narrowing.. Limited ability on CTto assess spinal canal contents. No confirmed focal disc herniation.-- 7 Clinical Report - Physicians/Mid Levels [facility] Emergency Department [address] [place] [address] Phone #: ext- [phone] 11/22/2020 19:15 Patient: MORRIS LEWIS Sex: F : 1980 Age: 39y Mild right hydronephrosis secondary to 6 mm proximal right ureteral calculus. -- -- Electronically Reviewed and Signed By DCTNAME , SIGNDATE, SHARATH -- Transcribe Initials: SOLIS , Transcribe Date: 11/22/20 22:48, Dictation Date: -- -- <<REPDIST>> -- -- -- -- Page 2 of 2 --CT Spine Cervical W/O Cont: (LUIS CARLOS: 11/22/2020 21:05) ( MsgRcvd 11/22/2020 22:46) In Progress Exam CT CERV SPINE W/[place] [address] PHONE: [phone] FAX: [phone] Name .................. : DEBBIE CACERES Acct Number.................. : [id number] ROOM. ................. : VT-26 MR Number ................... : [id number] Stay type ............. : E/R Discharge Date......... ... : Admit Date ......... : 11/22/20 Admit Phys .................... : COONEYNORM Date of ....... : 1980 Family Phys ................... : [employer] HARD Phone .................. : [phone] Age ................................ : 39 Film# .................. .:[id number] Sex ................................. : F Unsigned transcriptions are preliminary reports and do not represent a medical or legal document CT CERV SPINE W/O [place] [id number] COMPLETE:11/22/20 21:05 [id number] Reason(s): hx of chronic neck pain, radicular symptoms to R side, RUE, RLE. CT CERVICAL SPINE WITHOUT IV CONTRAST INDICATION: A history of chronic neck pain, radicular symptoms to right side, right upper extremity right lower extremity COMPARISON: None CONTRAST: None PROCEDURE: The patient is scanned axially from C1 to the upper thoracic spine. Multiplanar reconstructions are performed. One or more of the following dose reduction techniques were utilized in effectively lowering the radiation dose for this examination: Automated Exposure Control, Adjustment of the mA and/or kV according to patient size, or Iterative reconstruction. FINDINGS: Dens is intact. C1-C2 relationship is maintained. Normal vertebral body alignment and disc space height. Limited delineation of spinal canal contents. This exam will not be reliable for confirming or excluding the presence of disc herniation. No foraminal narrowing or significant bony canal stenosis is noted. Small sclerotic focus in C1 vertebral body on the left most likely benign bone island. 8 Clinical Report - Physicians/Mid Levels [facility] Emergency Department [address] [place] [address] Phone #: ext- [phone] 11/22/2020 19:15 ------- Patient: MORRIS LEWIS Sex: F : 1980 Age: 39y IMPRESSION: No significant cervical spine skeletal abnormality. This exam is very limited in delineation of spinal canal contents and will not be reliable for assessment of disc herniations. If clinically appropriate consider MRI. Electronically Reviewed and Signed By DCTNITHINE , SIGNDATE, SHARATH Transcribe Initials: SOLIS , Transcribe Date: 11/22/20 22:43, Dictation Date: Page 1 of2 [place] [address] PHONE: [phone] FAX: [phone] Name .................. : DEBBIE CACERES Acct Number.................. : [id number] ROOM. ................. : VT-26 Number ................... : [id number] Stay type ............. : E/R Discharge Date......... ... : Admit Date ......... : 11/22/20 Admit Phys .................... : COONEYNORM Date of ....... : 1980 Family Phys ................... : LAVELL HARD Phone .................. : [phone] Age ................................ : 39 Film# .................. .:[id number] Sex ................................. : F Unsigned transcriptions are preliminary reports and do not represent a medical or legal document CT CERV SPINE W/O VERNON [id number] COMPLETE:11/22/20 21:05 [id number] Reason(s): hx of chronic neck pain, radicular symptoms to R side, RUE, RLE. <<REPDIST>> Page 2 of2CT Head W/O Cont: (LUIS CARLOS: 11/22/2020 21:05) ( MsgRcvd 11/22/2020 22:48) In Progress Exam CT HEAD W/O CONTRAST [facility] [address] [place] [address] PHONE: [phone] FAX: [phone] Name .................. : DEBBIE CACERES Acct Number.................. : [id number] ROOM. ................. : VT-26 Number ................... : [id number] Stay type ............. : E/R Discharge Date......... ... : Admit Date ......... : 11/22/20 Admit Phys .................... : COONEYNORM Date of ....... : 1980 Family Phys ................... : LAVELL HARD Phone .................. : [phone] Age ................................ : 39 Film# .................. .:[id number] Sex ................................. : F Unsigned transcriptions are preliminary reports and do not represent a medical or legal document CT HEAD W/O CONTRAST [id number] COMPLETE:11/22/20 21:05 [id number] Reason(s): Hx chronic neck pain, tingling to RUE/RLE 9 Clinical Report - Physicians/Mid Levels [facility] Emergency Department [address] [place] [address] Phone #: ext- [phone] 11/22/2020 19:15 Patient: MORRIS LEWIS Sex: F : 1980 Age: 39[address] CT BRAIN WITHOUT IV CONTRAST INDICATION: Chronic neck pain, tingling right upper and right lower extremity COMPARISON: 06/14/2017 CONTRAST: None One or more of the following dose reduction techniques were utilized in effectively lowering the radiation dose for this examination: Automated Exposure Control, Adjustment of the mA and/or kV according to patient size, or Iterative Reconstruction. FINDINGS: Ventricles and sulci are normal in appearance. Stone white differentiation is intact. No extra-axial collection or intracranial hemorrhage. No indication of acute or prior ischemic CVA. No mass or mass effect. Calvarium and skull base are within normal limits. To the extent included sinuses are clear. IMPRESSION: Negative study. Electronically Reviewed and Signed By DCTNAME , SIGNDATE, SHARATH Transcribe Initials: SOLIS , Transcribe Date: 11/22/20 22:46, Dictation Date: <<REPDIST>> Page 1 of 1.PROGRESS AND PROCEDURESCourse of Care: pt is a 39 year old female who presents tot he ED for evluation of her right sided pain.she was initially seen by Renny Lainez. pt is seen by the pain clinic for her pain. she states she takespain medications at night but they only put her to bed. her cts show no acute orthopedic finding, however,it was noted she has a 6mm stone to her right proximal urterer. pt states she had this before. her labsare grossly nl. ua shows no evidence of infection. will discharge. I encouraged her to f/u with her painmanagement doctor and she was given a work excuse for the next several days. pt further encouraged tof/u with Dr. Gordillo regarding her chronic kidney stone to right ureter. Patient/family counseled. Disposition: Discharged. Condition: good and stable. 10 Clinical Report - Physicians/Mid Levels [facility] Emergency Department [address] [place] [address] Phone #: ext- [phone] 11/22/2020 19:15 Patient: MORRIS LEWIS Sex: F : 1980 Age: 39yCLINICAL IMPRESSION Renal colic in the right ureter with lisa culus. Chronic nontraumatic thoracic and lumbar back pain.INSTRUCTIONS No strenuous activity. Do not work for three days. (Take all medications as previously instructed. return if worse or any problems including numbness to the saddle area, or bowel or urinary incontinence). Warnings: Further evaluation is necessary. GENERAL WARNINGS: Return or contact your physician immediately if your condition worsens or changes unexpectedly, if not improving as expected, or if other problems arise. Your Current Medications: Your current home medications have been reviewed. CONTINUE TAKING THE FOLLOWING MEDICATIONS: Atorvastatin Calcium Oral. Lyrica Oral : Capsule 75 mg, 2x a day. tiZANidine HCl Oral. Topamax Oral. traZODone HCl Oral. Zoloft Oral. Follow-up: Follow up with your doctor tomorrow. Call for an appointment. Reason for referral: evaluation. Summary of care provided to patient via paper. Understanding of the discharge instructions verbalized by patient.(Electronically signed by Missy Ramos MD 11/23/2020 04:02) Name Value Range Interpretation Code Description Data Jerica rce(s) Supporting Document(s) ID Date Data Source [id number] 11/22/2020 10:56:00 PM EDT [facility] Name Value Range Interpretation Code Description Data [facility] rce(s) Supporting Document(s) COMPREHENSIVE METABOLIC PANEL [facility] COMPREHENSIVE METABOLIC PANEL Sodium [Moles/volume] in Serum or Plasma 138 mEq/L 134 - 153 [facility] Potassium [Moles/volume] in Serum or Plasma 4.5 mEq/L 3.6 - 5.0 [facility] Chloride [Moles/volume] in Serum or Plasma 105 mEq/L 98 - 107 [facility] Carbon dioxide, total [Moles/volume] in Serum or Plasma 25 MEQ/L 22 - 30 [facility] Glucose [Mass/volume] in Serum or Plasma 94 MG/DL 70 - 99 [facility] BUN 10 MG/DL 7 - 21 [facility] Creatinine [Mass/volume] in Serum or Plasma 0.7 MG/DL 0.7 - 1.5 [facility] BUN/CREAT 14 8 - 27 [facility] Protein [Mass/volume] in Serum or Plasma 6.1 G/DL 6.3 - 8.2 L [facility] Albumin [Mass/volume] in Serum or Plasma 3.8 G/DL 3.9 - 5.0 L [facility] Globulin [Mass/volume] in Serum by calculation 2.3 GM/DL 2.4 - 3.2 L [facility] A/G RATIO 1.7 0.8 - 2.0 [facility] Calcium [Mass/volume] in Serum or Plasma 9.3 MG/DL 8.4 - 10.2 [facility] Bilirubin.total [Mass/volume] in Serum or Plasma <0.7 MG/DL 0.2 - 1.3 [facility] Alkaline phosphatase [Enzymatic activity/volume] in Serum or Plasma 73 U/L 38 - 126 [facility] Aspartate aminotransferase [Enzymatic activity/volume] in Serum or Plasma 19 U/L 5 - 40 [facility] Alanine aminotransferase [Enzymatic activity/volume] in Seru m or Plasma 16 U/L 7 - 56 [facility] Anion gap 3 in Serum or Plasma 8.0 mmol/L 8.0 - 16.0 [facility] AGE 39 yrs [facility] al NON-AA GFR >60 mL/min [facility] ital AFR AMER GFR >60 mL/min [facility] Male GFR In terprentation 20-49 yrs >60 mL/min Normal 50-59 yrs >56 mL/min Normal 60-69 yrs >49 mL/min Normal 70-79yrs >42 mL/min Normal 80 and above >35 mL/min Normal Female GFR Interpretation 20-39 yrs >60 mL/min Normal 40-49 yrs >58 mL/min Normal 50-59 yrs >51 mL/min Normal 60-69 yrs >45 mL/min Normal 70-79 yrs >39 mL/min Normal 80 and above >32 mL/min Normal ID Date Data Source [id number] 11/22/2020 10:50:00 PM EDT [facility] Name Value Range Interpretation Code Description Data Jerica rce(s) Supporting Document(s) URINALYSIS [facility] greg URINALYSIS SOURCE R [facility] al COLOR yellow NORMAL: Yellow [facility] CLARITY turbid NORMAL: Clear [facility] Specific gravity of Urine by Test strip 1.015 1.001 - 1.030 [facility] pH 6 5 - 9 [facility] Glucose [Mass/volume] in Urine by Test strip NORM NORMAL: Negat rodrigo [facility] Bilirubin.total [Presence] in Urine by Test strip NEG NORMAL: Negative [facility] Ketones [Presence] in Urine by Test strip NEG NORMAL: Negative [facility] Protein [Mass/volume] in Urine by Test strip NEG NORMAL: Negat rodrigo [facility] Nitrite [Presence] in Urine by Test strip NEG NORMAL: Negative [facility] BLOOD NEG NORMAL: Negative [facility] LEUK EST 25 NORMAL: Negative [facility] Urobilinogen [Mass/volume] in Urine by Test strip NOR less naga n 1.0 mg/dL [facility] MICROSCOPIC See Below [facility] ital WBC 5 - 7 NORMAL: NONE SEEN A [facility] Erythrocytes [#/volume] in Urine by Test strip 1 - 3 NORMAL: NON E SEEN [facility] EPITHELIAL MANY NORMAL: NONE SEEN A [facility] Bacteria [Presence] in Urine sediment by Light microscopy 1+ SMALL NORMAL: NONE SEEN [facility] Mucus [Presence] in Urine sediment by Light microscopy Trace NORMAL: NONE SEEN [facility] ID Date Data Source [id number] 11/22/2020 10:40:00 PM EDT [facility] Name Value Range Interpretation Code Description Data Jerica rce(s) Supporting Document(s) Lactate [Moles/volume] in Serum or Plasma 1.1 MMOL/L 0.2 - 2.2 [facility] ID Date Data Source [id number] 11/22/2020 10:39:00 PM EDT [facility] Name Value Range Interpretation Code Description Data Jerica rce(s) Supporting Document(s) CBC W/AUTOMATED DIFF [facility] COMPLETE BLOOD COUNT Leukocytes [#/volume] in Blood by Automated count 8.0 10^3/uL 4.2 - 1 1.0 [facility] Erythrocytes [#/volume] in Blood by Automated count 4.09 10^6/uL 4. 20 - 5.40 L [facility] Hemoglobin [Mass/volume] in Blood 12.6 g/dL 12.0 - 16.0 [facility] Hematocrit [Volume Fraction] of Blood by Automated count 37.8 % 3 7.0 - 47.0 [facility] Erythrocyte mean corpuscular volume [Entitic volume] by Auto mated count 92.4 fL 81.0 - 101 [facility] Erythrocyte mean corpuscular hemoglobin [Entitic mass] by Automated count 30.8 pg 27.0 - 34.0 [facility] Erythrocyte mean corpuscular hemoglobin concentration [Mass/volume] by Automated count 33.3 g/dL 31.0 - 36.0 [facility] Erythrocyte distribution width [Ratio] by Automated count 12.8 % 11.5 - 14.5 [facility] Platelets [#/volume] in Blood by Automated count 312 10^3/uL 150 - 45 0 [facility] Platelet mean volume [Entitic volume] in Blood by Automated count 10.8 fL 7.4 - 10.4 H [facility] Neutrophils/100 leukocytes in Blood by Automated count 58.1 % 37. 0 - 80.0 [facility] Lymphocytes/100 leukocytes in Blood by Manual count 29.8 % 25.0 - 40.0 [facility] Monocytes/100 leukocytes in Blood by Automated count 7.6 % 3.0 - 8.0 [facility] Eosinophils/100 leukocytes in Blood by Automated count 3.9 % 0.0 - 7.0 [facility] Basophils/100 leukocytes in Blood by Automated count 0.5 % 0.0 - 2.5 [facility] %IG 0.1 % 0.0 - 0.0 [facility] %NRBC 0.0 % 0.0 - 0.0 [facility] al Neutrophils [#/volume] in Blood by Automated count 4.66 10^3/uL 2.00 - 6.90 [facility] Lymphocytes [#/volume] in Blood by Automated count 2.39 10^3/uL 0.60 - 3.40 [facility] Monocytes [#/volume] in Blood by Automated count 0.61 10^3/uL 0.00 - 0.90 [facility] Eosinophils [#/volume] in Blood by Automated count 0.31 10^3/uL 0.00 - 0.70 [facility] Basophils [#/volume] in Blood by Automated count 0.04 10^3/uL 0.00 - 0.20 [facility] #IG 0.01 10^3/uL 0.00 - 0.10 [facility] #NRBC 0.00 10^3/uL 0.00 - 0.00 [facility] MANUAL DIFF NOT INDICATED [facility] RBC MORPH NOT INDICATED [facility] ID Date Data Source URINE CULTURE 11/07/2020 12:00:00 AM EDT eCW1 ([facility]) Name Value Range Interpretation Code Description Data Jerica rce(s) Supporting Document(s) URINE CULTURE eCW1 ([facility]) ID Date Data Source UA URINALYSIS 11/07/2020 12:00:00 AM EDT eCW1 ([facility]) Name Value Range Interpretation Code Description Data Jerica rce(s) Supporting Document(s) UA URINALYSIS eCW1 ([facility]) ID Date Data Source [id number] 09/06/2020 02:20:00 PM EDT [facility] ([facility]) Name Value Range Interpretation Code Description Data Jerica rce(s) Supporting Document(s) Color of Urine Laboratory test result [facility] ([facility]) Appearance of Urine Laboratory test result [facility] ([facility]) Spec [place] 1.020 1.001-1.030 [facility] ([facility]) pH of Urine by Test strip 5 5-9 MEDE NT ([facility]) Leukocytes Laboratory test result [facility] ([facility]) Nitrate [Presence] in Urine Laboratory test result [facility] ([facility]) Protein [Presence] in Urine by Test strip Laboratory test result [facility] ([facility]) Inhouse Glucose Laboratory test result [facility] ([facility]) Ketones [Presence] in Urine by Test strip Laboratory test result [facility] ([facility]) Urobilinogen 1 Above high normal [facility] ([facility]) Bilirubin.total [Presence] in Urine by Test strip Laboratory test res ult [facility] ([facility]) Blood type and Indirect antibody screen panel - Blood Laboratory test result [facility] ([facility]) ID Date Data Source [id number] 08/02/2020 10:55:00 AM EDT [facility] [address] [place] [address] PHONE: [phone] FAX: [phone] Name .................. : DEBBIE CACERES Acct Number.................. : [id number] ROOM. ................. : TR-03 MR Number ................... : [id number] Stay type ............. : E/R Discharge Date......... ... : Admit Date ......... : 08/01/20 Admit Phys .................... : PILI JEFFRY Date of ....... : 1980 Family Phys ................... : SpotHero HARD Phone .................. : [phone] Age ................................ : 39 Film# .................. .:[id number] Sex ................................. : F Unsigned transcriptions are preliminary reports and do not represent a medical or legal document CT ABD & PELV W/O ORAL W/O IV [id number] COMPLETE:08/01/20 22:23 9166 Reason(s): right flank pain, hematuria CT OF THE ABDOMEN AND PELVIS WITHOUT CONTRAST: INDICATION: Right flank pain, hematuria. FINDINGS: The visualized lower lungs are clear. Nonenhanced images of the liver are unremarkable. The gallbladder has been removed. The pancreas and spleen are within normal limits. The patient is status post gastric surgery. The bilateral adrenal glands are unremarkable. Mild rig ht hydronephrosis. Obstructing 4 mm stone in the proximal right ureter on image 79. Left parapelvic renal cyst. No left hydronephrosis. The left ureter is unremarkable. The bladder is unremarkable. The uterus with IUD in place. No adnexal mass. The bowels are unremarkable. Normal appendix. No free air or free fluid. No aneurysmal dilatation of the aorta. IMPRESSION: Page 1 of 2 [facility] [address] [place] [address] PHONE: [phone] FAX: [phone] Name .................. : DEBBIE CACERES Acct Number.................. : [id number] ROOM. ................. : TR-03 MR Number ................... : [id number] Stay type ............. : E/R Discharge Date......... ... : Admit Date ......... : 08/01/20 Admit Phys .................... : PILI TERAN Date of ....... : 1980 Family Phys ................... : MONTE HARD Phone .................. : [phone] Age ................................ : 39 Film# .................. .:[id number] Sex ................................. : F Unsigned transcriptions are preliminary reports and do not represent a medical or legal document CT ABD & PELV W/O ORAL W/O IV [id number] COMPLETE:08/01/20 22:23 9166 Reason(s): right flank pain, hematuria Mild right hydronephrosis. 4 mm stone in the proximal right ureter. Normal appendix. Bowels unremarkable. No free air or free fluid. While performing the above CT examination, radiation dose reduction was accomplished utilizing automated exposure control, adjusting of the mA and kV based on the patient's body size and/or the use of imperative reconstructive techniques. CT dose: 864.5 mGycm Electronically Reviewed and Signed By Nik Ward DO , 08/02/20 10:55, WINSOME Transcribe Initials: SOLIS , Transcribe Date: 08/01/20 23:24, Dictation Date: Copy for: EMERGENCY DEPT via modem Copy for: 710 MED REC DISCHARGED Page 2 of 2 Name Value Range Interpretation Code Description Data Jerica rce(s) Supporting Document(s) ID Date Data Source [id number] 08/01/2020 08:20:00 PM EDT [facility] 1 OrderSheet [facility] Emergency Department [address] [place] [address] Phone #: [phone]- [phone] 08/01/2020 20:19 Patient: MORRIS LEWIS Sex: F : 1980 Age: 39yWEIGHT:127.9 kg (S) HEIGHT:67 inches (S) BMI:44.2ALLERGIES: AnimalsCHIEF COMPLAINT: abdominal painDIAGNOSIS: Ureteric stone, Urinary tract infectious diseaseLAB ORDERSOrder Description Priority Entered Acknowledged InitialedCBC w Diff STAT 20:45 08/01/2020 20:53 Jc Tripp ED, Jesse ER M.D.; [id number] STAT 20:45 08/01/2020 20:53 Jc Tripp ED, Jesse ER M.D.; Tety5Irzbzr STAT 20:45 08/01/2020 20:53 Jc Tripp ED, Jesse ER M.D.; Kxrw2Nrkjcfgtcg (Clean STAT 20:45 08/01/2020 21:04 Bisha,Catch) Jc Alejandre M.D.;Lactic Acid STAT 20:45 08/01/2020 20:53 Mckay Turrin, Jc customer care coordinatorDiony M.D.; Itei0Eotn-JSO, Qual STAT 20:45 08/01/2020 20:53 BurnhamSerum Turrin, Jc customer care coordinatorDiony M.D.; Vtzk6Zrmdudl, Urine STAT 22:22 08/01/2020 22:25 Bisamarilis,(Urine, Clean Turrin, Jc Scott) Morenita;DIAGNOSTIC STUDY ORDERSOrder Description Priority Entered Acknowledged InitialedCT ABD PEL W/O STAT 22:23 08/01/2020 22:25 Bisha,Oral W/O IV TurJc tseContrast Morenita;(Oxygen?(No))(IV?(Yes)) Reason for Study: right flank pain, hematuria 2 OrderSheet [facility] Department [address] [place] [address] Phone #: ext- [phone] 08/01/2020 20:19 Patient: MORRIS LEWIS Sex: F : 1980 Age: 39yMEDICATION/IV/DRIP/FLUID ORDERSOrder Description Priority Entered Acknowledged InitialedNS IV 1000 mL 20:46 08/01/2020 21:04 Bisha,Bolus: : Bolus 1000 Jc AlejandremL (X1) Morenita;Toradol 15 mg IVP 20:46 08/01/2020 21:04 Bisha,X1 dose: 15 mg Jc Alejandre(NOW x1) Morenita;levoFLOXacin IVPB 22:23 08/01/2020 22:31 Bisha,500 mg/100mL Jc Alejandre M.D.;Flomax PO 0.4 mg 23:21 08/01/2020 23:53 Melaragno,(NOW x1, Do not Jc Alejandre RTramainecrush or chew) Morenita;Morphine IVP 4 mg 23:21 0 08/01/2020 Cancelled: Patient Refusal 23:47 Pili(HIGH ALERT Jc Alejandre M.D.MEDICATION) Morenita;GENERAL ORDERSOrder Description Priority Entered Acknowledged InitialedNPO 20:45 08/01/2020 20:53 [place] Jc Alejandre customer care coordinatorDiony M.D.; Onnz5Xijagh Lock 20:45 08/01/2020 21:04 Pili Granda Riccardo Gregory M.D.;[Electronically signed by Wilner Granda (00:42 08/02/2020)][Electronically signed by Jc Alejandre M.D. (00:48 08/02/2020)][Electronically locked by Wilner Granda (00:42 08/02/2020)] Name Value Range Interpretation Code Description Data Jerica rce(s) Supporting Document(s) ID Date Data Source [id number] 08/01/2020 08:20:00 PM EDT [facility] 1 Medication Reconciliation Report [facility] Emergency Department [address] [place] [address] Phone #: ext- [phone] 08/01/2020 20:19 Patient: MORRIS LEWIS Sex: F : 1980 Age: 39yWeight: 127.9 kgHeight/Length: 67 in.BMI: 44.2ALLERGIES: AnimalsThe patient's Home Medications are listed below:CONTINUE TAKING THE FOLLOWING MEDICATIONS: Atorvastatin Calcium Oral Lyrica Oral (75 mg), 2x a day tiZANidine HCl Oral Topamax Oral traZODone HCl Oral Zoloft OralThe source(s) of the original Home Medication information:Not obtained.The following Medications were given to the patient in the Emergency Department:NS [IV] IV Fluids bolus 1000 mL over 40 minute(s), administered: 21:04 08/01/2020Toradol [IVP] IVP 15 mg, administered: 21:04 08/01/2020evofloxacin [IVPB] IVPB bolus 0, then 500 mg 100 mL/hr, administered: 22:31 08/01/2020Flomax [PO] PO 0.4 mg, administered: 23:53 08/01/2020The following Medications were prescribed to the patient:hydrocodone 5 mg-acetaminophen 325 mg tablet Take 1 tablet four times a day as needed for pain for 4days -- Dispense 16 tablet. Refills: 0. Substitution permitted. 2 Medication Dario nciliation Report [facility] Emergency Department [address] [place] [address] Phone #: [phone] lwn- [phone] 08/01/2020 20:19 Patient: MORRIS LEWIS Sex: F : 1980 Age: 39yPharmacy - [phone] [id number] ; [place], [place] [id number]. .ibuprofen 600 mg tablet Take 1 tablet four times a day as needed for pain for 7 days -- Dispense 28tablet. Refills: 0. Substitution permitted.[facility] #88 - [id number] ; [place], [place] [id number]. .Flomax 0.4 mg capsule Take 1 capsule once a day for 7 days -- D ispense 7 capsule. Refills: 0.Substitution permitted.[facility] #08 - [id number] ; [place], [place] [id number]. .cefdinir 300 mg capsule Take 1 capsule twice a day for 7 days -- Dispense 14 capsule. Refills: 0.Substitution permitted.[facility] #25 - [id number] ; [place], [place] [id number]. .Zofran 4 mg tablet Take 1 tablet four times a day as needed for 4 days -- Dispense 16 tablet. Refills: 0.Substitution permitted.[facility] #57 - [id number] ; [place], [place] [id number]. . -- Jc Alejandre M.D. Name Value Range Interpretation Code Description Data Jerica rce(s) Supporting Document(s) ID Date Data Source [id number] 08/01/2020 08:20:00 PM EDT [facility] 1 Medication Administration Record [facility] Department [address] [place] [address] Phone #: ext- [phone] 08/01/2020 20:19 Patient: MORRIS LEWIS Sex: F : 1980 Age: 39yWeight: 127.9 kgHeight/Length: 67 inBMI: 44.2ALLERGIES: Animals Date/Time Medication Administered Medication OrderedStart NS [IV] NS IV 1000 mL Bolus: : Bolus 066297:04 08/01/2020 Dose: IV Fluids mL (X1)Wilner Granda, Bolus: 1000 mL over 40 minute(s)---- Site: #1 left NGTxsa62:31 08/01/2020Wilner walsh,Given TORADOL [IVP] (KETOROLAC Toradol 15 mg IVP X1 dose: 15 mg21:04 08/01/2020 TROMETHAMINE) (NOW x1)Wilner Granda, Dose: 15 mg IVP Site: #1 left ACStart LEVOFLOXACIN [IVPB] levoFLOXacin IVPB 500 mg/479qP25:31 08/01/2020 Dose: 500 mg IVPBWilner Granda, Rate: 100 mL/hr over 1 hour(s)---- Dispensed: 100 mL bagStop Site: #1 left AC23:53 08/01/2020Amada Stewart R.N.Given FLOMAX [PO] (TAMSULOSIN HCL) Flomax PO 0.4 mg (NOW x1, Do23:53 08/01/2020 Dose: 0.4 mg PO not crush or chew)Amada Stewart R.N. Name Value Range Interpretation Code Description Data Jerica rce(s) Supporting Document(s) ID Date Data Source [id number] 08/01/2020 08:20:00 PM EDT [facility] 1 General Instructions [facility] Department [address] [place] [address] Phone #: ext- [phone] 08/01/2020 20:19 Patient: MORRIS LEWIS Sex: F : 1980 Age: 39y Ureterolithiasis (single stone) in the right ureter with renal colic and hydronephrosis. Acute urinary tract infection with cystitis. No hematuria.INSTRUCTIONS Return to work in two days. Drink plenty of fluids. Avoid alcohol. Avoid fatty, fried/greasy, lactose-containing (such as milk, cheese and ice cream), salty and spicy foods. No alcohol. Do not smoke. Warnings: Further evaluation is necessary in order to conduct further tests (Urology, Dr. Gordillo). It is very important to follow up with a healthcare provider. GENERAL WARNINGS: Return or contact your physician immediately if your condition worsens or changes unexpectedly, if not improving as expected, or if other problems arise. SPECIFICALLY, return if you develop pain in the abdomen, pelvis or back, fever, vomiting, the inability to keep fluids down, blood in vomitus, blood in diarrhea, fainting or lightheadedness. Your Current Medications: Your current home medications have been reviewed. CONTINUE TAKING THE FOLLOWING MEDICATIONS: Atorvastatin Calcium Oral. Lyrica Oral : Capsule 75 mg, 2x a day. tiZANidine HCl Oral. Topamax Oral. traZODone HCl Oral. Zoloft Oral. Prescription Medications: hydrocodone 5 mg-acetaminophen 325 mg tablet Take 1 tablet four times a day as needed for pain for 4 days -- Dispense 16 tablet. Refills: 0. Substitution permitted. [facility] #69 - [id number] ; [place], [place] [id number]. . ibuprofen 600 mg tablet Take 1 tablet four times a day as needed for pain for 7 days -- Dispense 28 tablet. Refills: 0. Substitution permitted. [id number] - [id number] ; [place], [place] [id number]. . Flomax 0.4 mg capsule Take 1 capsule once a day for 7 days -- Dispense 7 capsule. Refills: 0. Substitution permitted. 2 General Instructions [facility] Emergency Department [address] [place] [address] Phone #: ext- [phone] 08/01/2020 20:19 Patient: MORRIS LEWIS Sex: F : 1980 Age: 39yPharmacy - [facility] - [id number] ; [place] [address]. .cefdinir 300 mg capsule Take 1 capsule twice a day for 7 days -- Dispense 14 capsule. Refills: 0.Substitution permitted.[facility] - [id number] ; [place], [place] [phone]. .Zofran 4 mg tablet Take 1 tablet four times a day as needed for 4 days -- Dispense 16 tablet. Refills: 0.Substitution permitted.[facility] - [id number] ; [place], [place] [phone]. .Follow-up:Return to the emergency department as needed. Follow up with a urologist in two days even if well. Callfor an appointment. Reason for referral: evaluation and treatment. Summary of care provided to patient viapaper.Understanding of the discharge instructions verbalized by patient. Expected course of illness, dischargeinstructions, activity level, diet, prescriptions x5, follow-up appointment and risks and benefits of treatmentreviewed with patient and understanding verbalized. Agrees to plan of care.Follow-up with: Werner Gordillo M.D., Urology, , [address] [place] [address], [facility] Follow up in two days even if well. Call for an appointment. Reason for referral: evaluation and treatment.Summary of care provided to patient via paper. ADDITIONAL INFORMATIONHoward Stone with Pain 3 General Instructions [facility] Emergency Department [address] [place] [address] Phone #: ext- [phone] 08/01/2020 20:19 Patient: MORRIS LEWIS Sex: F : 1980 Age: 39yThe sharp cramping pain on either side of your lower back and nausea/vomiting that you have arebecause of a small stone that has formed in the kidney. It is now passing down a narrow tube (ureter)on its way to your bladder. Once the stone reaches your bladder, the pain will often stop. But it maycome back as the stone continues to pass out of the bladder and through the urethra. The stone maypass in your urine stream in one piece. The size may be 1/16 inch to 1/4 inch (1 mm to 6 mm). Or, thestone may break up into talisha fragments that you may not even notice.Once you have had a kidney stone, you are at risk of getting another one in the future. There are 4types of kidney stones. Eighty percent are calcium stones--mostly calcium oxalate but also somewith calcium phosphate. The other 3 types include uric acid stones, struvite stones (from a precedinginfection), and rarely, cystine stones.Most stones will pass on their own, but may take from a few hours to a few days. Sometimes thestone is too large to pass by itself. In that case, the healthcare provider will need to use other ways toremove the stone. These techniques include: Lithotripsy. This uses ultrasound waves to break up the stone. Ureteroscopy. This pushes a basket-like instrument through the urethra and bladder and into the ureter t o pull out the stone. Various types of direct surgery through the [facility] 4 General Instructions [facility] Emergency Department [address] [place] [address] Phone #: ext- [phone] 08/01/2020 20:19 Patient: MORRIS LEWIS Sex: F : 1980 Age: 39yThe following are general care guidelines: Drink plenty of fluids. This means at least 12, 8-ounce glasses of fluid--mostly water--a day. Each time you urinate, do so in a jar. Pour the urine from the jar through the strainer and into the toilet. Continue doing this until 24 hours after your pain stops. By then, if there was a kidney stone, it should pass from your bladder. Some stones dissolve into sand-like particles and pass right through the strainer. In that case, you won't ever see a stone. Save any stone that you find in the strainer and bring it to your healthcare provider to look at. It may be possible to stop certain types of stones from forming. For this reason, it is important to know what kind of stone you have. Try to stay as active as possible. This will help the stone pass. Don't stay in bed unless your pain keeps you from getting up. You may notice a red, pink, or brown color to your urine. This is normal while passing a kidney stone. If you develop pain, you may take ibuprofen or naproxen for pain, unless another medicine was prescribed. If you have chronic liver or kidney disease, talk with your healthcare provider before taking these medicines. Also talk with your provider if you've had a stomach ulcer or GI bleeding.Preventing stonesEach year for the next 5 to 7 years, you are at risk that a new stone will form. Your risk is a 50%chance over this time period. The risk is higher if you have a family history of kidney stones or havecertain chronic illnesses like hypertension, obesity, or diabetes. But you can make changes to yourlifestyle and diet that can lower your risk for another stone.Most kidney stones are made of calcium. The following is advice for preventing another calciumstone. If you don't know the type of stone you have, follow this advice until the cause of your stone isfound.Things that help: The most important thing you can do is to drink plenty of fluids each day. See home care above. Eat foods that contain phytates. These include wheat, rice, rye, barley, and beans. Phytates are substances that may lower your risk for any type of stone to form. Eat more fruits and vegetables. Choose those that are high in potassium. Eat foods high in natural citrate like fruit and low-sugar fruit juices. Having too little calcium in your diet can put you at risk for calcium kidney stones. Eat a 5 General Instructions [facility] Emergency Department [address] [place] [address] Phone #: ext- [phone] 08/01/2020 20:19 Patient: MORRIS LEWIS [facility] [id number] Sex: F : 1980 Age: 39y normal amount of calcium in your diet and talk with your healthcare provider if you are taking calcium supplements. Cutting back on your calcium intake may raise your risk. New research shows that eating calcium-rich and oxalate-rich foods together lowers your risk for stones by binding the minerals in the stomach and intestines before they can reach the kidneys. Limit salt intake to 2 grams (1 teaspoon) per day. Use limited amounts when cooking, and don't add salt at the table. Processed and canned foods are usually high in salt. Spinach, rhubarb, peanuts, cashews, almonds, grapefruit, and grapefruit juice are all high oxalate foods. You should limit how much of these you eat. Or eat them with calcium-rich foods. These include dairy products, dark leafy greens, soy products, and calcium-enriched foods. Reducing the amount of animal meat and high protein foods in your diet may lower your risk for uric acid stones. Avoid excess sugar (sucrose) and fructose (sweetener in many soft drinks) in your diet. If you take vitamin C as a supplement, don't take more than 1,000 mg a day. A dietitian or your healthcare provider can give you information about changes in your diet that will help prevent more kidney stones from forming.Follow-up careFollow up with your healthcare provider, or as advised, if the pain lasts more than 48 hours. Talk withyour provider about urine and blood tests to find out the cause of your stone. If you had an X-ray, CTscan, or other diagnostic test, you will be told of any new findings that may affect your care.Call [phone] if you have any of these: Weakness, dizziness, or faintingWhen to seek medical adviceCall your healthcare provider right away if any of these occur: Pain that is not controlled by the medicine given Repeated vomiting or unable to keep down fluids Fever of 100.4F (38C) or higher, or as directed by your healthcare provider Passage of solid red or brown urine (can't see through it) or urine with lots of blood clots 6 General Instructions [facility] Emergency Department [address] [place] [address] Phone #: ext- [phone] 08/01/2020 20:19 Patient: MORRIS LEWIS Sex: F : 1980 Age: 39y Foul-smelling or cloudy urine Unable to pass urine for 8 hours and increasing bladder pressure [id number] [employer] [place] [address]. All rights reserved. This information is not intended as asubstitute for professional medical care. Always follow your healthcare professional's instructions.Bladder Infection, Female (Adult)Urine normally doesn't have any germs (bacteria) in it. But bacteria can get into the urinary tract fromthe skin around the rectum. Or they can travel in the blood from other parts of the body. Once theyare in your urinary tract, they can cause infection in these areas: The urethra (urethritis) The bladder (cystitis) The kidneys (pyelonephritis)The most common place for an infection is in the bladder. This is called a bladder infection. This isone of the most common infections in women. Most bladder infections are easily treated. They arenot serious unless the infection spreads to the kidney.The terms bladder infection, UTI, and cystitis are often used to describe the same thing. But they arenot always the same. Cystitis is an inflammation of the bladder. The most common cause of cystitis isan infection. 7 General Instructions [facility] Emergency Department [address] [place] [address] Phone #: ext- [phone] 08/01/2020 20:19 Patient: MORRIS LEWIS Sex: F : 1980 Age: 39ySymptomsThe infection causes inflammation in the urethra and bladder. This causes many of the symptoms.The most common symptoms of a bladder infection are: Pain or burning when urinating Having to urinate more often than normal Urgent need to urinate Only a small amount of urine comes out Blood in urine Belly (abdominal) discomfort. This is often in the lower belly above the pubic bone. Cloudy urine Strong- or bad-smelling urine Unable to urinate (urinary retention) Unable to hold urine in (urinary incontinence) Fever Loss of appetite Confusion (in older adults)CausesBladder infections are not contagious. You can't get one from someone else, from a toilet seat, orfrom sharing a bath.The most common cause of bladder infections is bacteria from the bowels. The bacteria get onto theskin around the opening of the urethra. From there, they can get into the urine. Then they travel up tothe bladder, causing inflammation and infection. This often happens because of: Wiping incorrectly after urinating. Always wipe from front to back. Bowel incontinence Procedures such as having a catheter put in Older age 8 General Instructions [facility] Emergency Department [address] [place] [address] Phone #: ext- [phone] 08/01/2020 20:19 Patient: MORRIS LEWIS Sex: F : 1980 Age: 39y Not emptying your bladder. This can give bacteria a chance to grow in your urine. Fluid loss (dehydration) Constipation Having sex Using a diaphragm for controlTreatmentBladder infections are diagnosed by a urine test and urine culture. They are treated with antibiotics.They often clear up quickly without problems. Treatment helps prevent a more serious kidneyinfection.MedicinesMedicines can help in the treatment of a bladder infection: Take antibiotics until they are used up, even if you feel better. It's important to finish them to make sure the infection has cleared. You can use acetaminophen or ibuprofen for pain, fever, or discomfort, unless another medicine was prescribed. If you have long-term (chronic) liver or kidney disease, talk with your healthcare provider before using these medicines. Also talk with your provider if you've ever had a stomach ulcer or GI (gastrointestinal) bleeding, or are taking blood-thinner medicines. If you are given phenazopydridine to reduce burning with urination, it will make your urine a bright orange color. This can stain clothing.Care and preventionThese self-care steps can help prevent future infections: Drink plenty of fluids. This helps to prevent dehydration and flush out your bladder. Do this unless you must restrict fluids for other health reasons, or your healthcare provider told you not to. Clean yourself correctly after going to the bathroom. Wipe from front to back after using the toilet. This helps prevent the spread of bacteria. Urinate more often. Don't try to hold urine in for a long time. Wear loose-fitting clothes and cotton underwear. Don't wear tight-fitting pants. Improve your diet and prevent constipation. Eat more fresh fruits and vegetables, and fiber. 9 General Instructions [facility] Emergency Department [address] [place] [address] Phone #: ext- [phone] 08/01/2020 20:19 Patient: MORRIS LEWIS Sex: F : 1980 Age: 39y Eat less junk foods and fatty foods. Don't have sex until your symptoms are gone. Don't have caffeine, alcohol, and spicy foods. These can irritate your bladder. Urinate right after you have sex to flush out your bladder. If you use control pills and have frequent bladder infections, discuss it with your healthcare provider.Follow-up careCall your healthcare provider if all symptoms are not gone after 3 days of treatment. This is especiallyimportant if you have repeat infections.If a culture was done, you will be told if your treatment needs to be changed. If directed, you cancall to find out the results.If X-rays were done, you will be told if the results will affect your treatment.Call 911Call 911 if any of the following occur: Trouble breathing Hard to wake up or confusion Fainting (loss of consciousness) Fast heart rateWhen to get medical adviceCall your healthcare provider right away if any of these occur: Fever of 100.4F (38.0C) or higher, or as directed by your healthcare provider Symptoms are not better after 3 days of treatment Back or belly pain that gets worse Repeated vomiting, or unable to keep medicine down Weakness or dizziness Vaginal discharge Pain, redness, or swelling in the outer vaginal area (labia) 10 General Instructions [facility] Emergency Department [address] [place] [address] Phone #: ext- [phone] 08/01/2020 20:19 Patient: MORRIS LEWIS Sex: F : 1980 Age: 39y [phone] [employer] [address] [place] [address]. All rights reserved. This information is not intended as asubstitute for professional medical care. Always follow your healthcare professional's instructions. You have been given the following additional information: Kidney Stone w/ Colic Bladder Infection, Female (Adult) Return to work in two days.(Electronically signed by Jc Alejandre M.D. 08/02/2020 00:48) Name Value Range Interpretation Code Description Data Jerica rce(s) Supporting Document(s) ID Date Data Source [id number] 08/01/2020 08:20:00 PM EDT [facility] 1 Clinical Report - Nurses [facility] Emergency Department [address] [place] [address] Phone #: ext- [phone] 08/01/2020 20:19 Patient: MORRIS LEWIS Sex: F : 1980 Age: 39yTRIAGEArrived by private vehicle. Historian: patient.Acuity: LEVEL 3.Chief Complaint: ABDOMINAL PAIN.late entry - 20:20 08/01/20. Alert. No acute distress.This started today. ( Patient arrives c/o right sided abdominal pain. Pt states pain woke her up this amand she has had constant pain since. Pt states she cannot describe the pain however states she is in pain.Pt denies n/v/d, chills or fevers. Pt reports decreased appetite today. 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 (tylenol last dose 0). --20:35 08/01/20 Amada Stewart R.N.20:30 08/01/20. BP: 148/103. MAP: 118. HR: 74. RR: 18. O2 saturation: 95% on room air. Temp: 97.9 F(oral). Pain level now: 12/23. --20:35 08/01/20 Amada Stewart R.N.Weight: 127.9 kg stated. Height/Length: 67 inches Per Patient. BMI: 44.2. --20:19 08/01/20 Amada Stewart R.N.MedicationsLyrica Oral (Capsule 75 mg), 2x a day. --20:32 08/01/20 Amada Stewart R.N. Atorvastatin Calcium Oral. --20:32 08/01/20 Amada Stewart R.N. Topamax Oral. --20:32 08/01/20 Amada Stewart R.N. tiZANidine HCl Oral. --20:32 08/01/20 Amada Stewart R.N. traZODone HCl Oral. --20:32 08/01/20 Amada Stewart R.N. Zoloft Oral. --20:32 08/01/20 Amada Stewart R.N.AllergiesAnimals. --20:33 08/01/20 Amada Stewart R.N.PROBLEMS:Dizziness: Active.Depression: Active.Abdominal Pain: Active.Anxiety Reaction: Active.Gastroesophageal Reflux Disease: Active.Renal Colic: Active.Syncope: Active. 2 Clinical Report - Nurses [facility] Emergency Department [address] [place] [address] Phone #: ext- [phone] 08/01/2020 20:19 Patient: MORRIS LEWIS Sex: F : 1980 Age: 39yOvarian Cyst: Active.Muscle Spasm: Active.Obesity: Active. --20:33 08/01/20 Amada Stewart R.N.Hypercholesterolemia.Obesity.Depression.Sinusitis.UTI - Urinary Tract Infection. --20:33 08/01/20 Amada Stewart R.N.ADDITIONAL SURGERIES:Bariatric Surgery.Cholecystectomy.Previous Abdominal Surgery. --20:33 08/01/20 Amada Stewart R.N.Historylate entry - 20:20 08/01/20.PAST MEDICAL HX: Immunizations: up-to-date.SOCIAL HX: Never smoker. No alcohol use or drug use. ( COVID screen negative). She has nottraveled outside the [place]Infectious disease exposure: No infectious disease exposure. Patient is not a known carrier of tuberculosis,hepatitis, HIV, MRSA or VRE. Patient is not a known carrier of CRE.SELF HARM ASSESSMENT: Self harm assessment was performed. The patient answered "no" to thequestion(s) "Have you recently felt down, depressed, or hopeless?", "Do you have thoughts of harming orkilling yourself?", "Do you have a plan for harming or killing yourself?", "Have you recently had thoughtsabout harming or killing others?", "Do you have any dangerous items in your possession?", "Have younoticed less interest or pleasure in doing things?", "Are you here because you tried to hurt yourself?" and"Have you ever tried to hurt yourself before today?".ABUSE ASSESSMENT: Abuse assessment. The patient had positive responses to the question(s) "Do youfeel safe in your home?", "Are you afraid to go home?" and "Has anyone hurt you or threatened to hurtyou?". Abuse denied. No suspicion of abuse.NUTRITIONAL RISK ASSESSMENT: The nutritional risk assessment revealed no deficiencies.FUNCTIONAL ASSESSMENT: Functional assessment: no impairments noted.LEARNING NEEDS ASSESSMENT: The learning needs assessment revealed no barriers.FALL RISK ASSESSMENT: Fall risk assessment completed. No risk factors identified.SKIN INTEGRITY ASSESSMENT: Skin integrity risk assessment completed. No skin integrity riskidentified. --20:35 08/01/20 Amada Stewart R.N. 3 Clinical Report - Nurses [facility] Emergency Department [address] [place] [address] Phone #: ext- [phone] 08/01/2020 20:19 Patient: MORRIS LEWIS Sex: F : 1980 Age: 39y Interventions late entry - 20:20 08/01/20. Identification band on patient. To treatment room. --20:35 08/01/20 Amada Stewart R.N.NURSING PROGRESS NOTESPatient gowned. Head of bed elevated. Reassurance given. Two patient identifiers checked. Call lightplaced in reach. Side rails up x 2. Bed placed in lowest position. Brakes of bed on. --20:35 08/01/20Amada Stewart R.N. 21:04 08/01/2020 Site #1 started via IV in the left antecubital space with an 20g angiocath, with aseptic technique and good blood return; one attempt. Saline lock flushed with 10 mL saline. --21:08/01/20 Wilner Granda 21:08/01/2020 Started IV Fluids NS; bolus of 1000 mL over 40 minute(s) then at via site #1 via IV pump. Allergies verified and confirmed 5 rights. IV patency established. IV site checked: no pain, redness, or swelling. IV flushed thoroughly pre- and post-medication administration. Information reviewed with patient including reason for taking this medication, signs of allergic reaction and precautions. Verbalizes understanding. --21:08/01/20 Wilner Granda 21:08/01/2020 Toradol (Ketorolac Tromethamine) IVP 15 mg given over 1 minute(s) via site #1. Allergies verified and confirmed 5 rights. IV patency established. IV site checked: no pain, redness, or swelling. IV flushed thoroughly pre- and post- medication administration. IVP given by RN. Information reviewed with patient including reason for taking this medication, signs of allergic reaction and precautions. Verbalizes understanding. --21:08/01/20 Wilner Granda 22:08/01/2020 Started 500 mg of Levofloxacin IVPB in bag #1 100 mL; at 100 mL/hr over 1 hour(s) via site #1. via IV pump. Allergies verified and confirmed 5 rights. IV patency established. IV site checked: no pain, redness, or swelling. IV flushed thoroughly pre- and post-medication administration. Information reviewed with patient including reason for taking this medication, signs of allergic reaction and precautions. Verbalizes understanding. --:08/01/20 Wilner Granda 22:08/01/2020 IV Fluids NS via IV site #1 Discontinued: bag #1 infused. Total amount infused: 1000 mL. IV patency established. IV site checked: no pain, redness, or swelling. IV flushed thoroughly. --:08/01/20 Wilner Granda 23:53 08/01/2020 Flomax (Tamsulosin HCl) PO 0.4 mg given. Allergies verified and confirmed 5 rights. Information reviewed with patient. Verbalizes understanding. --23:53 08/01/20 Amada Stewart R.N. 23:53 08/01/2020 Levofloxacin IVPB via IV site #1 Discontinued: completed. Total amount infused: 100 mL. IV patency established. IV site checked: no pain, redness, or swelling. IV flushed thoroughly. --23:53 08/01/20 Amada Stewart R.N.DISPOSITION / DISCHARGE 4 Clinical Report - Nurses [facility] Emergency Department [address] [place] [address] Phone #: ext- [phone] 08/01/2020 20:19 Patient: MORRIS LEWIS Sex: F : 1980 Age: 39y Condition at departure: stable. --00:35 08/02/20 Wilner Granda 00:34 08/02/20. BP: 127/97 taken on the left arm, via an automated monitor, while sitting. MAP: 107. HR: 66 (regular, normal rate and strong). RR: 15 (regular, unlabored and normal). O2 saturation: 99% on room air. Temp: 97.6 F (oral). Pain level now: 05/25. --00:35 08/02/20 Wilner Granda No learning barriers present. Discharge instructions provided and reviewed with the patient. Reviewed warnings (return for worsening symptoms). Reviewed medication(s) side effects, precautions, dosing and course information (cefdinir, zofran,hydrocodone,flomax). Reviewed referral to a urologist and primary care physician. Patient verbalized un derstanding. Written instructions provided in Albanian. No treatment instructions. The patient was discharged by the physician. She was discharged home. She left ambulatory and via private vehicle. Patient driving. --00:42 08/02/20 Wilner Granda.Locked/Released at 08/02/2020 00:42 by Wilner Granda Name Value Range Interpretation Code Description Data Jerica rce(s) Supporting Document(s) ID Date Data Source [id number] 08/01/2020 08:20:00 PM EDT [facility] 1 Clinical Report - Physicians/Mid Levels [facility] Emergency Department [address] [place] [address] Phone #: ext- [phone] 08/01/2020 20:19 Patient: MORRIS LEWIS Sex: F : 1980 Age: 39y Time Seen: 20:23 08/01/2020; initial patient contact. Arrived- By private vehicle. Historian- patient. Disposition decision: 00:31 08/02/2020.HISTORY OF PRESENT ILLNESS Chief Complaint: ABDOMINAL PAIN. This started today 12 hours ago and is still present. It is described as "pain" and it is described as located in the right abdomen. At its maximum, severity described as severe and 10 / 10. When seen in the E.D., severity described as severe and 9 / 10. Modifying factors- worsened by movement. Not relieved by anything. No nausea, loss of appetite, vomiting or diarrhea. Similar symptoms previously. Patient has had similar symptoms once. ( had rt sided kidney infection in 01-02, culture positive for Klebsiella Pneumoniae, CTAP negative, seen here). Recent medical care: Not recently seen/assessed.REVIEW OF SYSTEMSNo constipation, black stools, hematemesis, difficulty with urination or pain with urination. No urinaryfrequency, bloody stools, fever, headache or sore throat. No blurred vision, chest pain, difficulty breathing,cough or joint pain. No skin rash, chills or back pain. Denies current . The patient has nothad weight loss. All other systems reviewed and are negative.PAST HISTORYSee nurses notes. Problems: Dizziness [Active]. Depression [Active]. Abdominal Pain [Active]. Anxiety Reaction [Active]. Gastroesophageal Reflux Disease [Active]. Renal Colic [Active]. Syncope [Active]. Ovarian Cyst [Active]. Muscle Spasm [Active]. Obesity [Active]. Hypercholesterolemia. Obesity. Depression. UTI - Urinary Tract Infection. Additional Surgeries: Bariatric Surgery. 2 Clinical Report - Physicians/Mid Levels [facility] Emergency Department [address] [place] [address] Phone #: ext- [phone] 08/01/2020 20:19 Patient: MORRIS LEWIS Sex: F : 1980 Age: 39y Cholecystectomy. Previous Abdominal Surgery. Medications: Zoloft Oral. traZODone HCl Oral. tiZANidine HCl Oral. Topamax Oral. Atorvastatin Calcium Oral. Lyrica Oral (Capsule 75 mg), 2x a day. Allergies: Animals.SOCIAL HISTORYHeavy tobacco smoker- 1 pack per day. No alcohol use or drug use.ADDITIONAL NOTESThe nursing notes have been reviewed with agreement regarding the chief complaint, HPI, ROS, PMH andpatient medications and allergies.PHYSICAL EXAMVital Signs: 08/01/2020 20:30 BP: 148/103. MAP: 118. HR: 74. RR: 18. O2 saturation: 95% on room air.Temp: 97.9 F. Pain level now: 10. Have been reviewed. Oxygen saturation normal.Appearance: Alert. Oriented X3. Anxious. Appears to be in pain. Patient in mild distress. Distressappears due to pain and anxiety.Eyes: Pupils equal, round and reactive to light. Eyes normal inspection.ENT: Nose normal. Pharynx normal.Neck: Normal inspection. Neck supple.CVS: Normal heart rate and rhythm. Heart sounds normal. Pulses normal.Respiratory: No respiratory distress. Painless inspiration. Breath sounds normal. Chest nontender.Abdomen: Soft. Moderate tenderness in the right side of the abdomen and right lower quadrant. Noguarding or rebound tenderness. Bowel sounds normal. No organomegaly. No mass. Femoral pulsesequal. Moderately obese.Back: Normal inspection. No CVA tenderness.Skin: Skin warm and dry. Normal skin color. No rash. Normal skin turgor.Extremities: Extremities exhibit normal ROM. No lower extremity edema.Neuro: Oriented X 3. No motor deficit. No sensory deficit.LABS, X-RAYS, AND EKGAbdominal CT: A single urinary calculus is present in the right proximal ureter (4 mm). There is mildobstruction. Mild hydronephrosis of the right kidney. Study type: abdomen and pelvis. Abdominal CTperformed with IV contrast. The study was interpreted by the radiologist. Interpretation time: :.Laboratory Tests: Laboratory tests have been ordered, with results reviewed and considered in the 3 Clinical Report - Physicians/Mid Levels [facility] Emergency Department [address] [place] [address] Phone #: ext- [phone] 08/01/2020 20:19 Patient: MORRIS LEWIS Sex: F : 1980 Age: 39ymedical decision making process.CT ABD PEL W/O Oral W/O IV Contrast: (LUIS CARLOS: 08/01/2020 22:23) ( MsgRcvd 08/01/2020 23:36) InProgressCT ABDReason(s): right flank pain, hematuriaTRANSPORTATION: WC IV? IV?(Yes) O2? Oxygen?(No) Ro Exam CT ABD //T// PELV W/O ORAL [place] [address] PHONE: [phone] FAX: [phone] Name .................. : DEBBIE CACERES Acct Number.................. : [id number] ROOM. ................. : TR-03 MR Number ................... : [id number] Stay type ............. : E/R Discharge Date......... ... : Admit Date ......... : 08/01/20 Admit Phys .................... : TEXRIN JEFFRY Date of ....... : 1980 Family Phys ................... : SpotHero HARD Phone .................. : [phone] Age ................................ : 39 Film# .................. .:[id number] Sex ................................. : F Unsigned transcriptions are preliminary reports and do not represent a medical or legal document CT ABD Reason(s): right flank pain, hematuria CT OF THE ABDOMEN AND PELVIS WITHOUT CONTRAST: INDICATION: Right flank pain, hematuria. FINDINGS: The visualized lower lungs are clear. Nonenhanced images of the liver are unremarkable. The gallbladder has been removed. The pancreas and spleen are within normal limits. The patient is status post gastric surgery. The bilateral adrenal glands are unremarkable. Mild right hydronephrosis. Obstructing 4 mm stone in the proximal right ureter on image 79. Left parapelvic renal cyst. No left hydronephrosis. The left ureter is unremarkable. The bladder is unremarkable. The uterus with IUD in place. No adnexal mass. The bowels are unremarkable. Normal appendix. No free air or free fluid. No aneurysmal dilatation of the aorta. IMPRESSION: 4 Clinical Report - Physicians/Mid [facility] Emergency Department [address] [place] [address] Phone #: ext- [phone] 08/01/2020 20:19 Patient: MORRIS LEWIS Sex: F : 1980 Age: 39y Page [address] [place] [address] PHONE: [phone] FAX: [phone] Name .................. : DEBBIE CACERES Acct Number.................. : [id number] ROOM. ................. : TR-03 MR Number ................... : [id number] Stay type ..... ........ : E/R Discharge Date......... ... : Admit Date ......... : 08/01/20 Admit Phys .................... : PILI TERAN Date of ....... : 1980 Family Phys ................... : MONTE HARD Phone .................. : [phone] Age ................................ : 39 Film# .................. .:[id number] Sex ................................. : F Unsigned transcriptions are preliminary reports and do not represent a medical or legal document CT ABD Reason(s): right flank pain, hematuria Mild right hydronephrosis. 4 mm stone in the proximal right ureter. Normal appendix. Bowels unremarkable. No free air or free fluid. While performing the above CT examination, radiation dose reduction was accomplished utilizing automated exposure control, adjusting of the mA and kV based on the patient's body size and/or the use of imperative reconstructive techniques. CT dose: 864.5 mGycm Electronically Reviewed and Signed By DCTNAME , SIGNDATEWINSOME Transcribe Initials: SOLIS , Transcribe Date: 08/01/20 23:24, Dictation Date: <<REPDIST>> Page 2of 2Beta-HCG, Quant Serum: (LUIS CARLOS: 08/01/2020 20:55) ( MsgRcvd 08/01/2020 21:24) Final results Test Result Flag Units (Reference) HCG QUANT <0.5 mIU/mL Interpretation: Less than 5 mU/mL: Negat ive6-10 mU/mL: Borderline (suggest repeat in 48 hours) >10: PositiveApprox HCG range (mU/mL) Weeks post LMP 5.4-708 mU/mL 3-4 Tztfe342-02427 mU/mL 5-6 Weeks 4059-245549 mU/mL 7-8 Iuxrb90007-169804 mU/mL 9-10 Weeks 58738-40553 mU/mL 12-14 Apgch87677-46736 mU/mL 15-16 Weeks 8240-02839 mU/mL 17-18 WeeksCBC w Diff: (LUIS CARLOS: 08/01/2020 20:55) ( MsgRcvd 08/01/2020 21:57) Final results Test Result Flag Units (Reference) 5 Clinical Report - Physicians/Mid Levels [facility] Emergency Department [address] [place] [address] Phone #: ext- [phone] 08/01/2020 20:19 Patient: MORRIS LEWIS Sex: F : 1980 Age: 39y CBC W/AUTOMATED DIFF COMPLETE BLOOD COUNT WBC 13.3 H 10/uL (4.2 - 11.0) RBC 4.06 L 10/uL (4.20 - 5.40) HEMOGLOBIN 12.8 g/dL (12.0 - 16.0) HEMATOCRIT 37.0 % (37.0 - 47.0) MCV 91.1 fL (81.0 - 101) MCH 31.5 pg (27.0 - 34.0) MCHC 34.6 g/dL (31.0 - 36.0) RDW 13.9 % (11.5 - 14.5) PLATELETS 403 10/uL (150 - 450) MPV 10.5 H fL (7.4 - 10.4) NEUT 60.3 % (37.0 - 80.0) LYMPH 28.5 % (25.0 - 40.0) MONO 9.1 H % (3.0 - 8.0) EOS 1.0 % (0.0 - 7.0) BASO 0.3 % (0.0 - 2.5) %IG 0.8 H % (0.0 - 0.0) %NRBC 0.0 % (0.0 - 0.0) #NEUT 8.04 H 10/uL (2.00 - 6.90) #LYMPH 3.80 H 10/uL (0.60 - 3.40) #MONO 1.21 H 10/uL (0.00 - 0.90) #EOS 0.13 10/uL (0.00 - 0.70) #BASO 0.04 10/uL (0.00 - 0.20) #IG 0.11 H 10/uL (0.00 - 0.10) #NRBC 0.00 10/uL (0.00 - 0.00) MANUAL DIFF SEE BELOW SEGS 61 % (37 - 80) BAND 0 % (0 - 5) %LYMPH 31 % (25 - 40) %MONO 7 % (3 - 8) %EOS 1 % (0 - 7) %BASO 0 % (0 - 2) METAMYELOCYTE 0 % MYELOCYTE 0 % PROMYELOCYTE 0 % BLASTS 0 % ELLIE LYM 0 % NRBC 0 % RBC MORPH NOT INDICATEDCMP: (LUIS CARLOS: 08/01/2020 20:55) ( MsgRcvd 08/01/2020 21:21) Final results Test Result Fl ag Units (Reference) COMPREHENSIVE METABOLIC PANEL COMPREHENSIVE METABOLIC PANEL SODIUM 137 mEq/L (134 - 153) POTASSIUM 3.6 mEq/L (3.6 - 5.0) CHLORIDE 106 mEq/L (98 - 107) CO2 20 L MEQ/L (22 - 30) GLUCOSE 96 MG/DL (70 - 99) BUN 21 MG/DL (7 - 21) CREATININE 0.9 MG/DL (0.7 - 1.5) BUN/CREAT 23 (8 - 27) TOTAL PROTEIN 6.2 L G/DL (6.3 - 8.2) ALBUMIN 3.9 G/DL (3.9 - 5.0) GLOBULIN 2.3 L GM/DL (2.4 - 3.2) A/G RATIO 1.7 (0.8 - 2.0) CALCIUM 9.2 MG/DL (8.4 - 10.2) TOTAL BILI <0.7 MG/DL (0.2 - 1.3) 6 Clinical Report - Physicians/Mid Levels [facility] Emergency Department [address] [place] [address] Phone #: ext- [phone] 08/01/2020 20:19 Patient: MORRIS LEWIS Sex: F : 1980 Age: 39y ALKALINE PHOS 71 U/L (38 - 126) SGOT/AST 14 U/L (5 - 40) SGPT/ALT 12 U/L (7 - 56) ANION GAP 11.0 mmol/L (8.0 - 16.0) AGE 39 yrs NON-AA GFR >60 mL/min AFR AMER GFR >60 mL/min Male GFR Interprentation 20-49 yrs >60 mL/min Normal 50-59 yrs >56 mL/min Normal 60-69 yrs >49 mL/min Normal 70-79yrs >42 mL/min Normal 80 and above >35 mL/min Normal Female GFR Interpretation 20-39 yrs >60 mL/min Normal 40-49 yrs >58 mL/min Normal 50-59 yrs >51 mL/min Normal 60-69 yrs >45 mL/min Normal 70-79 yrs >39 mL/min Normal 80 and above >32 mL/min Normal Lipase: (LUIS CARLOS: 08/01/2020 20:55) ( [facility] 08/01/[facility] 21:20) Final results Test Result Flag Units (Reference) LIPASE 32 U/L (13 - 60) Urinalysis: (LUIS CARLOS: 08/01/2020 21:20) ( MsgRcvd 08/01/2020 21:47) Final results Test Result Flag Units (Reference) URINALYSIS URINALYSIS SOURCE Clean Catch COLOR yellow (NORMAL: Yello CLARITY hazy (NORMAL: Clear SPEC GRAVITY 1.025 (1.001 - 1.030 pH 5 (5 - 9) GLUCOSE NORM (NORMAL: Negat BILIRUBIN NEG (NORMAL: Negat KETONE 5 A (NORMAL: Negat PROTEIN 15 (NORMAL: Negat NITRITE NEG (NORMAL: Negat BLOOD 150 A (NORMAL: Negat LEUK EST 25 (NORMAL: Negat UROBILINOGEN 1 (less than 1.0 MICROSCOPIC See Below WBC 1 - 3 (NORMAL: NONE RBC 30 - 40 A (NORMAL: NONE EPITHELIAL FEW (NORMAL: NONE MUCOUS Trace (NORMAL: NONE Lactic Acid: (LUIS CARLOS: 08/01/2020 20:55) ( [facility] 08/01/2020 21:04) Final results Test Result Flag Units (Reference) LACTIC ACID 1.9 MMOL/L (0.2 - 2.2) Beta-HCG, Qual Serum: (LUIS CARLOS: 08/01/2020 20:55) ( MsgRcvd 08/01/2020 21:06) Canceled.PROGRESS AND PROCEDURESCourse of Care: 22:23 08/01/20. workup all in and reviewed, UA slightly abnormal, culture ordered, CTAPw/o ordered to r/o renal colic vs. pyelonephritis, will treat in ER, pt doing better 7 Clinical Report - Physicians/Mid Levels [facility] Emergency Department [address] [place] [address] Phone #: ext- [phone] 08/01/2020 20:19 Patient: MORRIS LEWIS Sex: F : 1980 Age: 39y 23:22 08/01/20. CTAP w IV results in showing mild rt hydro from 4 mm stone in rt proximal ureter, nml appendix, see report; will treat accordingly 00:29 08/02/20. pt doing better, pain is much less, wants to go home; d/c instructions given, pt understands and agrees; will refer pt to urology, Dr. Gordillo. Patient counseled in person regarding the patient's stable condition, test results, diagnosis and need for follow-up. Patient agrees with plan of care. Disposition: Condition: good and stable. Discharge decision based on the following: patient's condition is stable; patient's condition is improved; patient is ambulatory; patient is active; patient drinking fluids; patient eating; patient's pain is controlled; patient's exam is improved; no seriously abnormal test results; improving condition on multiple repeat evaluations; social support is good; transportation is available; follow-up is available; clinical impression is consistent with outpatient treatment.CLINICAL IMPRESSION Ureterolithiasis (single stone) in the right ureter with renal colic and hydronephrosis. Acute urinary tract infection with cystitis. No hematuria.INSTRUCTIONS Return to work in two days. Drink plenty of fluids. Avoid alcohol. Avoid fatty, fried/greasy, lactose-containing (such as milk, cheese and ice cream), salty and spicy foods. No alcohol. Do not smoke. Warnings: Further evaluation is necessary in order to conduct further tests (Urology, Dr. Gordillo). It is very important to follow up with a healthcare provider. GENERAL WARNINGS: Return or contact your physician immediately if your condition worsens or changes unexpectedly, if not improving as expected, or if other problems shira se. SPECIFICALLY, return if you develop pain in the abdomen, pelvis or back, fever, vomiting, the inability to keep fluids down, blood in vomitus, blood in diarrhea, fainting or lightheadedness. Your Current Medications: Your current home medications have been reviewed. CONTINUE TAKING THE FOLLOWING MEDICATIONS: Atorvastatin Calcium Oral. Lyrica Oral : Capsule 75 mg, 2x a day. tiZANidine HCl Oral. Topamax Oral. traZODone HCl Oral. Zoloft Oral. 8 Clinical Report - Physicians/[facility] Emergency Department [address] [place] [address] Phone #: ray- [phone] 08/01/2020 20:19 Patient: MORRIS LEWIS Sex: F : 1980 Age: 39y Prescription Medications: hydrocodone 5 mg-acetaminophen 325 mg tablet Take 1 tablet four times a day as needed for pain for 4 days -- Dispense 16 tablet. Refills: 0. Substitution permitted. [facility]28 - [id number] ; [place], [place] [id number]. . ibuprofen 600 mg tablet Take 1 tablet four times a day as needed for pain for 7 days -- Dispense 28 tablet. Refills: 0. Substitution permitted. [facility] #17 - [id number] ; [place], [place] [id number]. . Flomax 0.4 mg capsule Take 1 capsule once a day for 7 days -- Dispense 7 capsule. Refills: 0. Substitution permitted. [facility] #56 - [id number] ; [place], [place] [id number]. FaxNumber: . cefdinir 300 mg capsule Take 1 capsule twice a day for 7 days -- Dispense 14 capsule. Refills: 0. Substitution permitted. [facility] #39 - [id number] ; [place], [place] [id number]. . Zofran 4 mg tablet Take 1 tablet four times a day as needed for 4 days -- Dispense 16 tablet. Refills: 0. Substitution permitted. [facility] #16 - [id number] ; [place], [place] [id number]. . Follow-up: Return to the emergency department as needed. Follow up with a urologist in two days even if well. Call for an appointment. Reason for referral: evaluation and treatment. Summary of care provided to patient via paper. Understanding of the discharge instructions verbalized by patient. Expected course of illness, discharge instructions, activity level, diet, prescriptions x5, follow-up appointment and risks and benefits of treatment reviewed with patient and understanding verbalized. Agrees to plan of care. Follow-up with: Werner Gordillo M.D., Urology, , [address] [place] [address], [address] Follow up in two days even if well. Call for an appointment. Reason for referral: evaluation and treatment. Summary of care provided to patient via paper.(Electronically signed by Jc Alejandre M.D. 08/02/2020 00:48) 9Clinical Report - Physicians/Mid Levels [facility] Emergency Department [address] [place] [address] Phone #: ext- [phone] 08/01/2020 20:19 Patient: MORRIS LEWIS Sex: F : 1980 Age: 39y Name Value Range Interpretation Code Description Data Jerica rce(s) Supporting Document(s) ID Date Data Source [id number] 08/06/2020 02:45:00 PM EDT [facility] Name Value Range Interpretation Code Description Data Jerica rce(s) Supporting Document(s) CULTURE URINE [facility] spital _CULTURE URINE_$$[id number]$$023763$$563266$$104742$$790101$$042958$$051821$$138482$$902412$$ 239184$$614739$$882120$$007078$$219757$$137312$$175514$$327212$$768553$$426918$$ 995945$$982180$$796618$$866630$$250432$$615081$$[id number]$$[id number] -- Continued on next page --Patient: DEBBIE CACERES Order: Page 2Culture: CULTURE URINE Status: Final ==== -- Continued on next page --Patient: DEBBIE CACERES Order: Page 2Culture: CULTURE URINE Status: Prelim =====$$[id number]$$[id number] DATE/TIME: 08/06/2020 12:06Culture: CULTURE URINE Status: FinalUrine Culture,Comprehensive: P1No growth in 36 - 48 hours. Previous result entered on 08/05/2020 00:31 ET No growth after 18-24 hours.P1 Test performed by: [facility] Abida MARCOS #: [id number] [address] [id number] [facility] [address]Medical Director : Tray Leslie MD NPI #:Lab Di singh : 08/[email or web address] REF 08/06/[id number].SENT REF ID Date Data Source [id number] 08/01/2020 09:46:00 PM EDT [facility] Name Value Range Interpretation Code Description Data Jerica rce(s) Supporting Document(s) URINALYSIS [facility] URINALYSIS SOURCE Clean Catch [facility] COLOR yellow NORMAL: Yellow [facility] CLARITY hazy NORMAL: Clear [facility] Specific gravity of Urine by Test strip 1.025 1.001 - 1.030 [facility] pH 5 5 - 9 [facility] Glucose [Mass/volume] in Urine by Test strip NORM NORMAL: Negat [facility] Bilirubin.total [Presence] in Urine by Test strip NEG NORMAL: Negative [facility] Ketones [Presence] in Urine by Test strip 5 NORMAL: Negative [facility] Protein [Mass/volume] in Urine by Test strip 15 NORMAL: Negat [facility] Nitrite [Presence] in Urine by Test strip NEG NORMAL: Negative [facility] BLOOD 150 NORMAL: Negative [facility] Leukocyte esterase [Presence] in Urine by Test strip 25 MISSY L: Negative [facility] Urobilinogen [Mass/volume] in Urine by Test strip 1 less naga n 1.0 mg/dL [facility] MICROSCOPIC See Below [facility] WBC 1 - 3 NORMAL: NONE SEEN [facility] Erythrocytes [#/volume] in Urine by Test strip 30 - 40 NORMAL: NON E SEEN A [facility] EPITHELIAL FEW NORMAL: NONE SEEN [facility] Mucus [Presence] in Urine sediment by Light microscopy Trace NORMAL: NONE SEEN [facility] ID Date Data Source [id number] 08/01/2020 09:20:00 PM EDT [facility] ([facility]) Name Value Range Interpretation Code Description Data Jerica rce(s) Supporting Document(s) Urinalysis Laboratory test result [facility] ([facility]) URINALYSIS Source Laboratory test result [facility] ([facility]) Color Laboratory test result [facility] ([facility]) Clarity Laboratory test result [facility] ([facility]) Spec [place] 1.025 1.001-1.030 [facility] ([facility]) pH 5 5-9 [facility] ([facility]) Glucose Laboratory test result [facility] ([facility]) Bilirubin Laboratory test result [facility] ([facility]) Ketone 5 Abnormal (applies to non-numeric res ults) [facility] ([facility]) Protein 15 [facility] ([facility]) Nitrite Laboratory test result [facility] ([facility]) Blood 150 Abnormal (applies to non-numeric res ults) [facility] ([facility]) Leuk Est 25 [facility] ([facility]) Urobilinogen 1 [facility] ([facility]) Microscopic Laboratory test result [facility] ([facility]) WBC Laboratory test result [facility] ([facility]) RBC Laboratory test result Abnormal (applies to non -numeric results) [facility] ([facility]) Epithelial Laboratory test result [facility] ([facility]) Mucous Laboratory test result [facility] ([facility]) ID Date Data Source [id number] 08/01/2020 09:20:00 PM EDT [facility] ([facility]) Name Value Range Interpretation Code Description Data Jerica rce(s) Supporting Document(s) Culture Urine Laboratory test result [facility] ([facility]) SOURCE: Clean Catch ID Date Data Source [id number] 08/01/2020 09:56:00 PM EDT [facility] Name Value Range Interpretation Code Description Data Jerica rce(s) Supporting Document(s) CBC W/AUTOMATED DIFF [facility] COMPLETE BLOOD COUNT Leukocytes [#/volume] in Blood by Automated count 13.3 10^3/uL 4.2 - 11.0 H [facility] Erythrocytes [#/volume] in Blood by Automated count 4.06 10^6/uL 4. 20 - 5.40 L [facility] Hemoglobin [Mass/volume] in Blood 12.8 g/dL 12.0 - 16.0 [facility] Hematocrit [Volume Fraction] of Blood by Automated count 37.0 % 3 7.0 - 47.0 [facility] Erythrocyte mean corpuscular volume [Entitic volume] by Auto mated count 91.1 fL 81.0 - 101 [facility] Erythrocyte mean corpuscular hemoglobin [Entitic mass] by Automated count 31.5 pg 27.0 - 34.0 [facility] Erythrocyte mean corpuscular hemoglobin concentration [Mass/volume] by Automated count 34.6 g/dL 31.0 - 36.0 [facility] Erythrocyte distribution width [Ratio] by Automated count 13.9 % 11.5 - 14.5 [facility] Platelets [#/volume] in Blood by Automated count 403 10^3/uL 150 - 45 0 [facility] Platelet mean volume [Entitic volume] in Blood by Automated count 10.5 fL 7.4 - 10.4 H [facility] Neutrophils/100 leukocytes in Blood by Automated count 60.3 % 37. 0 - 80.0 [facility] Lymphocytes/100 leukocytes in Blood by Manual count 28.5 % 25.0 - 40.0 [facility] Monocytes/100 leukocytes in Blood by Automated count 9.1 % 3.0 - 8.0 H [facility] Eosinophils/100 leukocytes in Blood by Automated count 1.0 % 0.0 - 7.0 [facility] 0.3 %IG 0.8 % 0.0 - 0.0 H [facility] %NRBC 0.0 % 0.0 - 0.0 [facility] Neutrophils [#/volume] in Blood by Automated count 8.04 10^3/uL 2.00 - 6.90 H [facility] Lymphocytes [#/volume] in Blood by Automated count 3.80 10^3/uL 0.60 - 3.40 H [facility] Monocytes [#/volume] in Blood by Automated count 1.21 10^3/uL 0.00 - 0.90 H [facility] Eosinophils [#/volume] in Blood by Automated count 0.13 10^3/uL 0.00 - 0.70 [facility] Basophils [#/volume] in Blood by Automated count 0.04 10^3/uL 0.00 - 0.20 [facility] #IG 0.11 10^3/uL 0.00 - 0.10 H [facility] #NRBC 0.00 10^3/uL 0.00 - 0.00 [facility] ospital MANUAL DIFF SEE BELOW [facility] ital Segmented neutrophils/100 leukocytes in Blood by Manual count 61 % 37 - 80 [facility] BAND 0 % 0 - 5 [facility] %LYMPH 31 % 25 - 40 [facility] %MONO 7 % 3 - 8 [facility] %EOS 1 % 0 - 7 [facility] 0 Metamyelocytes/100 leukocytes in Blood by Manual count 0 % [facility] Myelocytes/100 leukocytes in Blood by Manual count 0 % [facility] Promyelocytes/100 leukocytes in Blood by Manual count 0 % [facility] Blasts/100 leukocytes in Blood by Manual count 0 % [facility] ELLIE LYM 0 % [facility] Nucleated erythrocytes/100 erythrocytes in Blood by Manual count 0 % [facility] RBC MORPH NOT INDICATED [facility] ID Date Data Source [id number] 08/01/2020 09:24:00 PM EDT [facility] Name Value Range Interpretation Code Description Data Jerica rce(s) Supporting Document(s) Choriogonadotropin.intact [Units/volume] in Serum or Plasma <0.5 mIU/ mL [facility] Interpr etation: Less than 5 mU/mL: Negative 6-10 mU/mL: Borderline (suggest repeat in 48 hours) >10: Positive Approx HCG range (mU/mL) Weeks post LMP 5.4-708 mU/mL 3-4 Weeks 217-35161 mU/mL 5-6 Weeks 4059-478173 mU/mL 7-8 Weeks 08709-911669 mU/mL 9-10 Weeks 30650-36381 mU/mL 12-14 Weeks 22875-68791 mU/mL 15-16 Weeks 8240- 44669 mU/mL 17-18 Weeks ID Date Data Source [id number] 08/01/2020 09:21:00 PM EDT [facility] Name Value Range Interpretation Code Description Data Jerica rce(s) Supporting Document(s) COMPREHENSIVE METABOLIC PANEL [facility] COMPREHENSIVE METABOLIC PANEL Sodium [Moles/volume] in Serum or Plasma 137 mEq/L 134 - 153 [facility] Potassium [Moles/volume] in Serum or Plasma 3.6 mEq/L 3.6 - 5.0 [facility] Chloride [Moles/volume] in Serum or Plasma 106 mEq/L 98 - 107 [facility] Carbon dioxide, total [Moles/volume] in Serum or Plasma 20 MEQ/L 22 - 30 L [facility] Glucose [Mass/volume] in Serum or Plasma 96 MG/DL 70 - 99 [facility] BUN 21 MG/DL 7 - 21 [facility] al Creatinine [Mass/volume] in Serum or Plasma 0.9 MG/DL 0.7 - 1.5 [facility] BUN/CREAT 23 8 - 27 [facility] Protein [Mass/volume] in Serum or Plasma 6.2 G/DL 6.3 - 8.2 L [facility] Albumin [Mass/volume] in Serum or Plasma 3.9 G/DL 3.9 - 5.0 [facility] Globulin [Mass/volume] in Serum by calculation 2.3 GM/DL 2.4 - 3.2 L [facility] A/G RATIO 1.7 0.8 - 2.0 [facility] Calcium [Mass/volume] in Serum or Plasma 9.2 MG/DL 8.4 - 10.2 [facility] Bilirubin.total [Mass/volume] in Serum or Plasma <0.7 MG/DL 0.2 - 1.3 [facility] Alkaline phosphatase [Enzymatic activity/volume] in Serum or Plasma 71 U/L 38 - 126 [facility] Aspartate aminotransferase [Enzymatic activity/volume] in Serum or Plasma 14 U/L 5 - 40 [facility] Alanine aminotransferase [Enzymatic activity/volume] in Seru m or Plasma 12 U/L 7 - 56 [facility] Anion gap 3 in Serum or Plasma 11.0 mmol/L 8.0 - 16.0 [facility] AGE 39 y[facility] NON-AA GFR >60 mL/min [facility] ital AFR AMER GFR >60 mL/min [facility] sp[facility] Male GFR In terprentation 20-49 yrs >60 mL/min Normal 50-59 yrs >56 mL/min Normal 60-69 yrs >49 mL/min Normal 70-79yrs >42 mL/min Normal 80 and above >35 mL/min Normal Female GFR Interpretation 20-39 yrs >60 mL/min Normal 40-49 yrs >58 mL/min Normal 50-59 yrs >51 mL/min Normal 60-69 yrs >45 mL/min Normal 70-79 yrs >39 mL/min Normal 80 and above >32 mL/min Normal ID Date Data Source [id number] 08/01/2020 09:20:00 PM EDT [facility] Name Value Range Interpretation Code Description Data Jerica rce(s) Supporting Document(s) Lipase [Enzymatic activity/volume] in Serum or Plasma 32 U/L 13 - 60 [facility] ID Date Data Source [id number] 08/01/2020 09:03:00 PM EDT [facility] Name Value Range Interpretation Code Description Data Jerica rce(s) Supporting Document(s) Lactate [Moles/volume] in Serum or Plasma 1.9 MMOL/L 0.2 - 2.2 [facility] ID Date Data Source [id number] 08/01/2020 08:55:00 PM EDT [facility] ([facility]) Name Value Range Interpretation Code Description Data Jerica rce(s) Supporting Document(s) Lactate [Mass/volume] in Serum or Plasma 1.9 mmol/L 0.2-2.2 [facility] Lipase [Enzymatic activity/volume] in Serum or Plasma 32 U/L 13-6 0 [facility] ([facility]) ID Date Data Source [id number] 08/01/2020 08:55:00 PM EDT [facility] ([facility]) Name Value Range Interpretation Code Description Data Jerica rce(s) Supporting Document(s) Comprehensive [facility]abo Laboratory test result [facility] ([facility]) COMPREHENSIVE METABOLIC PANEL Sodium 137 meq/L 134-153 [facility] ([facility]) Potassium 3.6 meq/L 3.6-5.0 [facility] ([facility]) Co2 20 meq/L 22-30 Below low normal [facility] ([facility]) Chloride 106 meq/L 98-107 [facility] ([facility]) BUN 21 mg/dL 7-21 [facility] ([facility]) Glucose 96 mg/dL 70-99 [facility] ([facility]) Creatinine 0.9 mg/dL 0.7-1.5 [facility] ([facility]) BUN/Creat 23 8-27 [facility] ([facility]) Total Protein 6.2 g/dL 6.3-8.2 Below low normal [facility] ([facility]) Globulin 2.3 GM/DL 2.4-3.2 Below low normal [facility] ( [facility]) Albumin 3.9 g/dL 3.9-5.0 [facility] ([facility]) Calcium 9.2 mg/dL 8.4-10.2 [facility] ([facility]) A/G Ratio 1.7 0.8-2.0 [facility] ([facility]) Total Bili Laboratory test result 0.2-1.3 [facility] ([facility]) Sgot/Ast 14 U/L 5-40 [facility] ([facility]) Alkaline Phos 71 U/L 38-126 [facility] ([facility]) SGPT/Alt 12 U/L 7-56 [facility] ([facility]) Anion Gap 11.0 mmol/L 8.0-16.0 [facility] ([facility]) Age 39 yrs [facility] ([facility]) Non-Aa GFR Laboratory test result [facility] ([facility]) Afr Amer GFR Laboratory test result [facility] ([facility]) Male GFR Interprentation 20-49 yrs >60 mL/min Normal 50-59 yrs >56 mL/min Normal 60-69 yrs >49 mL/min Normal 70-79yrs >42 mL/min Normal 80 and above >35 mL/min Normal Female GFR Interpretation 20-39 yrs >60 mL/min Normal 40-49 yrs >58 mL/min Normal 50-59 yrs >51 mL/min Normal 60-69 yrs >45 mL/min Normal 70-79 yrs >39 mL/min Normal 80 and above >32 mL/min Normal ID Date Data Source [id number] 08/01/2020 08:55:00 PM EDT [facility] Name Value Range Interpretation Code Description Data Jerica rce(s) Supporting Document(s) Choriogonadotropin.beta subunit [Moles/volume] in Seru m or Plasma Laboratory test result [facility] ([facility]) Interpretation: Less than 5 mU/mL: Negative 6-10 mU/mL: Borderline (suggest repeat i n 48 hours) >10: Positive Approx HCG range (mU/mL) Weeks post LMP 5.4-708 mU/mL 3-4 Weeks 217-76420 mU/mL 5-6 Weeks 4059-407079 mU/mL 7-8 Weeks 63675-119813 mU/mL 9-10 Weeks 36019-07607 mU/mL 12-14 Weeks 35898-81069 mU/mL 15-16 Weeks 8240-82598 mU/mL 17-18 Weeks ID Date Data Source [id number] 08/01/2020 08:55:00 PM EDT [facility] Name Value Range Interpretation Code Description Data Jerica rce(s) Supporting Document(s) CBC W/Automated Diff Laboratory test result [facility]) COMPLETE BLOOD COUNT WBC 13.3 10^3/uL 4.2-11.0 Above high normal [facility] ([facility]) Hemoglobin 12.8 g/dL 12.0-16.0 [facility] ([facility]) RBC 4.06 10^6/uL 4.20-5.40 Below low normal [facility] ([facility]) Hematocrit 37.0 % 37.0-47.0 [facility] ([facility]) MCV 91.1 fL 81.0-101 [facility] ([facility]) MCH 31.5 pg 27.0-34.0 [facility] ([facility]) MCHC 34.6 g/dL 31.0-36.0 [facility] ([facility]) RDW 13.9 % 11.5-14.5 [facility] ([facility]) Platelets 403 10^3/uL 150-450 [facility] ([facility]) MPV 10.5 fL 7.4-10.4 Above high normal [facility] ([facility]) Neut 60.3 % 37.0-80.0 [facility] ([facility]) Lymph 28.5 % 25.0-40.0 [facility] ([facility]) Eos 1.0 % 0.0-7.0 [facility] ([facility]) [place] 9.1 % 3.0-8.0 Above high normal [facility] ([facility]) %Ig 0.8 % 0.0-0.0 Above high normal [facility] ([facility]) Baso 0.3 % 0.0-2.5 [facility] ([facility]) #Neut 8.04 10^3/uL 2.00-6.90 Above high normal [facility] ([facility]) %NRBC 0.0 % 0.0-0.0 [facility] ([facility]) #Lymph 3.80 10^3/uL 0.60-3.40 Above high normal [facility] ([facility]) #[place] 1.21 10^3/uL 0.00-0.90 Above high normal [facility] ([facility]) #Baso 0.04 10^3/uL 0.00-0.20 [facility] ([facility]) #Eos 0.13 10^3/uL 0.00-0.70 [facility] ([facility]) #NRBC 0.00 10^3/uL 0.00-0.00 [facility] ([facility]) #Ig 0.11 10^3/uL 0.00-0.10 Above high normal [facility] ([facility]) Manual Diff Laboratory test result [facility] ([facility]) Band 0 % 0-5 [facility] ([facility]) Segs 61 % 37-80 [facility] ([facility]) %[place] 7 % 3-8 [facility] ([facility]) %Lymph 31 % 25-40 [facility] ([facility]) %Baso 0 % 0-2 [facility] ([facility]) %Eos 1 % 0-7 [facility] ([facility]) Metamyelocyte 0 % [facility] ([facility]) Promyelocyte 0 % [facility] ([facility]) Myelocyte 0 % [facility] ([facility]) Blasts 0 % [facility] Ellie Lym 0 % [facility] ([facility]) NRBC 0 % [facility] ([facility]) RBC Morph Laboratory test result [facility] ([facility]) ID Date Data Source [id number] 07/27/2020 11:10:00 PM EDT [facility] ([facility]) Name Value Range Interpretation Code Description Data Jerica rce(s) Supporting Document(s) Laboratory test finding (navigational concept) Laboratory test r esult Normal (applies to non-numeric results) [facility] ([facility]) <content>QUANTITATIVE RESULT QU ALITATIVE INTERPRETATION</content>
<content> </content>
<content><5.0 IU/L NEGATIVE</content>
<content>5.0 - 25.0 IU/L INDETERMINATE</content>
<content>>25.0 IU/L POSITIVE</content>
<content></content> ID Date Data Source [id number] 07/27/2020 11:07:00 PM EDT [facility]) Name Value Range Interpretation Code Description Data Jerica rce(s) Supporting Document(s) Heterophile Ab [Presence] in Serum by Latex agglutinat ion Laboratory test result Normal (applies to non-numeric results) [facility]) ID Date Data Source [id number] 07/27/2020 11:07:00 PM EDT [facility] ([facility]) Name Value Range Interpretation Code Description Data Jerica rce(s) Supporting Document(s) White Blood Count 9.7 10 4.0-10.0 Normal (applies to non-numeri c results) [facility] ([facility]) Red Blood Count 4.30 10 4.00-5.40 Normal (applies to non-numeric results) [facility] ([facility]) Hematocrit 40.1 % 36.0-47.0 Normal (applies to non-numeric resul ts) [facility]) Hemoglobin 13.1 g/dL 12.0-15.5 Normal (applies to non-numeric resul ts) [facility]) Mean Corpuscular Volume 93.3 fl 80.0-96.0 Normal ( applies to non-numeric results) [facility]) Mean Corpuscular Hemoglobin 30.5 pg 27.0-33.0 Norm al (applies to non-numeric results) [facility]) Mean Corpuscular HGB Conc 32.7 g/dL 32.0-36.5 Normal (applies to non-numeric results) [facility]) Platelet Count, Automated 328 10 150-450 Normal (applies to non-numeric results) [facility]) Red Cell Distribution Width 13.7 % 11.5-14.5 Norm al (applies to non-numeric results) [facility]) Lymph % 27.4 % 24.0-44.0 Normal (applies to non-numeric resul ts) [facility] ([facility]) Neutrophils % 61.2 % 36.0-66.0 Normal (applies to non-numeric re sults) [facility] ([facility]) [place] % 7.6 % 2.0-8.0 Normal (applies to non-numeric resul ts) [facility] ([facility]) Eos % 3.0 % 0.0-3.0 Normal (applies to non-numeric resul ts) [facility] ([facility]) Immature Granulocyte % 0.3 % 0-3.0 Normal (applies to non-n umeric results) [facility] ([facility]) Baso % 0.5 % 0.0-1.0 Normal (applies to non-numeric resul ts) [facility] ([facility]) Nucleated Red Blood Cell % 0.0 % 0-0 Normal (applies to n on-numeric results) [facility] ([facility]) Neutrophils # 6.0 10 1.5-8.5 Normal (applies to non-numeric re sults) [facility] ([facility]) Lymph # 2.7 10 1.5-5.0 Normal (applies to non-numeric resul ts) [facility] ([facility]) [place] # 0.7 10 0.0-0.8 Normal (applies to non-numeric resul ts) [facility] ([facility]) Baso # 0.1 10 0.0-0.2 Normal (applies to non-numeric resul ts) [facility] ([facility]) Eos # 0.3 10 0.0-0.5 Normal (applies to non-numeric resul ts) [facility] ([facility]) ID Date Data Source [id number] 07/27/2020 10:09:00 PM EDT [facility] ([facility]) Name Value Range Interpretation Code Description Data Jerica rce(s) Supporting Document(s) Gats Culture (Neg Strep SCR) Laboratory test result Normal (applies to non- numeric results) [facility] FULL REPORT IN LAB NOTES ([facility] and [facility] ). NEGATIVE FOR STREP PYOGENES (GROUP A) ORGANISM 1: STREPTOCOCCUS GROUP C QUANTITY OF GROWTH HEAVY ORGANISM 1: STREPTOCOCCUS GROUP C ID Date Data Source [id number] 07/26/2020 01:42:00 PM EDT [facility] Name Value Range Interpretation Code Description Data Jerica rce(s) Supporting Document(s) COVID-19 RT-PCR [employer] SWAB Not Detected Not Detected [facility] A not detected (negative) test result fo r this test means that SARS-CoV-2 RNA was not present in the specimen above the limit ofdetection. Laboratory test results should always be considered in thecontext of clinical observations and epidemiological data in making afinal diagnosis and patient management decisions. Results will bereported to government agencies as required.This test has received Emergency Use Authorization (EUA). We will continue to follow federal and state requirements for COVID-19 reporting. This test has been authorized only for the detection of RNAfrom SARS-CoV-2 virus and diagnosis of SARS-CoV-2 virus infection, notfor any other viruses or pathogens. This test is only authorized for the duration of the declaration that circumstances exist justifying the authorization of the emergency use of in vitro diagnostic tests for detection of SARS-CoV-2 virus and/or diagnosis of SARS-CoV-2 virusinfection under section 564(b)(1) of the Act, 21 U.S.C. section 360bbb-3(b)(1), unless the authorization is terminated or revoked sooner. We will continue to follow federal and state requirements for both notification of results and any confirmatory testing that is required by another agency. This test was developed and its performance characteristics determined by [facility] and verified at [facility]. It has not been cleared or approved by the U.S. Food and Drug Administration for diagnostic use. This test has been authorized by FDA under an EUA for use by authorized laboratories. Results should be used in conjunction with clinical findings, and should not form the sole basis for a diagnosis or treatment decision. Methods: SARS-CoV-2 Multiplex RT-PCR Assay ID Date Data Source [id number] 07/25/2020 08:15:00 AM EDT [facility] Name Value Range Interpretation Code Description Data Jerica rce(s) Supporting Document(s) SARS-CoV-2 (COVID-19) N gene [Presence] in Respiratory specimen by ANJELICA with probe detection NEGATIVE [facility] This lab was ordered by Jojo Villanueva and reported by [facility]. ID Date Data Source [id number] 07/25/2020 12:00:00 AM EDT [facility] Name Value Range Interpretation Code Description Data Jerica rce(s) Supporting Document(s) Carestart Rapid COVID Antigen Test Negative [facility] This lab was reported by Jojo easley. ID Date Data Source [id number] 07/06/2020 07:06:00 AM EDT [facility] Name Value Range Interpretation Code Description Data Jerica rce(s) Supporting Document(s) Methylmalonate [Moles/volume] in Serum or Plasma 229 nmol/L 0-378 [facility] Disclaimer: COMMENT [facility] ital This test was developed and its performa nce characteristicsdetermined by [facility]. It has not been cleared or approvedby the Food and Drug Administration. ID Date Data Source [id number] 06/30/2020 12:55:00 PM EDT [facility] Name Value Range Interpretation Code Description Data Jerica rce(s) Supporting Document(s) Calcidiol [Moles/volume] in Serum or Plasma 21 NG/ML [facility] VITAMIN-D(2 5HYDROXY) Deficiency: <=20 ng/ml Insufficiency: 21-29 ng/ml Preferred level: => 30 ng/ml ID Date Data Source [id number] 06/29/2020 02:30:00 PM EDT [facility] Name Value Range Interpretation Code Description Data Jerica rce(s) Supporting Document(s) Cobalamin (Vitamin B12) [Mass/volume] in Serum or Plasma 397 PG/ML 232 - 1245 [facility] ID Date Data Source [id number] 06/29/2020 02:30:00 PM EDT [facility] Value Range Interpretation Code Description Data Jerica rce(s) Supporting Document(s) Thyrotropin [Units/volume] in Serum or Plasma by Detec tion limit <= 0.05 mIU/L 3.12 uIU/mL 0.47 - 5.01 [facility] ID Date Data Source [id number] 06/29/2020 02:30:00 PM EDT [facility] Name Value Range Interpretation Code Description Data Jerica rce(s) Supporting Document(s) Thyroxine (T4) free index in Serum or Plasma by calculation 1.10 NG/DL 0.93 - 1.70 [facility] ID Date Data Source [id number] 06/29/2020 02:30:00 PM EDT [facility] Name Value Range Interpretation Code Description Data Jerica rce(s) Supporting Document(s) Folate [Mass/volume] in Serum or Plasma 9.5 NG/ML 4.4 - 31.0 [facility] ID Date Data Source [id number] 06/29/2020 02:21:00 PM EDT [facility] Name Value Range Interpretation Code Description Data Jerica rce(s) Supporting Document(s) [facility] Cholesterol [Mass/volume] in Serum or Plasma 221 MG/DL 131 - 200 H [facility] Deprecated Triglyceride [Mass/volume] in Serum or Plasma 203 MG/DL 3 5 - 160 H [facility] HDL 46 MG/DL 29 - 86 [facility] al Cholesterol in LDL [Mass/volume] in Serum or Plasma by Direc t assay 158 mg/dL 65 - 175 [facility] Cholesterol.total/Cholesterol in HDL [Mass Ratio] in Serum o r Plasma 4.8 3.2 - 4.4 H [facility] LDL/HDL 3.43 1.47 - 3.22 H [facility] ital CVE RISK CHOL/HDL LDL/HDLMEN: 1/2 AVERAGE 3.43 1.00 AVERAGE 4.97 3.55 2X AVERAGE 9.55 6.25 3X AVERAGE 23.99 7.99WOMEN: 1/2 AVERAGE 3.27 1.47 AVERAGE 4.44 3.22 2X AVERAGE 7.05 5.03 3X AVERAGE 11.04 6.14 ID Date Data Source [id number] 06/29/2020 02:20:00 PM EDT [facility] Name Value Range Interpretation Code Description Data Jerica rce(s) Supporting Document(s) COMPREHENSIVE METABOLIC PANEL [facility] COMPREHENSIVE METABOLIC PANEL Sodium [Moles/volume] in Serum or Plasma 138 mEq/L 134 - 153 [facility] Potassium [Moles/volume] in Serum or Plasma 4.2 mEq/L 3.6 - 5.0 [facility] Chloride [Moles/volume] in Serum or Plasma 107 mEq/L 98 - 107 [facility] Carbon dioxide, total [Moles/volume] in Serum or Plasma 22 MEQ/L 22 - 30 [facility] Glucose [Mass/volume] in Serum or Plasma 93 MG/DL 70 - 99 [facility] BUN 12 MG/DL 7 - 21 [facility] al Creatinine [Mass/volume] in Serum or Plasma 0.6 MG/DL 0.7 - 1.5 L [facility] BUN/CREAT 20 8 - 27 [facility] Protein [Mass/volume] in Serum or Plasma 6.2 G/DL 6.3 - 8.2 L [facility] Albumin [Mass/volume] in Serum or Plasma 4.0 G/DL 3.9 - 5.0 [facility] Globulin [Mass/volume] in Serum by calculation 2.2 GM/DL 2.4 - 3.2 L [facility] A/G RATIO 1.8 0.8 - 2.0 [facility] Calcium [Mass/volume] in Serum or Plasma 8.9 MG/DL 8.4 - 10.2 [facility] Bilirubin.total [Mass/volume] in Serum or Plasma <0.7 MG/DL 0.2 - 1.3 [facility] Alkaline phosphatase [Enzymatic activity/volume] in Serum or Plasma 69 U/L 38 - 126 [facility] Aspartate aminotransferase [Enzymatic activity/volume] in Serum or Plasma 15 U/L 5 - 40 [facility] Alanine aminotransferase [Enzymatic activity/volume] in Seru m or Plasma 12 U/L 7 - 56 [facility] Anion gap 3 in Serum or Plasma 9.0 mmol/L 8.0 - 16.0 [facility] AGE 39 yrs [facility] al NON-AA GFR >60 mL/min [facility] ital AFR AMER GFR >60 mL/min [facility] sp[facility] Male GFR In terprentation 20-49 yrs >60 mL/min Normal 50-59 yrs >56 mL/min Normal 60-69 yrs >49 mL/min Normal 70-79yrs >42 mL/min Normal 80 and above >35 mL/min Normal Female GFR Interpretation 20-39 yrs >60 mL/min Normal 40-49 yrs >58 mL/min Normal 50-59 yrs >51 mL/min Normal 60-69 yrs >45 mL/min Normal 70-79 yrs >39 mL/min Normal 80 and above >32 mL/min Normal ID Date Data Source [id number] 06/29/2020 02:18:00 PM EDT [facility] Name Value Range Interpretation Code Description Data Jerica rce(s) Supporting Document(s) Hemoglobin A1c/Hemoglobin.total in Blood 5.5 % 4.4 - 6.1 [facility] {A1]{HB] ID Date Data Source [id number] 06/29/2020 02:04:00 PM EDT [facility] Name Value Range Interpretation Code Description Data Jerica rce(s) Supporting Document(s) Iron [Mass/volume] in Serum or Plasma 59 UG/DL 42 - 135 [facility] ID Date Data Source [id number] 06/29/2020 01:58:00 PM EDT [facility] Name Value Range Interpretation Code Description Data Jerica rce(s) Supporting Document(s) CBC W/AUTOMATED DIFF [facility] COMPLETE BLOOD COUNT Leukocytes [#/volume] in Blood by Automated count 5.9 10^3/uL 4.2 - 1 1.0 [facility] Erythrocytes [#/volume] in Blood by Automated count 4.38 10^6/uL 4. 20 - 5.40 [facility] Hemoglobin [Mass/volume] in Blood 13.8 g/dL 12.0 - 16.0 [facility] Hematocrit [Volume Fraction] of Blood by Automated count 40.8 % 3 7.0 - 47.0 [facility] Erythrocyte mean corpuscular volume [Entitic volume] by Auto mated count 93.2 fL 81.0 - 101 [facility] Erythrocyte mean corpuscular hemoglobin [Entitic mass] by Automated count 31.5 pg 27.0 - 34.0 [facility] Erythrocyte mean corpuscular hemoglobin concentration [Mass/volume] by Automated count 33.8 g/dL 31.0 - 36.0 [facility] Erythrocyte distribution width [Ratio] by Automated count 13.4 % 11.5 - 14.5 [facility] Platelets [#/volume] in Blood by Automated count 339 10^3/uL 150 - 45 0 [facility] Platelet mean volume [Entitic volume] in Blood by Automated count 11.2 fL 7.4 - 10.4 H [facility] Neutrophils/100 leukocytes in Blood by Automated count 52.3 % 37. 0 - 80.0 [facility] Lymphocytes/100 leukocytes in Blood by Manual count 35.2 % 25.0 - 40.0 [facility] Monocytes/100 leukocytes in Blood by Automated count 8.0 % 3.0 - 8.0 [facility] Eosinophils/100 leukocytes in Blood by Automated count 3.6 % 0.0 - 7.0 [facility] Basophils/100 leukocytes in Blood by Automated count 0.7 % 0.0 - 2.5 [facility] %IG 0.2 % 0.0 - 0.0 [facility] %NRBC 0.0 % 0.0 - 0.0 [facility] al Neutrophils [#/volume] in Blood by Automated count 3.07 10^3/uL 2.00 - 6.90 [facility] Lymphocytes [#/volume] in Blood by Automated count 2.06 10^3/uL 0.60 - 3.40 [facility] Monocytes [#/volume] in Blood by Automated count 0.47 10^3/uL 0.00 - 0.90 [facility] Eosinophils [#/volume] in Blood by Automated count 0.21 10^3/uL 0.00 - 0.70 [facility] Basophils [#/volume] in Blood by Automated count 0.04 10^3/uL 0.00 - 0.20 [facility] #IG 0.01 10^3/uL 0.00 - 0.10 [facility] ospital #NRBC 0.00 10^3/uL 0.00 - 0.00 [facility] ospital MANUAL DIFF NOT INDICATED [facility] RBC MORPH NOT INDICATED [facility] spital ID Date Data Source [id number] 06/29/2020 08:04:00 AM EDT [facility] ([facility]) Name Value Range Interpretation Code Description Data Jerica rce(s) Supporting Document(s) Cholesterol 221 mg/dL 131-200 Above high normal [facility] ([facility]) FASTING~.~.~<DG1.3.1>E55.9</DG1.3.1><DG1.3.1>E55.9</DG1.3.1><DG1.3.1>E55.9</DG1. 3.1><DG1.3.1 Cve Panel Laboratory test [facility] FASTING~.~.~<DG1.3.1>E55.9</DG1.3.1><DG1.3.1>E55.9</DG1.3.1><DG1.3.1>E55.9</DG1. 3.1><DG1.3.1 Triglycerides 203 mg/dL 35-160 Above high normal [facility] ([facility]) FASTING~.~.~<DG1.3.1>E55.9</DG1.3.1><DG1.3.1>E55.9</DG1.3.1><DG1.3.1>E55.9</DG1. 3.1><DG1.3.1 LDL 158 mg/dL 65-175 [facility] ([facility]) FASTING~.~.~<DG1.3.1>E55.9</DG1.3.1><DG1.3.1>E55.9</DG1.3.1><DG1.3.1>E55.9</DG1. 3.1><DG1.3.1 HDL 46 mg/dL 29-86 [facility] ([facility]) FASTING~.~.~<DG1.3.1>E55.9</DG1.3.1><DG1.3.1>E55.9</DG1.3.1><DG1.3.1>E55.9</DG1. 3.1><DG1.3.1 LDL/HDL 3.43 1.47-3.22 Above high normal [facility] ([facility]) FASTING~.~.~<DG1.3.1>E55.9</DG1.3.1><DG1.3.1>E55.9</DG1.3.1><DG1.3.1>E55.9</DG1. 3.1><DG1.3.1 Risk Factor 4.8 3.2-4.4 Above high normal [facility] ([facility]) FASTING~.~.~<DG1.3.1>E55.9</DG1.3.1><DG1.3.1>E55.9</DG1.3.1><DG1.3.1>E55.9</DG1. 3.1><DG1.3.1 ID Date Data Source [id number] 06/29/2020 08:04:00 AM EDT [facility] [facility]) Name Value Range Interpretation Code Description Data Jerica rce(s) Supporting Document(s) Methylmalonic Acid, Serum 229 nmol/L 0-378 [facility] FASTING~.~.~<DG1.3.1>E55.9</DG1.3.1><DG1.3.1>E55.9</DG1.3.1><DG1.3.1>E55.9</DG1. 3.1><DG1.3.1 Disclaimer: Laboratory test result [facility] ([facility]) FASTING~.~.~<DG1.3.1>E55.9</DG1.3.1><DG1.3.1>E55.9</DG1.3.1><DG1.3.1>E55.9</DG1. 3.1><DG1.3.1 ID Date Data Source [id number] 06/29/2020 08:04:00 AM EDT [facility] Name Value Range Interpretation Code Description Data Jerica rce(s) Supporting Document(s) Methylmalonate [Moles/volume] in Serum or Plasma Laboratory test resu lt [facility]) Cobalamin (Vitamin B12) [Mass/volume] in Serum or Plasma 397 pg/mL 2 32-1245 [facility] ([facility]) FASTING~.~.~<DG1.3.1>E55.9</DG1.3.1><DG1.3.1>E55.9</DG1.3.1><DG1.3.1>E55.9</DG1. 3.1><DG1.3.1 ID Date Data Source [id number] 06/29/2020 08:04:00 AM EDT [facility] Name Value Range Interpretation Code Description Data Jerica rce(s) Supporting Document(s) Folate [Mass/volume] in Serum or Plasma 9.5 ng/mL 4.4-31.0 [facility] ([facility]) FASTING~.~.~<DG1.3.1>E55.9</DG1.3.1><DG1.3.1>E55.9</DG1.3.1><DG1.3.1>E55.9</DG1. 3.1><DG1.3.1 Hemoglobin A1c/Hemoglobin.total in Blood 5.5 % 4.4-6.1 [facility] ([facility]) FASTING~.~.~<DG1.3.1>E55.9</DG1.3.1><DG1.3.1>E55.9</DG1.3.1><DG1.3.1>E55.9</DG1. 3.1><DG1.3.1 Thyroxine (T4) free [Mass/volume] in Serum or Plasma 1.10 ng/dL 0.93- 1.70 [facility] ([facility]) FASTING~.~.~<DG1.3.1>E55.9</DG1.3.1><DG1.3.1>E55.9</DG1.3.1><DG1.3.1>E55.9</DG1. 3.1><DG1.3.1 Iron [Mass/volume] in Serum or Plasma 59 ug/dL 42-135 [facility] ([facility]) FASTING~.~.~<DG1.3.1>E55.9</DG1.3.1><DG1.3.1>E55.9</DG1.3.1><DG1.3.1>E55.9</DG1. 3.1><DG1.3.1 Thyrotropin [Units/volume] in Serum or Plasma 3.12 uIU/mL 0.47-5.01 [facility] ([facility]) FASTING~.~.~<DG1.3.1>E55.9</DG1.3.1><DG1.3.1>E55.9</DG1.3.1><DG1.3.1>E55.9</DG1. 3.1><DG1.3.1 ID Date Data Source [id number] 06/29/2020 08:04:00 AM EDT [facility] ([facility]) Name Value Range Interpretation Code Description Data Jerica rce(s) Supporting Document(s) Comprehensive [employer] Laboratory test result [facility]) FASTING~.~.~<DG1.3.1>E55.9</DG1.3.1><DG1.3.1>E55.9</DG1.3.1><DG1.3.1>E55.9</DG1. 3.1><DG1.3.1 Potassium 4.2 meq/L 3.6-5.0 [facility] ([facility]) FASTING~.~.~<DG1.3.1>E55.9</DG1.3.1><DG1.3.1>E55.9</DG1.3.1><DG1.3.1>E55.9</DG1. 3.1><DG1.3.1 Sodium 138 meq/L 134-153 [facility] ([facility]) FASTING~.~.~<DG1.3.1>E55.9</DG1.3.1><DG1.3.1>E55.9</DG1.3.1><DG1.3.1>E55.9</DG1. 3.1><DG1.3.1 Chloride 107 meq/L 98-107 [facility] ([facility]) FASTING~.~.~<DG1.3.1>E55.9</DG1.3.1><DG1.3.1>E55.9</DG1.3.1><DG1.3.1>E55.9</DG1. 3.1><DG1.3.1 Glucose 93 mg/dL 70-99 [facility] ([facility]) FASTING~.~.~<DG1.3.1>E55.9</DG1.3.1><DG1.3.1>E55.9</DG1.3.1><DG1.3.1>E55.9</DG1. 3.1><DG1.3.1 Co2 22 meq/L 22-30 [facility] ([facility]) FASTING~.~.~<DG1.3.1>E55.9</DG1.3.1><DG1.3.1>E55.9</DG1.3.1><DG1.3.1>E55.9</DG1. 3.1><DG1.3.1 BUN 12 mg/dL 7-21 [facility] ([facility]) FASTING~.~.~<DG1.3.1>E55.9</DG1.3.1><DG1.3.1>E55.9</DG1.3.1><DG1.3.1>E55.9</DG1. 3.1><DG1.3.1 Creatinine 0.6 mg/dL 0.7-1.5 Below low normal [facility] ( [facility]) FASTING~.~.~<DG1.3.1>E55.9</DG1.3.1><DG1.3.1>E55.9</DG1.3.1><DG1.3.1>E55.9</DG1. 3.1><DG1.3.1 BUN/Creat 20 8-27 [facility] ([facility]) FASTING~.~.~<DG1.3.1>E55.9</DG1.3.1><DG1.3.1>E55.9</DG1.3.1><DG1.3.1>E55.9</DG1. 3.1><DG1.3.1 Total Protein 6.2 g/dL 6.3-8.2 Below low normal [facility] ([facility]) FASTING~.~.~<DG1.3.1>E55.9</DG1.3.1><DG1.3.1>E55.9</DG1.3.1><DG1.3.1>E55.9</DG1. 3.1><DG1.3.1 Albumin 4.0 g/dL 3.9-5.0 [facility] ([facility]) FASTING~.~.~<DG1.3.1>E55.9</DG1.3.1><DG1.3.1>E55.9</DG1.3.1><DG1.3.1>E55.9</DG1. 3.1><DG1.3.1 Globulin 2.2 GM/DL 2.4-3.2 Below low normal [facility] ( [facility]) FASTING~.~.~<DG1.3.1>E55.9</DG1.3.1><DG1.3.1>E55.9</DG1.3.1><DG1.3.1>E55.9</DG1. 3.1><DG1.3.1 A/G Ratio 1.8 0.8-2.0 [facility] ([facility]) FASTING~.~.~<DG1.3.1>E55.9</DG1.3.1><DG1.3.1>E55.9</DG1.3.1><DG1.3.1>E55.9</DG1. 3.1><DG1.3.1 Calcium 8.9 mg/dL 8.4-10.2 [facility] ([facility]) FASTING~.~.~<DG1.3.1>E55.9</DG1.3.1><DG1.3.1>E55.9</DG1.3.1><DG1.3.1>E55.9</DG1. 3.1><DG1.3.1 Total Bili Laboratory test result 0.2-1.3 [facility] ([facility]) FASTING~.~.~<DG1.3.1>E55.9</DG1.3.1><DG1.3.1>E55.9</DG1.3.1><DG1.3.1>E55.9</DG1. 3.1><DG1.3.1 Alkaline Phos 69 U/L 38-126 [facility] ([facility]) FASTING~.~.~<DG1.3.1>E55.9</DG1.3.1><DG1.3.1>E55.9</DG1.3.1><DG1.3.1>E55.9</DG1. 3.1><DG1.3.1 Sgot/Ast 15 U/L 5-40 [facility] ([facility]) FASTING~.~.~<DG1.3.1>E55.9</DG1.3.1><DG1.3.1>E55.9</DG1.3.1><DG1.3.1>E55.9</DG1. 3.1><DG1.3.1 Anion Gap 9.0 mmol/L 8.0-16.0 [facility] ([facility]) FASTING~.~.~<DG1.3.1>E55.9</DG1.3.1><DG1.3.1>E55.9</DG1.3.1><DG1.3.1>E55.9</DG1. 3.1><DG1.3.1 SGPT/Alt 12 U/L 7-56 [facility] ([facility]) FASTING~.~.~<DG1.3.1>E55.9</DG1.3.1><DG1.3.1>E55.9</DG1.3.1><DG1.3.1>E55.9</DG1. 3.1><DG1.3.1 Age 39 yrs [facility] ([facility]) FASTING~.~.~<DG1.3.1>E55.9</DG1.3.1><DG1.3.1>E55.9</DG1.3.1><DG1.3.1>E55.9</DG1. 3.1><DG1.3.1 Non-Aa GFR Laboratory test result [facility] ([facility]) FASTING~.~.~<DG1.3.1>E55.9</DG1.3.1><DG1.3.1>E55.9</DG1.3.1><DG1.3.1>E55.9</DG1. 3.1><DG1.3.1 Afr Amer GFR Laboratory test result [facility] ([facility]) FASTING~.~.~<DG1.3.1>E55.9</DG1.3.1><DG1.3.1>E55.9</DG1.3.1><DG1.3.1>E55.9</DG1. 3.1><DG1.3.1 ID Date Data Source [id number] 06/29/2020 08:04:00 AM EDT [facility] ([facility]) Name Value Range Interpretation Code Description Data Jerica rce(s) Supporting Document(s) CBC W/Automated Diff Laboratory test result [facility] ([facility]) FASTING~.~.~<DG1.3.1>E55.9</DG1.3.1><DG1.3.1>E55.9</DG1.3.1><DG1.3.1>E55.9</DG1. 3.1><DG1.3.1 WBC 5.9 10^3/uL 4.2-11.0 [facility] ([facility]) FASTING~.~.~<DG1.3.1>E55.9</DG1.3.1><DG1.3.1>E55.9</DG1.3.1><DG1.3.1>E55.9</DG1. 3.1><DG1.3.1 RBC 4.38 10^6/uL 4.20-5.40 [facility] ([facility]) FASTING~.~.~<DG1.3.1>E55.9</DG1.3.1><DG1.3.1>E55.9</DG1.3.1><DG1.3.1>E55.9</DG1. 3.1><DG1.3.1 Hemoglobin 13.8 g/dL 12.0-16.0 [facility] ([facility]) FASTING~.~.~<DG1.3.1>E55.9</DG1.3.1><DG1.3.1>E55.9</DG1.3.1><DG1.3.1>E55.9</DG1. 3.1><DG1.3.1 Hematocrit 40.8 % 37.0-47.0 [facility] ([facility]) FASTING~.~.~<DG1.3.1>E55.9</DG1.3.1><DG1.3.1>E55.9</DG1.3.1><DG1.3.1>E55.9</DG1. 3.1><DG1.3.1 MCV 93.2 fL 81.0-101 [facility] ([facility]) FASTING~.~.~<DG1.3.1>E55.9</DG1.3.1><DG1.3.1>E55.9</DG1.3.1><DG1.3.1>E55.9</DG1. 3.1><DG1.3.1 MCH 31.5 pg 27.0-34.0 [facility] ([facility]) FASTING~.~.~<DG1.3.1>E55.9</DG1.3.1><DG1.3.1>E55.9</DG1.3.1><DG1.3.1>E55.9</DG1. 3.1><DG1.3.1 MCHC 33.8 g/dL 31.0-36.0 [facility] ([facility]) FASTING~.~.~<DG1.3.1>E55.9</DG1.3.1><DG1.3.1>E55.9</DG1.3.1><DG1.3.1>E55.9</DG1. 3.1><DG1.3.1 RDW 13.4 % 11.5-14.5 [facility] ([facility]) FASTING~.~.~<DG1.3.1>E55.9</DG1.3.1><DG1.3.1>E55.9</DG1.3.1><DG1.3.1>E55.9</DG1. 3.1><DG1.3.1 Platelets 339 10^3/uL 150-450 [facility] ([facility]) FASTING~.~.~<DG1.3.1>E55.9</DG1.3.1><DG1.3.1>E55.9</DG1.3.1><DG1.3.1>E55.9</DG1. 3.1><DG1.3.1 MPV 11.2 fL 7.4-10.4 Above high normal [facility] ([facility]) FASTING~.~.~<DG1.3.1>E55.9</DG1.3.1><DG1.3.1>E55.9</DG1.3.1><DG1.3.1>E55.9</DG1. 3.1><DG1.3.1 Neut 52.3 % 37.0-80.0 [facility] ([facility]) FASTING~.~.~<DG1.3.1>E55.9</DG1.3.1><DG1.3.1>E55.9</DG1.3.1><DG1.3.1>E55.9</DG1. 3.1><DG1.3.1 Lymph 35.2 % 25.0-40.0 [facility] ([facility]) FASTING~.~.~<DG1.3.1>E55.9</DG1.3.1><DG1.3.1>E55.9</DG1.3.1><DG1.3.1>E55.9</DG1. 3.1><DG1.3.1 [place] 8.0 % 3.0-8.0 [facility] ([facility]) FASTING~.~.~<DG1.3.1>E55.9</DG1.3.1><DG1.3.1>E55.9</DG1.3.1><DG1.3.1>E55.9</DG1. 3.1><DG1.3.1 Eos 3.6 % 0.0-7.0 [facility] ([facility]) FASTING~.~.~<DG1.3.1>E55.9</DG1.3.1><DG1.3.1>E55.9</DG1.3.1><DG1.3.1>E55.9</DG1. 3.1><DG1.3.1 Baso 0.7 % 0.0-2.5 [facility] ([facility]) FASTING~.~.~<DG1.3.1>E55.9</DG1.3.1><DG1.3.1>E55.9</DG1.3.1><DG1.3.1>E55.9</DG1. 3.1><DG1.3.1 %Ig 0.2 % 0.0-0.0 Above high normal [facility] ([facility]) FASTING~.~.~<DG1.3.1>E55.9</DG1.3.1><DG1.3.1>E55.9</DG1.3.1><DG1.3.1>E55.9</DG1. 3.1><DG1.3.1 %NRBC 0.0 % 0.0-0.0 [facility] ([facility]) FASTING~.~.~<DG1.3.1>E55.9</DG1.3.1><DG1.3.1>E55.9</DG1.3.1><DG1.3.1>E55.9</DG1. 3.1><DG1.3.1 #Neut 3.07 10^3/uL 2.00-6.90 [facility] ([facility]) FASTING~.~.~<DG1.3.1>E55.9</DG1.3.1><DG1.3.1>E55.9</DG1.3.1><DG1.3.1>E55.9</DG1. 3.1><DG1.3.1 #Lymph 2.06 10^3/uL 0.60-3.40 [facility] ([facility]) FASTING~.~.~<DG1.3.1>E55.9</DG1.3.1><DG1.3.1>E55.9</DG1.3.1><DG1.3.1>E55.9</DG1. 3.1><DG1.3.1 #[place] 0.47 10^3/uL 0.00-0.90 [facility] ([facility]) FASTING~.~.~<DG1.3.1>E55.9</DG1.3.1><DG1.3.1>E55.9</DG1.3.1><DG1.3.1>E55.9</DG1. 3.1><DG1.3.1 #Eos 0.21 10^3/uL 0.00-0.70 [facility] ([facility]) FASTING~.~.~<DG1.3.1>E55.9</DG1.3.1><DG1.3.1>E55.9</DG1.3.1><DG1.3.1>E55.9</DG1. 3.1><DG1.3.1 #Baso 0.04 10^3/uL 0.00-0.20 [facility] ([facility]) FASTING~.~.~<DG1.3.1>E55.9</DG1.3.1><DG1.3.1>E55.9</DG1.3.1><DG1.3.1>E55.9</DG1. 3.1><DG1.3.1 #Ig 0.01 10^3/uL 0.00-0.10 [facility] ([facility]) FASTING~.~.~<DG1.3.1>E55.9</DG1.3.1><DG1.3.1>E55.9</DG1.3.1><DG1.3.1>E55.9</DG1. 3.1><DG1.3.1 #NRBC 0.00 10^3/uL 0.00-0.00 [facility] ([facility]) FASTING~.~.~<DG1.3.1>E55.9</DG1.3.1><DG1.3.1>E55.9</DG1.3.1><DG1.3.1>E55.9</DG1. 3.1><DG1.3.1 Manual Diff [facility] FASTING~.~.~<DG1.3.1>E55.9</DG1.3.1><DG1.3.1>E55.9</DG1.3.1><DG1.3.1>E55.9</DG1. 3.1><DG1.3.1 RBC Morph Laboratory test result [facility]) FASTING~.~.~<DG1.3.1>E55.9</DG1.3.1><DG1.3.1>E55.9</DG1.3.1><DG1.3.1>E55.9</DG1. 3.1><DG1.3.1 ID Date Data Source [id number] 06/29/2020 08:04:00 AM EDT [facility] ([facility]) Name Value Range Interpretation Code Description Data Jerica rce(s) Supporting Document(s) Calcidiol [Mass/volume] in Serum or Plasma 21 ng/mL [facility] ([facility]) FASTING~.~.~<DG1.3.1>E55.9</DG1.3.1><DG1.3.1>E55.9</DG1.3.1><DG1.3.1>E55.9</DG1. 3.1><DG1.3.1 ID Date Data Source [id number] 05/14/2020 12:00:00 AM EST [facility] Name Value Range Interpretation Code Description Data Jerica rce(s) Supporting Document(s) SARS-CoV-2 (COVID-19) RNA [Presence] in Respiratory specimen by ANJELICA with probe detection Not Detected [facility] This lab was ordered by [facility] and reported by [employer] ID Date Data Source [id number] & GC DNA PROBES 02/24/2020 12:00:00 AM EST eCW1 ([facility]) Name Value Range Interpretation Code Description Data Jerica rce(s) Supporting Document(s) Negative Negative eCW1 ([facility]) Negative Negative eCW1 ([facility]) ID Date Data Source [id number] 01/06/2020 09:30:00 AM EDT [facility] Name Value Range Interpretation Code Description Data Jerica rce(s) Supporting Document(s) SARS coronavirus 2 RNA [facility] This lab was ordered by [facility] and reported by [facility]. Procedure Social History Code Duration Value Status Description Data Source(s ) Smoking 02/28/2021 12:00:00 AM EST Current Smoker completed Curre nt Smoker eCW1 ([facility]) Smoking 02/08/2021 12:00:00 AM EDT Current Smoker completed Curre nt Smoker eCW1 ([facility]) Smoking 02/08/2021 12:00:00 AM EDT Current Smoker completed Curre nt Smoker eCW1 ([facility]) Smoking 02/08/2021 12:00:00 AM EDT Current Smoker completed Curre nt Smoker eCW1 ([facility]) Smoking 12/29/2020 12:00:00 AM EDT Current Smoker completed Curre nt Smoker eCW1 ([facility]) Smoking 12/27/2020 12:00:00 AM EDT Unknown if ever smoked comp leted Unknown if ever smoked [facility] ([facility]) Smoking 12/15/2020 12:00:00 AM EDT Unknown if ever smoked comp leted Unknown if ever smoked [facility] ([facility]) Smoking 12/01/2020 12:00:00 AM EDT Unknown if ever smoked comp leted Unknown if ever smoked [facility] ([facility]) Smoking 11/07/2020 12:00:00 AM EDT Current Smoker completed Curre nt Smoker eCW1 ([facility]) Smoking 11/07/2020 12:00:00 AM EDT Current Smoker completed Curre nt Smoker eCW1 ([facility]) Smoking 10/25/2020 12:00:00 AM EDT Current Smoker completed Curre nt Smoker eCW1 ([facility]) Smoking 10/25/2020 12:00:00 AM EDT Current Smoker completed Curre nt Smoker eCW1 ([facility]) Smoking 10/25/2020 12:00:00 AM EDT Current Smoker completed Curre nt Smoker eCW1 ([facility]) Smoking 10/13/2020 12:00:00 AM EDT Unknown if ever smoked comp leted Unknown if ever smoked [facility] ([facility]) Smoking 09/08/2020 12:00:00 AM EDT Current Smoker completed Curre nt Smoker eCW1 ([facility]) Smoking 08/25/2020 12:00:00 AM EDT Unknown if ever smoked comp leted Unknown if ever smoked [facility] ([facility]) Smoking 07/29/2020 12:00:00 AM EDT Unknown if ever smoked comp leted Unknown if ever smoked [facility] ([facility]) Smoking 07/27/2020 12:00:00 AM EDT Unknown if ever smoked comp leted Unknown if ever smoked [facility] ([facility]) Smoking 07/07/2020 12:00:00 AM EDT Unknown if ever smoked comp leted Unknown if ever smoked [facility] ([facility]) Smoking 07/04/2020 12:00:00 AM EDT Current Smoker completed Curre nt Smoker eCW1 ([facility]) Smoking 07/04/2020 12:00:00 AM EDT Current Smoker completed Curre nt Smoker eCW1 ([facility]) Smoking 07/04/2020 12:00:00 AM EDT Current Smoker completed Curre nt Smoker eCW1 ([facility]) Smoking 06/08/2020 12:00:00 AM EST Unknown if ever smoked comp leted Unknown if ever smoked [facility] ([facility]) Smoking 05/26/2020 12:00:00 AM EST Unknown if ever smoked comp leted Unknown if ever smoked [facility] ([facility]) Smoking 05/20/2020 12:00:00 AM EST Unknown if ever smoked comp leted Unknown if ever smoked [facility] ([facility]) Smoking 05/06/2020 12:00:00 AM EST Unknown if ever smoked comp leted Unknown if ever smoked [facility] ([facility]) Smoking 05/05/2020 12:00:00 AM EST Current Smoker completed Curre nt Smoker eCW1 ([facility]) Smoking 05/05/2020 12:00:00 AM EST Unknown if ever smoked comp leted Unknown if ever smoked [facility] ([facility]) Smoking 04/20/2020 12:00:00 AM EST Unknown if ever smoked comp leted Unknown if ever smoked [facility] ([facility]) Smoking 03/30/2020 12:00:00 AM EST Unknown if ever smoked comp leted Unknown if ever smoked [facility] ([facility]) Smoking 02/25/2020 12:00:00 AM EST Unknown if ever smoked comp leted Unknown if ever smoked [facility] ([facility]) Smoking 02/24/2020 12:00:00 AM EST Current Smoker completed Curre nt Smoker eCW1 ([facility]) Smoking 02/22/2020 12:00:00 AM EST Current Smoker completed Curre nt Smoker eCW1 ([facility]) Smoking 02/10/2020 12:00:00 AM EDT Unknown if ever smoked comp leted Unknown if ever smoked [facility] ([facility]) Smoking 01/27/2020 12:00:00 AM EDT Unknown if ever smoked comp leted Unknown if ever smoked [facility] ([facility]) Smoking 01/25/2020 12:00:00 AM EDT Current Smoker completed Curre nt Smoker eCW1 ([facility]) Vital Signs ID Date Data Source UNK Name Value Range Interpretation Code Description Data Source(s) Body temperature 97.1 [degF] 97.1 [degF] [facility] ([facility] ) Body weight 300 [lb_av] 300 [lb_av] eCW1 ([facility]) Body weight 136.08 kg 136.08 kg eCW1 ([facility]) Body height 67 [in_i] 67 [in_i] eCW1 ([facility]) Body mass index (BMI) [Ratio] 46.98 kg/m2 46.98 kg/m2 eCW1 ([facility]) Heart rate 64 /min 64 /min eCW1 ([facility]) Respiratory rate 18 /min 18 /min eCW1 ([facility]) Body temperature 96.8 [degF] 96.8 [degF] eCW1 ( [facility]) Systolic blood pressure 142 mm[Hg] 142 mm[Hg] e CW1 ([facility]) Diastolic blood pressure 88 mm[Hg] 88 mm[Hg] eCW1 ([facility]) Body weight 300.0 [lb_av] 300.0 [lb_av] eCW1 ([facility]) Body weight 136.08 kg 136.08 kg eCW1 ([facility]) Body height 67 [in_i] 67 [in_i] eCW1 ([facility]) Body mass index (BMI) [Ratio] 46.98 kg/m2 46.98 kg/m2 eCW1 ([facility]) Heart rate 70 /min 70 /min eCW1 ([facility]) Respiratory rate 18 /min 18 /min eCW1 ([facility]) Body temperature 98.0 [degF] 98.0 [degF] eCW1 ( [facility]) Systolic blood pressure 159 mm[Hg] 159 mm[Hg] e CW1 ([facility]) Diastolic blood pressure 86 mm[Hg] 86 mm[Hg] eCW1 ([facility]) Body weight Measured 295.00 lbs Normal (applies to n on-numeric results) 295.00 lbs [facility] ([facility]) Body weight 296 [lb_av] 296 [lb_av] eCW1 ([facility]) Body weight 134.26 kg 134.26 kg eCW1 ([facility]) Body height 67 [in_i] 67 [in_i] eCW1 ([facility]) Body mass index (BMI) [Ratio] 46.36 kg/m2 46.36 kg/m2 eCW1 ([facility]) Systolic blood pressure 116 mm[Hg] 116 mm[Hg] e CW1 ([facility]) Diastolic blood pressure 78 mm[Hg] 78 mm[Hg] eCW1 ([facility]) Body weight 292 [lb_av] 292 [lb_av] eCW1 ([facility]) Body weight 132.45 kg 132.45 kg eCW1 ([facility]) Body height 67 [in_i] 67 [in_i] eCW1 ([facility]) Body mass index (BMI) [Ratio] 45.73 kg/m2 45.73 kg/m2 eCW1 ([facility]) Systolic blood pressure 140 mm[Hg] 140 mm[Hg] e CW1 ([facility]) Diastolic blood pressure 78 mm[Hg] 78 mm[Hg] eCW1 ([facility]) Body weight 287.0 [lb_av] 287.0 [lb_av] eCW1 ([facility]) Body height 67 [in_i] 67 [in_i] eCW1 ([facility]) Body mass index (BMI) [Ratio] 44.95 kg/m2 44.95 kg/m2 eCW1 ([facility]) Heart rate 68 /min 68 /min eCW1 ([facility]) Respiratory rate 18 /min 18 /min eCW1 ([facility]) Body temperature 96.8 [degF] 96.8 [degF] eCW1 ( [facility]) Systolic blood pressure 139 mm[Hg] 139 mm[Hg] e CW1 ([facility]) Diastolic blood pressure 87 mm[Hg] 87 mm[Hg] eCW1 ([facility]) Body height 0.00 in Normal (applies to non-numeric resu lts) 0.00 in [facility] ([facility]) Body weight Measured 0.00 lbs Normal (applies to n on-numeric results) 0.00 lbs [facility] ([facility]) Body mass index (BMI) [Ratio] 0.00 kg/m2 No rmal (applies to non-numeric results) 0.00 kg/m2 [facility] ([facility]) Systolic blood pressure 0 mm[Hg] Normal (applies t o non-numeric results) 0 mm[Hg] [facility] ([facility]) Diastolic blood pressure 0 mm[Hg] Normal (applies to non-numeric results) 0 mm[Hg] [facility] ([facility]) Body weight 287.6 [lb_av] 287.6 [lb_av] eCW1 ([facility]) Body height 67 [in_i] 67 [in_i] eCW1 ([facility]) Body mass index (BMI) [Ratio] 45.04 kg/m2 45.04 kg/m2 eCW1 ([facility]) Heart rate 73 /min 73 /min eCW1 ([facility]) Respiratory rate 18 /min 18 /min eCW1 ([facility]) Body temperature 97.9 [degF] 97.9 [degF] eCW1 ( [facility]) Systolic blood pressure 143 mm[Hg] 143 mm[Hg] e CW1 ([facility]) Diastolic blood pressure 79 mm[Hg] 79 mm[Hg] eCW1 ([facility]) Diastolic blood pressure 66 mm[Hg] 66 mm[Hg] MEDENT ([facility]) Heart rate 71 /min 71 /min MEDENT ([facility]) Body temperature 98.7 [degF] 98.7 [degF] MEDENT ([facility]) Respiratory rate 16 /min 16 /min MEDENT ( [facility]) Oxygen saturation in Arterial blood by Pulse oximetry 98 % 98 % MEDENT ([facility]) Body weight 285.00 [lb_av] 285.00 [lb_av] MEDEN T ([facility]) Systolic blood pressure 116 mm[Hg] 116 mm[Hg] M EDENT ([facility]) Body weight 129.276 kg 129.276 kg MEDENT ([facility]) Body height 67 [in_i] 67 [in_i] MEDENT ([facility]) 5'7" Body mass index (BMI) [Ratio] 44.6 kg/m2 44.6 k g/m2 MEDENT ([facility]) Body surface area Derived from formula 2.35 m2 2.35 m2 MEDENT ([facility]) Body height 0.00 in Normal (applies to non-numeric resu lts) 0.00 in [facility] ([facility]) Body weight Measured 0.00 lbs Normal (applies to n on-numeric results) 0.00 lbs [facility]) Body mass index (BMI) [Ratio] 0.00 kg/m2 No rmal (applies to non-numeric results) 0.00 kg/m2 [facility]) Systolic blood pressure 0 mm[Hg] Normal (applies t o non-numeric results) 0 mm[Hg] [facility] ([facility]) Diastolic blood pressure 0 mm[Hg] Normal (applies to non-numeric results) 0 mm[Hg] [facility]) Body height 0.00 in Normal (applies to non-numeric resu lts) 0.00 in [facility] ([facility]) Body weight Measured 0.00 lbs Normal (applies to n on-numeric results) 0.00 lbs [facility] ([facility]) Body mass index (BMI) [Ratio] 0.00 kg/m2 No rmal (applies to non-numeric results) 0.00 kg/m2 [facility]) Systolic blood pressure 0 mm[Hg] Normal (applies t o non-numeric results) 0 mm[Hg] [facility] ([facility]) Diastolic blood pressure 0 mm[Hg] Normal (applies to non-numeric results) 0 mm[Hg] [facility] ([facility]) Body weight 289.9 [lb_av] 289.9 [lb_av] eCW1 ([facility]) Body height 67 [in_i] 67 [in_i] eCW1 ([facility]) Body mass index (BMI) [Ratio] 45.40 kg/m2 45.40 kg/m2 eCW1 ([facility]) Heart rate 80 /min 80 /min eCW1 ([facility]) Respiratory rate 18 /min 18 /min eCW1 ([facility]) Body temperature 97.1 [degF] 97.1 [degF] eCW1 ( [facility]) Systolic blood pressure 131 mm[Hg] 131 mm[Hg] e CW1 ([facility]) Diastolic blood pressure 63 mm[Hg] 63 mm[Hg] eCW1 ([facility]) Body weight 290 [lb_av] 290 [lb_av] eCW1 ([facility]) Body height 67 [in_i] 67 [in_i] eCW1 ([facility]) Body mass index (BMI) [Ratio] 45.42 kg/m2 45.42 kg/m2 eCW1 ([facility]) Heart rate 74 /min 74 /min eCW1 ([facility]) Respiratory rate 18 /min 18 /min eCW1 ([facility]) Systolic blood pressure 126 mm[Hg] 126 mm[Hg] e CW1 ([facility]) Diastolic blood pressure 82 mm[Hg] 82 mm[Hg] eCW1 ([facility]) Body weight 290.4 [lb_av] 290.4 [lb_av] eCW1 [facility] [place]) Body height 67 [in_i] 67 [in_i] eCW1 (Formerly [facility]) Body mass index (BMI) [Ratio] 45.48 kg/m2 45.48 kg/m2 eCW1 ([facility]) Heart rate 72 /min 72 /min eCW1 ([facility]) Respiratory rate 18 /min 18 /min eCW1 (Formerly [facility]) Body temperature 97.2 [degF] 97.2 [degF] eCW1 ( [facility]) Systolic blood pressure 117 mm[Hg] 117 mm[Hg] e CW1 ([facility]) Diastolic blood pressure 70 mm[Hg] 70 mm[Hg] eCW1 ([facility]) Systolic blood pressure 124 mm[Hg] 124 mm[Hg] M EDENT ([facility] ) Diastolic blood pressure 80 mm[Hg] 80 mm[Hg] MEDENT ([facility], ) Heart rate 72 /min 72 /min MEDENT ([facility] ) Respiratory rate 20 /min 20 /min MEDENT ( [facility] ) Body weight 291.4 [lb_av] 291.4 [lb_av] eCW1 ([facility] [place]) Body height 67 [in_i] 67 [in_i] eCW1 (Formerly [facility]) Body mass index (BMI) [Ratio] 45.63 kg/m2 45.63 kg/m2 eCW1 ([facility]) Heart rate 64 /min 64 /min eCW1 ([facility]) Respiratory rate 18 /min 18 /min eCW1 (Formerly [facility]) Body temperature 97.4 [degF] 97.4 [degF] eCW1 ( [facility]) Systolic blood pressure 139 mm[Hg] 139 mm[Hg] e CW1 ([facility]) Diastolic blood pressure 90 mm[Hg] 90 mm[Hg] eCW1 ([facility]) Body weight 284.00 [lb_av] 284.00 [lb_av] MEDEN T ([facility]) Body height 67 [in_i] 67 [in_i] MEDENT [facility]) 5'7" Body mass index (BMI) [Ratio] 44.5 kg/m2 44.5 k g/m2 MEDENT ([facility]) Heart rate 64 /min 64 /min MEDENT ([facility]) Systolic blood pressure--sitting 134 mm[Hg] 134 mm[Hg] MEDENT ([facility]) Omron, large cuff/Ra Diastolic blood pressure--sitting 90 mm[Hg] 90 mm[Hg] MEDENT ([facility]) Omron, large cuff/Ra Patient Treatment Plan of Care Planned Activity Planned Date Details Description Data Source (s) Acetaminophen 325 MG / Oxycodone Hydrochloride 5 MG Or al Tablet [Percocet] 02/23/2021 12:00:00 AM EST eCW1 (Formerly [facility]) Tamsulosin hydrochloride 0.4 MG Oral Capsule [Flomax] 02/23/2021 12:00:00 AM EST eCW1 ([facility]) pregabalin 75 MG Oral Capsule [Lyrica] 12/29/2020 12:00:00 AM EDT eCW1 ([facility]) pregabalin 75 MG Oral Capsule [Lyrica] 07/04/2020 12:00:00 AM EDT eCW1 ([facility]) pregabalin 75 MG Oral Capsule [Lyrica] 07/04/2020 12:00:00 AM EDT eCW1 ([facility]) pregabalin 75 MG Oral Capsule [Lyrica] 07/04/2020 12:00:00 AM EDT eCW1 ([facility]) pregabalin 75 MG Oral Capsule [Lyrica] 07/04/2020 12:00:00 AM EDT eCW1 ([facility]) tizanidine 4 MG Oral Tablet 05/05/2020 12:00:00 AM EST eCW1 ([facility]) tizanidine 4 MG Oral Tablet 05/05/2020 12:00:00 AM EST eCW1 ([facility]) tizanidine 4 MG Oral Tablet 05/05/2020 12:00:00 AM EST eCW1 ([facility]) Tinidazole 500 MG Oral Tablet 02/24/2020 12:00:00 AM EST eCW1 ([facility])
[2021-03-04] MEDS ORDERED: OXYC1TAB23 (11:47)
--- OUTSIDE RECORDS SUMMARY | 2021-03-04 13:46 | CCD ---
Author Author [facility] Organization [facility] Address Unknown Phone Unavailable Care Team Providers Care Community Educator Name Role Phone Maring, Chinedu PA Unavailable [...] Unavailable RAQUEL MONTE MD Unavailable Unavailable RAQUEL OMNTE MD Unavailable Unavailable RAQUEL MONTE MD Unavailable [...] A Miguelangel PA Unavailable Unavailable BRITTANY [place] [employer] Unavailable Unavailable MACQUEEN [place] [employer] Unavailable Unavailable BRITTANY [place] [employer] Unavailable Unavailable BRITTANY [place] [employer] Unavailable Unavailable MACQUESHRUTI [place] [employer] Unavailable Unavailable MACQUEEN, [place] [employer] Unavailable Unavailable MACQUEEN, [place] [employer] Unavailable Unavailable MACQUEEN, [place] [employer] Unavailable Unavailable MACQUEEN, [place] [employer] Unavailable Unavailable MACQUEEN, [place] [employer] Unavailable Unavailable OBEN, T WERNER MD Unavailable [...] ANTECOL, Chelo ALANIZ MD Unavailable Unavailable ANTECOL, hCelo ALANIZ MD Unavailable Unavailable ANTECOL, Chelo ALANIZ [...] L MISSY MD Unavailable Unavailable RACHEL, L MISYS MD Unavailable Unavailable RACHEL, L MISSY MD [...] Unavailable RACHEL, L MISSY MD Unavailable Unavailable RACEHL, L MISSY MD Unavailable Unavailable Re-disclosure Warning [...] is protected by Article 27-F of the [facility] Public Health law. If you continue you may have access to information: Regarding HIV / AIDS; Provided by facilities licensed or operated by the [facility] Office of Mental Health; or Provided by the [facility] Office for People With Developmental Disabilities. If such information is present, then the following [facility] mandated warning applies: This information has [...] law may result in a fine or shelter sentence or both. A general authorization for the release of medical or other information is NOT sufficient authorization for further disc losure. Allergies and Adverse Reactions Type Description Substance Reaction Status Data Source(s ) Propensity to adverse reactions to substance sertraline Sertraline 25 MG Oral Tablet Nausea Active [facility] ([facility]) No Known Drug Allergies No Known Drug Allergies [facility] Family History Family Member Name Family Member Gender Family Member Status Date o f Status Description Data Source(s) Unknown Unknown Problem [facility] ([facility]) Unknown Unknown Problem [facility]ENT ([facility]) Encounters Encounter Providers Location Date Indications Data Source(s ) Outpatient Attender: MAXIMINO Thomson/Torres/Navneet/ Lisa 02/28/2021 10:00:00 AM EST [facility] ([facility]) Unknown [address] [facility] [place] [address] 02/23/2021 12:00:00 AM EST eCW1 ([facility]) Unknown [address] [facility] [place] [address] 02/23/2021 12:00:00 AM EST eCW1 ([facility]) Outpatient Attender: Chinedu PLATT 02/23/20 11:14:01 AM EST - 02/22/2021 11:54:26 AM EST [facility] ([facility] ) Unknown [address] [facility] [place] [address] 02/13/2021 12:00:00 AM EDT eCW1 ([facility]) Outpatient [address] [facility] [place] [address] 02/07/2021 12:00:00 AM EDT eCW1 ([facility]) Outpatient [address] [facility] [place] [address] 12/29/2020 12:00:00 AM EDT eCW1 ([facility]) Extended Individual Psychotherapy - 45 min Attender: Melissa Gonzalez [facility] 12/27/2020 11:00:00 AM EDT - 12/27/2020 11:00:00 AM EDT [facility] ([facility]) Attender: Fabiola Gonzalez 12/27/2020 12:00:0 0 AM EDT [facility] ([facility]) Attender: LISA SOTO NP 12/15/2020 12:00:00 AM EDT [facility] ([facility]) Outpatient Attender: LISA SOTO NP [facility] Marlon law 12/14/2020 09:30:00 AM EDT - 12/14/2020 09:30:00 AM EDT [facility] ([facility]) Unknown [address] [facility], [facility] [address] 12/09/2020 12:00:00 AM EDT eCW1 ([facility]) Emergency Attender: Miguelangel Perez PAConsultant: RAQUEL CHO MD 12/03/2020 06:51:00 AM EDT - 12/03/2020 08:13:00 AM EDT [facility] Patient discharged. Extended Individual Psychotherapy - 45 min Attender: Melissa Gonzalez [facility] [place] 12/01/2020 09:00:00 AM EDT - 12/01/2020 09:00:00 AM EDT [facility] ([facility]) Attender: Fabiolarhonda Gonzalez 12/01/2020 12:00:0 0 AM EDT [facility] ([facility]) Emergency Attender: MISSY RAMOS MDConsultant: RAQUEL Law MD 11/22/2020 07:30:00 PM EDT - 11/23/2020 12:22:00 AM EDT [facility] Patient discharged. ( PROC) enter Procedure [address] [place] [address] 11/07/2020 12:00:00 AM EDT eCW1 ([facility]) Unknown [address] [facility], [facility] [address] 11/03/2020 12:00:00 AM EDT eCW1 ([facility]) [place] [address] [facility] [address] 10/28/2020 12:00:00 AM EDT eCW1 ([facility]) [place] [address] [facility] [address] 10/28/2020 12:00:00 AM EDT eCW1 ([facility]) Extended Individual Psychotherapy - 45 min Att[facility]: [facility] 10/13/2020 09:00:00 AM EDT - 10/13/2020 09:00:00 AM EDT [facility] ([facility]) Attender: Fabiola Gonzalez 10/13/2020 12:00:0 0 AM EDT [facility] ([facility]) [place] [address] [facility] [address] 09/08/2020 12:00:00 AM EDT eCW1 ([facility]) Outpatient Attender: WERNER GORDILLO MDConsultant: RAQUEL MONTE MD 09/06/2020 08:35:00 AM EDT - 09/06/2020 08:35:00 AM EDT [facility] Extended Individual Psychotherapy - 45 min [facility]: [facility] 08/25/2020 09:00:00 AM EDT - 08/25/2020 09:00:00 AM EDT [facility] ([facility]) Attender: Fabiola Gonzalez 08/25/2020 12:00:0 0 AM EDT [facility] ([facility]) [place] [address] [facility] [address] 08/15/2020 12:00:00 AM EDT eCW1 ([facility]) Emergency Attender: JC ALEJANDREConsultant: RAQUEL Law MD 08/01/2020 08:20:00 PM EDT - 08/02/2020 12:42:00 AM EDT [facility] Patient discharged. Unknown [address] [facility] [place] [address] 08/01/2020 12:00:00 AM EDT eCW1 ([facility]) Extended Individual Psychotherapy - 45 min Attender: Melissa Gonzalez [facility] 07/29/2020 09:00:00 AM EDT - 07/29/2020 09:00:00 AM EDT [facility] ([facility]) Attender: Fabiola Lisa 07/29/2020 12:00:0 0 AM EDT [facility] ([facility]) Outpatient Attender: LISA SOTO NP [facility] ani 07/27/2020 09:00:00 AM EDT - 07/27/2020 09:00:00 AM EDT [facility] ([facility]) Attender: LISA SOTO NP 07/27/2020 12:00:00 AM EDT [facility] ([facility]) Outpatient Attender: Arelis PLATT 021 08:02:18 AM EDT - 07/25/2020 08:46:36 AM EDT [facility] ([facility] ) Extended Individual Psychotherapy - 45 min Attender: Melissa Gonzalez [facility] 07/07/2020 09:30:00 AM EDT - 07/07/2020 09:30:00 AM EDT [facility] ([facility]) Attender: Fabiolarhonda Gonzalez 07/07/2020 12:00:0 0 AM EDT [facility] ([facility]) Outpatient [address] [facility] [place] [address] 07/04/2020 12:00:00 AM EDT eCW1 ([facility]) Outpatient Attender: RAQUEL MONTE MD Family Practice 06/29/2020 0 7:20:00 AM EDT [facility] ([facility]) Outpatient Attender: RAQUEL MONTE MDConsultant: RAQUEL Law MD 06/29/2020 07:16:00 AM EDT - 06/29/2020 07:16:00 AM EDT [facility] [email or web address]"Psychotherapy Attender: Fabiolarhonda Gonzalez [facility] 06/08/2020 09:00:00 AM EST - 06/08/2020 09:00:00 AM EST [facility] ([facility]) Attender: Fabiolarhonda Gonzalez 06/08/2020 12:00:0 0 AM EST [facility] ([facility]) Outpatient Attender: LISA SOTO NP [facility] Marlon l 05/26/2020 03:30:00 AM EST - 05/26/2020 03:30:00 AM EST [facility] ([facility]) Attender: LISA SOTO NP 05/26/2020 12:00:00 AM EST [facility] ([facility]) Extended Individual Psychotherapy - 45 min Attender: Melissa Gonzalez [facility] 05/20/2020 09:00:00 AM EST - 05/20/2020 09:00:00 AM EST [facility] ([facility]) Attender: Fabiola Gonzalez 05/20/2020 12:00:0 0 AM EST [facility] Attender: Mayra PLATT [facility] 05/12/2020 09:30:00 AM EST [facility] ([facility] ) Extended Individual Psychotherapy - 45 min Attender: Melissa Gonzalez [facility] 05/06/2020 09:00:00 AM EST - 05/06/2020 09:00:00 AM EST [facility] ([facility]) Attender: Fabiola Gonzalez 05/06/2020 12:00:0 0 AM EST [facility] Outpatient Attender: LISA SOTO NP [facility] 05/05/2020 12:30:00 PM EST - 05/05/2020 12:30:00 PM EST [facility] ([facility]) Outpatient [facility] [facility] [place] [address] 05/05/2020 12:00:00 AM EST eCW1 ([facility]) Attender: LISA SOTO NP 05/05/2020 12:00:00 AM EST [facility] ([facility]) Extended Individual Psychotherapy - 45 min [facility]: [facility] 04/20/2020 09:30:00 AM EST - 04/20/2020 09:30:00 AM EST [facility] ([facility]) Attender: Fabiola Gonzalez 04/20/2020 12:00:0 0 AM EST [facility] ([facility]) Extended Individual Psychotherapy - 45 min [facility] 03/30/2020 09:15:00 AM EST - 03/30/2020 09:15:00 AM EST [facility] ([facility]) Attender: Fabiola Gonzalez 03/30/2020 12:00:0 0 AM EST [facility] ([facility]) Extended Individual Psychotherapy - 45 min Att[facility]: [facility] 02/25/2020 09:45:00 AM EST - 02/25/2020 09:45:00 AM EST [facility] ([facility]) Attender: Fabiola Gonzalez 02/25/2020 12:00:0 0 AM EST [facility] ([facility]) Outpatient [address] [facility] [place] [address] 02/24/2020 12:00:00 AM EST eCW1 ([facility]) Outpatient [address] [facility] [place] [address] 02/22/2020 12:00:00 AM EST eCW1 ([facility]) Extended Individual Psychotherapy - 45 min [facility]: [facility] 02/10/2020 09:00:00 AM EDT - 02/10/2020 09:00:00 AM EDT [facility] ([facility]) Attender: Fabiola Gonzalez 02/10/2020 12:00:0 0 AM EDT [facility] ([facility]) Outpatient Attender: Mayra PLATT Main office - [facility] 02/01/2020 11:30:00 AM EDT [facility] ([facility] ) Extended Individual Psychotherapy - 45 min Att[facility]: [facility] 01/27/2020 09:15:00 AM EDT - 01/27/2020 09:15:00 AM EDT [facility] ([facility]) Attender: Fabiola Gonzalez 01/27/2020 12:00:0 0 AM EDT [facility] ([facility]) Outpatient [address] [facility] [place] [address] 01/25/2020 12:00:00 AM EDT eCW1 ([facility]) Outpatient Attender: CORBIN VARGAS MD Main Office 01/14/2020 10:45:00 AM EDT [facility] ([facility]) Functional Status Medications Medication Brand Name Start [...] {tablet_as_needed} active Percocet 5-32 5 MG eCW1 ([facility]) Tamsulosin hydrochloride 0.4 MG Oral Capsule [Flomax] Flomax 0.4 MG Flomax 0.4 MG 02/23/2021 12:00:00 AM EST 1.0 {capsule} active Flomax 0.4 MG eCW1 ([facility]) Acetaminophen 325 MG / Oxycodone Hydroch loride 5 MG Oral Tablet [Percocet] Percocet 5-325 MG Percocet 5-325 MG 02/23/2021 12:00:00 AM EST 1 .0 {tablet_as_needed} active eCW1 ([facility]) Tamsulosin hydrochloride 0.4 MG Oral Capsule [Flomax] Flomax 0.4 MG Flomax 0.4 MG 02/23/2021 12:00:00 AM EST 1.0 {capsule} active eCW1 ([facility]) 0.4 mg 02/17/2021 12:00:00 AM EDT capsule 30 TAKE ONE CAPSULE BY MOUTH EVERY DAY TAKE ONE CAPSULE BY MOUTH EVERY DAY SOLD: 02/17/2021 [facility] Acetaminophen 325 MG / Hydrocodone Bitartrate 5 MG Ora l Tablet 5-325 mg HYDROCODONE/ACETAMINOPHEN 02/17/2021 12:00:00 AM EDT tablet 12 TAKE 1 TABLET BY MOUTH EVERY 6 HOURS NEEDED FOR PAIN MAXIMUM DAILY DOSE = 4 TABLETS TAKE 1 TABLET BY MOUTH EVERY 6 HOURS NEEDED FOR PAIN MAXIMUM DAILY DOSE = 4 TABLETS SOLD: 02/17/2021 [facility] atorvastatin 20 MG Oral Tablet ATORVASTATIN CALCIUM 02/01/2021 1 2:00:00 AM EDT tablet 90 TAKE ONE TABLET BY MOUTH EVERY D AY TAKE ONE TABLET BY MOUTH EVERY DAY SOLD: 02/09/2021 [facility] 75 mg 01/09/2021 12:00:00 AM EDT capsule 60 TAKE ONE CAPSULE BY MOUTH TWICE A DAY MAXIMUM DAILY DOSE = 2 CAPSULES TAKE ONE CAPSULE BY MOUTH TWICE A DAY MAXIMUM DAILY DOSE = 2 CAPSULES SOLD: 01/11/2021 [facility] pregabalin 75 MG Oral Capsule [Lyrica] Lyrica 75 MG Lyrica 7 5 MG 12/29/2020 12:00:00 AM EDT 1.0 {capsule} active L yrica 75 MG eCW1 ([facility]) pregabalin 75 MG Oral Capsule [Lyrica] Lyrica 75 MG Lyrica 7 5 MG 12/29/2020 12:00:00 AM EDT 1.0 {capsule} active L yrica 75 MG eCW1 ([facility]) pregabalin 75 MG Oral Capsule [Lyrica] Lyrica 75 MG Lyrica 7 5 MG 12/29/2020 12:00:00 AM EDT 1.0 {capsule} active eCW1 ([facility]) pregabalin 75 MG Oral Capsule [Lyrica] Lyrica 75 MG Lyrica 7 5 MG 12/29/2020 12:00:00 AM EDT 1.0 {capsule} active eCW1 ([facility]) pregabalin 75 MG Oral Capsule [Lyrica] Lyrica 75 MG Lyrica 7 5 MG 12/29/2020 12:00:00 AM EDT 1.0 {capsule} active L yrica 75 MG eCW1 ([facility]) 4 mg 11/25/2020 12:00:00 AM EDT [...] 100 mg by mouth completed <td ID="Medica tionRxNorm_2">383434</td><td ID="MedicationMedication_2">sertraline</td><td ID="MedicationRoute_2">by mouth</td><td ID="MedicationRouteConcept_2">Y47676</td><td ID="MedicationStartDate_2">10/26/2020</td><td ID="MedicationStopDate_2">12/25/2020</td><td ID="MedicationDosageFrequency_2">once a day</td><td ID="MedicationDuration_2">30</td><td ID="MedicationFormulaStrength_2">100 mg</td><td ID="MedicationDosageForm_2">tablet</td><td ID="MedicationDosageFormCode_2"></td><td ID="MedicationDosageDescription_2"></td><td ID="MedicationMedicationId_2">[id number]</td><td ID="MedicationAccount_2">[id number]</td><td ID="MedicationNpid_2">[id number]</td><td ID="MedicationAuthorFirstName_2">Lisa</td><td ID="MedicationAuthorLastName_2">MacQueen</td><td ID="MedicationTaxonomyCode_2">[id number]</td><td ID="MedicationTaxonomyDesc_2">Psychiatric/Mental Health</td><td ID="MedicationPhoneNumber_2">[phone]</td> [facility] ([facility]) 75 mg 09/14/2020 12:00:00 AM [...] 50 mg by mouth completed <td ID="Medic ationRxNorm_1">[id number]</td><td ID="MedicationMedication_1">trazodone</td><td ID="MedicationRoute_1">by mouth</td><td ID="MedicationRouteConcept_1">C53800</td><td ID="MedicationStartDate_1">08/15/2020</td><td ID="MedicationStopDate_1">12/25/2020</td><td ID="MedicationDosageFrequency_1">at bedtime</td><td ID="MedicationDuration_1">30</td><td ID="MedicationFormulaStrength_1">50 mg</td><td ID="MedicationDosageForm_1">tablet</td><td ID="MedicationDosageFormCode_1"></td><td ID="MedicationDosageDescription_1"></td><td ID="MedicationMedicationId_1">[id number]</td><td ID="MedicationAccount_1">[id number]</td><td ID="MedicationNpid_1">[id number]</td><td ID="MedicationAuthorFirstName_1">Lisa</td><td ID="MedicationAuthorLastName_1">MacQueen</td><td ID="MedicationTaxonomyCode_1">[id number]</td><td ID="MedicationTaxonomyDesc_1">Psychiatric/Mental Health</td><td ID="MedicationPhoneNumber_1">[phone]</td> [facility] ([facility]) tizanidine 4 MG Oral Tablet [...] {capsule} active L yrica 75 MG eCW1 ([facility]) pregabalin 75 MG Oral Capsule [Lyrica] Lyrica 75 MG Lyrica 7 5 MG 07/04/2020 12:00:00 AM EDT 1.0 {capsule} active L yrica 75 MG eCW1 ([facility]) pregabalin 75 MG Oral Capsule [Lyrica] Lyrica 75 MG Lyrica 7 5 MG 07/04/2020 12:00:00 AM EDT 1.0 {capsule} active eCW1 ([facility]) pregabalin 75 MG Oral Capsule [Lyrica] Lyrica 75 MG Lyrica 7 5 MG 07/04/2020 12:00:00 AM EDT 1.0 {capsule} active L yrica 75 MG eCW1 ([facility]) pregabalin 75 MG Oral Capsule [Lyrica] Lyrica 75 MG Lyrica 7 5 MG 07/04/2020 12:00:00 AM EDT 1.0 {capsule} active L yrica 75 MG eCW1 ([facility]) pregabalin 75 MG Oral Capsule [Lyrica] Lyrica 75 MG Lyrica 7 5 MG 07/04/2020 12:00:00 AM EDT 1.0 {capsule} active L yrica 75 MG eCW1 ([facility]) pregabalin 75 MG Oral Capsule [Lyrica] Lyrica 75 MG Lyrica 7 5 MG 07/04/2020 12:00:00 AM EDT 1.0 {capsule} active L yrica 75 MG eCW1 ([facility]) pregabalin 75 MG Oral Capsule [Lyrica] Lyrica 75 MG Lyrica 7 5 MG 07/04/2020 12:00:00 AM EDT 1.0 {capsule} active L yrica 75 MG eCW1 ([facility]) pregabalin 75 MG Oral Capsule [Lyrica] Lyrica 75 MG Lyrica 7 5 MG 07/04/2020 12:00:00 AM EDT 1.0 {capsule} active L yrica 75 MG eCW1 ([facility]) atorvastatin 20 MG Oral Tablet ATORVASTATIN [...] 05/12/2020 12:00:00 AM EST ac tive MEDENT ([facility] ) topiramate 100 MG Oral Tablet [Topamax] Topamax 05/12/2020 12:00:0 0 AM EST ORAL active [facility] ([facility]) 50 mg 05/06/2020 [...] 1.0 {tablet_as_needed} active Tizanidine HCl 4 MG [facility] ([facility]) tizanidine 4 MG Oral Tablet tiZANidine HCl 4 MG tiZANidine H Cl 4 MG 05/05/2020 12:00:00 AM EST 1.0 {tablet_as_needed} active tiZANidine HCl 4 MG eCW1 ([facility]) tizanidine 4 MG Oral Tablet Tizanidine HCl 4 MG Tizanidine H Cl 4 MG 05/05/2020 12:00:00 AM EST 1.0 {tablet_as_needed} active eCW1 ([facility]) tizanidine 4 MG Oral Tablet Tizanidine HCl 4 MG Tizanidine H Cl 4 MG 05/05/2020 12:00:00 AM EST 1.0 {tablet_as_needed} active Tizanidine HCl 4 MG W1 ([facility]) tizanidine 4 MG Oral Tablet tiZANidine HCl 4 MG tiZANidine H Cl 4 MG 05/05/2020 12:00:00 AM EST 1.0 {tablet_as_needed} active tiZANidine HCl 4 MG W1 ([facility]) tizanidine 4 MG Oral Tablet Tizanidine HCl 4 MG Tizanidine H Cl 4 MG 05/05/2020 12:00:00 AM EST 1.0 {tablet_as_needed} active Tizanidine HCl 4 MG [facility] ([facility]) tizanidine 4 MG Oral Tablet Tizanidine HCl 4 MG Tizanidine H Cl 4 MG 05/05/2020 12:00:00 AM EST 1.0 {tablet_as_needed} active Tizanidine HCl 4 MG eCW1 ([facility]) 500 mg 02/25/2020 12:00:00 AM EST tablet 4 TAKE FOUR TABLETS BY MOUTH EVERY DAY WITH FOOD TAKE FOUR TABLETS BY MOUTH EVERY DAY WITH FOOD SOLD: 02/29/2020 [facility] Tinidazole 500 MG Oral Tablet Tinidazole 500 MG 02/24/2020 12:00:00 AM EST 4.0 {tablets_with_food} active Tinidazole 500 MG eCW1 ([facility]) Tinidazole 500 MG Oral Tablet Tinidazole 500 MG 02/24/2020 12:00:00 AM EST 4.0 {tablets_with_food} suspended e CW1 ([facility]) Tinidazole 500 MG Oral Tablet Tinidazole 500 MG 02/24/2020 12:00:00 AM EST 4.0 {tablets_with_food} active Tinidazole 500 MG eCW1 ([facility]) Tinidazole 500 MG Oral Tablet Tinidazole 500 MG 02/24/2020 12:00:00 AM EST 4.0 {tablets_with_food} suspended Tinidazol e 500 MG eCW1 ([facility]) Tinidazole 500 MG Oral Tablet Tinidazole 500 MG 02/24/2020 12:00:00 AM EST 4.0 {tablets_with_food} suspended e CW1 ([facility]) Tinidazole 500 MG Oral Tablet Tinidazole 500 MG 02/24/2020 12:00:00 AM EST 4.0 {tablets_with_food} suspended e CW1 ([facility]) Tinidazole 500 MG Oral Tablet Tinidazole 500 MG 02/24/2020 12:00:00 AM EST 4.0 {tablets_with_food} suspended Tinidazol e 500 MG eCW1 ([facility]) Tinidazole 500 MG Oral Tablet Tinidazole 500 MG 02/24/2020 12:00:00 AM EST 4.0 {tablets_with_food} active Tinidazole 500 MG eCW1 ([facility]) Tinidazole 500 MG Oral Tablet Tinidazole 500 MG 02/24/2020 12:00:00 AM EST 4.0 {tablets_with_food} suspended Tinidazol e 500 MG eCW1 ([facility]) Tinidazole 500 MG Oral Tablet Tinidazole 500 MG 02/24/2020 12:00:00 AM EST 4.0 {tablets_with_food} suspended Tinidazol e 500 MG eCW1 ([facility]) Tinidazole 500 MG Oral Tablet Tinidazole 500 MG 02/24/2020 12:00:00 AM EST 4.0 {tablets_with_food} suspended Tinidazol e 500 MG eCW1 ([facility]) Tinidazole 500 MG Oral Tablet Tinidazole 500 MG 02/24/2020 12:00:00 AM EST 4.0 {tablets_with_food} suspended Tinidazol e 500 MG eCW1 ([facility]) Tinidazole 500 MG Oral Tablet Tinidazole 500 MG 02/24/2020 12:00:00 AM EST 4.0 {tablets_with_food} active Tinidazole 500 MG eCW1 ([facility]) Tinidazole 500 MG Oral Tablet Tinidazole 500 MG 02/24/2020 12:00:00 AM EST 4.0 {tablets_with_food} suspended Tinidazol e 500 MG eCW1 ([facility]) Tinidazole 500 MG Oral Tablet Tinidazole 500 MG 02/24/2020 12:00:00 AM EST 4.0 {tablets_with_food} suspended Tinidazol e 500 MG eCW1 ([facility]) Tinidazole 500 MG Oral Tablet Tinidazole 500 MG 02/24/2020 12:00:00 AM EST 4.0 {tablets_with_food} suspended Tinidazol e 500 MG eCW1 ([facility]) 50 mg 02/02/2020 12:00:00 AM EDT [...] 02/01/2020 12:00:00 AM EDT ORAL completed [facility] ([facility]) gabapentin 400 MG Oral Capsule Gabapentin 02/01/2020 12:00:00 AM EDT ORAL active [facility] ([facility]) 20 mg 01/25/2020 12:00:00 AM EDT tablet 30 TAKE 1 TABLET BY MOUTH AT NIGHT WITH FOOD OR MILK TAKE 1 TABLET BY MOUTH AT NIGHT WITH FOOD OR MILK SOLD : 01/31/2020 [facility] atorvastatin 20 MG Oral Tablet Atorvastatin Calcium 01/13/2020 1 2:00:00 AM EDT ORAL active [facility] ( [facility] Ergocalciferol 83557 UNT Oral Capsule Vitamin D (Ergocalcife rol) 01/13/2020 12:00:00 AM EDT ORAL active M EDENT ([facility]) Multi Vitamin 01/13/2020 12:00:00 AM EDT acti ve [facility] ([facility]) gabapentin 600 MG Oral Tablet Gabapentin 01/13/2020 12:00:00 AM EDT ORAL active [facility] ([facility]) Omeprazole 20 MG Delayed Release Oral Capsule Omeprazole 01/13/2020 12:00:00 AM EDT ORAL active [facility] ([facility]) Calcium Citrate + 01/13/2020 12:00:00 AM EDT ORAL active [facility] ([facility]) Vitamin B Complex 01/13/2020 12:00:00 AM EDT ORAL active [facility] ([facility]) Sertraline 100 MG Oral Tablet Sertraline HCL 01/13/2020 12:00:00 AM E DT ORAL active [facility] ([facility]) Baclofen 10 MG Oral Tablet Baclofen 01/13/2020 12:00:00 AM EDT ORAL active [facility] ([facility]) Trazodone Hydrochloride 50 MG Oral Tablet Trazodone HCL 01/13/2020 12:00:00 AM EDT ORAL active [facility] ([facility]) 100 mg 12/28/2019 12:00:00 AM EDT tablet [...] 50 mg by mouth completed <td ID="Medic ationRxNorm_8">[id number]</td><td ID="MedicationMedication_8">trazodone</td><td ID="MedicationRoute_8">by mouth</td><td ID="MedicationRouteConcept_8">G06009</td><td ID="MedicationStartDate_8">12/24/2019</td><td ID="MedicationStopDate_8">03/23/2020</td><td ID="MedicationDosageFrequency_8">at bedtime</td><td ID="MedicationDuration_8">30</td><td ID="MedicationFormulaStrength_8">50 mg</td><td ID="MedicationDosageForm_8">tablet</td><td ID="MedicationDosageFormCode_8"></td><td ID="MedicationDosageDescription_8">as needed</td><td ID="MedicationMedicationId_8">[id number]</td><td ID="MedicationAccount_8">[id number]</td><td ID="MedicationNpid_8">[id number]</td><td ID="MedicationAuthorFirstName_8">Lisa</td><td ID="MedicationAuthorLastName_8">MacQueen</td><td ID="MedicationTaxonomyCode_8">[id number]</td><td ID="MedicationTaxonomyDesc_8">Psychiatric/Mental Health</td><td ID="MedicationPhoneNumber_8">[phone]</td> [facility] ([facility]) Sertraline 100 MG Oral Tablet sertraline 12/24/2019 12:00:00 AM EDT 100 mg by mouth completed <td ID="Medica tionRxNorm_7">781103</td><td ID="MedicationMedication_7">sertraline</td><td ID="MedicationRoute_7">by mouth</td><td ID="MedicationRouteConcept_7">S26575</td><td ID="MedicationStartDate_7">12/24/2019</td><td ID="MedicationStopDate_7">03/23/2020</td><td ID="MedicationDosageFrequency_7">once a day</td><td ID="MedicationDuration_7">30</td><td ID="MedicationFormulaStrength_7">100 mg</td><td ID="MedicationDosageForm_7">tablet</td><td ID="MedicationDosageFormCode_7"></td><td ID="MedicationDosageDescription_7"></td><td ID="MedicationMedicationId_7">[id number]</td><td ID="MedicationAccount_7">[id number]</td><td ID="MedicationNpid_7">[id number]</td><td ID="MedicationAuthorFirstName_7">Lisa</td><td ID="MedicationAuthorLastName_7">MacCatrachitoen</td><td ID="MedicationTaxonomyCode_7">[id number]</td><td ID="MedicationTaxonomyDesc_7">Psychiatric/Mental Health</td><td ID="MedicationPhoneNumber_7">[phone]</td> [facility] ([facility]) Sertraline 100 MG Oral Tablet sertraline 12/24/2019 12:00:00 AM EDT 100 mg by mouth completed <td ID="Medica tionRxNorm_5">487705</td><td ID="MedicationMedication_5">sertraline</td><td ID="MedicationRoute_5">by mouth</td><td ID="MedicationRouteConcept_5">N12037</td><td ID="MedicationStartDate_5">12/24/2019</td><td ID="MedicationStopDate_5">03/23/2020</td><td ID="MedicationDosageFrequency_5">once a day</td><td ID="MedicationDuration_5">30</td><td ID="MedicationFormulaStrength_5">100 mg</td><td ID="MedicationDosageForm_5">tablet</td><td ID="MedicationDosageFormCode_5"></td><td ID="MedicationDosageDescription_5"></td><td ID="MedicationMedicationId_5">43990</td><td ID="MedicationAccount_5">[id number]</td><td ID="MedicationNpid_5">[id number]</td><td ID="MedicationAuthorFirstName_5">Lisa</td><td ID="MedicationAuthorLastName_5">MacQueen</td><td ID="MedicationTaxonomyCode_5">[id number]</td><td ID="MedicationTaxonomyDesc_5">Psychiatric/Mental Health</td><td ID="MedicationPhoneNumber_5">[phone]</td> [facility] ([facility]) Nicotine 2 MG Chewing Gum nicotine (polacrilex) 12/24/2019 12:00:00 AM EDT 2 mg completed <td ID="Me dicationRxNorm_5">904600</td><td ID="MedicationMedication_5">nicotine (polacrilex)</td><td ID="MedicationRoute_5">in mouth</td><td ID="MedicationRouteConcept_5"></td><td ID="MedicationStartDate_5">12/24/2019</td><td ID="MedicationStopDate_5">02/22/2020</td><td ID="MedicationDosageFrequency_5">every four hours</td><td ID="MedicationDuration_5">30</td><td ID="MedicationFormulaStrength_5">2 mg</td><td ID="MedicationDosageForm_5">gum</td><td ID="MedicationDosageFormCode_5"></td><td ID="MedicationDosageDescription_5">as needed</td><td ID="MedicationMedicationId_5">[id number]</td><td ID="MedicationAccount_5">[id number]</td><td ID="MedicationNpid_5">[id number]</td><td ID="MedicationAuthorFirstName_5">Lisa</td><td ID="MedicationAuthorLastName_5">MacQueen</td><td ID="MedicationTaxonomyCode_5">[id number]</td><td ID="MedicationTaxonomyDesc_5">Psychiatric/Mental Health</td><td ID="MedicationPhoneNumber_5">[phone]</td> [facility] ([facility]) 24 HR Nicotine 0.875 MG/HR Transdermal Patch nicotine 12/24/2019 12:00:00 AM EDT 21 mg/24 completed <td I D="MedicationRxNorm_6">373667</td><td ID="MedicationMedication_6">nicotine</td><td ID="MedicationRoute_6">to skin</td><td ID="MedicationRouteConcept_6"></td><td ID="MedicationStartDate_6">12/24/2019</td><td ID="MedicationStopDate_6">02/22/2020</td><td ID="MedicationDosageFrequency_6">every 24 hours</td><td ID="MedicationDuration_6">30</td><td ID="MedicationFormulaStrength_6">21 mg/24 hr</td><td ID="MedicationDosageForm_6">patch 24 hour</td><td ID="MedicationDosageFormCode_6"></td><td ID="MedicationDosageDescription_6"></td><td ID="MedicationMedicationId_6">[id number]</td><td ID="MedicationAccount_6">[id number]</td><td ID="MedicationNpid_6">[id number]</td><td ID="MedicationAuthorFirstName_6">Lisa</td><td ID="MedicationAuthorLastName_6">MacQueen</td><td ID="MedicationTaxonomyCode_6">[id number]</td><td ID="MedicationTaxonomyDesc_6"> Psychiatric/Mental Health</td><td ID="MedicationPhoneNumber_6">[phone]</td> [facility] ([facility]) 2 mg 12/24/2019 12:00:00 AM EDT gum 180 CHEW 1 PIECE OF GUM IN MOUTH EVERY 4 HOURS NEEDED CHEW 1 PIECE OF GUM IN MOUTH EVERY 4 HOURS NEEDED S OLD: 02/03/2020 [facility] Sertraline 100 MG Oral Tablet sertraline 12/24/2019 12:00:00 AM EDT 100 mg by mouth completed <td ID="Medica tionRxNorm_1">726709</td><td ID="MedicationMedication_1">sertraline</td><td ID="MedicationRoute_1">by mouth</td><td ID="MedicationRouteConcept_1">Z34758</td><td ID="MedicationStartDate_1">12/24/2019</td><td ID="MedicationStopDate_1">03/23/2020</td><td ID="MedicationDosageFrequency_1">once a day</td><td ID="MedicationDuration_1">30</td><td ID="MedicationFormulaStrength_1">100 mg</td><td ID="MedicationDosageForm_1">tablet</td><td ID="MedicationDosageFormCode_1"></td><td ID="MedicationDosageDescription_1"></td><td ID="MedicationMedicationId_1">55654</td><td ID="MedicationAccount_1">[id number]</td><td ID="MedicationNpid_1">[id number]</td><td ID="MedicationAuthorFirstName_1">Lisa</td><td ID="MedicationAuthorLastName_1">MacQueen</td><td ID="MedicationTaxonomyCode_1">[id number]</td><td ID="MedicationTaxonomyDesc_1">Psychiatric/Mental Health</td><td ID="MedicationPhoneNumber_1">[phone]</td> [facility] ([facility]) 24 HR Nicotine 0.875 MG/HR Transdermal Patch nicotine 12/24/2019 12:00:00 AM EDT 21 mg/24 completed <td I D="MedicationRxNorm_2">024380</td><td ID="MedicationMedication_2">nicotine</td><td ID="MedicationRoute_2">to skin</td><td ID="MedicationRouteConcept_2"></td><td ID="MedicationStartDate_2">12/24/2019</td><td ID="MedicationStopDate_2">02/22/2020</td><td ID="MedicationDosageFrequency_2">every 24 hours</td><td ID="MedicationDuration_2">30</td><td ID="MedicationFormulaStrength_2">21 mg/24 hr</td><td ID="MedicationDosageForm_2">patch 24 hour</td><td ID="MedicationDosageFormCode_2"></td><td ID="MedicationDosageDescription_2"></td><td ID="MedicationMedicationId_2">79998</td><td ID="MedicationAccount_2">[id number]</td><td ID="MedicationNpid_2">[id number]</td><td ID="MedicationAuthorFirstName_2">Lisa</td><td ID="MedicationAuthorLastName_2">MacQueen</td><td ID="MedicationTaxonomyCode_2">[id number]</td><td ID="MedicationTaxonomyDesc_2"> Psychiatric/Mental Health</td><td ID="MedicationPhoneNumber_2">[phone]</td> [facility] ([facility]) Trazodone Hydrochloride 50 MG Oral Tablet trazodone 2019 12:00:00 AM EDT 50 mg by mouth completed <td ID="Medic ationRxNorm_6">527847</td><td ID="MedicationMedication_6">trazodone</td><td ID="MedicationRoute_6">by mouth</td><td ID="MedicationRouteConcept_6">A21805</td><td ID="MedicationStartDate_6">12/24/2019</td><td ID="MedicationStopDate_6">03/23/2020</td><td ID="MedicationDosageFrequency_6">at bedtime</td><td ID="MedicationDuration_6">30</td><td ID="MedicationFormulaStrength_6">50 mg</td><td ID="MedicationDosageForm_6">tablet</td><td ID="MedicationDosageFormCode_6"></td><td ID="MedicationDosageDescription_6">as needed</td><td ID="MedicationMedicationId_6">06107</td><td ID="MedicationAccount_6">[id number]</td><td ID="MedicationNpid_6">[id number]</td><td ID="MedicationAuthorFirstName_6">Lisa</td><td ID="MedicationAuthorLastName_6">MacQueen</td><td ID="MedicationTaxonomyCode_6">[id number]</td><td ID="MedicationTaxonomyDesc_6">Psychiatric/Mental Health</td><td ID="MedicationPhoneNumber_6">[phone]</td> [facility] ([facility]) Sertraline 100 MG Oral Tablet sertraline 12/24/2019 12:00:00 AM EDT 100 mg by mouth completed <td ID="Medica tionRxNorm_3">165079</td><td ID="MedicationMedication_3">sertraline</td><td ID="MedicationRoute_3">by mouth</td><td ID="MedicationRouteConcept_3">W30577</td><td ID="MedicationStartDate_3">12/24/2019</td><td ID="MedicationStopDate_3">03/23/2020</td><td ID="MedicationDosageFrequency_3">once a day</td><td ID="MedicationDuration_3">30</td><td ID="MedicationFormulaStrength_3">100 mg</td><td ID="MedicationDosageForm_3">tablet</td><td ID="MedicationDosageFormCode_3"></td><td ID="MedicationDosageDescription_3"></td><td ID="MedicationMedicationId_3">23999</td><td ID="MedicationAccount_3">[id number]</td><td ID="MedicationNpid_3">[id number]</td><td ID="MedicationAuthorFirstName_3">Lisa</td><td ID="MedicationAuthorLastName_3">MacQueen</td><td ID="MedicationTaxonomyCode_3">[id number]</td><td ID="MedicationTaxonomyDesc_3">Psychiatric/Mental Health</td><td ID="MedicationPhoneNumber_3">[phone]</td> [facility] ([facility]) Trazodone Hydrochloride 50 MG Oral Tablet trazodone 2019 12:00:00 AM EDT 50 mg by mouth completed <td ID="Medic ationRxNorm_2">867784</td><td ID="MedicationMedication_2">trazodone</td><td ID="MedicationRoute_2">by mouth</td><td ID="MedicationRouteConcept_2">Q15778</td><td ID="MedicationStartDate_2">12/24/2019</td><td ID="MedicationStopDate_2">03/23/2020</td><td ID="MedicationDosageFrequency_2">at bedtime</td><td ID="MedicationDuration_2">30</td><td ID="MedicationFormulaStrength_2">50 mg</td><td ID="MedicationDosageForm_2">tablet</td><td ID="MedicationDosageFormCode_2"></td><td ID="MedicationDosageDescription_2">as needed</td><td ID="MedicationMedicationId_2">71346</td><td ID="MedicationAccount_2">[id number]</td><td ID="MedicationNpid_2">[id number]</td><td ID="MedicationAuthorFirstName_2">Lisa</td><td ID="MedicationAuthorLastName_2">MacQueen</td><td ID="MedicationTaxonomyCode_2">[id number]</td><td ID="MedicationTaxonomyDesc_2">Psychiatric/Mental Health</td><td ID="MedicationPhoneNumber_2">[phone]</td> [facility] ([facility]) Nicotine 2 MG Chewing Gum nicotine (polacrilex) 12/24/2019 12:00:00 AM EDT 2 mg completed <td ID="Me dicationRxNorm_1">057332</td><td ID="MedicationMedication_1">nicotine (polacrilex)</td><td ID="MedicationRoute_1">in mouth</td><td ID="MedicationRouteConcept_1"></td><td ID="MedicationStartDate_1">12/24/2019</td><td ID="MedicationStopDate_1">02/22/2020</td><td ID="MedicationDosageFrequency_1">every four hours</td><td ID="MedicationDuration_1">30</td><td ID="MedicationFormulaStrength_1">2 mg</td><td ID="MedicationDosageForm_1">gum</td><td ID="MedicationDosageFormCode_1"></td><td ID="MedicationDosageDescription_1">as needed</td><td ID="MedicationMedicationId_1">72979</td><td ID="MedicationAccount_1">[id number]</td><td ID="MedicationNpid_1">[id number]</td><td ID="MedicationAuthorFirstName_1">Lisa</td><td ID="MedicationAuthorLastName_1">MacQueen</td><td ID="MedicationTaxonomyCode_1">[id number]</td><td ID="MedicationTaxonomyDesc_1">Psychiatric/Mental Health</td><td ID="MedicationPhoneNumber_1">[phone]</td> [facility] ([facility]) Trazodone Hydrochloride 50 MG Oral Tablet trazodone 2019 12:00:00 AM EDT 50 mg by mouth completed <td ID="Medic ationRxNorm_4">333050</td><td ID="MedicationMedication_4">trazodone</td><td ID="MedicationRoute_4">by mouth</td><td ID="MedicationRouteConcept_4">Q67047</td><td ID="MedicationStartDate_4">12/24/2019</td><td ID="MedicationStopDate_4">03/23/2020</td><td ID="MedicationDosageFrequency_4">at bedtime</td><td ID="MedicationDuration_4">30</td><td ID="MedicationFormulaStrength_4">50 mg</td><td ID="MedicationDosageForm_4">tablet</td><td ID="MedicationDosageFormCode_4"></td><td ID="MedicationDosageDescription_4">as needed</td><td ID="MedicationMedicationId_4">43136</td><td ID="MedicationAccount_4">[id number]</td><td ID="MedicationNpid_4">[id number]</td><td ID="MedicationAuthorFirstName_4">Lisa</td><td ID="MedicationAuthorLastName_4">MacQueen</td><td ID="MedicationTaxonomyCode_4">[id number]</td><td ID="MedicationTaxonomyDesc_4">Psychiatric/Mental Health</td><td ID="MedicationPhoneNumber_4">[phone]</td> [facility] ([facility]) 24 HR Nicotine 0.875 MG/HR Transdermal Patch nicotine 12/24/2019 12:00:00 AM EDT 21 mg/24 completed <td I D="MedicationRxNorm_4">683218</td><td ID="MedicationMedication_4">nicotine</td><td ID="MedicationRoute_4">to skin</td><td ID="MedicationRouteConcept_4"></td><td ID="MedicationStartDate_4">12/24/2019</td><td ID="MedicationStopDate_4">02/22/2020</td><td ID="MedicationDosageFrequency_4">every 24 hours</td><td ID="MedicationDuration_4">30</td><td ID="MedicationFormulaStrength_4">21 mg/24 hr</td><td ID="MedicationDosageForm_4">patch 24 hour</td><td ID="MedicationDosageFormCode_4"></td><td ID="MedicationDosageDescription_4"></td><td ID="MedicationMedicationId_4">39727</td><td ID="MedicationAccount_4">[id number]</td><td ID="MedicationNpid_4">[id number]</td><td ID="MedicationAuthorFirstName_4">Lisa</td><td ID="MedicationAuthorLastName_4">MacQueen</td><td ID="MedicationTaxonomyCode_4">[id number]</td><td ID="MedicationTaxonomyDesc_4"> Psychiatric/Mental Health</td><td ID="MedicationPhoneNumber_4">[phone]</td> [facility] ([facility]) Nicotine 2 MG Chewing Gum nicotine (polacrilex) 12/24/2019 12:00:00 AM EDT 2 mg completed <td ID="Me dicationRxNorm_3">277586</td><td ID="MedicationMedication_3">nicotine (polacrilex)</td><td ID="MedicationRoute_3">in mouth</td><td ID="MedicationRouteConcept_3"></td><td ID="MedicationStartDate_3">12/24/2019</td><td ID="MedicationStopDate_3">02/22/2020</td><td ID="MedicationDosageFrequency_3">every four hours</td><td ID="MedicationDuration_3">30</td><td ID="MedicationFormulaStrength_3">2 mg</td><td ID="MedicationDosageForm_3">gum</td><td ID="MedicationDosageFormCode_3"></td><td ID="MedicationDosageDescription_3">as needed</td><td ID="MedicationMedicationId_3">71200</td><td ID="MedicationAccount_3">[id number]</td><td ID="MedicationNpid_3">[id number]</td><td ID="MedicationAuthorFirstName_3">Lisa</td><td ID="MedicationAuthorLastName_3">MacQueen</td><td ID="MedicationTaxonomyCode_3">[id number]</td><td ID="MedicationTaxonomyDesc_3">Psychiatric/Mental Health</td><td ID="MedicationPhoneNumber_3">[phone]</td> [facility] ([facility]) 600 mg 2019 12:00:00 AM EDT tablet [...] relationship to ray Policy Ray Plan Information FORMERLY [facility] COMMUNITY PLAN [facility] [id number] SP [id number] [facility] PLAN [facility] [id number] SP [id number] [employer] [id number] Self [id number] [facility] Commercial Insurance Co. [id number] Self [id number] [facility] Commercial Insurance Co. [id number] Self [id number] SELF PAY ONLY Community Plan - [facility] Commercial [id number] Self [id number] [facility] Communty Plan Medicaid [id number] Self [id number] [facility] Health Maintenance Organization (HMO) [id number] Self [id number] [facility] Health Maintenance Organization (HMO) [id number] Self [id number] [facility] Health Maintenance Organization (HMO) [id number] Self [id number] [facility] Health Maintenance Organization (HMO) [id number] Self [id number] [facility] Health Maintenance Organization (O) [id number] Self [id number] [facility] [id number] ANS-Medicaid [id number] ANSI-Medicaid [id number] [facility] Communty Plan Medicaid [id number] Self [id number] AMERIC[employer]ICE [facility] XIX PHY -O [id number] 18 [id number] [facility] Communty Plan Medicaid [id number] Self [id number] [facility] COMMUNITY PLAN XIX [id number] 18 [id number] EMPIRE BLUE CROSS BLUE SHIELD -O/P [id number] 18 [id number] [facility] EMPIRE PLAN [id number] 18 [id number] [facility] COMMUNITY PLAN [id number] 18 [id number] [facility] COMMUNITY PLAN MCDHMO [id number] SP [id number] [facility] [place] Plan Health Maintenance Organization (HMO) [id number] Self [id number] [facility] Health Maintenance Organization (HMO) 1 [id number] Self [id number] [facility] [id number] 18 [id number] [facility] Health Maintenance Organization (HMO) [id number] Self [id number] [facility] Health Maintenance Organization (O) [id number] Self [id number] [facility] Community Plan Medicaid [id number] Self [id number] [facility] AMERICHOICE XIX O [id number] 18 [id number] [facility] O [id number] S [id number] [facility] COMMUNITY PLAN MCDO [id number] SP [id number] BLUE CROSS [place] PLAN [id number] SP [id number] [facility] [id number] 18 [id number] [facility] [id number] 18 [id number] [facility] [id number] 18 [id number] [facility] [id number] SP [id number] SELF PAY UNAVAILABLE SP UNAVAILA BLE [facility] COMMUNITY PLAN MCDHMO [id number] SP [id number] [facility] COMMUNITY PLAN XIX [id number] 18 [id number] [facility] AMERICHOICE XIX -HMO [id number] 18 [id number] [facility] COMMUNTY PLAN [id number] 18 [id number] [facility]) O [id number] S [id number] Problems, Conditions, and Diagnoses Code Display Name Description Problem Type Effective Dates Data Source(s) Y929 [address] or not applicable Unspecified place or not applicable Diagnosis 12/03/2020 06:51:00 AM EDT [facility] [id number] Exposure to other specified factors, ini tial encounter Exposure to other specified factors, initial encounter Diagnosis 12/03/2020 06:51:00 AM EDT [facility] T41907 Nicotine dependence, cigarettes, uncompl icated Nicotine dependence, cigarettes, uncomplicated Diagnosis 12/03/2020 06:51:00 AM EDT [facility] [id number] Radial collateral ligament sprain of rig ht elbow, initial encounter Radial collateral ligament sprain of right elbow, initial encounter Diagnosis 12/03/2020 06:51:00 AM EDT [facility] S94054 Pain in right elbow Pain in right elbow Diagnosis 0 12/03/2020 06:51:00 AM EDT [facility] Z6842 Body mass index [BMI] 45.0-49.9, adult B roberta mass index [BMI] 45.0-49.9, adult Diagnosis 11/22/2020 07:30:00 PM EDT [facility] N132 Hydronephrosis with renal and ureteral c alculous obstruction Hydronephrosis with renal and ureteral calculous obstruction Diagnosis 021 07:30:00 PM EDT [facility] E6601 Morbid (severe) obesity due to excess ca lories Morbid (severe) obesity due to excess calories Diagnosis 11/22/2020 07:30:00 PM EDT [facility] M546 Pain in thoracic spine Pain in thoracic spine Diagnosi s 11/22/2020 07:30:00 PM EDT [facility] G8929 Other chronic pain Other chronic pain Diagnosis 01/2021 07:30:00 PM EDT [facility] M5441 Lumbago with sciatica, right side Lumbago with s ciatica, right side Diagnosis 11/22/2020 07:30:00 PM EDT [facility] [id number] Strain of muscle, fascia and tendon of l ower back, initial encounter Strain of muscle, fascia and tendon of lower back, initial encounter Diagnosis 11/22/2020 07:30:00 PM EDT [facility] M542 Cervicalgia Cervicalgia Diagnosis 11/22/2020 07:30:00 PM EDT [facility] Z9884 Bariatric surgery status Bariatric surgery status Diag nosis 08/01/2020 08:20:00 PM EDT [facility] Z6841 Body mass index [BMI]40.0-44.9, adult Alexi dy mass index [BMI]40.0-44.9, adult Diagnosis 08/01/2020 08:20:00 PM EDT [facility] E669 Obesity, unspecified Obesity, unspecified Diagnosis 08/01/2020 08:20:00 PM EDT [facility] K219 Gastro-esophageal reflux disease without esophagitis Gastro-esophageal reflux disease without esophagitis Diagnosis 08/01/2020 08:20:00 PM ED T [facility] N3000 Acute cystitis without hematuria Acute cystitis without hematuria Diagnosis 08/01/2020 08:20:00 PM EDT [facility] R1031 Right lower quadrant pain Right lower quadrant pain Di agnosis 08/01/2020 08:20:00 PM EDT [facility] Z9119 Patient's noncompliance with other medic al treatment and regimen Patient's noncompliance with other medical treatment and regimen Diagnosis 06/29/2020 07:16:00 AM EDT [facility] E559 Vitamin D deficiency, unspecified Vitamin D defi ciency, unspecified Diagnosis 06/29/2020 07:16:00 AM EDT [facility] E785 Hyperlipidemia, unspecified Hyperlipidemia, unspecifie d Diagnosis 06/29/2020 07:16:00 AM EDT [facility] N20.0 Kidney stone Calculus, kidney Problem 02/28/2021 12:00: 00 AM EST eCW1 ([facility]) G89.29 [id number] Other chronic pain Problem 02/07/2021 12:00: 00 AM EDT eCW1 ([facility]) N20.0 Kidney stone Kidney stone Problem 01/18/2021 12:00:00 A M EDT eCW1 ([facility]) N20.0 Calculus of kidney Calculus of kidney Problem 12:00:00 AM EDT eCW1 ([facility]) F17.200 Nicotine dependence, unspecified, uncomp licated Tobacco Use Disorder, Moderate Condition 12/27/2020 12:00:00 AM EDT [facility] ([facility]) F33.1 Major depressive disorder, recurrent, mo derate Major Depressive Disorder, Recurrent episode, Moderate Condition 12/27/2020 12:00:00 AM EDT [facility] ([facility]) R87.810 [id number] Cervical high risk HPV (human pa pillomavirus) test positive Problem 11/07/2020 12:00:00 AM EDT eCW1 ([facility]) F41.9 Anxiety disorder, unspecified Unspecified Anxiety Diso rder Condition 05/05/2020 12:00:00 AM EST [facility] ([facility]) F17.200 Nicotine dependence, unspecified, uncomp licated Tobacco Use Disorder, Moderate Condition 04/20/2020 12:00:00 AM EST [facility] ([facility]) R87.810 [id number] Papanicolaou smear o f cervix with positive high risk human papilloma virus (HPV) test Problem 02/24/2020 12:00:00 AM EST eCW1 ( [facility]) M47.812 Cervical spondylosis without myelopathy Spondylosis of cervical region without myelopathy or radiculopathy Problem 01/25/2020 12:00:00 AM E DT eCW1 ([facility]) [id number] Counseling about tobacco use Counseling about tobacco use Problem 01/14/2020 12:00:00 AM EDT [facility] ([facility]) [id number] Tobacco user Tobacco user Problem 01/14/2020 12:00:00 A M EDT [facility] ([facility]) [id number] Prediabetes Prediabetes Problem 01/14/2020 12:00:00 AM EDT [facility] ([facility]) [id number] Mixed hyperlipidemia Mixed hyperlipidemia Problem 01/14/2020 12:00:00 AM EDT [facility] ([facility]) [id number] Dietary management surveillance Dietary manageme nt surveillance Problem 01/14/2020 12:00:00 AM EDT [facility] ([facility]) [id number] Morbid obesity Morbid obesity Problem 01/14/2020 12:00: 00 AM EDT [facility] ([facility]) [id number] Heart murmur Heart murmur Problem 01/14/2020 12:00:00 A M EDT [facility] ([facility]) Surgeries/Procedures Procedure Description Date Indications Data Source(s) OFFICE OUTPATIENT NEW 30 MINUTES 02/28/2021 12:00:00 A M SIMON HAMILTON ([facility], ) Extended Individual Psychotherapy - 45 min 12/27/2020 12:00:00 AM EDT - 12/27/2020 12:00:00 AM EDT [facility] ([facility]) Extended Individual Psychotherapy - 45 min 12:00:00 AM EDT [facility] ([facility]) [facility] [place]med E/M Lvl 3--Est pt 12/15/2020 12:00:00 AM EDT - 12/15/2020 12:00:00 AM EDT [facility] ([facility]) Telemed A/O 30" 12/14/2020 12:00:00 AM EDT [facility] ([facility]) [facility] [place]med E/M Lvl 3--Est pt 12/14/2020 12:00:00 AM E DT [facility] ([facility]) Extended Individual Psychotherapy - 45 min 12/01/2020 12:00:00 AM EDT - 12/01/2020 12:00:00 AM EDT [facility] ([facility]) Extended Individual Psychotherapy - 45 min 12:00:00 AM EDT [facility] ([facility]) Extended Individual Psychotherapy - 45 min 10/13/2020 12:00:00 AM EDT - 10/13/2020 12:00:00 AM EDT [facility] ([facility]) Extended Individual Psychotherapy - 45 min 12:00:00 AM EDT [facility] ([facility]) Extended Individual Psychotherapy - 45 min 08/25/2020 12:00:00 AM EDT - 08/25/2020 12:00:00 AM EDT [facility] ([facility]) Extended Individual Psychotherapy - 45 min 12:00:00 AM EDT [facility] ([facility]) Extended Individual Psychotherapy - 45 min 07/29/2020 12:00:00 AM EDT - 07/29/2020 12:00:00 AM EDT [facility] ([facility]) Extended Individual Psychotherapy - 45 min 12:00:00 AM EDT [facility] ([facility]) [facility] Telemed E/M Lvl 3--Est pt 07/27/2020 12:00:00 AM EDT - 07/27/2020 12:00:00 AM EDT [facility] ([facility]) [facility] Telemed E/M Lvl 3--Est pt 07/27/2020 12:00:00 AM E DT [facility] ([facility]) Extended Individual Psychotherapy - 45 min 07/07/2020 12:00:00 AM EDT - 07/07/2020 12:00:00 AM EDT [facility] ([facility]) Extended Individual Psychotherapy - 45 min 12:00:00 AM EDT [facility] ([facility]) [id number]"Psychotherapy 12:00:00 AM EST - 06/08/2020 12:00:00 AM EST [facility] ([facility]) [id number]"Psychotherapy 06/08/2020 12:00:00 AM EST [facility] ([facility]) [facility] Telemed E/M Lvl 3--Est pt 05/26/2020 12:00:00 AM EST - 05/26/2020 12:00:00 AM EST [facility] ([facility]) [facility] Telemed E/M Lvl 3--Est pt 05/26/2020 12:00:[address] [facility] ([facility]) Extended Individual Psychotherapy - 45 min 05/20/2020 12:00:00 AM EST - 05/20/2020 12:00:00 AM EST [facility] ([facility]) Extended Individual Psychotherapy - 45 min 12:00:00 AM EST [facility] ([facility]) Extended Individual Psychotherapy - 45 min 05/06/2020 12:00:00 AM EST - 05/06/2020 12:00:00 AM EST [facility] ([facility]) Extended Individual Psychotherapy - 45 min 12:00:00 AM EST [facility] ([facility]) [facility] Telemed E/M Lvl 3--Est pt 05/05/2020 12:00:00 AM EST - 05/05/2020 12:00:00 AM EST [facility] ([facility]) [facility] Telemed E/M Lvl 3--Est pt 05/05/2020 12:00:[address] [facility] ([facility]) Extended Individual Psychotherapy - 45 min 04/20/2020 12:00:00 AM EST - 04/20/2020 12:00:00 AM EST [facility] ([facility]) Extended Individual Psychotherapy - 45 min 12:00:00 AM EST [facility] ([facility]) Extended Individual Psychotherapy - 45 min 03/30/2020 12:00:00 AM EST - 03/30/2020 12:00:00 AM EST [facility] ([facility]) Extended Individual Psychotherapy - 45 min 0 12:00:00 AM EST [facility] ([facility]) Extended Individual Psychotherapy - 45 min 02/25/2020 12:00:00 AM EST - 02/25/2020 12:00:00 AM EST [facility] ([facility]) Extended Individual Psychotherapy - 45 min 0 12:00:00 AM EST [facility] ([facility]) ECHO TTHRC R-T 2D W/WOM-MODE COMPL SPEC&COLR DOP 02/22 12:00:00 AM EST [facility] ([facility]) Extended Individual Psychotherapy - 45 min 02/10/2020 12:00:00 AM EDT - 02/10/2020 12:00:00 AM EDT [facility] ([facility]) Extended Individual Psychotherapy - 45 min 0 12:00:00 AM EDT [facility] ([facility]) Extended Individual Psychotherapy - 45 min 01/27/2020 12:00:00 AM EDT - 01/27/2020 12:00:00 AM EDT [facility] ([facility]) Extended Individual Psychotherapy - 45 min 0 12:00:00 AM EDT [facility] ([facility]) ECG ROUTINE ECG W/LEAST 12 LDS W/I&R 01/14/2020 12:00: 00 AM EDT [facility] ([facility]) Results ID Date Data Source [id number] 02/09/2021 11:00:00 AM EDT [facility] Name Value Range Interpretation Code Description Data Jerica rce(s) Supporting Document(s) SARS-CoV-2 (COVID-19) RNA [Presence] in Respiratory specimen by ANJELICA with probe detection Not Detected [facility] This lab was ordered by [facility] and reported by [facility] ID Date Data Source [id number] 01/03/2021 04:00:00 PM EDT [facility] Name Value Range Interpretation Code Description Data Jerica rce(s) Supporting Document(s) SARS-CoV-2 RNA Resp Ql ANJELICA+probe NOT DETECTED [facility] This lab was ordered by EARLENE ngo and reported by EARLENE Uribe. ID Date Data Source [id number] 12/03/2020 06:51:00 AM EDT [facility] 1 OrderSheet [facility] Emergency Department [address] [place] [address] Phone #: ext- [phone] 12/03/2020 06:49 Patient: [...] rce(s) Supporting Document(s) ID Date Data Source [id number] 12/03/2020 06:51:00 AM EDT [facility] 1 Medication Reconciliation Report [facility] Emergency Department [address] [place] [address] Phone #: ext- [phone] 12/03/2020 06:49 Patient: MORRIS LEWIS Sex: F [...] rce(s) Supporting Document(s) ID Date Data Source [id number] 12/03/2020 06:51:00 AM EDT [facility] 1 Medication Administration Record [facility] Emergency Department [address] [place] [address] Phone #: ext- [phone] 12/03/2020 06:49 [id number] Sex: F : 1980 Age: 39yWeight: 131.5 [...] rce(s) Supporting Document(s) ID Date Data Source [id number] 12/03/2020 06:51:00 AM EDT [facility] 1 General Instructions [facility] Emergency Department [address] [place] [address] Phone #: ext- [phone] 12/03/2020 06:49 Patient: [...] patient. ADDITIONAL INFORMATIONElbow Sprain 2 General Instructions [facility] Emergency Department [address] [place] [address] Phone #: ext- [phone] 12/03/2020 06:49 Patient: [...] wet, you can dry it with a hairspring i inspector. Once the splint is removed, move your elbow through its full range of motion several times a day. This will prevent stiffness. If you were given a sling only, start gradual kujqn-it-ltsfsp exercises after the first few days, unless [...] a stomach ulcer or 3 General Instructions [facility] Emergency Department [address] [place] [address] Phone #: ext- [phone] 12/03/2020 06:49 Patient: [id number] Sex: F : 1980 Age: 39y digestive [...] as directed by your healthcare provider Satish [phone] [employer]. [address] [place] [address], [place] [address]. All rights reserved. This information is not [...] will not prevent reinjury. 4 [facility]ructions [facility] Department [address] [place] [address] Phone #: ext- [phone] 12/03/2020 06:49 Patient: [...] minutes at a time. 5 General Instructions [facility] Emergency Department [address] [place] [address] Phone #: ext- [phone] 12/03/2020 06:49 Patient: MORRIS LEWIS Sex: F : 1980 Age: 39yFollow-up careFollow up with your healthcare provider, or as advised.When to seek medical adviceCall your healthcare provider for any of the following: Pain and swelling that doesn't get better or gets worse Trouble moving injured area Skin discoloration, numbness, or tingling that doesn't go away after bandage is removed [id number] [employer]. [address] [place] [address], [place] [address]. All rights reserved. This information is not intended as asubstitute for professional medical care. Always follow your healthcare professional's instructions. You have been given the following additional information: Sprain, Elbow JS Wrap(Electronically signed by GIULIA Katz 12/04/2020 19:29) Name Value Range Interpretation Code Description Data Jerica rce(s) Supporting Document(s) ID Date Data Source [id number] 12/03/2020 06:51:00 AM EDT [facility] 1 Clinical Report - Nurses [facility] Emergency Department [address] [place] [address] Phone #: ext- [phone] 12/03/2020 06:49 Patient: MORRIS LEWIS Sex: F : 1980 Age: 39yTRIAGEArrived by private vehicle. Historian: patient.Triage time: 06:53 12/03/2020. Acuity: LEVEL 4.Chief Complaint: RIGHT UPPER EXTREMITY PAIN.No injury occurred. 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 --06:55 12/03/20 Vaishali [...] Disc Disease.Hypercholesterolemia. 2 Clinical Report - Nurses [facility] Emergency Department [address] [place] [address] Phone #: ext- [phone] 12/03/2020 06:49 Patient: [...] rights. Information 3 Clinical Report - Nurses [facility] Emergency Department [address] [place] [address] Phone #: ext- [phone] 12/03/2020 06:49 Patient: [...] Patient verbalized understanding. Written instructions provided in [place]. The patient was discharged by the physician payroll human resources assistant. She was discharged home and unaccompanied [...] rce(s) Supporting Document(s) ID Date Data Source [id number] 12/03/2020 06:51:00 AM EDT [facility] 1 Clinical Report - Physicians/Mid Levels [facility] Emergency Department [address] [place] [address] Phone #: ext- [phone] 12/03/2020 06:49 Patient: [...] X 3. 2 Clinical Report - Physicians/Mid [facility] Emergency Department [address] [place] [address] Phone #: ext- [phone] 12/03/2020 06:49 Patient: [...] verbalized by patient. 3 [facility] Emergency Department [address] [place] [address] Phone #: ext- [phone] 12/03/2020 06:49 Patient: MORRIS LEWIS Sex: F : 1980 Age: 39y(Electronically signed by GIULIA Katz 12/04/2020 19:29) Name Value Range Interpretation Code Description Data Jerica rce(s) Supporting Document(s) ID Date Data Source [id number] 12/03/2020 10:46:00 AM EDT [address] [address] PHONE: [phone] FAX: [phone] Name .................. : DEBBIE CACERES Acct Number.................. : [id number] ROOM. ................. : [address] Number ................... : [id number] Stay type ............. : E/R Discharge Date......... ... : 12/03/20 Admit Date ......... : 12/03/20 Admit Phys .................... : BETHANYHIWASSEE Date of ....... : 1980 Family Phys ................... : [employer] Phone .................. : [phone] Age ................................ : 39 Film# .................. .:[id number] Sex ................................. : F Unsigned transcriptions are preliminary reports and do not represent a medical or legal document [place] [id number] COMPLETE:12/03/20 07:14 [id number] Reason(s): Pain RADIOGRAPHS OF THE RIGHT ELBOW [...] rce(s) Supporting Document(s) ID Date Data Source [id number] 11/23/2020 08:52:00 [place] [address] PHONE: [phone] FAX: [phone] Name .................. : DEBBIE CACERES Acct Number.................. : [id number] [facility] ................... : [id number] Stay type ............. : E/R Discharge Date......... ... : Admit Date ......... : 11/22/20 Admit Phys .................... : COONEYNORM Date of ....... : 1980 Family Phys ................... : [employer] Phone .................. : [phone] Age ................................ : 39 Film# .................. .:[id number] Sex ................................. : F Unsigned transcriptions are preliminary reports and do not represent a medical or legal document CT LUMBAR SP W/O CONT [id number] COMPLETE:11/22/20 21:11 37816 Reason(s): R leg tin gling/numbness CT LUMBAR [...] multiple parapelvic cysts. Page 1 of 2 [facility] [address] [place] [address] PHONE: [phone] FAX: [phone] Name .................. : DEBBIE CACERES Acct Number.................. : [id number] ROOM. ................. : VT-26 MR Number ................... : [id number] Stay type ............. : E/R Discharge Date......... ... : Admit Date ......... : 08/10/21 Admit Phys .................... : COONEYNORM Date of ....... : 1980 Family Phys ................... : LAVELL HARD Phone .................. : [phone] Age ................................ : 39 Film# .................. .:[id number] Sex ................................. : F Unsigned transcriptions are preliminary reports and do not represent a medical or legal document CT LUMBAR SP W/O CONT [id number] COMPLETE:11/22/20 21:11 70151 Reason(s): R leg tingling/numbness IUD. Cholecystectomy. IMPRESSION: [...] rce(s) Supporting Document(s) ID Date Data Source [id number] 11/23/2020 08:52:00 AM EDT [facility] [address] [place] [address] PHONE: [phone] FAX: [phone] Name .................. : DEBBIE CACERES Acct Number.................. : [id number] ROOM. ................. : VT-26 MR Number ................... : [id number] Stay type ............. : E/R Discharge Date......... ... : Admit Date ......... : 11/22/20 Admit Phys .................... : COONEYNORM Date of ....... : 1980 Family Phys ................... : ROCKI HARD Phone .................. : [phone] Age ................................ : 39 Film# .................. .:[id number] Sex ................................. : F Unsigned transcriptions are preliminary reports and do not represent a medical or legal document CT HEAD W/O CONTRAST [id number] COMPLETE:11/22/20 21:05 11816 Reason(s): Hx chronic neck pain, tingling to [...] DEPT via modem Page 1 of 2 [facility] [address] [place] [address] PHONE: [phone] FAX: [phone] Name .................. : DEBBIE CACERES Acct Number.................. : [id number] ROOM. ................. : VT-26 MR Number ................... : [id number] Stay type ............. : E/R Discharge Date......... ... : Admit Date ......... : 11/22/20 Admit Phys .................... : COONEYNORM Date of ....... : 1980 Family Phys ................... : MONTE HARD Phone .................. : [phone] Age ................................ : 39 Film# .................. .:[id number] Sex ................................. : F Unsigned transcriptions are preliminary reports and do not represent a medical or legal document CT HEAD W/O CONTRAST [id number] COMPLETE:11/22/20 21:05 [id number] Reason(s): Hx chronic neck pain, tingling to RUE/RLE Copy for: 710 MED REC DISCHARGED Page 2 of 2 Name Value Range Interpretation Code Description Data Jerica rce(s) Supporting Document(s) ID Date Data Source [id number] 11/23/2020 08:52:00 AM EDT [facility] [address] [place] [address] [place] [address] PHONE: [phone] FAX: [phone] Name .................. : DEBBIE CACERES Acct Number.................. : [id number] ROOM. ................. : [address] Number ................... : [id number] Stay type ............. : E/R Discharge Date......... ... : Admit Date ......... : 11/22/20 Admit Phys .................... : COONEYNORM Date of ....... : 1980 Family Phys ................... : MONTE HARD Phone .................. : [phone] Age ................................ : 39 Film# .................. .:[id number] Sex ................................. : F Unsigned transcriptions are preliminary reports and do not represent a medical or legal document CT CERV SPINE W/O VERNON [id number] COMPLETE:11/22/20 21:05 50120 Reason(s): hx of chronic neck pain, radicular [...] 22:43, Dictation Date: Page 1 of 2 [place] [address] PHONE: [phone] FAX: [phone] Name .................. : DEBBIE CACERES Acct Number.................. : [id number] ROOM. ................. : VT-26 MR Number ................... : [id number] Stay type ............. : E/R Discharge Date......... ... : Admit Date ......... : 11/22/20 Adm it Phys .................... : COONEYNORM Date of ....... : 1980 Family Phys ................... : ROCKI HARD Phone .................. : [phone] Age ................................ : 39 Film# .................. .:[id number] Sex ................................. : F Unsigned transcriptions are preliminary reports and do not represent a medical or legal document CT CERV SPINE W/O VERNON [id number] COMPLETE:11/22/20 21:05 22281 Reason(s): hx of chronic neck pain, radicular symptoms to R side, RUE, RLE. Copy for: CINDY Plata via fax Copy for: EMERGENCY DEPT via [facility] Copy for: 710 MED REC DISCHARGED Page 2 of 2 Name Value Range Interpretation Code Description Data Jerica rce(s) Supporting Document(s) ID Date Data Source [id number] 11/22/2020 07:30:00 PM EDT [facility] 1 OrderSheet [facility] Emergency Department [address] [place] [address] Phone #: ext- [phone] 11/22/2020 19:15 Patient: MORRIS LEWIS Sex: F : 1980 Age: 39yWEIGHT:131.5 kg HEIGHT:67 inches BMI:45.4ALLERGIES: AnimalsDIAGNOSIS: Strain of neck muscle, Sciatica, Renal colic, Renal colic, BackacheLAB ORDERSOrder Description Priority Entered Acknowledged InitialedCBC w Diff STAT 22:15 11/22/2020 22:30 Renyn Taylor; KatelynCMP STAT 22:15 11/22/2020 22:30 Renny [...] mL/hr Renny PLATT; Josephine Taylor 2 OrderSheet [facility] Emergency Department [address] [place] [address] Phone #: ext- [phone] 11/22/2020 19:15 Patient: [...] rce(s) Supporting Document(s) ID Date Data Source [id number] 11/22/2020 07:30:00 PM EDT [facility] 1 Medication Reconciliation Report [facility] Emergency Department [address] [place] [address] Phone #: ext- [phone] 11/22/2020 19:15 Patient: MORRIS LEWIS Sex: F [...] rce(s) Supporting Document(s) ID Date Data Source [id number] 11/22/2020 07:30:00 PM EDT [facility] 1 Medication Administration Record [facility] Emergency Department [address] [place] [address] Phone #: ext- [phone] 11/22/2020 19:15 Patient: [...] 0.4 mg PO not crush or chew)Josephine Taylor, Name Value Range Interpretation Code Description Data Jerica rce(s) Supporting Document(s) ID Date Data Source [id number] 11/22/2020 07:30:00 PM EDT [facility] 1 General Instructions [facility] Emergency Department [address] [place] [address] Phone #: ext- [phone] 11/22/2020 19:15 Patient: [...] alternate ice and heat. You may use blta-kqe-iulfpis pain medicine to control pain, unless another [...] 1 to 2 weeks. 2 General Instructions [facility] Emergency Department [address] [place] [address] Phone #: ext- [phone] 11/22/2020 19:15 Patient: [...] new findings that may affect your care.Call [phone] if you have: Neck swelling, difficulty or painful swallowing Trouble breathing Chest painWhen to seek medical adviceCall your healthcare provider right away if any of these occur: Pain becomes worse or spreads into your arms or legs Weakness or numbness in one or both arms or legs [phone] [employer]. [address] [place] [address]. All rights reserved. This information is not intended as asubstitute for professional medical care. Always follow your healthcare professional's instructions.Sciatica 3 General Instructions [facility] Emergency Department [address] [place] [address] Phone #: ext- [phone] 11/22/2020 19:15 Patient: [...] for yourself at home: 4 General Instructions [facility] Emergency Department [address] [place] [address] Phone #: ext- [phone] 11/22/2020 19:15 Patient: [id number] Sex: F : 1980 Age: 39y As [...] or swelling over your back or spine [id number] [employer]. [address] [place] [address]. All rights reserved. This information is not intended as asubstitute for professional medical care. Always follow your healthcare professional's instructions. 5 General Instructions [facility] Emergency Department [address] [place] [address] Phone #: ext- [phone] 11/22/2020 19:15 Patient: [...] pull out the stone. 6 General Instructions [facility] Emergency Department [address] [place] [address] Phone #: ext- [phone] 11/22/2020 19:15 Patient: MORRIS LEWIS Sex: F : 1980 Age: 39y Various types of direct surgery through the [facility] following are general care guidelines: Drink plenty [...] are high in potassium. 7 General Instructions [facility] Emergency Department [address] [place] [address] Phone #: ext- [phone] 11/22/2020 19:15 Patient: MORRIS LEWIS Sex: F : 1980 Age: 39y Eat foods high in natural citrate like fruit and low-sugar fruit juices. Having too little calcium in your diet can put you at risk for calcium kidney stones. Eat a normal amount of calcium in your diet and talk with your [facility] provider if you are taking calcium supplements. [...] new findings that may affect your care.Call [phone] if you have any of these: Weakness, dizziness, or faintingWhen to seek medical adviceCall your healthcare provider right away if any of these occur: Pain that is not controlled by the medicine given Repeated vomiting or unable to keep down fluids Fever of 100.4F (38C) or higher, or as directed by your healthcare provider 8 General Instructions [facility] Emergency Department [address] [place] [address] Phone #: ext- [phone] 11/22/2020 19:15 Patient: MORRIS LEWIS Sex: F : 1980 Age: 39y Passage of solid red or brown urine (can't see through it) or urine with lots of blood clots Foul-smelling or cloudy urine Unable to pass urine for 8 hours and increasing bladder pressure [employer]. [address] [place] [address]. All rights reserved. This information is not [...] HCl Oral. Topamax Oral. 9 General Instructions [facility] Emergency Department [address] [place] [address] Phone #: ext- [phone] 11/22/2020 19:15 Patient: [...] oxalate but also some 10 General Instructions [facility] Emergency Department [address] [place] [address] Phone #: ext- [phone] 11/22/2020 19:15 Patient: [...] for preventing another calcium 11 General Instructions [facility] Emergency Department [address] [place] [address] Phone #: ext- [phone] 11/22/2020 19:15 Patient: MORRIS LEWIS Sex: F [...] affect your care.Call 911 12 General Instructions [facility] Emergency Department [address] [place] [address] Phone #: ext- [phone] 11/22/2020 19:15 Patient: [...] for 8 hours and increasing bladder pressure [phone] [employer]. [address] [place] [address]. All rights reserved. This information is not intended as asubstitute for professional medical care. Always follow your healthcare professional's instructions.Back Pain (Acute or Chronic) 13 General Instructions [facility] Emergency Department [address] [place] [address] Phone #: ext- [phone] 11/22/2020 19:15 Patient: [...] illness. Mechanical problems include: 14 General Instructions [facility] Emergency Department [address] [place] [address] Phone #: ext- [phone] 11/22/2020 19:15 Patient: [...] painful area for 20 15 General Instructions [facility] Emergency Department [address] [place] [address] Phone #: ext- [phone] 11/22/2020 19:15 Patient: [...] or are takingother medicines. You may use lggh-ooh-uwnmyiq medicine as directed on the bottle to [...] to seek medical advice 16 General Instructions [facility] Emergency Department [address] [place] [address] Phone #: ext- [phone] 11/22/2020 19:15 Patient: MORRIS LEWIS Sex: F : 1980 Age: 39yCall your healthcare provider right away if any of these occur: Pain becomes worse or spreads to your legs Weakness or numbness in one or both legs Numbness in the groin or genital area 1999- 2019 [employer]. [address] [place] [address]. All rights reserved. This information is not [...] rce(s) Supporting Document(s) ID Date Data Source [id number] 11/22/2020 07:30:00 PM EDT [facility] 1 Clinical Report - Nurses [facility] Emergency Department [address] [place] [address] Phone #: ext- [phone] 11/22/2020 19:15 Patient: [...] yourself?" and 2 Clinical Report - Nurses [facility] Emergency Department [address] [place] [address] Phone #: ext- [phone] 11/22/2020 19:15 Patient: [...] Josephine Taylor 3 Clinical Report - Nurses [facility] Emergency Department [address] [place] [address] Phone #: ext- [phone] 11/22/2020 19:15 Patient: MORRIS LEWIS Sex: F [...] Patient verbalized understanding. Written instructions provided in [place]. The patient was discharged by the physician. She was discharged home and unaccompanied at time of discharge. She left ambulatory and via private vehicle. Patient driving. --00:11/23/20 Josephine Taylor 00:11/23/20. BP: 138/82. HR: 86. RR: 16. O2 saturation: 98%. Temp: 98.1 F. Pain level now 06/22. - -00:11/23/20 Josephine Taylor.Locked/Released at 11/23/2020 00:22 by Josephine Taylor 4 Clinical Report - Nurses [facility] Emergency Department [address] [place] [address] Phone #: [phone] wey- [phone] 11/22/2020 19:15 Patient: MORRIS LEWIS Sex: F : 1980 Age: 39y Name Value Range Interpretation Code Description Data Jerica rce(s) Supporting Document(s) ID Date Data Source [id number] 11/22/2020 07:30:00 PM EDT [facility] 1 Clinical Report - Physicians/Mid Levels [facility] Emergency Department [address] [place] [address] Phone #: ext- [phone] 11/22/2020 19:15 Patient: [...] into R leg. Sees pain mgmt at [facility] and takes lyrica and tinazidine, but [...] Hypercholesterolemia. Obesity. Sinusitis. 2 Clinical Report - Physicians/[facility] Emergency Department [address] [place] [address] Phone #: ext- [phone] 11/22/2020 19:15 Patient: [id number] Sex: F : 1980 Age: 39y Depression. [...] ROM. Extremities nontender. 3 Clinical Report - Physicians/[facility] Emergency Department [address] [place] [address] Phone #: ext- [phone] 11/22/2020 19:15 Patient: MORRIS LEWIS [facility]#: [id number] Sex: F : 1980 Age: 39y Neuro: [...] 11/23/2020. 4 Clinical Report - Physicians/Mid Levels [facility] Emergency Department [address] [place] [address] Phone #: orp- [phone] 11/22/2020 19:15 Patient: MORRIS LEWIS Sex: F [...] 126) 5 Clinical Report - Physicians/Mid Levels [facility] Emergency Department [address] [place] [address] Phone #: [phone] jpo- [phone] 11/22/2020 19:15 Patient: MORRIS LEWIS Sex: F : 1980 Age: 39y SGOT/AST 19 U/L (5 - 40) SGPT/ALT 16 U/L (7 - 56) ANION GAP 8.0 mmol/L (8.0 - 16.0) AGE 39 yrs NON- AA GFR >60 mL/min AFR AMER GFR >60 mL/min Male GFR Interprentation 20-49 yrs >60 mL/min Kcwrlw86-09 yrs >56 mL/min Normal 60-69 yrs >49 mL/min Normal 70-79yrs>42 mL/min Normal 80 and above >35 mL/min Normal Female GFRInterpretation 20-39 yrs >60 mL/min Normal 40-49 yrs >58 mL/minNormal 50-59 yrs >51 mL/min Normal 60-69 yrs >45 mL/min Wtbkdn62-06 yrs >39 mL/min Normal 80 and above [...] Units (Reference) CT LUMBAR SP W/O CONT [facility] [address] [place] [address] PHONE: [phone] FAX: [phone] -- Name .................. : DEBBIE MORRIS Acct Number.................. : [id number] ROOM. ................. : VT-26 MR Number ................... : [id number] Stay [facility] ............. : E/R Discharge Date......... ... : Admit Date ......... : 11/22/20 Admit Phys .................... : COONEYNORM Date of ....... : 1980 Family Phys ................... : MONTE HARD Phone .................. : [phone] Age ................................ : 39 Film# .................. .:[id number] Sex ................................. : F -- Unsigned transcriptions are preliminary reports and do not represent a medical or legal document CT LUMBAR SP W/O CONT [id number] COMPLETE:11/22/20 21:11 [id number] Reason(s): R leg tingling/numbness -- -- 6 Clinical Report - Physicians/Mid Levels [facility] Emergency Department [address] [place] [address] Phone #: ext- [phone] 11/22/2020 19:15 Patient: [...] likely multiple parapelvic-- cysts.---- [address] [place] [address] 29[address]TNPKO: [phone] FAX: [phone]--Name .................. : DEBBIE CACERES Acct Number.................. : [id number]. ................. : VT-26 MR Number ................... : [id number] type ............. : E/R Discharge Date......... ... :Admit Date ......... : 11/22/20 Admit Phys .................... : COONEYNORMDate of ....... : 1980 Family Phys ................... : MONTE HARDPhone .................. : [phone] Age ................................ : 39Film# .................. .:[id number] Sex ................................. : F--Unsigned transcriptions are preliminary reports and do not represent a medical or legal document CT LUMBAR SP W/O CONT [id number] COMPLETE:11/22/20 21:11 49807 Reason(s): R leg tingling/numbness--------IUD. Cholecystectomy.--IMPRESSION: Degenerative changes at L4-5 with likely mild canal stenosis. 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 Mild foraminal narrowing.. Limited ability on CTto assess spinal canal contents. No confirmed focal disc herniation.-- 7 Clinical Report - Physicians/Mid Levels [facility] Emergency Department [address] [place] [address] Phone #: ext- [phone] 11/22/2020 19:15 Patient: MORRIS LEWIS Sex: F [...] In Progress Exam CT CERV [place]INE [place] [address] PHONE: [phone] FAX: [phone] Name .................. : DEBBIE CACERES Acct Number.................. : [id number] ROOM. ................. : VT-26 MR Number ................... : [id number] Stay type ............. : E/R Discharge Date......... ... : Admit Date ......... : 11/22/20 Admit Phys .................... : COONEYNORM Date of ....... : 1980 Family Phys ................... : ROCKI HARD Phone .................. : [phone] Age ................................ : 39 Film# .................. .:[id number] Sex ................................. : F Unsigned transcriptions are preliminary reports and do not represent a medical or legal document CT CERV SPINE W/O [place] [id number] COMPLETE:11/22/20 21:05 [id number] Reason(s): hx of chronic neck pain, radicular [...] island. 8 Clinical Report - Physicians/Mid Levels [facility] Emergency Department [address] [place] [address] Phone #: ext- [phone] 11/22/2020 19:15 ------- [...] 11/22/20 22:43, Dictation Date: Page 1 of2 [place] [address] PHONE: [phone] FAX: [phone] Name .................. : DEBBIE CACERES Acct Number.................. : [id number] ROOM. ................. : VT-26 Number ................... : [id number] Stay type ............. : E/R Discharge Date......... ... : Admit Date ......... : 11/22/20 Admit Phys .................... : COONEYNORM Date of ....... : 1980 Family Phys ................... : LAVELL HARD Phone .................. : [phone] Age ................................ : 39 Film# .................. .:[id number] Sex ................................. : F Unsigned transcriptions are preliminary reports and do not represent a medical or legal document CT CERV SPINE W/O [place] [id number] COMPLETE:11/22/20 21:05 [id number] Reason(s): hx of chronic neck pain, radicular symptoms to R side, RUE, RLE. <<REPDIST>> Page 2 of2CT Head W/O Cont: (LUIS CARLOS: 11/22/2020 21:05) ( MsgRcvd 11/22/2020 22:48) In Progress Exam CT HEAD W/O CONTRAST [facility] [address] [place] [address] PHONE: [phone] FAX: [phone] Name .................. : DEBBIE CACERES Acct Number.................. : [id number] ROOM. ................. : VT-26 Number ................... : [id number] Stay type ............. : E/R Discharge Date......... ... : Admit Date ......... : 11/22/20 Admit Phys .................... : COONEYNORM Date of ....... : 1980 Family Phys ................... : LAVELL HARD Phone .................. : [phone] Age ................................ : 39 Film# .................. .:[id number] Sex ................................. : F Unsigned transcriptions are preliminary reports and do not represent a medical or legal document CT HEAD W/O CONTRAST [id number] COMPLETE:11/22/20 21:05 56307 Reason(s): Hx chronic neck pain, tingling to RUE/RLE 9 Clinical Report - Physicians/Mid Levels [facility] Emergency Department [address] [place] [address] Phone #: ext- [phone] 11/22/2020 19:15 Patient: MORRIS LEWIS Sex: F [...] stable. 10 Clinical Report - Physicians/Mid Levels [facility] Emergency Department [address] [place] [address] Phone #: [phone] ext- [phone] 11/22/2020 19:15 Patient: MORRIS LEWIS Sex: F [...] rce(s) Supporting Document(s) ID Date Data Source [id number] 11/22/2020 10:56:00 PM EDT [facility] Name Value Range Interpretation Code Description Data [facility] rce(s) Supporting Document(s) COMPREHENSIVE METABOLIC PANEL [facility] COMPREHENSIVE METABOLIC PANEL Sodium [Moles/volume] in Serum or Plasma 138 mEq/L 134 - 153 [facility] Potassium [Moles/volume] in Serum or Plasma 4.5 mEq/L 3.6 - 5.0 [facility] Chloride [Moles/volume] in Serum or Plasma 105 mEq/L 98 - 107 [facility] Carbon dioxide, total [Moles/volume] in Serum or Plasma 25 MEQ/L 22 - 30 [facility] Glucose [Mass/volume] in Serum or Plasma 94 MG/DL 70 - 99 [facility] BUN 10 MG/DL 7 - 21 Health system Creatinine [Mass/volume] in Serum or Plasma 0.7 MG/DL 0.7 - 1.5 [facility] BUN/CREAT 14 8 - 27 Health system Protein [Mass/volume] in Serum or Plasma 6.1 G/DL 6.3 - 8.2 L [facility] Albumin [Mass/volume] in Serum or Plasma 3.8 G/DL 3.9 - 5.0 L [facility] Globulin [Mass/volume] in Serum by calculation 2.3 GM/DL 2.4 - 3.2 L [facility] A/G RATIO 1.7 0.8 - 2.0 Health system Calcium [Mass/volume] in Serum or Plasma 9.3 MG/DL 8.4 - 10.2 [facility] Bilirubin.total [Mass/volume] in Serum or Plasma <0.7 MG/DL 0.2 - 1.3 [facility] Alkaline phosphatase [Enzymatic activity/volume] in Serum or Plasma 73 U/L 38 - 126 [facility] Aspartate aminotransferase [Enzymatic activity/volume] in Serum or Plasma 19 U/L 5 - 40 [facility] Alanine aminotransferase [Enzymatic activity/volume] in Seru m or Plasma 16 U/L 7 - 56 [facility] Anion gap 3 in Serum or Plasma 8.0 mmol/L 8.0 - 16.0 [facility] AGE 39 yrs [facility] al NON-AA GFR >60 mL/min [facility] ital AFR AMER GFR >60 mL/min [facility] sp[facility] Male GFR In terprentation 20-49 [...] >32 mL/min Normal ID Date Data Source [id number] 11/22/2020 10:50:00 PM EDT [facility] Name Value Range Interpretation Code Description Data Jerica rce(s) Supporting Document(s) URINALYSIS [facility] greg URINALYSIS SOURCE R [facility] al COLOR yellow NORMAL: Yellow [facility] CLARITY turbid NORMAL: Clear [facility] Specific gravity of Urine by Test strip 1.015 1.001 - 1.030 [facility] pH 6 5 - 9 Health system Glucose [Mass/volume] in Urine by Test strip NORM NORMAL: Negat rodrigo [facility] Bilirubin.total [Presence] in Urine by Test strip NEG NORMAL: Negative [facility] Ketones [Presence] in Urine by Test strip NEG NORMAL: Negative [facility] Protein [Mass/volume] in Urine by Test strip NEG NORMAL: Negat rodrigo [facility] Nitrite [Presence] in Urine by Test strip NEG NORMAL: Negative [facility] BLOOD NEG NORMAL: Negative [facility] LEUK EST 25 NORMAL: Negative [facility] Urobilinogen [Mass/volume] in Urine by Test strip NOR less naga n 1.0 mg/dL [facility] MICROSCOPIC See Below [facility] ital WBC 5 - 7 NORMAL: NONE SEEN A [facility] Erythrocytes [#/volume] in Urine by Test strip 1 - 3 NORMAL: NON E SEEN [facility] EPITHELIAL MANY NORMAL: NONE SEEN A [facility] Bacteria [Presence] in Urine sediment by Light microscopy 1+ SMALL NORMAL: NONE SEEN [facility] Mucus [Presence] in Urine sediment by Light microscopy Trace NORMAL: NONE SEEN [facility] ID Date Data Source [id number] 11/22/2020 10:40:00 PM EDT [facility] Name Value Range Interpretation Code Description Data Jerica rce(s) Supporting Document(s) Lactate [Moles/volume] in Serum or Plasma 1.1 MMOL/L 0.2 - 2.2 [facility] ID Date Data Source [id number] 11/22/2020 10:39:00 PM EDT [facility] Name Value Range Interpretation Code Description Data Jerica rce(s) Supporting Document(s) CBC W/AUTOMATED DIFF [facility] COMPLETE BLOOD COUNT Leukocytes [#/volume] in Blood by Automated count 8.0 10^3/uL 4.2 - 1 1.0 [facility] Erythrocytes [#/volume] in Blood by Automated count 4.09 10^6/uL 4. 20 - 5.40 L [facility] Hemoglobin [Mass/volume] in Blood 12.6 g/dL 12.0 - 16.0 [facility] Hematocrit [Volume Fraction] of Blood by Automated count 37.8 % 3 7.0 - 47.0 [facility] Erythrocyte mean corpuscular volume [Entitic volume] by Auto mated count 92.4 fL 81.0 - 101 [facility] Erythrocyte mean corpuscular hemoglobin [Entitic mass] by Automated count 30.8 pg 27.0 - 34.0 [facility] Erythrocyte mean corpuscular hemoglobin concentration [Mass/volume] by Automated count 33.3 g/dL 31.0 - 36.0 [facility] Erythrocyte distribution width [Ratio] by Automated count 12.8 % 11.5 - 14.5 [facility] Platelets [#/volume] in Blood by Automated count 312 10^3/uL 150 - 45 0 [facility] Platelet mean volume [Entitic volume] in Blood by Automated count 10.8 fL 7.4 - 10.4 H [facility] Neutrophils/100 leukocytes in Blood by Automated count 58.1 % 37. 0 - 80.0 [facility] Lymphocytes/100 leukocytes in Blood by Manual count 29.8 % 25.0 - 40.0 [facility] Monocytes/100 leukocytes in Blood by Automated count 7.6 % 3.0 - 8.0 [facility] Eosinophils/100 leukocytes in Blood by Automated count 3.9 % 0.0 - 7.0 [facility] Basophils/100 leukocytes in Blood by Automated count 0.5 % 0.0 - 2.5 [facility] %IG 0.1 % 0.0 - 0.0 [facility] %NRBC 0.0 % 0.0 - 0.0 [facility] al Neutrophils [#/volume] in Blood by Automated count 4.66 10^3/uL 2.00 - 6.90 [facility] Lymphocytes [#/volume] in Blood by Automated count 2.39 10^3/uL 0.60 - 3.40 [facility] Monocytes [#/volume] in Blood by Automated count 0.61 10^3/uL 0.00 - 0.90 [facility] Eosinophils [#/volume] in Blood by Automated count 0.31 10^3/uL 0.00 - 0.70 [facility] Basophils [#/volume] in Blood by Automated count 0.04 10^3/uL 0.00 - 0.20 [facility] #IG 0.01 10^3/uL 0.00 - 0.10 [facility] #NRBC 0.00 10^3/uL 0.00 - 0.00 [facility] MANUAL DIFF NOT INDICATED [facility] RBC MORPH NOT INDICATED [facility] ID Date Data Source URINE CULTURE 11/07/2020 12:00:00 AM EDT eCW1 ([facility]) Name Value Range Interpretation Code Description Data Jerica rce(s) Supporting Document(s) URINE CULTURE eCW1 ([facility]) ID Date Data Source UA URINALYSIS 11/07/2020 12:00:00 AM EDT eCW1 ([facility]) Name Value Range Interpretation Code Description Data Jerica rce(s) Supporting Document(s) UA URINALYSIS eCW1 ([facility]) ID Date Data Source [id number] 09/06/2020 02:20:00 PM EDT [facility] ([facility]) Name Value Range Interpretation Code Description Data Jerica rce(s) Supporting Document(s) Color of Urine Laboratory test result [facility] ([facility]) Appearance of Urine Laboratory test result [facility] ([facility]) Spec [place] 1.020 1.001-1.030 [facility] ([facility]) pH of Urine by Test strip 5 5-9 MEDE NT ([facility]) Leukocytes Laboratory test result [facility] ([facility]) Nitrate [Presence] in Urine Laboratory test result [facility] ([facility]) Protein [Presence] in Urine by Test strip Laboratory test result [facility] ([facility]) Inhouse Glucose Laboratory test result [facility] ([facility]) Ketones [Presence] in Urine by Test strip Laboratory test result [facility] ([facility]) Urobilinogen 1 Above high normal [facility] ([facility]) Bilirubin.total [Presence] in Urine by Test strip Laboratory test res ult [facility] ([facility]) Blood type and Indirect antibody screen panel - Blood Laboratory test result [facility] ([facility]) ID Date Data Source [id number] 08/02/2020 10:55:00 AM EDT [facility] [address] [place] [address] PHONE: [phone] FAX: [phone] Name .................. : DEBBIE CACERES Acct Number.................. : [id number] ROOM. ................. : TR-03 MR Number ................... : [id number] Stay type ............. : E/R Discharge Date......... ... : Admit Date ......... : 08/01/20 Admit Phys .................... : PILI JEFFRY Date of ....... : 1980 Family Phys ................... : ROCKI HARD Phone .................. : [phone] Age ................................ : 39 Film# .................. .:[id number] Sex ................................. : F Unsigned transcriptions are preliminary reports and do not represent a medical or legal document CT ABD & PELV W/O ORAL W/O IV [id number] COMPLETE:08/01/20 22:23 9166 Reason(s): right flank pain, [...] the aorta. IMPRESSION: Page 1 of 2 [facility] [address] [place] [address] PHONE: [phone] FAX: [phone] Name .................. : DEBBIE CACERES Acct Number.................. : [id number] ROOM. ................. : TR-03 MR Number ................... : [id number] Stay type ............. : E/R Discharge Date......... ... : Admit Date ......... : 08/01/20 Admit Phys .................... : PILI TERAN Date of ....... : 1980 Family Phys ................... : MONTE HARD Phone .................. : [phone] Age ................................ : 39 Film# .................. .:[id number] Sex ................................. : F Unsigned transcriptions are preliminary reports and do not represent a medical or legal document CT ABD & PELV W/O ORAL W/O [place] [id number] COMPLETE:08/01/20 22:23 9166 Reason(s): right flank pain, [...] rce(s) Supporting Document(s) ID Date Data Source [id number] 08/01/2020 08:20:00 PM EDT [facility] 1 OrderSheet [facility] Emergency Department [address] [place] [address] Phone #: [phone] ysc- [phone] 08/01/2020 20:19 Patient: MORRIS LEWIS Sex: F : 1980 Age: 39yWEIGHT:127.9 kg (S) HEIGHT:67 inches (S) BMI:44.2ALLERGIES: AnimalsCHIEF COMPLAINT: abdominal painDIAGNOSIS: Ureteric stone, Urinary tract infectious diseaseLAB ORDERSOrder Description Priority Entered Acknowledged InitialedCBC w Diff STAT 20:45 08/01/2020 20:53 Jc Tripp ED, Jesse ER M.D.; Qmof0NER STAT 20:45 08/01/2020 20:53 Jc Tripp ED, Jesse ER M.D.; Oyxv0Pqsdyz STAT 20:45 08/01/2020 20:53 Jc Tripp ED, Jesse ER M.D.; Dsuu2Hohxgkmsro (Clean STAT 20:45 08/01/2020 21:04 Bisha,Catch) Jc Alejandre M.D.;Lactic Acid STAT 20:45 08/01/2020 20:53 Mckay Turrin, Jc vehicle assemblerDiony M.D.; Mrgl9Pwnr-OPV, Qual STAT 20:45 08/01/2020 20:53 BurnhamSerum Turrin, Jc vehicle assemblerDiony M.D.; Iixy0Uwbesip, Urine STAT 22:22 08/01/2020 22:25 Bisamarilis,(Urine, Clean Turrin, Jc Scott) [place]ita;DIAGNOSTIC STUDY ORDERSOrder Description Priority Entered Acknowledged InitialedCT ABD PEL W/O STAT 22:23 08/01/2020 22:25 Bisha,Oral W/O IV TurJc tseContrast [place]ita;(Oxygen?(No))(IV?(Yes)) Reason for Study: right flank pain, hematuria 2 OrderSheet [facility] Emergency Department [address] [place] [address] Phone #: ext- [phone] 08/01/2020 20:19 Patient: MORRIS LEWIS Sex: F : 1980 Age: 39yMEDICATION/IV/DRIP/FLUID ORDERSOrder Description Priority Entered Acknowledged InitialedNS IV 1000 mL 20:46 08/01/2020 21:04 Bisha,Bolus: : Bolus 1000 Jc AlejandremL (X1) [place]ita;Toradol 15 mg IVP 20:46 08/01/2020 21:04 Bisha,X1 dose: 15 mg Jc Alejandre(NOW x1) oMrenita;levoFLOXacin IVPB 22:23 08/01/2020 22:31 Bisha,500 mg/100mL Jc Alejandre M.D.;Flomax PO 0.4 mg 23:21 08/01/2020 23:53 Melaragno,(NOW x1, Do not Jc Alejandre RTramainecrush or chew) [place];Morphine IVP 4 mg 23:21 0 08/01/2020 Cancelled: Patient Refusal 23:47 Pili(HIGH ALERT Jc Alejandre M.D.MEDICATION) [place]ita;GENERAL ORDERSOrder Description Priority Entered Acknowledged InitialedNPO 20:45 08/01/2020 20:53 [place] Jc Alejandre vehicle assemblerDiony M.D.; Ndow5Lfsqml Lock 20:45 08/01/2020 21:04 Pili Granda Riccardo Gregory M.D.;[Electronically signed by Wilner Granda (00:42 08/02/2020)][Electronically signed by Jc Alejandre M.D. (00:48 08/02/2020)][Electronically locked by Wilner Granda (00:42 08/02/2020)] Name Value Range Interpretation Code Description Data Jerica rce(s) Supporting Document(s) ID Date Data Source [id number] 08/01/2020 08:20:00 PM EDT [facility] 1 Medication Reconciliation Report [facility] Emergency Department [address] [place] [address] Phone #: ext- [phone] 08/01/2020 20:19 Patient: [...] Substitution permitted. 2 Medication Dario nciliation Report [facility] Emergency Department [address] [place] [address] Phone #: [phone]- [phone] 08/01/2020 20:19 Patient: MORRIS LEWIS Sex: F : 1980 Age: 39yPharmacy - [facility] #19 - [id number] ; [place], [place] [id number]. .ibuprofen 600 mg tablet Take 1 tablet four times a day as needed for pain for 7 days -- Dispense 28tablet. Refills: 0. Substitution permitted.[facility] #09 - [id number] ; [place], [place] [phone]. .Flomax 0.4 mg capsule Take 1 capsule once a day for 7 days -- D ispense 7 capsule. Refills: 0.Substitution permitted.[facility] #08 - [address] ; [place], [place] [id number]. .cefdinir 300 mg capsule Take 1 capsule twice a day for 7 days -- Dispense 14 capsule. Refills: 0.Substitution permitted.[facility] #19 - [address] ; [place], [place] [id number]. .Zofran 4 mg tablet Take 1 tablet four times a day as needed for 4 days -- Dispense 16 tablet. Refills: 0.Substitution permitted.[facility] #97 - [id number] ; [place], [place] [id number]. . -- Jc Alejandre M.D. Name Value Range Interpretation Code Description Data Jerica rce(s) Supporting Document(s) ID Date Data Source [id number] 08/01/2020 08:20:00 PM EDT [facility] 1 Medication Administration Record [facility] Emergency Department [address] [place] [address] Phone #: ext- [phone] 08/01/2020 20:19 Patient: MORRIS LEWIS Sex: F : 1980 Age: 39yWeight: 127.9 kgHeight/Length: 67 inBMI: 44.2ALLERGIES: Animals Date/Time Medication Administered Medication OrderedStart NS [IV] NS IV 1000 mL Bolus: : Bolus 124949:04 08/01/2020 Dose: IV Fluids mL (X1)Wilner Granda, Bolus: 1000 mL over 40 minute(s)---- Site: #1 left PBZraw67:31 08/01/2020Wilner walsh,Given TORADOL [IVP] (KETOROLAC Toradol 15 mg IVP X1 dose: 15 mg21:04 08/01/2020 TROMETHAMINE) (NOW x1)Wilner Granda, Dose: 15 mg IVP Site: #1 left ACStart LEVOFLOXACIN [IVPB] levoFLOXacin IVPB 500 mg/939kR57:31 08/01/2020 Dose: 500 mg IVPBWilner Granda, Rate: 100 mL/hr over 1 hour(s)---- Dispensed: 100 mL bagStop Site: #1 left AC23:53 08/01/2020Amada Stewart R.N.Given FLOMAX [PO] (TAMSULOSIN HCL) Flomax PO 0.4 mg (NOW x1, Do23:53 08/01/2020 Dose: 0.4 mg PO not crush or chew)Aamda Stewart R.N. Name Value Range Interpretation Code Description Data Jerica rce(s) Supporting Document(s) ID Date Data Source [id number] 08/01/2020 08:20:00 PM EDT [facility] 1 General Instructions [facility] Emergency Department [address] [place] [address] Phone #: ext- [phone] 08/01/2020 20:19 Patient: [...] Dispense 16 tablet. Refills: 0. Substitution permitted. [facility] #47 - [address] ; [place], [place] [id number]. . ibuprofen 600 mg tablet Take 1 tablet four times a day as needed for pain for 7 days -- Dispense 28 tablet. Refills: 0. Substitution permitted. [facility] #82 - [address] ; [place], [place] [id number]. . Flomax 0.4 mg capsule Take 1 capsule once a day for 7 days -- Dispense 7 capsule. Refills: 0. Substitution permitted. 2 General Instructions [facility] Emergency Department [address] [place] [address] Phone #: ext- [phone] 08/01/2020 20:19 Patient: MORRIS LEWIS Sex: F : 1980 Age: 39yPharmacy - [facility] #49 - [address] ; [place] [address]. .cefdinir 300 mg capsule Take 1 capsule twice a day for 7 days -- Dispense 14 capsule. Refills: 0.Substitution permitted.[facility] #10 - [address] ; [place], [place] [id number]. .Zofran 4 mg tablet Take 1 tablet four times a day as needed for 4 days -- Dispense 16 tablet. Refills: 0.Substitution permitted.[facility] #67 - [address] ; [place], [place] [phone]. .Follow-up:Return to the emergency department as needed. [...] care.Follow-up with: Werner Gordillo M.D., Urology, , [address] [place] [address], [facility] Follow up in two days even if well. Call for an appointment. Reason for referral: evaluation and treatment.Summary of care provided to patient via paper. ADDITIONAL INFORMATIONHoward Stone with Pain 3 General Instructions [facility] Emergency Department [address] [place] [address] Phone #: ext- [phone] 08/01/2020 20:19 Patient: MORRIS LEWIS Sex: F [...] mm). Or, thestone may break up into tlaisha fragments that you may not even notice.Once [...] Various types of direct surgery through the [facility] 4 General Instructions [facility] Emergency Department [address] [place] [address] Phone #: ext- [phone] 08/01/2020 20:19 Patient: [...] kidney stones. Eat a 5 General Instructions [facility] Emergency Department [address] [place] [address] Phone #: ext- [phone] 08/01/2020 20:19 Patient: MORRIS LEWIS [facility] [id number] Sex: F : 1980 Age: 39y normal [...] new findings that may affect your care.Call [phone] if you have any of these: Weakness, [...] lots of blood clots 6 General Instructions [facility] Emergency Department [address] [place] [address] Phone #: ext- [phone] 08/01/2020 20:19 Patient: MORRIS LEWIS Sex: F : 1980 Age: 39y Foul-smelling or cloudy urine Unable to pass urine for 8 hours and increasing bladder pressure [phone] [employer]. [address] [place] [address]. All rights reserved. This information is not [...] of cystitis isan infection. 7 General Instructions [facility] Emergency Department [address] [place] [address] Phone #: ext- [phone] 08/01/2020 20:19 Patient: MORRIS LWEIS Sex: F : 1980 Age: 39ySymptomsThe infection [...] put in Older age 8 General Instructions [facility] Emergency Department [address] [place] [address] Phone #: ext- [phone] 08/01/2020 20:19 Patient: MORRIS LEWIS Sex: F [...] and vegetables, and fiber. 9 General Instructions [facility] Emergency Department [address] [place] [address] Phone #: ext- [phone] 08/01/2020 20:19 Patient: [...] outer vaginal area (labia) 10 General Instructions [facility] Emergency Department [address] [place] [address] Phone #: ext- [phone] 08/01/2020 20:19 Patient: MORRIS LEWIS Sex: F : 1980 Age: 39y [phone] [employer]. [address] [place] [address]. All rights reserved. 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 (tylenol last dose 0). --20:35 08/01/20 [...] Active.Syncope: Active. 2 Clinical Report - Nurses [facility] Emergency Department [address] [place] [address] Phone #: ext- [phone] 08/01/2020 20:19 Patient: [...] Stewart R.N. 3 Clinical Report - Nurses [facility] Emergency Department [address] [place] [address] Phone #: ext- [phone] 08/01/2020 20:19 Patient: MORRIS LEWIS Sex: F [...] / DISCHARGE 4 Clinical Report - Nurses [facility] Emergency Department [address] [place] [address] Phone #: ext- [phone] 08/01/2020 20:19 Patient: [...] verbalized un derstanding. Written instructions provided in [place]. No treatment instructions. The patient was discharged by the physician. She was discharged home. She left ambulatory and via private vehicle. Patient driving. --00:42 08/02/20 Wilner Granda.Locked/Released at 08/02/2020 00:42 by Wilner Granda Name Value Range Interpretation Code Description Data Jerica rce(s) Supporting Document(s) ID Date Data Source [id number] 08/01/2020 08:20:00 PM EDT [facility] 1 Clinical Report - Physicians/Mid Levels [facility] Emergency Department [address] [place] [address] Phone #: ext- [phone] 08/01/2020 20:19 Patient: [...] Surgery. 2 Clinical Report - Physicians/Mid Levels [facility] Emergency Department [address] [place] [address] Phone #: ext- [phone] 08/01/2020 20:19 Patient: MORRIS LEWIS Sex: F [...] the 3 Clinical Report - Physicians/Mid Levels [facility] Emergency Department [address] [place] [address] Phone #: ext- [phone] 08/01/2020 20:19 Patient: MORRIS LEWIS Sex: F : 1980 Age: 39ymedical decision making process.CT ABD PEL W/O Oral W/O IV Contrast: (LUIS CARLOS: 08/01/2020 22:23) ( MsgRcvd 08/01/2020 23:36) InProgressCT ABDReason(s): right flank pain, hematuriaTRANSPORTATION: WC IV? IV?(Yes) O2? Oxygen?(No) Ro Exam CT ABD //T// PELV W/O ORAL W/[place] [address] PHONE: [phone] FAX: [phone] Name .................. : DEBBIE CACERES Acct Number.................. : [id number] ROOM. ................. : TR-03 MR Number ................... : [id number] Stay type ............. : E/R Discharge Date......... ... : Admit Date ......... : 08/01/20 Admit Phys .................... : TEXRIN JEFFRY Date of ....... : 1980 Family Phys ................... : ROCKI HARD Phone .................. : [phone] Age ................................ : 39 Film# .................. .:[id number] Sex ................................. : F Unsigned transcriptions are [...] aorta. IMPRESSION: 4 Clinical Report - Physicians/Mid [facility] Emergency Department [address] [place] [address] Phone #: ext- [phone] 08/01/2020 20:19 Patient: MORRIS LEWIS Sex: F : 1980 Age: 39y Page [address] [place] [address] PHONE: [phone] FAX: [phone] Name .................. : DEBBIE CACERES Acct Number.................. : [id number] ROOM. ................. : TR-03 MR Number ................... : [id number] Stay type ..... ........ : E/R Discharge Date......... ... : Admit Date ......... : 08/01/20 Admit Phys .................... : PILI TERAN Date of ....... : 1980 Family Phys ................... : MONTE HARD Phone .................. : [phone] Age ................................ : 39 Film# .................. .:[id number] Sex ................................. : F Unsigned transcriptions are [...] (mU/mL) Weeks post LMP 5.4-708 mU/mL 3-4 Adpkk761-81833 mU/mL 5-6 Weeks 4059-907625 mU/mL 7-8 Ytegm45568-605000 mU/mL 9-10 Weeks 68848-03698 mU/mL 12-14 Ioter46793-59416 mU/mL 15-16 Weeks 8240-70132 mU/mL 17-18 WeeksCBC w Diff: (LUIS CARLOS: 08/01/2020 20:55) ( MsgRcvd 08/01/2020 21:57) Final results Test Result Flag Units (Reference) 5 Clinical Report - Physicians/Mid Levels [facility] Emergency Department [address] [place] [address] Phone #: ext- [phone] 08/01/2020 20:19 Patient: [...] 1.3) 6 Clinical Report - Physicians/Mid Levels [facility] Emergency Department [address] [place] [address] Phone #: ext- [phone] 08/01/2020 20:19 Patient: [...] Normal Lipase: (LUIS CARLOS: 08/01/2020 20:55) ( [facility] Final results Test Result Flag [...] Lactic Acid: (LUIS CARLOS: 08/01/2020 20:55) ( [facility]01[facility] 21:04) Final results Test Result Flag [...] better 7 Clinical Report - Physicians/Mid Levels [facility] Emergency Department [address] [place] [address] Phone #: ext- [phone] 08/01/2020 20:19 Patient: [...] Oral. Zoloft Oral. 8 Clinical Report - Physicians/[facility] Emergency Department [address] [place] [address] Phone #: [phone] 08/01/2020 20:19 Patient: MORRIS LEWIS Sex: F : 1980 Age: 39y Prescription Medications: hydrocodone 5 mg-acetaminophen 325 mg tablet Take 1 tablet four times a day as needed for pain for 4 days -- Dispense 16 tablet. Refills: 0. Substitution permitted. [facility] #37 - [id number] ; [place], [place] [phone]. . ibuprofen 600 mg tablet Take 1 tablet four times a day as needed for pain for 7 days -- Dispense 28 tablet. Refills: 0. Substitution permitted. [facility] #57 - [address] ; [place], [place] [id number]. . Flomax 0.4 mg capsule Take 1 capsule once a day for 7 days -- Dispense 7 capsule. Refills: 0. Substitution permitted. [facility] #66 - [address] ; [place], [place] [id number]. FaxNumber: [phone]. cefdinir 300 mg capsule Take 1 capsule twice a day for 7 days -- Dispense 14 capsule. Refills: 0. Substitution permitted. [facility] #03 - [address] ; [place], [place] [id number]. . Zofran 4 mg tablet Take 1 tablet four times a day as needed for 4 days -- Dispense 16 tablet. Refills: 0. Substitution permitted. [facility] #65 - [address] ; [place], [place] [id number]. . Follow-up: Return to the emergency department [...] Follow-up with: Werner Gordillo M.D., Urology, , [address] [place] [address], [id number] Follow up in two days even if well. Call for an appointment. Reason for referral: evaluation and treatment. Summary of care provided to patient via paper.(Electronically signed by Jc Alejandre M.D. 08/02/2020 00:48) 9Clinical Report - Physicians/Mid Levels [facility] Emergency Department [address] [place] [address] Phone #: ext- [phone] 08/01/2020 20:19 Patient: MORRIS LEWIS Sex: F : 1980 Age: 39y Name Value Range Interpretation Code Description Data Jerica rce(s) Supporting Document(s) ID Date Data Source [id number] 08/06/2020 02:45:00 PM EDT [facility] Name Value Range Interpretation Code Description Data Jerica rce(s) Supporting Document(s) CULTURE URINE [facility] spital _CULTURE URINE_$$[id number]$$[id number]$$[id number]$$055154$$267841$$958455$$888441$$565362$$376655$$ 617244$$910990$$323081$$745112$$853770$$240920$$258675$$352259$$006969$$808568$$ 890202$$913650$$029501$$023259$$534290$$368041$$289223$$199493 -- Continued on next page --Patient: DEBBIE CACERES Order: Page 2Culture: CULTURE URINE Status: Final ==== -- Continued on next page --Patient: DEBBIE CACERES Order: Page 2Culture: CULTURE URINE Status: Prelim =====$$[id number]$$[id number] DATE/TIME: 08/06/2020 12:06Culture: CULTURE URINE Status: FinalUrine Culture,Comprehensive: P1No growth in 36 - 48 hours. Previous result entered on 08/05/2020 00:31 ET No growth after 18-24 hours.P1 Test performed by: [facility] Abida MARCOS #: [id number] [address] [id number] [facility] [address]Medical Director : Tray Leslie MD NPI #:Lab Di singh : 08/05/20.1140.XMT.SENT REF 08/06/20.1445.XMT.SENT REF ID Date Data Source [id number] 08/01/2020 09:46:00 PM EDT [facility] Name Value Range Interpretation Code Description Data Jerica rce(s) Supporting Document(s) URINALYSIS [facility] greg URINALYSIS SOURCE Clean Catch [facility] ital COLOR yellow NORMAL: Yellow [facility] CLARITY hazy NORMAL: Clear [facility] Specific gravity of Urine by Test strip 1.025 1.001 - 1.030 [facility] pH 5 5 - 9 [facility] Glucose [Mass/volume] in Urine by Test strip NORM NORMAL: Negat [facility] Bilirubin.total [Presence] in Urine by Test strip NEG NORMAL: Negative [facility] Ketones [Presence] in Urine by Test strip 5 NORMAL: Negative [facility] Protein [Mass/volume] in Urine by Test strip 15 NORMAL: Negat [facility] Nitrite [Presence] in Urine by Test strip NEG NORMAL: Negative [facility] BLOOD 150 NORMAL: Negative [facility] Leukocyte esterase [Presence] in Urine by Test strip 25 MISSY L: Negative [facility] Urobilinogen [Mass/volume] in Urine by Test strip 1 less naga n 1.0 mg/dL [facility] MICROSCOPIC See Below [facility] ital WBC 1 - 3 NORMAL: NONE SEEN [facility] Erythrocytes [#/volume] in Urine by Test strip 30 - 40 NORMAL: NON E SEEN A [facility] EPITHELIAL FEW NORMAL: NONE SEEN [facility] Mucus [Presence] in Urine sediment by Light microscopy Trace NORMAL: NONE SEEN [facility] ID Date Data Source [id number] 08/01/2020 09:20:00 PM EDT [facility] ([facility]) Name Value Range Interpretation Code Description Data Jerica rce(s) Supporting Document(s) Urinalysis Laboratory test result [facility] ([facility]) URINALYSIS Source Laboratory test result [facility] ([facility]) Color Laboratory test result [facility] ([facility]) Clarity Laboratory test result [facility] ([facility]) Spec [place] 1.025 1.001-1.030 [facility] ([facility]) pH 5 5-9 [facility] ([facility]) Glucose Laboratory test result [facility] ([facility]) Bilirubin Laboratory test result [facility] ([facility]) Ketone 5 Abnormal (applies to non-numeric res ults) [facility] ([facility]) Protein 15 [facility] ([facility]) Nitrite Laboratory test result [facility] ([facility]) Blood 150 Abnormal (applies to non-numeric res ults) [facility] ([facility]) Leuk Est 25 [facility] ([facility]) Urobilinogen 1 [facility] ([facility]) Microscopic Laboratory test result M [facility] ([facility]) WBC Laboratory test result [facility] ([facility]) RBC Laboratory test result Abnormal (applies to non -numeric results) [facility] ([facility]) Epithelial Laboratory test result [facility] ([facility]) Mucous Laboratory test result [facility] ([facility]) ID Date Data Source [id number] 08/01/2020 09:20:00 PM EDT [facility] ([facility]) Name Value Range Interpretation Code Description Data Jerica rce(s) Supporting Document(s) Culture Urine Laboratory test result [facility] ([facility]) SOURCE: Clean Catch ID Date Data Source [id number] 08/01/2020 09:56:00 PM EDT [facility] Name Value Range Interpretation Code Description Data Jerica rce(s) Supporting Document(s) CBC W/AUTOMATED DIFF [facility] COMPLETE BLOOD COUNT Leukocytes [#/volume] in Blood by Automated count 13.3 10^3/uL 4.2 - 11.0 H [facility] Erythrocytes [#/volume] in Blood by Automated count 4.06 10^6/uL 4. 20 - 5.40 L [facility] Hemoglobin [Mass/volume] in Blood 12.8 g/dL 12.0 - 16.0 [facility] Hematocrit [Volume Fraction] of Blood by Automated count 37.0 % 3 7.0 - 47.0 [facility] Erythrocyte mean corpuscular volume [Entitic volume] by Auto mated count 91.1 fL 81.0 - 101 [facility] Erythrocyte mean corpuscular hemoglobin [Entitic mass] by Automated count 31.5 pg 27.0 - 34.0 [facility] Erythrocyte mean corpuscular hemoglobin concentration [Mass/volume] by Automated count 34.6 g/dL 31.0 - 36.0 [facility] Erythrocyte distribution width [Ratio] by Automated count 13.9 % 11.5 - 14.5 [facility] Platelets [#/volume] in Blood by Automated count 403 10^3/uL 150 - 45 0 [facility] Platelet mean volume [Entitic volume] in Blood by Automated count 10.5 fL 7.4 - 10.4 H [facility] Neutrophils/100 leukocytes in Blood by Automated count 60.3 % 37. 0 - 80.0 [facility] Lymphocytes/100 leukocytes in Blood by Manual count 28.5 % 25.0 - 40.0 [facility] Monocytes/100 leukocytes in Blood by Automated count 9.1 % 3.0 - 8.0 H [facility] Eosinophils/100 leukocytes in Blood by Automated count 1.0 % 0.0 - 7.0 [facility] 0.3 %IG 0.8 % 0.0 - 0.0 H [facility] %NRBC 0.0 % 0.0 - 0.0 [place] [facility] al Neutrophils [#/volume] in Blood by Automated count 8.04 10^3/uL 2.00 - 6.90 H [facility] Lymphocytes [#/volume] in Blood by Automated count 3.80 10^3/uL 0.60 - 3.40 H [facility] Monocytes [#/volume] in Blood by Automated count 1.21 10^3/uL 0.00 - 0.90 H [facility] Eosinophils [#/volume] in Blood by Automated count 0.13 10^3/uL 0.00 - 0.70 [facility] Basophils [#/volume] in Blood by Automated count 0.04 10^3/uL 0.00 - 0.20 [facility] #IG 0.11 10^3/uL 0.00 - 0.10 H [facility] #NRBC 0.00 10^3/uL 0.00 - 0.00 [facility] ospital MANUAL DIFF SEE BELOW [facility] ital Segmented neutrophils/100 leukocytes in Blood by Manual count 61 % 37 - 80 [facility] BAND 0 % 0 - 5 [facility] al %LYMPH 31 % 25 - 40 [facility] %MONO 7 % 3 - 8 [facility] %EOS 1 % 0 - 7 [facility] 0 Metamyelocytes/100 leukocytes in Blood by Manual count 0 % [facility] Myelocytes/100 leukocytes in Blood by Manual count 0 % [facility] Promyelocytes/100 leukocytes in Blood by Manual count 0 % [facility] Blasts/100 leukocytes in Blood by Manual count 0 % [facility] ELLIE LYM 0 % [facility] Nucleated erythrocytes/100 erythrocytes in Blood by Manual count 0 % [facility] RBC MORPH NOT INDICATED [facility] spital ID Date Data Source [id number] 08/01/2020 09:24:00 PM EDT [facility] Name Value Range Interpretation Code Description Data Jerica rce(s) Supporting Document(s) Choriogonadotropin.intact [Units/volume] in Serum or Plasma <0.5 mIU/ mL [facility] Interpr etation: Less than 5 mU/mL: Negative 6-10 mU/mL: Borderline (suggest repeat in 48 hours) >10: Positive Approx HCG range (mU/mL) Weeks post LMP 5.4-708 mU/mL 3-4 Weeks 217-01133 mU/mL 5-6 Weeks 4059-053397 mU/mL 7-8 Weeks 55954-737318 mU/mL 9-10 Weeks 88752-93241 mU/mL 12-14 Weeks 64075-37831 mU/mL 15-16 Weeks 8240- 01025 mU/mL 17-18 Weeks ID Date Data Source [id number] 08/01/2020 09:21:00 PM EDT [facility] Name Value Range Interpretation Code Description Data Jerica rce(s) Supporting Document(s) COMPREHENSIVE METABOLIC PANEL [facility] COMPREHENSIVE METABOLIC PANEL Sodium [Moles/volume] in Serum or Plasma 137 mEq/L 134 - 153 [facility] Potassium [Moles/volume] in Serum or Plasma 3.6 mEq/L 3.6 - 5.0 [facility] Chloride [Moles/volume] in Serum or Plasma 106 mEq/L 98 - 107 [facility] Carbon dioxide, total [Moles/volume] in Serum or Plasma 20 MEQ/L 22 - 30 L [facility] Glucose [Mass/volume] in Serum or Plasma 96 MG/DL 70 - 99 [facility] BUN 21 MG/DL 7 - 21 [facility] al Creatinine [Mass/volume] in Serum or Plasma 0.9 MG/DL 0.7 - 1.5 [facility] BUN/CREAT 23 8 - 27 Health system Protein [Mass/volume] in Serum or Plasma 6.2 G/DL 6.3 - 8.2 L [facility] Albumin [Mass/volume] in Serum or Plasma 3.9 G/DL 3.9 - 5.0 [facility] Globulin [Mass/volume] in Serum by calculation 2.3 GM/DL 2.4 - 3.2 L [facility] A/G RATIO 1.7 0.8 - 2.0 Health system Calcium [Mass/volume] in Serum or Plasma 9.2 MG/DL 8.4 - 10.2 [facility] Bilirubin.total [Mass/volume] in Serum or Plasma <0.7 MG/DL 0.2 - 1.3 [facility] Alkaline phosphatase [Enzymatic activity/volume] in Serum or Plasma 71 U/L 38 - 126 [facility] Aspartate aminotransferase [Enzymatic activity/volume] in Serum or Plasma 14 U/L 5 - 40 [facility] Alanine aminotransferase [Enzymatic activity/volume] in Seru m or Plasma 12 U/L 7 - 56 [facility] Anion gap 3 in Serum or Plasma 11.0 mmol/L 8.0 - 16.0 [facility] AGE 39 yrs [facility] al NON-AA GFR >60 mL/min [facility] ital AFR AMER GFR >60 mL/min [facility] Ho spital Male GFR In terprentation 20-49 [...] >32 mL/min Normal ID Date Data Source [id number] 08/01/2020 09:20:00 PM EDT [facility] Name Value Range Interpretation Code Description Data Jerica rce(s) Supporting Document(s) Lipase [Enzymatic activity/volume] in Serum or Plasma 32 U/L 13 - 60 [facility] ID Date Data Source [id number] 08/01/2020 09:03:00 PM EDT [facility] Name Value Range Interpretation Code Description Data Jerica rce(s) Supporting Document(s) Lactate [Moles/volume] in Serum or Plasma 1.9 MMOL/L 0.2 - 2.2 [facility] ID Date Data Source [id number] 08/01/2020 08:55:00 PM EDT [facility] ([facility]) Name Value Range Interpretation Code Description Data Jerica rce(s) Supporting Document(s) Lactate [Mass/volume] in Serum or Plasma 1.9 mmol/L 0.2-2.[address] [facility] ([facility]) Lipase [Enzymatic activity/volume] in Serum or Plasma 32 U/L 13-6 0 [facility] ([facility]) ID Date Data Source [id number] 08/01/2020 08:55:00 PM EDT [facility] ([facility]) Name Value Range Interpretation Code Description Data Jerica rce(s) Supporting Document(s) Comprehensive [facility] Laboratory test result [facility] ([facility]) COMPREHENSIVE METABOLIC PANEL Sodium 137 meq/L 134-153 [facility] ([facility]) Potassium 3.6 meq/L 3.6-5.0 [facility] ([facility]) Co2 20 meq/L 22-30 Below low normal [facility] ([facility]) Chloride 106 meq/L 98-107 [facility] ([facility]) BUN 21 mg/dL 7-21 [facility] ([facility]) Glucose 96 mg/dL 70-99 [facility] ([facility]) Creatinine 0.9 mg/dL 0.7-1.5 [facility] ([facility]) BUN/Creat 23 8-27 [facility] ([facility]) Total Protein 6.2 g/dL 6.3-8.2 Below low normal [facility] ([facility]) Globulin 2.3 GM/DL 2.4-3.2 Below low normal [facility] ( [facility]) Albumin 3.9 g/dL 3.9-5.0 [facility] ([facility]) Calcium 9.2 mg/dL 8.4-10.2 [facility] ([facility]) A/G Ratio 1.7 0.8-2.0 [facility] ([facility]) Total Bili Laboratory test result 0.2-1.3 [facility] ([facility]) Sgot/Ast 14 U/L 5-40 [facility] ([facility]) Alkaline Phos 71 U/L 38-126 [facility] ([facility]) SGPT/Alt 12 U/L 7-56 [facility] ([facility]) Anion Gap 11.0 mmol/L 8.0-16.0 [facility] ([facility]) Age 39 yrs [facility] ([facility]) Non-Aa GFR Laboratory test result [facility] ([facility]) Afr Amer GFR Laboratory test result [facility] ([facility]) Male GFR Interprentation 20-49 yrs >60 mL/min [...] >32 mL/min Normal ID Date Data Source [id number] 08/01/2020 08:55:00 PM EDT [facility]) Name Value Range Interpretation Code Description Data Jerica rce(s) Supporting Document(s) Choriogonadotropin.beta subunit [Moles/volume] in Seru m or Plasma Laboratory test result [facility] ([facility]) Interpretation: Less than 5 mU/mL: Negative 6-10 mU/mL: Borderline (suggest repeat i n 48 hours) >10: Positive Approx HCG range (mU/mL) Weeks post LMP 5.4-708 mU/mL 3-4 Weeks 217-58772 mU/mL 5-6 Weeks 4059-780158 mU/mL 7-8 Weeks 29522-299170 mU/mL 9-10 Weeks 55937-64601 mU/mL 12-14 Weeks 50210-53943 mU/mL 15-16 Weeks 8240-80505 mU/mL 17-18 Weeks ID Date Data Source [id number] 08/01/2020 08:55:00 PM EDT [facility] ([facility]) Name Value Range Interpretation Code Description Data Jerica rce(s) Supporting Document(s) CBC W/Automated Diff Laboratory test result [facility] ([facility]) COMPLETE BLOOD COUNT WBC 13.3 10^3/uL 4.2-11.0 Above high normal [facility] ([facility]) Hemoglobin 12.8 g/dL 12.0-16.0 [facility] ([facility]) RBC 4.06 10^6/uL 4.20-5.40 Below low normal [facility] ([facility]) Hematocrit 37.0 % 37.0-47.0 [facility] ([facility]) MCV 91.1 fL 81.0-101 [facility] ([facility]) MCH 31.5 pg 27.0-34.0 [facility] ([facility]) MCHC 34.6 g/dL 31.0-36.0 [facility] ([facility]) RDW 13.9 % 11.5-14.5 [facility] ([facility]) Platelets 403 10^3/uL 150-450 [facility] ([facility]) MPV 10.5 fL 7.4-10.4 Above high normal [facility] ([facility]) Neut 60.3 % 37.0-80.0 [facility] ([facility]) Lymph 28.5 % 25.0-40.0 [facility] ([facility]) Eos 1.0 % 0.0-7.0 [facility] ([facility]) Riverside 9.1 % 3.0-8.0 Above high normal [facility] ([facility]) %Ig 0.8 % 0.0-0.0 Above high normal [facility] ([facility]) Baso 0.3 % 0.0-2.5 [facility] ([facility]) #Neut 8.04 10^3/uL 2.00-6.90 Above high normal [facility] ([facility]) %NRBC 0.0 % 0.0-0.0 [facility] ([facility]) #Lymph 3.80 10^3/uL 0.60-3.40 Above high normal [facility] ([facility]) #[place] 1.21 10^3/uL 0.00-0.90 Above high normal [facility] ([facility]) #Baso 0.04 10^3/uL 0.00-0.20 [facility] ([facility]) #Eos 0.13 10^3/uL 0.00-0.70 [facility] ([facility]) #NRBC 0.00 10^3/uL 0.00-0.00 [facility] ([facility]) #Ig 0.11 10^3/uL 0.00-0.10 Above high normal [facility] ([facility]) Manual Diff Laboratory test result M [facility] ([facility]) Band 0 % 0-5 [facility] ([facility]) Segs 61 % 37-80 [facility] ([facility]) %Riverside 7 % 3-8 [facility] ([facility]) %Lymph 31 % 25-40 [facility] ([facility]) %Baso 0 % 0-2 [facility] ([facility]) %Eos 1 % 0-7 [facility] ([facility]) Metamyelocyte 0 % [facility] ([facility]) Promyelocyte 0 % [facility] ([facility]) Myelocyte 0 % [facility] ([facility]) Blasts 0 % [facility] Ellie Lym 0 % [facility] ([facility]) NRBC 0 % [facility] ([facility]) RBC Morph Laboratory test result [facility] ([facility]) ID Date Data Source [id number] 07/27/2020 11:10:00 PM EDT [facility] ([facility]) Name Value Range Interpretation Code Description Data Jerica rce(s) Supporting Document(s) Laboratory test finding (navigational concept) Laboratory test r esult Normal (applies to non-numeric results) [facility] ([facility]) <content>QUANTITATIVE RESULT QU ALITATIVE INTERPRETATION</content>
<content> </content>
<content><5.0 IU/L NEGATIVE</content>
<content>5.0 - 25.0 IU/L INDETERMINATE</content>
<content>>25.0 IU/L POSITIVE</content>
<content></content> ID Date Data Source [id number] 07/27/2020 11:07:00 PM EDT [facility]) Name Value Range Interpretation Code Description Data Jerica rce(s) Supporting Document(s) Heterophile Ab [Presence] in Serum by Latex agglutinat ion Laboratory test result Normal (applies to non-numeric results) [facility]) ID Date Data Source [id number] 07/27/2020 11:07:00 PM EDT [facility] ([facility]) Name Value Range Interpretation Code Description Data Jerica rce(s) Supporting Document(s) White Blood Count 9.7 10 4.0-10.0 Normal (applies to non-numeri c results) [facility] ([facility]) Red Blood Count 4.30 10 4.00-5.40 Normal (applies to non-numeric results) [facility] ([facility]) Hematocrit 40.1 % 36.0-47.0 Normal (applies to non-numeric resul ts) [facility]) Hemoglobin 13.1 g/dL 12.0-15.5 Normal (applies to non-numeric resul ts) [facility]) Mean Corpuscular Volume 93.3 fl 80.0-96.0 Normal ( applies to non-numeric results) [facility]) Mean Corpuscular Hemoglobin 30.5 pg 27.0-33.0 Norm al (applies to non-numeric results) [facility]) Mean Corpuscular HGB Conc 32.7 g/dL 32.0-36.5 Normal (applies to non-numeric results) [facility]) Platelet Count, Automated 328 10 150-450 Normal (applies to non-numeric results) [facility]) Red Cell Distribution Width 13.7 % 11.5-14.5 Norm al (applies to non-numeric results) [facility]) Lymph % 27.4 % 24.0-44.0 Normal (applies to non-numeric resul ts) [facility] ([facility]) Neutrophils % 61.2 % 36.0-66.0 Normal (applies to non-numeric re sults) [facility] ([facility]) [place] % 7.6 % 2.0-8.0 Normal (applies to non-numeric resul ts) [facility] ([facility]) Eos % 3.0 % 0.0-3.0 Normal (applies to non-numeric resul ts) [facility] ([facility]) Immature Granulocyte % 0.3 % 0-3.0 Normal (applies to non-n umeric results) [facility] ([facility]) Baso % 0.5 % 0.0-1.0 Normal (applies to non-numeric resul ts) [facility] ([facility]) Nucleated Red Blood Cell % 0.0 % 0-0 Normal (applies to n on-numeric results) [facility] ([facility]) Neutrophils # 6.0 10 1.5-8.5 Normal (applies to non-numeric re sults) [facility] ([facility]) Lymph # 2.7 10 1.5-5.0 Normal (applies to non-numeric resul ts) [facility] ([facility]) [place] # 0.7 10 0.0-0.8 Normal (applies to non-numeric resul ts) [facility] ([facility]) Baso # 0.1 10 0.0-0.2 Normal (applies to non-numeric resul ts) [facility] ([facility]) Eos # 0.3 10 0.0-0.5 Normal (applies to non-numeric resul ts) [facility] ([facility]) ID Date Data Source [id number] 07/27/2020 10:09:00 PM EDT [facility] ([facility]) Name Value Range Interpretation Code Description Data Jerica rce(s) Supporting Document(s) Gats Culture (Neg Strep SCR) Laboratory test result Normal (applies to non- numeric results) [facility] ([facility]) FULL REPORT IN LAB NOTES ([facility] and [facility] ). NEGATIVE FOR STREP PYOGENES (GROUP A) ORGANISM 1: STREPTOCOCCUS GROUP C QUANTITY OF GROWTH HEAVY ORGANISM 1: STREPTOCOCCUS GROUP C ID Date Data Source [id number] 07/26/2020 01:42:00 PM EDT [employer] Name Value Range Interpretation Code Description Data Jerica rce(s) Supporting Document(s) COVID-19 RT-PCR [employer] [facility] Not Detected Not Detected [facility] A not detected (negative) test result [...] developed and its performance characteristics determined by [employer] and verified at [facility]. It has not been cleared or approved by the U.S. Food and Drug Administration for diagnostic use. This test has been authorized by FDA under an EUA for use by authorized laboratories. Results should be used in conjunction with clinical findings, and should not form the sole basis for a diagnosis or treatment decision. Methods: SARS-CoV-2 Multiplex RT-PCR Assay ID Date Data Source [id number] 07/25/2020 08:15:00 AM EDT [facility] Name Value Range Interpretation Code Description Data Jerica rce(s) Supporting Document(s) SARS-CoV-2 (COVID-19) N gene [Presence] in Respiratory specimen by ANJELICA with probe detection NEGATIVE [facility] This lab was ordered by Jojo Villanueva and reported by [employer]. ID Date Data Source [id number] 07/25/2020 12:00:00 AM EDT [facility] Name Value Range Interpretation Code Description Data Jerica rce(s) Supporting Document(s) Carestart Rapid COVID Antigen Test Negative [facility] This lab was reported by Jojo easley. ID Date Data Source [id number] 07/06/2020 07:06:00 AM EDT [facility] Name Value Range Interpretation Code Description Data Jerica rce(s) Supporting Document(s) Methylmalonate [Moles/volume] in Serum or Plasma 229 nmol/L 0-378 [facility] Disclaimer: COMMENT [facility] ital This test was developed and its performa nce characteristicsdetermined by [facility]. It has not been cleared or approvedby the Food and Drug Administration. ID Date Data Source [id number] 06/30/2020 12:55:00 PM EDT [facility] Name Value Range Interpretation Code Description Data Jerica rce(s) Supporting Document(s) Calcidiol [Moles/volume] in Serum or Plasma 21 NG/ML [facility] VITAMIN-D(2 5HYDROXY) Deficiency: <=20 ng/ml Insufficiency: 21-29 ng/ml Preferred level: => 30 ng/ml ID Date Data Source [id number] 06/29/2020 02:30:00 PM EDT [facility] Name Value Range Interpretation Code Description Data Jerica rce(s) Supporting Document(s) Cobalamin (Vitamin B12) [Mass/volume] in Serum or Plasma 397 PG/ML 232 - 1245 [facility] ID Date Data Source [id number] 06/29/2020 02:30:00 PM EDT [facility] Value Range Interpretation Code Description Data Jerica rce(s) Supporting Document(s) Thyrotropin [Units/volume] in Serum or Plasma by Detec tion limit <= 0.05 mIU/L 3.12 uIU/mL 0.47 - 5.01 [facility] ID Date Data Source [id number] 06/29/2020 02:30:00 PM EDT [facility] Name Value Range Interpretation Code Description Data Jerica rce(s) Supporting Document(s) Thyroxine (T4) free index in Serum or Plasma by calculation 1.10 NG/DL 0.93 - 1.70 [facility] ID Date Data Source [id number] 06/29/2020 02:30:00 PM EDT [facility] Name Value Range Interpretation Code Description Data Jerica rce(s) Supporting Document(s) Folate [Mass/volume] in Serum or Plasma 9.5 NG/ML 4.4 - 31.0 [facility] ID Date Data Source [id number] 06/29/2020 02:21:00 PM EDT [facility] Name Value Range Interpretation Code Description Data Jerica rce(s) Supporting Document(s) [facility] Cholesterol [Mass/volume] in Serum or Plasma 221 MG/DL 131 - 200 H [facility] Deprecated Triglyceride [Mass/volume] in Serum or Plasma 203 MG/DL 3 5 - 160 H [facility] HDL 46 MG/DL 29 - 86 [facility] al Cholesterol in LDL [Mass/volume] in Serum or Plasma by Direc t assay 158 mg/dL 65 - 175 [facility] Cholesterol.total/Cholesterol in HDL [Mass Ratio] in Serum o r Plasma 4.8 3.2 - 4.4 H [facility] LDL/HDL 3.43 1.47 - 3.22 H [facility] ital CVE RISK CHOL/HDL LDL/HDLMEN: 1/2 AVERAGE 3.43 1.00 AVERAGE 4.97 3.55 2X AVERAGE 9.55 6.25 3X AVERAGE 23.99 7.99WOMEN: 1/2 AVERAGE 3.27 1.47 AVERAGE 4.44 3.22 2X AVERAGE 7.05 5.03 3X AVERAGE 11.04 6.14 ID Date Data Source [id number] 06/29/2020 02:20:00 PM EDT [facility] Name Value Range Interpretation Code Description Data Jerica rce(s) Supporting Document(s) COMPREHENSIVE METABOLIC PANEL [facility] COMPREHENSIVE METABOLIC PANEL Sodium [Moles/volume] in Serum or Plasma 138 mEq/L 134 - 153 [facility] Potassium [Moles/volume] in Serum or Plasma 4.2 mEq/L 3.6 - 5.0 [facility] Chloride [Moles/volume] in Serum or Plasma 107 mEq/L 98 - 107 [facility] Carbon dioxide, total [Moles/volume] in Serum or Plasma 22 MEQ/L 22 - 30 [facility] Glucose [Mass/volume] in Serum or Plasma 93 MG/DL 70 - 99 [facility] BUN 12 MG/DL 7 - 21 [facility] al Creatinine [Mass/volume] in Serum or Plasma 0.6 MG/DL 0.7 - 1.5 L [facility] BUN/CREAT 20 8 - 27 Health system Protein [Mass/volume] in Serum or Plasma 6.2 G/DL 6.3 - 8.2 L [facility] Albumin [Mass/volume] in Serum or Plasma 4.0 G/DL 3.9 - 5.0 [facility] Globulin [Mass/volume] in Serum by calculation 2.2 GM/DL 2.4 - 3.2 L [facility] A/G RATIO 1.8 0.8 - 2.0 Health system Calcium [Mass/volume] in Serum or Plasma 8.9 MG/DL 8.4 - 10.2 [facility] Bilirubin.total [Mass/volume] in Serum or Plasma <0.7 MG/DL 0.2 - 1.3 [facility] Alkaline phosphatase [Enzymatic activity/volume] in Serum or Plasma 69 U/L 38 - 126 [facility] Aspartate aminotransferase [Enzymatic activity/volume] in Serum or Plasma 15 U/L 5 - 40 [facility] Alanine aminotransferase [Enzymatic activity/volume] in Seru m or Plasma 12 U/L 7 - 56 [facility] Anion gap 3 in Serum or Plasma 9.0 mmol/L 8.0 - 16.0 [facility] AGE 39 yrs [facility] al NON-AA GFR >60 mL/min [facility] ital AFR AMER GFR >60 mL/min [facility] Ho spital Male GFR In terprentation 20-49 [...] >32 mL/min Normal ID Date Data Source [id number] 06/29/2020 02:18:00 PM EDT [facility] Name Value Range Interpretation Code Description Data Jerica rce(s) Supporting Document(s) Hemoglobin A1c/Hemoglobin.total in Blood 5.5 % 4.4 - 6.1 [facility] {A1]{HB] ID Date Data Source [id number] 06/29/2020 02:04:00 PM EDT [facility] Name Value Range Interpretation Code Description Data Jerica rce(s) Supporting Document(s) Iron [Mass/volume] in Serum or Plasma 59 UG/DL 42 - 135 [facility] ID Date Data Source [id number] 06/29/2020 01:58:00 PM EDT [facility] Name Value Range Interpretation Code Description Data Jerica rce(s) Supporting Document(s) CBC W/AUTOMATED DIFF [facility] COMPLETE BLOOD COUNT Leukocytes [#/volume] in Blood by Automated count 5.9 10^3/uL 4.2 - 1 1.0 [facility] Erythrocytes [#/volume] in Blood by Automated count 4.38 10^6/uL 4. 20 - 5.40 [facility] Hemoglobin [Mass/volume] in Blood 13.8 g/dL 12.0 - 16.0 [facility] Hematocrit [Volume Fraction] of Blood by Automated count 40.8 % 3 7.0 - 47.0 [facility] Erythrocyte mean corpuscular volume [Entitic volume] by Auto mated count 93.2 fL 81.0 - 101 [facility] Erythrocyte mean corpuscular hemoglobin [Entitic mass] by Automated count 31.5 pg 27.0 - 34.0 [facility] Erythrocyte mean corpuscular hemoglobin concentration [Mass/volume] by Automated count 33.8 g/dL 31.0 - 36.0 [facility] Erythrocyte distribution width [Ratio] by Automated count 13.4 % 11.5 - 14.5 [facility] Platelets [#/volume] in Blood by Automated count 339 10^3/uL 150 - 45 0 [facility] Platelet mean volume [Entitic volume] in Blood by Automated count 11.2 fL 7.4 - 10.4 H [facility] Neutrophils/100 leukocytes in Blood by Automated count 52.3 % 37. 0 - 80.0 [facility] Lymphocytes/100 leukocytes in Blood by Manual count 35.2 % 25.0 - 40.0 [facility] Monocytes/100 leukocytes in Blood by Automated count 8.0 % 3.0 - 8.0 [facility] Eosinophils/100 leukocytes in Blood by Automated count 3.6 % 0.0 - 7.0 [facility] Basophils/100 leukocytes in Blood by Automated count 0.7 % 0.0 - 2.5 [facility] %IG 0.2 % 0.0 - 0.0 [facility] %NRBC 0.0 % 0.0 - 0.0 [facility] al Neutrophils [#/volume] in Blood by Automated count 3.07 10^3/uL 2.00 - 6.90 [facility] Lymphocytes [#/volume] in Blood by Automated count 2.06 10^3/uL 0.60 - 3.40 [facility] Monocytes [#/volume] in Blood by Automated count 0.47 10^3/uL 0.00 - 0.90 [facility] Eosinophils [#/volume] in Blood by Automated count 0.21 10^3/uL 0.00 - 0.70 [facility] Basophils [#/volume] in Blood by Automated count 0.04 10^3/uL 0.00 - 0.20 [facility] #IG 0.01 10^3/uL 0.00 - 0.10 [facility] ospital #NRBC 0.00 10^3/uL 0.00 - 0.00 [facility] ospital MANUAL DIFF NOT INDICATED [facility] RBC MORPH NOT INDICATED [facility] spital ID Date Data Source [id number] 06/29/2020 08:04:00 AM EDT [facility] ([facility]) Name Value Range Interpretation Code Description Data Jerica rce(s) Supporting Document(s) Cholesterol 221 mg/dL 131-200 Above high normal [facility] ([facility]) FASTING~.~.~<DG1.3.1>E55.9</DG1.3.1><DG1.3.1>E55.9</DG1.3.1><DG1.3.1>E55.9</DG1. 3.1><DG1.3.1 Cve Panel Laboratory test result [facility] ([facility]) FASTING~.~.~<DG1.3.1>E55.9</DG1.3.1><DG1.3.1>E55.9</DG1.3.1><DG1.3.1>E55.9</DG1. 3.1><DG1.3.1 Triglycerides 203 mg/dL 35-160 Above high normal [facility] ([facility]) FASTING~.~.~<DG1.3.1>E55.9</DG1.3.1><DG1.3.1>E55.9</DG1.3.1><DG1.3.1>E55.9</DG1. 3.1><DG1.3.1 LDL 158 mg/dL 65-175 [facility] ([facility]) FASTING~.~.~<DG1.3.1>E55.9</DG1.3.1><DG1.3.1>E55.9</DG1.3.1><DG1.3.1>E55.9</DG1. 3.1><DG1.3.1 HDL 46 mg/dL 29-86 [facility] ([facility]) FASTING~.~.~<DG1.3.1>E55.9</DG1.3.1><DG1.3.1>E55.9</DG1.3.1><DG1.3.1>E55.9</DG1. 3.1><DG1.3.1 LDL/HDL 3.43 1.47-3.22 Above high normal [facility] ([facility]) FASTING~.~.~<DG1.3.1>E55.9</DG1.3.1><DG1.3.1>E55.9</DG1.3.1><DG1.3.1>E55.9</DG1. 3.1><DG1.3.1 Risk Factor 4.8 3.2-4.4 Above high normal [facility] ([facility]) FASTING~.~.~<DG1.3.1>E55.9</DG1.3.1><DG1.3.1>E55.9</DG1.3.1><DG1.3.1>E55.9</DG1. 3.1><DG1.3.1 ID Date Data Source [id number] 06/29/2020 08:04:00 AM EDT [facility] ([facility]) Name Value Range Interpretation Code Description Data Jerica rce(s) Supporting Document(s) Methylmalonic Acid, Serum 229 nmol/L 0-[address] [facility] ([facility]) FASTING~.~.~<DG1.3.1>E55.9</DG1.3.1><DG1.3.1>E55.9</DG1.3.1><DG1.3.1>E55.9</DG1. 3.1><DG1.3.1 Disclaimer: Laboratory test result M [facility] ([facility]) FASTING~.~.~<DG1.3.1>E55.9</DG1.3.1><DG1.3.1>E55.9</DG1.3.1><DG1.3.1>E55.9</DG1. 3.1><DG1.3.1 ID Date Data Source [id number] 06/29/2020 08:04:00 AM EDT [facility] ([facility]) Name Value Range Interpretation Code Description Data Jerica rce(s) Supporting Document(s) Methylmalonate [Moles/volume] in Serum or Plasma Laboratory test resu lt [facility] ([facility]) Cobalamin (Vitamin B12) [Mass/volume] in Serum or Plasma 397 pg/mL 2 32-1245 [facility] ([facility]) FASTING~.~.~<DG1.3.1>E55.9</DG1.3.1><DG1.3.1>E55.9</DG1.3.1><DG1.3.1>E55.9</DG1. 3.1><DG1.3.1 ID Date Data Source [id number] 06/29/2020 08:04:00 AM EDT [facility] ([facility]) Name Value Range Interpretation Code Description Data Jerica rce(s) Supporting Document(s) Folate [Mass/volume] in Serum or Plasma 9.5 ng/mL 4.4-31.0 [facility] ([facility]) FASTING~.~.~<DG1.3.1>E55.9</DG1.3.1><DG1.3.1>E55.9</DG1.3.1><DG1.3.1>E55.9</DG1. 3.1><DG1.3.1 Hemoglobin A1c/Hemoglobin.total in Blood 5.5 % 4.4-6.1 [facility] ([facility]) FASTING~.~.~<DG1.3.1>E55.9</DG1.3.1><DG1.3.1>E55.9</DG1.3.1><DG1.3.1>E55.9</DG1. 3.1><DG1.3.1 Thyroxine (T4) free [Mass/volume] in Serum or Plasma 1.10 ng/dL 0.93- 1.70 [facility] ([facility]) FASTING~.~.~<DG1.3.1>E55.9</DG1.3.1><DG1.3.1>E55.9</DG1.3.1><DG1.3.1>E55.9</DG1. 3.1><DG1.3.1 Iron [Mass/volume] in Serum or Plasma 59 ug/dL 42-135 [facility] ([facility]) FASTING~.~.~<DG1.3.1>E55.9</DG1.3.1><DG1.3.1>E55.9</DG1.3.1><DG1.3.1>E55.9</DG1. 3.1><DG1.3.1 Thyrotropin [Units/volume] in Serum or Plasma 3.12 uIU/mL 0.47-5.01 [facility] ([facility]) FASTING~.~.~<DG1.3.1>E55.9</DG1.3.1><DG1.3.1>E55.9</DG1.3.1><DG1.3.1>E55.9</DG1. 3.1><DG1.3.1 ID Date Data Source [id number] 06/29/2020 08:04:00 AM EDT [facility] ([facility]) Name Value Range Interpretation Code Description Data Jerica rce(s) Supporting Document(s) Comprehensive [employer] Laboratory test result [facility] ([facility]) FASTING~.~.~<DG1.3.1>E55.9</DG1.3.1><DG1.3.1>E55.9</DG1.3.1><DG1.3.1>E55.9</DG1. 3.1><DG1.3.1 Potassium 4.2 meq/L 3.6-5.0 [facility] ([facility]) FASTING~.~.~<DG1.3.1>E55.9</DG1.3.1><DG1.3.1>E55.9</DG1.3.1><DG1.3.1>E55.9</DG1. 3.1><DG1.3.1 Sodium 138 meq/L 134-153 [facility] ([facility]) FASTING~.~.~<DG1.3.1>E55.9</DG1.3.1><DG1.3.1>E55.9</DG1.3.1><DG1.3.1>E55.9</DG1. 3.1><DG1.3.1 Chloride 107 meq/L 98-107 [facility] ([facility]) FASTING~.~.~<DG1.3.1>E55.9</DG1.3.1><DG1.3.1>E55.9</DG1.3.1><DG1.3.1>E55.9</DG1. 3.1><DG1.3.1 Glucose 93 mg/dL 70-99 [facility] ([facility]) FASTING~.~.~<DG1.3.1>E55.9</DG1.3.1><DG1.3.1>E55.9</DG1.3.1><DG1.3.1>E55.9</DG1. 3.1><DG1.3.1 Co2 22 meq/L 22-30 [facility] ([facility]) FASTING~.~.~<DG1.3.1>E55.9</DG1.3.1><DG1.3.1>E55.9</DG1.3.1><DG1.3.1>E55.9</DG1. 3.1><DG1.3.1 BUN 12 mg/dL 7-21 [facility] ([facility]) FASTING~.~.~<DG1.3.1>E55.9</DG1.3.1><DG1.3.1>E55.9</DG1.3.1><DG1.3.1>E55.9</DG1. 3.1><DG1.3.1 Creatinine 0.6 mg/dL 0.7-1.5 Below low normal [facility] ( [facility]) FASTING~.~.~<DG1.3.1>E55.9</DG1.3.1><DG1.3.1>E55.9</DG1.3.1><DG1.3.1>E55.9</DG1. 3.1><DG1.3.1 BUN/Creat 20 8-27 [facility] ([facility]) FASTING~.~.~<DG1.3.1>E55.9</DG1.3.1><DG1.3.1>E55.9</DG1.3.1><DG1.3.1>E55.9</DG1. 3.1><DG1.3.1 Total Protein 6.2 g/dL 6.3-8.2 Below low normal [facility] ([facility]) FASTING~.~.~<DG1.3.1>E55.9</DG1.3.1><DG1.3.1>E55.9</DG1.3.1><DG1.3.1>E55.9</DG1. 3.1><DG1.3.1 Albumin 4.0 g/dL 3.9-5.0 [facility] ([facility]) FASTING~.~.~<DG1.3.1>E55.9</DG1.3.1><DG1.3.1>E55.9</DG1.3.1><DG1.3.1>E55.9</DG1. 3.1><DG1.3.1 Globulin 2.2 GM/DL 2.4-3.2 Below low normal [facility] ( [facility]) FASTING~.~.~<DG1.3.1>E55.9</DG1.3.1><DG1.3.1>E55.9</DG1.3.1><DG1.3.1>E55.9</DG1. 3.1><DG1.3.1 A/G Ratio 1.8 0.8-2.0 [facility] ([facility]) FASTING~.~.~<DG1.3.1>E55.9</DG1.3.1><DG1.3.1>E55.9</DG1.3.1><DG1.3.1>E55.9</DG1. 3.1><DG1.3.1 Calcium 8.9 mg/dL 8.4-10.2 [facility] ([facility]) FASTING~.~.~<DG1.3.1>E55.9</DG1.3.1><DG1.3.1>E55.9</DG1.3.1><DG1.3.1>E55.9</DG1. 3.1><DG1.3.1 Total Bili Laboratory test result 0.2-1.3 [facility] ([facility]) FASTING~.~.~<DG1.3.1>E55.9</DG1.3.1><DG1.3.1>E55.9</DG1.3.1><DG1.3.1>E55.9</DG1. 3.1><DG1.3.1 Alkaline Phos 69 U/L 38-126 [facility] ([facility]) FASTING~.~.~<DG1.3.1>E55.9</DG1.3.1><DG1.3.1>E55.9</DG1.3.1><DG1.3.1>E55.9</DG1. 3.1><DG1.3.1 Sgot/Ast 15 U/L 5-40 [facility] ([facility]) FASTING~.~.~<DG1.3.1>E55.9</DG1.3.1><DG1.3.1>E55.9</DG1.3.1><DG1.3.1>E55.9</DG1. 3.1><DG1.3.1 Anion Gap 9.0 mmol/L 8.0-16.0 [facility] ([facility]) FASTING~.~.~<DG1.3.1>E55.9</DG1.3.1><DG1.3.1>E55.9</DG1.3.1><DG1.3.1>E55.9</DG1. 3.1><DG1.3.1 SGPT/Alt 12 U/L 7-56 [facility] ([facility]) FASTING~.~.~<DG1.3.1>E55.9</DG1.3.1><DG1.3.1>E55.9</DG1.3.1><DG1.3.1>E55.9</DG1. 3.1><DG1.3.1 Age 39 yrs [facility] ([facility]) FASTING~.~.~<DG1.3.1>E55.9</DG1.3.1><DG1.3.1>E55.9</DG1.3.1><DG1.3.1>E55.9</DG1. 3.1><DG1.3.1 Non-Aa GFR Laboratory test result [facility] ([facility]) FASTING~.~.~<DG1.3.1>E55.9</DG1.3.1><DG1.3.1>E55.9</DG1.3.1><DG1.3.1>E55.9</DG1. 3.1><DG1.3.1 Afr Amer GFR Laboratory test result [facility] ([facility]) FASTING~.~.~<DG1.3.1>E55.9</DG1.3.1><DG1.3.1>E55.9</DG1.3.1><DG1.3.1>E55.9</DG1. 3.1><DG1.3.1 ID Date Data Source [id number] 06/29/2020 08:04:00 AM EDT [facility] ([facility]) Name Value Range Interpretation Code Description Data Jerica rce(s) Supporting Document(s) CBC W/Automated Diff Laboratory test result [facility] ([facility]) FASTING~.~.~<DG1.3.1>E55.9</DG1.3.1><DG1.3.1>E55.9</DG1.3.1><DG1.3.1>E55.9</DG1. 3.1><DG1.3.1 WBC 5.9 10^3/uL 4.2-11.0 [facility] ([facility]) FASTING~.~.~<DG1.3.1>E55.9</DG1.3.1><DG1.3.1>E55.9</DG1.3.1><DG1.3.1>E55.9</DG1. 3.1><DG1.3.1 RBC 4.38 10^6/uL 4.20-5.40 [facility] ([facility]) FASTING~.~.~<DG1.3.1>E55.9</DG1.3.1><DG1.3.1>E55.9</DG1.3.1><DG1.3.1>E55.9</DG1. 3.1><DG1.3.1 Hemoglobin 13.8 g/dL 12.0-16.0 [facility] ([facility]) FASTING~.~.~<DG1.3.1>E55.9</DG1.3.1><DG1.3.1>E55.9</DG1.3.1><DG1.3.1>E55.9</DG1. 3.1><DG1.3.1 Hematocrit 40.8 % 37.0-47.0 [facility] ([facility]) FASTING~.~.~<DG1.3.1>E55.9</DG1.3.1><DG1.3.1>E55.9</DG1.3.1><DG1.3.1>E55.9</DG1. 3.1><DG1.3.1 MCV 93.2 fL 81.0-101 [facility] ([facility]) FASTING~.~.~<DG1.3.1>E55.9</DG1.3.1><DG1.3.1>E55.9</DG1.3.1><DG1.3.1>E55.9</DG1. 3.1><DG1.3.1 MCH 31.5 pg 27.0-34.0 [facility] ([facility]) FASTING~.~.~<DG1.3.1>E55.9</DG1.3.1><DG1.3.1>E55.9</DG1.3.1><DG1.3.1>E55.9</DG1. 3.1><DG1.3.1 MCHC 33.8 g/dL 31.0-36.0 [facility] ([facility]) FASTING~.~.~<DG1.3.1>E55.9</DG1.3.1><DG1.3.1>E55.9</DG1.3.1><DG1.3.1>E55.9</DG1. 3.1><DG1.3.1 RDW 13.4 % 11.5-14.5 [facility] ([facility]) FASTING~.~.~<DG1.3.1>E55.9</DG1.3.1><DG1.3.1>E55.9</DG1.3.1><DG1.3.1>E55.9</DG1. 3.1><DG1.3.1 Platelets 339 10^3/uL 150-450 [facility] ([facility]) FASTING~.~.~<DG1.3.1>E55.9</DG1.3.1><DG1.3.1>E55.9</DG1.3.1><DG1.3.1>E55.9</DG1. 3.1><DG1.3.1 MPV 11.2 fL 7.4-10.4 Above high normal [facility] ([facility]) FASTING~.~.~<DG1.3.1>E55.9</DG1.3.1><DG1.3.1>E55.9</DG1.3.1><DG1.3.1>E55.9</DG1. 3.1><DG1.3.1 Neut 52.3 % 37.0-80.0 [facility] ([facility]) FASTING~.~.~<DG1.3.1>E55.9</DG1.3.1><DG1.3.1>E55.9</DG1.3.1><DG1.3.1>E55.9</DG1. 3.1><DG1.3.1 Lymph 35.2 % 25.0-40.0 [facility] ([facility]) FASTING~.~.~<DG1.3.1>E55.9</DG1.3.1><DG1.3.1>E55.9</DG1.3.1><DG1.3.1>E55.9</DG1. 3.1><DG1.3.1 [place] 8.0 % 3.0-8.0 [facility] ([facility]) FASTING~.~.~<DG1.3.1>E55.9</DG1.3.1><DG1.3.1>E55.9</DG1.3.1><DG1.3.1>E55.9</DG1. 3.1><DG1.3.1 Eos 3.6 % 0.0-7.0 [facility] ([facility]) FASTING~.~.~<DG1.3.1>E55.9</DG1.3.1><DG1.3.1>E55.9</DG1.3.1><DG1.3.1>E55.9</DG1. 3.1><DG1.3.1 Baso 0.7 % 0.0-2.5 [facility] ([facility]) FASTING~.~.~<DG1.3.1>E55.9</DG1.3.1><DG1.3.1>E55.9</DG1.3.1><DG1.3.1>E55.9</DG1. 3.1><DG1.3.1 %Ig 0.2 % 0.0-0.0 Above high normal [facility] ([facility]) FASTING~.~.~<DG1.3.1>E55.9</DG1.3.1><DG1.3.1>E55.9</DG1.3.1><DG1.3.1>E55.9</DG1. 3.1><DG1.3.1 %NRBC 0.0 % 0.0-0.0 [facility] ([facility]) FASTING~.~.~<DG1.3.1>E55.9</DG1.3.1><DG1.3.1>E55.9</DG1.3.1><DG1.3.1>E55.9</DG1. 3.1><DG1.3.1 #Neut 3.07 10^3/uL 2.00-6.90 [facility] ([facility]) FASTING~.~.~<DG1.3.1>E55.9</DG1.3.1><DG1.3.1>E55.9</DG1.3.1><DG1.3.1>E55.9</DG1. 3.1><DG1.3.1 #Lymph 2.06 10^3/uL 0.60-3.40 [facility] ([facility]) FASTING~.~.~<DG1.3.1>E55.9</DG1.3.1><DG1.3.1>E55.9</DG1.3.1><DG1.3.1>E55.9</DG1. 3.1><DG1.3.1 #[place] 0.47 10^3/uL 0.00-0.90 [facility] ([facility]) FASTING~.~.~<DG1.3.1>E55.9</DG1.3.1><DG1.3.1>E55.9</DG1.3.1><DG1.3.1>E55.9</DG1. 3.1><DG1.3.1 #Eos 0.21 10^3/uL 0.00-0.70 [facility] ([facility]) FASTING~.~.~<DG1.3.1>E55.9</DG1.3.1><DG1.3.1>E55.9</DG1.3.1><DG1.3.1>E55.9</DG1. 3.1><DG1.3.1 #Baso 0.04 10^3/uL 0.00-0.20 [facility] ([facility]) FASTING~.~.~<DG1.3.1>E55.9</DG1.3.1><DG1.3.1>E55.9</DG1.3.1><DG1.3.1>E55.9</DG1. 3.1><DG1.3.1 #Ig 0.01 10^3/uL 0.00-0.10 [facility] ([facility]) FASTING~.~.~<DG1.3.1>E55.9</DG1.3.1><DG1.3.1>E55.9</DG1.3.1><DG1.3.1>E55.9</DG1. 3.1><DG1.3.1 #NRBC 0.00 10^3/uL 0.00-0.00 [facility] ([facility]) FASTING~.~.~<DG1.3.1>E55.9</DG1.3.1><DG1.3.1>E55.9</DG1.3.1><DG1.3.1>E55.9</DG1. 3.1><DG1.3.1 Manual Diff [facility] FASTING~.~.~<DG1.3.1>E55.9</DG1.3.1><DG1.3.1>E55.9</DG1.3.1><DG1.3.1>E55.9</DG1. 3.1><DG1.3.1 RBC Morph Laboratory test result [facility] ([facility]) FASTING~.~.~<DG1.3.1>E55.9</DG1.3.1><DG1.3.1>E55.9</DG1.3.1><DG1.3.1>E55.9</DG1. 3.1><DG1.3.1 ID Date Data Source [id number] 06/29/2020 08:04:00 AM EDT [facility] ([facility]) Name Value Range Interpretation Code Description Data Jerica rce(s) Supporting Document(s) Calcidiol [Mass/volume] in Serum or Plasma 21 ng/mL [facility] ([facility]) FASTING~.~.~<DG1.3.1>E55.9</DG1.3.1><DG1.3.1>E55.9</DG1.3.1><DG1.3.1>E55.9</DG1. 3.1><DG1.3.1 ID Date Data Source [id number] 05/14/2020 12:00:00 AM EST [facility] Name Value Range Interpretation Code Description Data Jerica rce(s) Supporting Document(s) SARS-CoV-2 (COVID-19) RNA [Presence] in Respiratory specimen by ANJELICA with probe detection Not Detected [facility] This lab was ordered by [facility] and reported by [facility] ID Date Data Source [id number] & GC DNA PROBES 02/24/2020 12:00:00 AM EST eCW1 ([facility]) Name Value Range Interpretation Code Description Data Jerica rce(s) Supporting Document(s) Negative Negative eCW1 ([facility]) Negative Negative eCW1 ([facility]) ID Date Data Source [id number] 01/06/2020 09:30:00 AM EDT [facility] Name Value Range Interpretation Code Description Data Jerica rce(s) Supporting Document(s) SARS coronavirus 2 RNA [facility] This lab was ordered by [facility] and reported by [facility]. Procedure Social History Code Duration Value Status Description Data Source(s ) Smoking 02/28/2021 12:00:00 AM EST Current Smoker completed Curre nt Smoker eCW1 ([facility]) Smoking 02/08/2021 12:00:00 AM EDT Current Smoker completed Curre nt Smoker eCW1 ([facility]) Smoking 02/08/2021 12:00:00 AM EDT Current Smoker completed Curre nt Smoker eCW1 ([facility]) Smoking 02/08/2021 12:00:00 AM EDT Current Smoker completed Curre nt Smoker eCW1 ([facility]) Smoking 12/29/2020 12:00:00 AM EDT Current Smoker completed Curre nt Smoker eCW1 ([facility]) Smoking 12/27/2020 12:00:00 AM EDT Unknown if ever smoked comp leted Unknown if ever smoked [facility] ([facility]) Smoking 12/15/2020 12:00:00 AM EDT Unknown if ever smoked comp leted Unknown if ever smoked [facility] ([facility]) Smoking 12/01/2020 12:00:00 AM EDT Unknown if ever smoked comp leted Unknown if ever smoked [facility] ([facility]) Smoking 11/07/2020 12:00:00 AM EDT Current Smoker completed Curre nt Smoker eCW1 ([facility]) Smoking 11/07/2020 12:00:00 AM EDT Current Smoker completed Curre nt Smoker eCW1 ([facility]) Smoking 10/25/2020 12:00:00 AM EDT Current Smoker completed Curre nt Smoker eCW1 ([facility]) Smoking 10/25/2020 12:00:00 AM EDT Current Smoker completed Curre nt Smoker eCW1 ([facility]) Smoking 10/25/2020 12:00:00 AM EDT Current Smoker completed Curre nt Smoker eCW1 ([facility]) Smoking 10/13/2020 12:00:00 AM EDT Unknown if ever smoked comp leted Unknown if ever smoked [facility] ([facility]) Smoking 09/08/2020 12:00:00 AM EDT Current Smoker completed Curre nt Smoker eCW1 ([facility]) Smoking 08/25/2020 12:00:00 AM EDT Unknown if ever smoked comp leted Unknown if ever smoked [facility] ([facility]) Smoking 07/29/2020 12:00:00 AM EDT Unknown if ever smoked comp leted Unknown if ever smoked [facility] ([facility]) Smoking 07/27/2020 12:00:00 AM EDT Unknown if ever smoked comp leted Unknown if ever smoked [facility] ([facility]) Smoking 07/07/2020 12:00:00 AM EDT Unknown if ever smoked comp leted Unknown if ever smoked [facility] ([facility]) Smoking 07/04/2020 12:00:00 AM EDT Current Smoker completed Curre nt Smoker eCW1 ([facility]) Smoking 07/04/2020 12:00:00 AM EDT Current Smoker completed Curre nt Smoker eCW1 ([facility]) Smoking 07/04/2020 12:00:00 AM EDT Current Smoker completed Curre nt Smoker eCW1 ([facility]) Smoking 06/08/2020 12:00:00 AM EST Unknown if ever smoked comp leted Unknown if ever smoked [facility] ([facility]) Smoking 05/26/2020 12:00:00 AM EST Unknown if ever smoked comp leted Unknown if ever smoked [facility] ([facility]) Smoking 05/20/2020 12:00:00 AM EST Unknown if ever smoked comp leted Unknown if ever smoked [facility] ([facility]) Smoking 05/06/2020 12:00:00 AM EST Unknown if ever smoked comp leted Unknown if ever smoked [facility] ([facility]) Smoking 05/05/2020 12:00:00 AM EST Current Smoker completed Curre nt Smoker eCW1 ([facility]) Smoking 05/05/2020 12:00:00 AM EST Unknown if ever smoked comp leted Unknown if ever smoked [facility] ([facility]) Smoking 04/20/2020 12:00:00 AM EST Unknown if ever smoked comp leted Unknown if ever smoked [facility] ([facility]) Smoking 03/30/2020 12:00:00 AM EST Unknown if ever smoked comp leted Unknown if ever smoked [facility] ([facility]) Smoking 02/25/2020 12:00:00 AM EST Unknown if ever smoked comp leted Unknown if ever smoked [facility] ([facility]) Smoking 02/24/2020 12:00:00 AM EST Current Smoker completed Curre nt Smoker eCW1 ([facility]) Smoking 02/22/2020 12:00:00 AM EST Current Smoker completed Curre nt Smoker eCW1 ([facility]) Smoking 02/10/2020 12:00:00 AM EDT Unknown if ever smoked comp leted Unknown if ever smoked [facility] ([facility]) Smoking 01/27/2020 12:00:00 AM EDT Unknown if ever smoked comp leted Unknown if ever smoked [facility] ([facility]) Smoking 01/25/2020 12:00:00 AM EDT Current Smoker completed Curre nt Smoker eCW1 ([facility]) Vital Signs ID Date Data Source UNK Name Value Range Interpretation Code Description Data Source(s) Body temperature 97.1 [degF] 97.1 [degF] [facility] ([facility] ) Body weight 300 [lb_av] 300 [lb_av] [facility] Body weight 136.08 kg 136.08 kg eCW1 ([facility]) Body height 67 [in_i] 67 [in_i] eCW1 ([facility]) Body mass index (BMI) [Ratio] 46.98 kg/m2 46.98 kg/m2 eCW1 ([facility]) Heart rate 64 /min 64 /min eCW1 ([facility]) Respiratory rate 18 /min 18 /min eCW1 ([facility]) Body temperature 96.8 [degF] 96.8 [degF] eCW1 ( [facility]) Systolic blood pressure 142 mm[Hg] 142 mm[Hg] e CW1 ([facility]) Diastolic blood pressure 88 mm[Hg] 88 mm[Hg] eCW1 ([facility]) Body weight 300.0 [lb_av] 300.0 [lb_av] eCW1 ([facility]) Body weight 136.08 kg 136.08 kg eCW1 ([facility]) Body height 67 [in_i] 67 [in_i] eCW1 ([facility]) Body mass index (BMI) [Ratio] 46.98 kg/m2 46.98 kg/m2 eCW1 ([facility]) Heart rate 70 /min 70 /min eCW1 ([facility]) Respiratory rate 18 /min 18 /min eCW1 ([facility]) Body temperature 98.0 [degF] 98.0 [degF] eCW1 ( [facility]) Systolic blood pressure 159 mm[Hg] 159 mm[Hg] e CW1 ([facility]) Diastolic blood pressure 86 mm[Hg] 86 mm[Hg] eCW1 ([facility]) Body weight Measured 295.00 lbs Normal (applies to n on-numeric results) 295.00 lbs [facility] ([facility]) Body weight 296 [lb_av] 296 [lb_av] eCW1 [facility] Body weight 134.26 kg 134.26 kg eCW1 ([facility]) Body height 67 [in_i] 67 [in_i] eCW1 ([facility]) Body mass index (BMI) [Ratio] 46.36 kg/m2 46.36 kg/m2 eCW1 ([facility]) Systolic blood pressure 116 mm[Hg] 116 mm[Hg] e CW1 ([facility]) Diastolic blood pressure 78 mm[Hg] 78 mm[Hg] eCW1 ([facility]) Body height 67 [in_i] 67 [in_i] eCW1 ([facility]) Body weight 292 [lb_av] 292 [lb_av] eCW1 ([facility] Body weight 132.45 kg 132.45 kg eCW1 ([facility]) Body mass index (BMI) [Ratio] 45.73 kg/m2 45.73 kg/m2 eCW1 ([facility]) Systolic blood pressure 140 mm[Hg] 140 mm[Hg] e CW1 ([facility]) Diastolic blood pressure 78 mm[Hg] 78 mm[Hg] eCW1 ([facility]) Heart rate 68 /min 68 /min eCW1 ([facility]) Respiratory rate 18 /min 18 /min eCW1 ([facility]) Body temperature 96.8 [degF] 96.8 [degF] eCW1 ( [facility]) Systolic blood pressure 139 mm[Hg] 139 mm[Hg] e CW1 ([facility]) Diastolic blood pressure 87 mm[Hg] 87 mm[Hg] eCW1 ([facility]) Body weight 287.0 [lb_av] 287.0 [lb_av] eCW1 ([facility]) Body height 67 [in_i] 67 [in_i] eCW1 ([facility]) Body mass index (BMI) [Ratio] 44.95 kg/m2 44.95 kg/m2 eCW1 ([facility]) Body height 0.00 in Normal (applies to non-numeric resu lts) 0.00 in [facility] ([facility]) Body weight Measured 0.00 lbs Normal (applies to n on-numeric results) 0.00 lbs [facility] ([facility]) Body mass index (BMI) [Ratio] 0.00 kg/m2 No rmal (applies to non-numeric results) 0.00 kg/m2 [facility] ([facility]) Systolic blood pressure 0 mm[Hg] Normal (applies t o non-numeric results) 0 mm[Hg] [facility] ([facility]) Diastolic blood pressure 0 mm[Hg] Normal (applies to non-numeric results) 0 mm[Hg] [facility] ([facility]) Body weight 287.6 [lb_av] 287.6 [lb_av] eCW1 ([facility]) Body height 67 [in_i] 67 [in_i] eCW1 ([facility]) Body mass index (BMI) [Ratio] 45.04 kg/m2 45.04 kg/m2 eCW1 ([facility]) Heart rate 73 /min 73 /min eCW1 ([facility]) Respiratory rate 18 /min 18 /min eCW1 ([facility]) Body temperature 97.9 [degF] 97.9 [degF] eCW1 ( [facility]) Systolic blood pressure 143 mm[Hg] 143 mm[Hg] e CW1 ([facility]) Diastolic blood pressure 79 mm[Hg] 79 mm[Hg] eCW1 ([facility]) Diastolic blood pressure 66 mm[Hg] 66 mm[Hg] MEDENT ([facility]) Heart rate 71 /min 71 /min MEDENT ([facility]) Body temperature 98.7 [degF] 98.7 [degF] MEDENT ([facility]) Respiratory rate 16 /min 16 /min MEDENT ( [facility]) Oxygen saturation in Arterial blood by Pulse oximetry 98 % 98 % MEDENT ([facility]) Body weight 285.00 [lb_av] 285.00 [lb_av] MEDEN T ([facility]) Systolic blood pressure 116 mm[Hg] 116 mm[Hg] M EDENT ([facility]) Body weight 129.276 kg 129.276 kg MEDENT ([facility]) Body height 67 [in_i] 67 [in_i] MEDENT ([facility]) 5'7" Body mass index (BMI) [Ratio] 44.6 kg/m2 44.6 k g/m2 MEDENT ([facility]) Body surface area Derived from formula 2.35 m2 2.35 m2 MEDENT ([facility]) Body height 0.00 in Normal (applies to non-numeric resu lts) 0.00 in [facility] ([facility]) Body weight Measured 0.00 lbs Normal (applies to n on-numeric results) 0.00 lbs [facility]) Body mass index (BMI) [Ratio] 0.00 kg/m2 No rmal (applies to non-numeric results) 0.00 kg/m2 [facility] ([facility]) Systolic blood pressure 0 mm[Hg] Normal (applies t o non-numeric results) 0 mm[Hg] [facility] ([facility]) Diastolic blood pressure 0 mm[Hg] Normal (applies to non-numeric results) 0 mm[Hg] [facility] ([facility]) Body height 0.00 in Normal (applies to non-numeric resu lts) 0.00 in [facility] ([facility]) Body weight Measured 0.00 lbs Normal (applies to n on-numeric results) 0.[address] [facility] ([facility]) Body mass index (BMI) [Ratio] 0.00 kg/m2 No rmal (applies to non-numeric results) 0.00 kg/m2 [facility] ([facility]) Systolic blood pressure 0 mm[Hg] Normal (applies t o non-numeric results) 0 mm[Hg] [facility] ([facility]) Diastolic blood pressure 0 mm[Hg] Normal (applies to non-numeric results) 0 mm[Hg] [facility] ([facility]) Body weight 289.9 [lb_av] 289.9 [lb_av] eCW1 ([facility]) Body height 67 [in_i] 67 [in_i] eCW1 ([facility]) Body mass index (BMI) [Ratio] 45.40 kg/m2 45.40 kg/m2 eCW1 ([facility]) Heart rate 80 /min 80 /min eCW1 ([facility]) Respiratory rate 18 /min 18 /min eCW1 ([facility]) Body temperature 97.1 [degF] 97.1 [degF] eCW1 ( [facility]) Systolic blood pressure 131 mm[Hg] 131 mm[Hg] e CW1 ([facility]) Diastolic blood pressure 63 mm[Hg] 63 mm[Hg] eCW1 ([facility]) Body weight 290 [lb_av] 290 [lb_av] eCW1 [facility] Body height 67 [in_i] 67 [in_i] eCW1 ([facility]) Body mass index (BMI) [Ratio] 45.42 kg/m2 45.42 kg/m2 eCW1 ([facility]) Heart rate 74 /min 74 /min eCW1 ([facility]) Respiratory rate 18 /min 18 /min eCW1 ([facility]) Systolic blood pressure 126 mm[Hg] 126 mm[Hg] e CW1 ([facility]) Diastolic blood pressure 82 mm[Hg] 82 mm[Hg] eCW1 ([facility]) Body height 67 [in_i] 67 [in_i] eCW1 ([facility]) Body weight 290.4 [lb_av] 290.4 [lb_av] [facility] [place] [place] [facility] Body mass index (BMI) [Ratio] 45.48 kg/m2 45.48 kg/m2 eCW1 ([facility]) Heart rate 72 /min 72 /min eCW1 ([facility]) Respiratory rate 18 /min 18 /min eCW1 ([facility]) Body temperature 97.2 [degF] 97.2 [degF] eCW1 ( [facility]) Systolic blood pressure 117 mm[Hg] 117 mm[Hg] e CW1 ([facility]) Diastolic blood pressure 70 mm[Hg] 70 mm[Hg] eCW1 ([facility]) Systolic blood pressure 124 mm[Hg] 124 mm[Hg] M EDENT ([facility], ) Diastolic blood pressure 80 mm[Hg] 80 mm[Hg] MEDENT ([facility], ) Heart rate 72 /min 72 /min MEDENT ([facility] ) Respiratory rate 20 /min 20 /min MEDENT ( [facility] ) Body weight 291.4 [lb_av] 291.4 [lb_av] eCW1 ([facility]) Body height 67 [in_i] 67 [in_i] eCW1 ([facility]) Body mass index (BMI) [Ratio] 45.63 kg/m2 45.63 kg/m2 eCW1 ([facility]) Heart rate 64 /min 64 /min eCW1 ([facility]) Respiratory rate 18 /min 18 /min eCW1 ([facility]) Body temperature 97.4 [degF] 97.4 [degF] eCW1 ( [facility]) Systolic blood pressure 139 mm[Hg] 139 mm[Hg] e CW1 ([facility]) Diastolic blood pressure 90 mm[Hg] 90 mm[Hg] eCW1 ([facility]) Body weight 284.00 [lb_av] 284.00 [lb_av] MEDEN T ([facility]) Body height 67 [in_i] 67 [in_i] MEDENT [facility] 5'7" Body mass index (BMI) [Ratio] 44.5 kg/m2 44.5 k g/m2 MEDENT ([facility]) Heart rate 64 /min 64 /min MEDENT ([facility] Systolic blood pressure--sitting 134 mm[Hg] 134 mm[Hg] MEDENT ([facility]) Omron, large cuff/Ra Diastolic blood pressure--sitting 90 mm[Hg] 90 mm[Hg] MEDENT ([facility]) Omron, large cuff/Ra Patient Treatment Plan of Care Planned Activity Planned Date Details Description Data Source (s) Acetaminophen 325 MG / Oxycodone Hydrochloride 5 MG Or al Tablet [Percocet] 02/23/2021 12:00:00 AM EST eCW1 ([facility]) Tamsulosin hydrochloride 0.4 MG Oral Capsule [Flomax] 02/23/2021 12:00:00 AM EST eCW1 ([facility]) pregabalin 75 MG Oral Capsule [Lyrica] 12/29/2020 12:00:00 AM EDT eCW1 ([facility]) pregabalin 75 MG Oral Capsule [Lyrica] 07/04/2020 12:00:00 AM EDT eCW1 ([facility]) pregabalin 75 MG Oral Capsule [Lyrica] 07/04/2020 12:00:00 AM EDT eCW1 ([facility]) pregabalin 75 MG Oral Capsule [Lyrica] 07/04/2020 12:00:00 AM EDT eCW1 ([facility]) pregabalin 75 MG Oral Capsule [Lyrica] 07/04/2020 12:00:00 AM EDT eCW1 ([facility]) tizanidine 4 MG Oral Tablet 05/05/2020 12:00:00 AM EST eCW1 ([facility]) tizanidine 4 MG Oral Tablet 05/05/2020 12:00:00 AM EST eCW1 ([facility]) tizanidine 4 MG Oral Tablet 05/05/2020 12:00:00 AM EST eCW1 ([facility]) Tinidazole 500 MG Oral Tablet 02/24/2020 12:00:00 AM EST eCW1 ([facility])
[2021-03-04 13:53] LABS: BASO # 0.1 10^3/uL (0.0-0.2); BASO % 0.7 % (0.0-1.0); EOS # 0.3 10^3/uL (0.0-0.5); EOS % 3.7 % (0.0-3.0); HEMATOCRIT 39.6 % (36.0-47.0); HEMOGLOBIN 12.6 g/dl (12.0-15.5); MEAN CORPUSCULAR HEMOGLOBIN 29.3 pg (27.0-33.0); MEAN CORPUSCULAR HGB CONC 31.8 g/dl (32.0-36.5); MEAN CORPUSCULAR VOLUME 92.1 fl (80.0-96.0); MONO # 0.6 10^3/uL (0.0-0.8); MONO % 8.9 % (2.0-8.0); NEUTROPHILS % 57.4 % (36.0-66.0); PLATELET COUNT, AUTOMATED 293 10^3/uL (150-450)
[2021-03-04] MEDS ORDERED: KETOROLAC 60MG 2ML VIAL IM ONE (14:10)
[2021-03-04] MEDS ORDERED: NYST50SS PO (15:19)
[2021-03-04 15:24] VITALS: BP 150/90
== END 2021-03-04 15:32 | disposition home or self-care (01) ==
LOC: M ED 11:28
DX: M54.9 Dorsalgia, unspecified (principal); G89.29 Other chronic pain; B37.0 Candidal stomatitis; G43.909 Migraine, unspecified, not intractable, without status migrainosus; E78.00 Pure hypercholesterolemia, unspecified; K21.9 Gastro-esophageal reflux disease without esophagitis; F41.9 Anxiety disorder, unspecified; F32.9 Major depressive disorder, single episode, unspecified; Z88.6 Allergy status to analgesic agent; Z90.49 Acquired absence of other specified parts of digestive tract; Z87.442 Personal history of urinary calculi; Z79.899 Other long term (current) drug therapy
CPT/HCPCS: 80047; 84702; 85025; 99283; J1885

== ENCOUNTER → 2021-03-08 | Outpatient (CLI) | payer OTHER ==
[~2021-03-08] MED LIST changes: +NYST50SS PO; +OXYC1TAB23
== END ==
LOC: M LABSMTC 11:23
PROVIDERS: ATTEND Anesthesiology
DX: Z11.52 Encounter for screening for COVID-19 (principal)

== ENCOUNTER → 2021-03-14 | Outpatient (CLI) | payer OTHER ==
[~2021-03-14] MED LIST changes: +BUPIVACAINE HCL 0.25% 10ML VIAL As Ordered ONE; +BUPIVACAINE HCL 0.25% 30ML VIAL As Ordered ONE; +CIPR-249 PO; +MIRE1IUD IU; +OXYB5TAB10 PO; -OXYC1TAB23; +OXYC1TAB23 PO; +PYRI1TAB5 PO; +TRIAMCINOLONE ACETONIDE SUSP 40 MG/ML VIAL (J3301) As Ordered ONE; +ZOLO100T PO; +diazePAM 5MG TABLET As Ordered ONE; +oxyCODONE 5MG TAB As Ordered ONE
== END ==
LOC: M PAIN 11:20
PROVIDERS: ATTEND Anesthesiology
DX: M79.18 Myalgia, other site (principal); F32.A Depression, unspecified; F41.9 Anxiety disorder, unspecified; J45.909 Unspecified asthma, uncomplicated; E66.01 Morbid (severe) obesity due to excess calories; K21.9 Gastro-esophageal reflux disease without esophagitis; F17.210 Nicotine dependence, cigarettes, uncomplicated; Z68.42 Body mass index [BMI] 45.0-49.9, adult; Z91.048 Other nonmedicinal substance allergy status
CPT/HCPCS: 20553; J3301

== ENCOUNTER → 2021-03-16 | Outpatient (CLI) | payer OTHER ==
[~2021-03-16] MED LIST changes: -BUPIVACAINE HCL 0.25% 10ML VIAL As Ordered ONE; -BUPIVACAINE HCL 0.25% 30ML VIAL As Ordered ONE; -TRIAMCINOLONE ACETONIDE SUSP 40 MG/ML VIAL (J3301) As Ordered ONE; -diazePAM 5MG TABLET As Ordered ONE; -oxyCODONE 5MG TAB As Ordered ONE
== END ==
LOC: M PLAIMG 12:21
PROVIDERS: ATTEND Orthopaedic Surgery
DX: M51.26 Other intervertebral disc displacement, lumbar region (principal); M51.37 Other intervertebral disc degeneration, lumbosacral region; N13.30 Unspecified hydronephrosis; M51.16 Intervertebral disc disorders with radiculopathy, lumbar region

== ENCOUNTER → 2021-03-23 | Outpatient (CLI) | payer OTHER | LOC: M PAIN 14:45 | PROVIDERS: ATTEND Anesthesiology | DX: G89.29 Other chronic pain (principal); M51.16 Intervertebral disc disorders with radiculopathy, lumbar region; M54.2 Cervicalgia; F32.A Depression, unspecified; F41.9 Anxiety disorder, unspecified; J45.909 Unspecified asthma, uncomplicated; E66.01 Morbid (severe) obesity due to excess calories; K21.9 Gastro-esophageal reflux disease without esophagitis; Z98.84 Bariatric surgery status; L68.0 Hirsutism; F17.210 Nicotine dependence, cigarettes, uncomplicated; Z79.899 Other long term (current) drug therapy; Z91.048 Other nonmedicinal substance allergy status; Z68.42 Body mass index [BMI] 45.0-49.9, adult ==

== ENCOUNTER → 2021-04-14 | Outpatient (CLI) | payer OTHER ==
[~2021-04-14] MED LIST changes: -CIPR-249 PO; -OXYB5TAB10 PO; -PYRI1TAB5 PO
[2021-04-14 10:22] LABS: HEMATOCRIT 40.2 % (36.0-47.0); HEMOGLOBIN 13.5 g/dl (12.0-15.5); MEAN CORPUSCULAR HGB CONC 33.6 g/dl (32.0-36.5); MEAN CORPUSCULAR VOLUME 92.4 fl (80.0-96.0); PLATELET COUNT, AUTOMATED 367 10^3/uL (150-450); RED BLOOD COUNT 4.35 10^6/uL (4.00-5.40); WHITE BLOOD COUNT 8.7 10^3/uL (4.0-10.0)
[2021-04-14 10:45] LABS: ALBUMIN 3.1 GM/DL (3.2-5.2); ALT/SGPT 23 U/L (12-78); BILIRUBIN,TOTAL 0.2 MG/DL (0.2-1.0); BLOOD UREA NITROGEN 14 MG/DL (7-18); CALCIUM LEVEL 8.9 MG/DL (8.5-10.1); CARBON DIOXIDE LEVEL 26 MEQ/L (21-32); CHLORIDE LEVEL 107 MEQ/L (98-107); GLOMERULAR FILTRATION RATE > 60.0 (>58); GLUCOSE, FASTING 93 MG/DL (70-100); POTASSIUM SERUM 4.3 MEQ/L (3.5-5.1); SODIUM LEVEL 140 MEQ/L (136-145); TOTAL PROTEIN 6.7 GM/DL (6.4-8.2)
== END ==
LOC: M LAB 09:20
PROVIDERS: ATTEND Urology
DX: N20.1 Calculus of ureter (principal)

== ENCOUNTER → 2021-04-17 | Outpatient (CLI) | payer OTHER | LOC: M LABSMTC 11:38 | PROVIDERS: ATTEND Anesthesiology | DX: Z01.818 Encounter for other preprocedural examination (principal); Z11.52 Encounter for screening for COVID-19 ==

== ENCOUNTER → 2021-04-20 | Outpatient (CLI) | payer OTHER ==
[~2021-04-20] MED LIST changes: +CIPR-249 PO; +OXYB5TAB10 PO; +PYRI1TAB5 PO
== END ==
LOC: M LAB 09:24
PROVIDERS: ATTEND Urology
DX: N20.1 Calculus of ureter (principal)

== ENCOUNTER → 2021-05-04 | Outpatient (CLI) | payer OTHER | LOC: M LABSMTC 13:02 | PROVIDERS: ATTEND Anesthesiology | DX: Z01.812 Encounter for preprocedural laboratory examination (principal); Z11.52 Encounter for screening for COVID-19 ==

== ENCOUNTER → 2021-05-08 | Outpatient (REF) | payer OTHER | LOC: M SFHCWAGY 17:11 | PROVIDERS: ATTEND Obstetrics & Gynecology | DX: Z87.42 Personal history of other diseases of the female genital tract (principal) ==

== ENCOUNTER → 2021-05-09 | Outpatient (CLI) | payer OTHER ==
[~2021-05-09] MED LIST changes: +ISOVUE-M 300 61% 15ML VIAL As Ordered ONE; +LIDOCAINE 1% SDV 30ML VIAL As Ordered ONE; +diazePAM 5MG TABLET As Ordered ONE; +methylPREDNISolone SUSP 40MG/ML 1ML VIAL (DEPO MEDROL) As Ordered ONE; +oxyCODONE 5MG TAB As Ordered ONE
== END ==
LOC: M PAIN 09:20
PROVIDERS: ATTEND Anesthesiology
DX: M51.16 Intervertebral disc disorders with radiculopathy, lumbar region (principal); F41.9 Anxiety disorder, unspecified; F32.A Depression, unspecified; J45.909 Unspecified asthma, uncomplicated; E66.01 Morbid (severe) obesity due to excess calories; F17.210 Nicotine dependence, cigarettes, uncomplicated; Z68.42 Body mass index [BMI] 45.0-49.9, adult; K21.9 Gastro-esophageal reflux disease without esophagitis; L68.0 Hirsutism; G44.209 Tension-type headache, unspecified, not intractable; Z79.899 Other long term (current) drug therapy; Z91.048 Other nonmedicinal substance allergy status

== ENCOUNTER → 2021-07-18 | Outpatient (CLI) | payer OTHER ==
[~2021-07-18] MED LIST changes: -ISOVUE-M 300 61% 15ML VIAL As Ordered ONE; -LIDOCAINE 1% SDV 30ML VIAL As Ordered ONE; -diazePAM 5MG TABLET As Ordered ONE; -methylPREDNISolone SUSP 40MG/ML 1ML VIAL (DEPO MEDROL) As Ordered ONE; -oxyCODONE 5MG TAB As Ordered ONE
[2021-07-18 10:19] LABS: APPEARANCE, URINE CLEAR (CLEAR); BACTERIA, URINE AUTO NEGATIVE (NEGATIVE); BILIRUBIN, URINE AUTO NEGATIVE (NEGATIVE); BLOOD, URINE BLOOD NEGATIVE (NEGATIVE); COLOR, URINE YELLOW (YELLOW); GLUCOSE, URINE (UA) AUTO NEGATIVE (NEGATIVE); KETONE, URINE AUTO NEGATIVE (NEGATIVE); LEUKOCYTE ESTERASE, URINE AUTO NEGATIVE (NEGATIVE); MUCUS, URINE SMALL (NEGATIVE); NITRITE, URINE AUTO NEGATIVE (NEGATIVE); PROTEIN, URINE AUTO NEGATIVE (NEGATIVE); RBC, URINE AUTO 0 /HPF (0-3); SPECIFIC GRAVITY URINE AUTO 1.023 (1.002-1.035); SQUAMOUS EPITHELIAL CELL UR AU 5 /HPF (0-6); UROBILINOGEN, URINE AUTO 0.2 mg/dL (0.0-2.0); WBC, URINE AUTO 1 /HPF (0-3)
[2021-07-18 10:20] LABS: BASO % 0.5 % (0.0-1.0); EOS # 0.2 10^3/uL (0.0-0.5); EOS % 2.8 % (0.0-3.0); HEMATOCRIT 40.8 % (36.0-47.0); HEMOGLOBIN 13.4 g/dl (12.0-15.5); LYMPH # 2.4 10^3/uL (1.5-5.0); LYMPH % 28.7 % (24.0-44.0); MEAN CORPUSCULAR HEMOGLOBIN 30.5 pg (27.0-33.0); MEAN CORPUSCULAR HGB CONC 32.8 g/dl (32.0-36.5); MEAN CORPUSCULAR VOLUME 92.7 fl (80.0-96.0); MONO # 0.7 10^3/uL (0.0-0.8); MONO % 7.9 % (2.0-8.0); NEUTROPHILS % 59.7 % (36.0-66.0); PLATELET COUNT, AUTOMATED 344 10^3/uL (150-450); WHITE BLOOD COUNT 8.3 10^3/uL (4.0-10.0)
[2021-07-18 10:42] LABS: HEMOGLOBIN A1c 5.7 %
[2021-07-18 11:02] LABS: ALBUMIN 3.6 GM/DL (3.2-5.2); ALT/SGPT 28 U/L (12-78); BILIRUBIN,TOTAL 0.3 MG/DL (0.2-1.0); BLOOD UREA NITROGEN 17 MG/DL (7-18); CARBON DIOXIDE LEVEL 25 MEQ/L (21-32); CHLORIDE LEVEL 110 MEQ/L (98-107); CHOLESTEROL LEVEL 180 MG/DL (<200); CHOLESTEROL RISK RATIO 3.529 (<5); CREATININE FOR GFR 0.68 MG/DL (0.55-1.30); FREE T4 1.02 NG/DL (0.76-1.46); GLOMERULAR FILTRATION RATE > 60.0 (>58); GLUCOSE, FASTING 86 MG/DL (70-100); HDL CHOLESTEROL 51 MG/DL (>40); IRON (FE) 62 UG/DL (50-170); LDL CHOLESTEROL 91 MG/DL (<100); NON-HDL-C 129 MG/DL; POTASSIUM SERUM 4.4 MEQ/L (3.5-5.1); SODIUM LEVEL 139 MEQ/L (136-145); TOTAL 25(OH) VITAMIN D 17.8 NG/ML (30.0-100.0); TOTAL PROTEIN 6.8 GM/DL (6.4-8.2); TRIGLYCERIDES LEVEL 192 MG/DL (<150); VITAMIN B12 LEVEL 414 PG/ML (247-911)
== END ==
LOC: M RAD 08:52
PROVIDERS: ATTEND Family Medicine
DX: M54.2 Cervicalgia (principal); K21.9 Gastro-esophageal reflux disease without esophagitis; E78.5 Hyperlipidemia, unspecified; E55.9 Vitamin D deficiency, unspecified; Z98.84 Bariatric surgery status

== ENCOUNTER → 2021-07-19 | Outpatient (CLI) | payer OTHER | LOC: M PAIN 14:45 | PROVIDERS: ATTEND Anesthesiology | DX: M50.10 Cervical disc disorder with radiculopathy, unspecified cervical region (principal); F32.A Depression, unspecified; F41.9 Anxiety disorder, unspecified; E66.01 Morbid (severe) obesity due to excess calories; K21.9 Gastro-esophageal reflux disease without esophagitis; F17.210 Nicotine dependence, cigarettes, uncomplicated; J30.81 Allergic rhinitis due to animal (cat) (dog) hair and dander; L68.0 Hirsutism; Z68.42 Body mass index [BMI] 45.0-49.9, adult; G44.209 Tension-type headache, unspecified, not intractable; Z98.84 Bariatric surgery status; Z87.442 Personal history of urinary calculi; Z79.899 Other long term (current) drug therapy; Z91.048 Other nonmedicinal substance allergy status ==

== ENCOUNTER → 2021-08-15 | Outpatient (CLI) | payer OTHER | LOC: M PLAIMG 07:54 | PROVIDERS: ATTEND Anesthesiology | DX: M50.10 Cervical disc disorder with radiculopathy, unspecified cervical region (principal); M50.223 Other cervical disc displacement at C6-C7 level ==

== ENCOUNTER → 2021-09-26 | Outpatient (CLI) | payer OTHER | LOC: M PAIN 10:45 | PROVIDERS: ATTEND Nurse Practitioner Family | DX: M50.10 Cervical disc disorder with radiculopathy, unspecified cervical region (principal); G89.29 Other chronic pain; J45.909 Unspecified asthma, uncomplicated; K21.9 Gastro-esophageal reflux disease without esophagitis; F17.210 Nicotine dependence, cigarettes, uncomplicated; Z86.59 Personal history of other mental and behavioral disorders; Z98.84 Bariatric surgery status; Z91.09 Other allergy status, other than to drugs and biological substances; E66.01 Morbid (severe) obesity due to excess calories; Z68.42 Body mass index [BMI] 45.0-49.9, adult; Z79.899 Other long term (current) drug therapy ==

== ENCOUNTER 2021-11-17 19:58 | Emergency (ER) | payer OTHER ==
[2021-11-17 20:55] LABS: BASO % 0.4 % (0.0-1.0); EOS # 0.2 10^3/uL (0.0-0.5); EOS % 2.5 % (0.0-3.0); HEMATOCRIT 35.1 % (36.0-47.0); HEMOGLOBIN 11.5 g/dl (12.0-15.5); LYMPH # 2.2 10^3/uL (1.5-5.0); LYMPH % 26.3 % (24.0-44.0); MEAN CORPUSCULAR HEMOGLOBIN 30.8 pg (27.0-33.0); MEAN CORPUSCULAR HGB CONC 32.8 g/dl (32.0-36.5); MEAN CORPUSCULAR VOLUME 94.1 fl (80.0-96.0); MONO # 0.6 10^3/uL (0.0-0.8); MONO % 6.8 % (2.0-8.0); NEUTROPHILS # 5.4 10^3/uL (1.5-8.5); NEUTROPHILS % 63.8 % (36.0-66.0); PLATELET COUNT, AUTOMATED 291 10^3/uL (150-450); RED BLOOD COUNT 3.73 10^6/uL (4.00-5.40); WHITE BLOOD COUNT 8.4 10^3/uL (4.0-10.0)
[2021-11-17 21:22] LABS: HCG, SERUM QUALITATIVE NEGATIVE (NEGATIVE)
[2021-11-17 21:30] LABS: CK-MB VALUE MASS < 1.0 NG/ML (<3.6); CPK CREATINE PHOSPHOKINASE 53 U/L (26-192); MB/CK RELATIVE INDEX 1.89 (< OR =4)
[2021-11-17 21:39] LABS: BLOOD UREA NITROGEN 13 MG/DL (7-18); CALCIUM LEVEL 8.7 MG/DL (8.5-10.1); CARBON DIOXIDE LEVEL 24 MEQ/L (21-32); CHLORIDE LEVEL 112 MEQ/L (98-107); CREATININE FOR GFR 0.78 MG/DL (0.55-1.30); FREE T4 0.86 NG/DL (0.76-1.46); GLOMERULAR FILTRATION RATE > 60.0 (>58); GLUCOSE, FASTING 101 MG/DL (70-100); POTASSIUM SERUM 4.1 MEQ/L (3.5-5.1); SODIUM LEVEL 139 MEQ/L (136-145)
[2021-11-17] MEDS ORDERED: NS 1,000 ML IV ONE (21:45)
[2021-11-17 22:45] VITALS: BP 157/72
== END 2021-11-17 23:15 | disposition home or self-care (01) ==
LOC: EDBD 19:58 → M ED 19:58
DX: R55 Syncope and collapse (principal); R00.1 Bradycardia, unspecified; F31.9 Bipolar disorder, unspecified; K21.9 Gastro-esophageal reflux disease without esophagitis; M50.20 Other cervical disc displacement, unspecified cervical region; M51.36 Other intervertebral disc degeneration, lumbar region; Z90.49 Acquired absence of other specified parts of digestive tract; F17.210 Nicotine dependence, cigarettes, uncomplicated; Z88.6 Allergy status to analgesic agent; Z91.048 Other nonmedicinal substance allergy status; Z79.899 Other long term (current) drug therapy

== ENCOUNTER → 2021-12-19 | Outpatient (CLI) | payer OTHER | LOC: M PAIN 10:15 | PROVIDERS: ATTEND Nurse Practitioner Family | DX: M50.10 Cervical disc disorder with radiculopathy, unspecified cervical region (principal); F32.A Depression, unspecified; F41.9 Anxiety disorder, unspecified; E66.01 Morbid (severe) obesity due to excess calories; K21.9 Gastro-esophageal reflux disease without esophagitis; G44.209 Tension-type headache, unspecified, not intractable; L68.0 Hirsutism; Z98.84 Bariatric surgery status; N85.01 Benign endometrial hyperplasia; Z91.048 Other nonmedicinal substance allergy status; J30.81 Allergic rhinitis due to animal (cat) (dog) hair and dander; F17.210 Nicotine dependence, cigarettes, uncomplicated; Z90.49 Acquired absence of other specified parts of digestive tract; Z68.42 Body mass index [BMI] 45.0-49.9, adult ==

== ENCOUNTER → 2022-01-19 | Outpatient (REF) | payer OTHER | LOC: M LAB REF 12:35 | PROVIDERS: ATTEND Physician Assistant | DX: R30.0 Dysuria (principal) ==

== ENCOUNTER → 2022-01-30 | Outpatient (CLI) | payer OTHER | LOC: M PAIN 09:45 | PROVIDERS: ATTEND Nurse Practitioner Family | DX: M50.10 Cervical disc disorder with radiculopathy, unspecified cervical region (principal); F32.A Depression, unspecified; F41.9 Anxiety disorder, unspecified; J45.909 Unspecified asthma, uncomplicated; E66.01 Morbid (severe) obesity due to excess calories; K21.9 Gastro-esophageal reflux disease without esophagitis; G44.209 Tension-type headache, unspecified, not intractable; Z98.84 Bariatric surgery status; L68.0 Hirsutism; Z87.442 Personal history of urinary calculi; R01.1 Cardiac murmur, unspecified; F17.210 Nicotine dependence, cigarettes, uncomplicated; Z68.42 Body mass index [BMI] 45.0-49.9, adult; Z91.048 Other nonmedicinal substance allergy status; Z79.899 Other long term (current) drug therapy ==

== ENCOUNTER → 2022-05-04 | Outpatient (CLI) | payer OTHER ==
[~2022-05-04] MED LIST changes: +NYST-38 PO; -NYST50SS PO
== END ==
LOC: M PAIN 10:30
PROVIDERS: ATTEND Nurse Practitioner Family
DX: M50.10 Cervical disc disorder with radiculopathy, unspecified cervical region (principal); G89.29 Other chronic pain; R73.03 Prediabetes; J45.909 Unspecified asthma, uncomplicated; K21.9 Gastro-esophageal reflux disease without esophagitis; F17.210 Nicotine dependence, cigarettes, uncomplicated; Z86.59 Personal history of other mental and behavioral disorders; Z98.84 Bariatric surgery status; Z91.09 Other allergy status, other than to drugs and biological substances; E66.01 Morbid (severe) obesity due to excess calories; Z68.42 Body mass index [BMI] 45.0-49.9, adult; Z79.899 Other long term (current) drug therapy

== ENCOUNTER → 2022-05-28 | Outpatient (CLI) | payer OTHER | LOC: M PLAIMG 10:28 | PROVIDERS: ATTEND Urology | DX: N20.0 Calculus of kidney (principal) ==

== ENCOUNTER → 2022-05-29 | Outpatient (REF) | payer OTHER ==
[2022-05-29 17:09] LABS: APPEARANCE, URINE CLEAR (CLEAR); BILIRUBIN, URINE AUTO NEGATIVE (NEGATIVE); BLOOD, URINE BLOOD NEGATIVE (NEGATIVE); COLOR, URINE YELLOW (YELLOW); GLUCOSE, URINE (UA) AUTO NEGATIVE (NEGATIVE); KETONE, URINE AUTO NEGATIVE (NEGATIVE); LEUKOCYTE ESTERASE, URINE AUTO NEGATIVE (NEGATIVE); NITRITE, URINE AUTO NEGATIVE (NEGATIVE); PROTEIN, URINE AUTO NEGATIVE (NEGATIVE); UROBILINOGEN, URINE AUTO 0.2 mg/dL (0.0-2.0)
[2022-05-29 17:13] LABS: BACTERIA, URINE AUTO NEGATIVE (NEGATIVE); CALCIUM OXALATE CRYSTALS SMALL; MUCUS, URINE SMALL (NEGATIVE); RBC, URINE AUTO 0 /HPF (0-3); SQUAMOUS EPITHELIAL CELL UR AU 1 /HPF (0-6); WBC, URINE AUTO 2 /HPF (0-3)
== END ==
LOC: M SMT 16:46
PROVIDERS: ATTEND Urology
DX: Z87.440 Personal history of urinary (tract) infections (principal)

== ENCOUNTER → 2022-10-23 | Outpatient (REF) | payer OTHER | LOC: M PLALAB 13:56 | PROVIDERS: ATTEND Obstetrics & Gynecology | DX: Z12.4 Encounter for screening for malignant neoplasm of cervix (principal); R87.5 Abnormal microbiological findings in specimens from female genital organs ==

== ENCOUNTER → 2023-05-29 | Outpatient (REF) | payer OTHER ==
[~2023-05-29] MED LIST changes: +LORA-1041 PO; -LORA-674 PO; -OXYB5TAB10 PO; +OXYB5TAB14 PO
[2023-05-29 13:51] LABS: APPEARANCE, URINE CLOUDY (CLEAR); BACTERIA, URINE AUTO NEGATIVE (NEGATIVE); BILIRUBIN, URINE AUTO NEGATIVE (NEGATIVE); BLOOD, URINE BLOOD 3+ (NEGATIVE); COLOR, URINE YELLOW (YELLOW); GLUCOSE, URINE (UA) AUTO NEGATIVE (NEGATIVE); KETONE, URINE AUTO NEGATIVE (NEGATIVE); LEUKOCYTE ESTERASE, URINE AUTO TRACE (NEGATIVE); MUCUS, URINE SMALL (NEGATIVE); NITRITE, URINE AUTO NEGATIVE (NEGATIVE); PROTEIN, URINE AUTO NEGATIVE (NEGATIVE); RBC, URINE AUTO 5 /HPF (0-3); SPECIFIC GRAVITY URINE AUTO 1.023 (1.002-1.035); SQUAMOUS EPITHELIAL CELL UR AU 13 /HPF (0-6); UROBILINOGEN, URINE AUTO 0.2 mg/dL (0.0-2.0); WBC, URINE AUTO 3 /HPF (0-3)
== END ==
LOC: M SMT 12:24
PROVIDERS: ATTEND Urology
DX: N20.0 Calculus of kidney (principal)

== ENCOUNTER 2023-07-22 20:58 | Emergency (ER) | payer OTHER, SELFPAY ==
[~2023-07-22] VITALS: Ht 170.2 cm; Wt 134.2 kg
[~2023-07-22 20:58] MED LIST changes: +TIZA4CAP3 PO; -TIZA4CAP6 PO
[2023-07-23 01:02] VITALS: BP 183/98; TEMP 97.5; O2SAT 98
[2023-07-23] MEDS ORDERED: PRED20TA PO (01:13)
[2023-07-23] MEDS: KETOROLAC 30 MG/ML 1ML VIAL IM ONE (01:14)
== END 2023-07-23 01:29 | disposition home or self-care (01) ==
LOC: M ED 20:58
DX: M25.571 Pain in right ankle and joints of right foot (principal); M77.31 Calcaneal spur, right foot; F17.200 Nicotine dependence, unspecified, uncomplicated; Z88.6 Allergy status to analgesic agent; Z79.83 Long term (current) use of bisphosphonates; Z79.899 Other long term (current) drug therapy; Z79.02 Long term (current) use of antithrombotics/antiplatelets
CPT/HCPCS: 73610; 73630; 96372; 99284; J1885